=== PATIENT | female | born 1940 | race Caucasian/White ===

== ENCOUNTER → 2017-04-29 | Outpatient (CLI) | payer OTHER, BC ==
[~2017-04-29] MED LIST: ACYC1CAP8 PO; ASPCH81 PO; CIPR-255 PO; DICY20TA35 PO; DRGTP12 TOP; HYDR-5688 PO; LCTX PO; LPR25 PO; LVQ750 PO; METR500T PO; MRLP17X PO; ONDA8TAB6 PO; OXYC-57 PO; OXYC-643 PO; OXYC20TA50 PO; acyclovir
== END | disposition home or self-care (01) ==
LOC: C.LABSPEC 13:48
PROVIDERS: ATTEND Physician Assistant
DX: N90.9 Noninflammatory disorder of vulva and perineum, unspecified (principal)

== ENCOUNTER 2017-05-01 16:14 | Emergency (ER) | payer OTHER, BC ==
[~2017-05-01] VITALS: Ht 162.6 cm; Wt 63.3 kg
[~2017-05-01 16:14] MED LIST changes: -ACYC1CAP8 PO; -CIPR-255 PO; -DICY20TA35 PO; -DRGTP12 TOP; -HYDR-5688 PO; -LCTX PO; -METR500T PO; -MRLP17X PO; -ONDA8TAB6 PO; -OXYC-57 PO; -OXYC-643 PO; -OXYC20TA50 PO; -acyclovir
[2017-05-01 16:17] VITALS: TEMP 36.5; Ht 162.6 cm; Wt 63.3 kg
[2017-05-01] MEDS ORDERED: OXYC-57 PO (16:35)
[2017-05-01] MEDS ORDERED: METRONIDAZOLE 250 MG TAB PO STA (17:37)
[2017-05-01] MEDS ORDERED: KETOROLAC TROMETHAMINE 60 MG/2 ML VIAL IM STA (17:41)
[2017-05-01 19:41] LABS: BASO % 0.2 %; BASO ABS # 0.02 K/uL (0-0.2); COMPLETE YES; EOS % 0.7 %; HEMATOCRIT 41.4 % (37-47); IG% 0.3 %; LYMPH % 19.9 %; MEAN CELL VOLUME 87.5 fL (80-100); MEAN CORPUSCULAR HEMOGLOBIN 28.3 pg (25-34); MEAN CORPUSCULAR HGB CONC 32.4 g/dl (32-36); MEAN PLATELET VOLUME 9.6 fL (7.4-10.4); MONO % 8.3 %; NEUT % 70.6 %; PLATELET COUNT 280 K/uL (130-400); RED BLOOD COUNT 4.73 M/uL (4.2-5.4); WHITE BLOOD COUNT 11.04 K/uL (4.8-10.8)
[2017-05-01 19:42] LABS: URINE APPEARANCE CLEAR (CLEAR); URINE BILIRUBIN NEG (NEG); URINE COLOR YELLOW; URINE EPITHELIAL CELL AUTO 0-5 /lpf (0-5); URINE NITRITE NEG (NEG); URINE PH 5.5 (4.5-7.5); URINE SPECIFIC GRAVITY 1.014 (1.000-1.030); UROBILINOGEN NEG (NEG); ZZURINE CULT IF INDIC CATH NO
[2017-05-01] MEDS ORDERED: MoRPHine SULFATE 4 MG/ML 1 ML CARP\\VIAL IV STA (19:42)
[2017-05-01 19:45] LABS: MANUAL MICROSCOPIC REQUIRED? NO; REVIEW REQ? NO
[2017-05-01] MEDS ORDERED: MoRPHine SULFATE 10 MG/ML CARP/VIAL IM STA (19:50)
[2017-05-01 20:01] LABS: BUN/CREATININE RATIO 13.4 (10-20); CALCIUM 9.7 mg/dl (8.5-10.1); CREATININE 0.87 mg/dl (0.60-1.20); POTASSIUM 4.3 mmol/L (3.5-5.1)
--- NOTE | 2017-05-01 21:01 | DIAGNOSTIC IMAGING REPORT ---
CT SCAN OF THE ABDOMEN AND PELVIS WITHOUT CONTRAST CLINICAL HISTORY: Pain, radiating to the pelvis COMPARISON STUDY: 04/02/2014 TECHNIQUE: CT scan of the abdomen and pelvis was performed from the lung bases to the proximal femurs. Images are reviewed in the axial, sagittal, and coronal planes. IV contrast was not administered for this examination. A dose lowering technique was utilized adhering to the principles of ALARA. CT DOSE: 549.36 mGy.cm FINDINGS: Lower chest: There are mild dependent atelectatic changes. Liver: The unenhanced liver is normal in size, contour, and attenuation. There is no intrahepatic biliary ductal dilatation. Gallbladder: The gallbladder is mildly distended. No calculi are visualized. Spleen: Normal in size and attenuation. Pancreas: Unremarkable. Adrenal glands: Unremarkable. Kidneys: No renal calculi are visualized. 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 No ureteral calculi are visualized. Bowel: There are no transition zones indicate bowel obstruction. There is severe sigmoid diverticulosis. There is sigmoid wall thickening and very minimal infiltration the perisigmoid fat. Minimal sigmoid diverticulitis is suspected. An underlying colonic mass cannot be excluded. The appendix appears normal. Peritoneum: There is no intraperitoneal free air or abdominal ascites. Vasculature: The abdominal aorta is normal in course and caliber. Adenopathy: None. Pelvic viscera: The bladder, and pelvic viscera are unremarkable. Skeletal structures: There are multiple destructive bone lesions including an expansile lesion involving the left seventh rib, a 22 mm L4 vertebral body lytic lesion. A 29 mm right iliac lytic lesion, a 9 mm left iliac lytic lesion, and 56 mm right posterior pelvic soft tissue mass with sacral destruction. IMPRESSION: 1. No evidence of bowel obstruction. No evidence of free air 2. Normal appendix 3. Extensive sigmoid diverticulosis with suspected minimal diverticulitis. Underlying mass cannot be excluded. 4. 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 The findings are consistent with metastatic disease/myeloma. The sacral lesion would be amenable to CT-guided fine-needle aspiration biopsy. Electronically signed by: Marcelino Cano M.D. 05/01/2017 9:00 PM Dictated Date/Time: 05/01/2017 8:49 PM
[2017-05-01] MEDS ORDERED: CIPROFLOXACIN 500 MG TAB PO STA (21:25)
[2017-05-01] MEDS ORDERED: DICYCLOMINE HCL 20 MG TAB PO STA (21:29)
[2017-05-01] MEDS ORDERED: HYDROCODONE/ACETAMOPHEN 5/325MG TAB PO STA (21:29)
--- NOTE | 2017-05-01 21:54 | EMERGENCY ROOM VISIT NOTE ---
History Report prepared by Chaitanya: Alvin Poole Under the Supervision of: Dr. Crista Chang D.O. First contact with patient: 16:28 Chief Complaint: PELVIC PAIN Stated Complaint: VAGINAL PAIN History of Present Illness The patient is a 76 year old female who presents to the Emergency Room with complaints of worsening vaginal pain that started two days ago. She rates her pain as a 10/10 in severity. She reports that she has a dropped cervix, which she has been using pessaries for. The patient states that she had developed a rash in her genital area that prompted her to visit her doctor where they thought it was just due to irritation and advised she get her pessary changed. The patient states that she went to her [employer] to have her pessary changed and states that it worked until two days ago when she was feeling "irritated". She states that she went to see her doctor two days ago due to the irritation and a PA took out her pessary to relieve her symptoms. The patient states that since her pessary was removed, she has been experiencing "excruciating" pain radiating from her genital area to her buttocks. She also reports that she has been vomiting and nauseous. The patient states she took Oxycodone at 1000, but denies relief of symptoms. The patient denies any vaginal discharge or bleeding , previous vaginal issues, use of topical creams, change in bowel movements, urinary symptoms, previous pessary issues, back pain, fevers, and chills. Source of History: patient Onset: two days ago Position: other (vaginal area) Symptom Intensity: 10/10 Timing: worsening Modifying Factors (Relieving): other (Oxycodone) Associated Symptoms: + nausea, + vomiting, No fevers, No abdominal pain, No back pain, No urinary symptoms Review of Systems See HPI for pertinent positives & negatives. A total of 10 systems reviewed and were otherwise negative. Past Medical & Surgical Medical Problems: (1) No Known Active Medical Problems Family History Diabetes mellitus FHx: cancer Heart disease Kidney disease Kidney stones Social History Smoking Status: Former Smoker Alcohol Use: other (6 oz wine/day) Drug Use: none Marital Status: Housing Status: lives with family Occupation Status: retired Current/Historical Medications Scheduled Ciprofloxacin Hcl (Cipro), 500 MG PO BID Dicyclomine Hcl (Bentyl), 20 MG PO TID Metronidazole (Flagyl), 500 MG PO TID Scheduled PRN Hydrocodone/Acetaminophen 5MG/325MG (Hurricane 5MG/325MG), 1-2 TABS PO Q6H PRN for Pain Oxycodone/Acetaminophen 5MG/325MG (Percocet 5MG/325MG), 1 TABLET PO Q4 PRN for Pain Allergies Coded Allergies: No Known Allergies (Unverified , 05/01/17) Physical Exam Vital Signs Date Time Temp Pulse Resp B/P (MAP) Pulse Ox O2 Delivery O2 Flow Rate FiO2 05/01/17 23:15 94 18 112/54 93 Room Air 05/01/17 20:38 96 18 124/60 95 Room Air 05/01/17 17:57 95 17 135/61 99 Room Air 05/01/17 16:17 36.5 120 20 131/70 99 Room Air Physical Exam GENERAL: alert, well appearing, well nourished, no distress, non-toxic EYE EXAM: normal conjunctiva, PERRL and EOM's grossly intact OROPHARYNX: no exudate, no erythema, lips, buccal mucosa, and tongue normal and mucous membranes are moist. No CMT. No tenderness. NECK: supple, no nuchal rigidity, no adenopathy, non-tender LUNGS: Clear to auscultation. Normal chest wall mechanics HEART: no murmurs, S1 normal and S2 normal ABDOMEN: abdomen soft, non-tender, normo-active bowel sounds, no masses, no rebound or guarding. BACK: Back is symmetrical on inspection and there is no deformity, no midline tenderness, no CVA tenderness. SKIN: no rashes and no bruising UPPER EXTREMITIES: upper extremities are grossly normal. LOWER EXTREMITIES: No pitting edema. GENITAL: normal external genitalia, no irritation or evidence of bleeding from the vaginal vault. She had a thin white vaginal discharge. Cervix normal appearing. NEURO EXAM: Normal sensorium, cranial nerves II-XII grossly intact, normal speech, no gross weakness of arms, no gross weakness of legs. No drift. Finger to nose intact. Gross sensation intact. Medical Decision & Procedures ER Provider Diagnostic Interpretation: CT scan: Radiology provided the following report CT: The preliminary reading from radiology is the following: CT SCAN OF THE ABDOMEN AND PELVIS WITHOUT CONTRAST CLINICAL HISTORY: Pain, radiating to the pelvis COMPARISON STUDY: 04/02/2014 TECHNIQUE: CT scan of the abdomen and pelvis was performed from the lung bases to the proximal femurs. Images are reviewed in the axial, sagittal, and coronal planes. IV contrast was not administered for this examination. A dose lowering technique was utilized adhering to the principles of ALARA. CT DOSE: 549.36 mGy.cm FINDINGS: Lower chest: There are mild dependent atelectatic changes. Liver: The unenhanced liver is normal in size, contour, and attenuation. There is no intrahepatic biliary ductal dilatation. Gallbladder: The gallbladder is mildly distended. No calculi are visualized. Spleen: Normal in size and attenuation. Pancreas: Unremarkable. Adrenal glands: Unremarkable. Kidneys: No renal calculi are visualized. 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 No ureteral calculi are visualized. Bowel: There are no transition zones indicate bowel obstruction. There is severe sigmoid diverticulosis. There is sigmoid wall thickening and very minimal infiltration the perisigmoid fat. Minimal sigmoid diverticulitis is suspected. An underlying colonic mass cannot be excluded. The appendix appears normal. Peritoneum: There is no intraperitoneal free air or abdominal ascites. Vasculature: The abdominal aorta is normal in course and caliber. Adenopathy: None. Pelvic viscera: The bladder, and pelvic viscera are unremarkable. Skeletal structures: There are multiple destructive bone lesions including an expansile lesion involving the left seventh rib, a 22 mm L4 vertebral body lytic lesion. A 29 mm right iliac lytic lesion, a 9 mm left iliac lytic lesion, and 56 mm right posterior pelvic soft tissue mass with sacral destruction. IMPRESSION: 1. No evidence of bowel obstruction. No evidence of free air 2. Normal appendix 3. Extensive sigmoid diverticulosis with suspected minimal diverticulitis. Underlying mass cannot be excluded. 4. 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 The findings are consistent with metastatic disease/myeloma. The sacral lesion would be amenable to CT-guided fine-needle aspiration biopsy. Electronically signed by: Marcelino Cano M.D. 05/01/2017 9:00 PM Dictated Date/Time: 05/01/2017 8:49 PM Laboratory Results 05/01/17 19:29 Red Blood Count 4.73, Mean Corpuscular Volume 87.5, Mean Corpuscular Hemoglobin 28.3, Mean Corpuscular Hemoglobin Concent 32.4, Mean Platelet Volume 9.6, Neutrophils (%) (Auto) 70.6, Lymphocytes (%) (Auto) 19.9, Monocytes (%) (Auto) 8.3, Eosinophils (%) (Auto) 0.7, Basophils (%) (Auto) 0.2, Neutrophils # (Auto) 7.79, Lymphocytes # (Auto) 2.20, Monocytes # (Auto) 0.92, Eosinophils # (Auto) 0.08, Basophils # (Auto) 0.02 05/01/17 19:29 Test 05/01/17 18:50 05/01/17 19:29 Urine Color YELLOW Urine Appearance CLEAR (CLEAR) Urine pH 5.5 (4.5-7.5) Urine Specific Cecil 1.014 (1.000-1.030) Urine Protein NEG (NEG) Urine Glucose (UA) NEG (NEG) Urine Ketones 1+ (NEG) Urine Occult Blood NEG (NEG) Urine Nitrite NEG (NEG) Urine Bilirubin NEG (NEG) Urine Urobilinogen NEG (NEG) Urine Leukocyte Esterase NEG (NEG) Urine WBC (Auto) 0 /hpf (0-5) Urine RBC (Auto) 0-4 /hpf (0-4) Urine Hyaline Casts (Auto) 0 /lpf (0-5) Urine Epithelial Cells (Auto) 0-5 /lpf (0-5) Urine Bacteria (Auto) NEG (NEG) White Blood Count 11.04 K/uL (4.8-10.8) Red Blood Count 4.73 M/uL (4.2-5.4) Hemoglobin 13.4 g/dL (12.0-16.0) Hematocrit 41.4 % (37-47) Mean Corpuscular Volume 87.5 fL (80-100) Mean Corpuscular Hemoglobin 28.3 pg (25-34) Mean Corpuscular Hemoglobin Concent 32.4 g/dl (32-36) Platelet Count 280 K/uL (130-400) Mean Platelet Volume 9.6 fL (7.4-10.4) Neutrophils (%) (Auto) 70.6 % Lymphocytes (%) (Auto) 19.9 % Monocytes (%) (Auto) 8.3 % Eosinophils (%) (Auto) 0.7 % Basophils (%) (Auto) 0.2 % Neutrophils # (Auto) 7.79 K/uL (1.4-6.5) Lymphocytes # (Auto) 2.20 K/uL (1.2-3.4) Monocytes # (Auto) 0.92 K/uL (0.11-0.59) Eosinophils # (Auto) 0.08 K/uL (0-0.5) Basophils # (Auto) 0.02 K/uL (0-0.2) RDW Standard Deviation 39.8 fL (36.4-46.3) RDW Coefficient of Variation 12.3 % (11.5-14.5) Immature Granulocyte % (Auto) 0.3 % Immature Granulocyte # (Auto) 0.03 K/uL (0.00-0.02) Anion Gap 9.0 mmol/L (3-11) Est Creatinine Clear Calc Drug Dose 48.3 ml/min Estimated GFR () 75.5 Estimated GFR (Non- 65.2 BUN/Creatinine Ratio 13.4 (10-20) Calcium Level 9.7 mg/dl (8.5-10.1) Chemistry Specimen Hemolysis Date/Time Source Procedure Growth Status 05/01/17 17:25 Cervix Swab Trichomonas Preparation - Final Complete Laboratory results per my review. Medications Administered Medications (Trade) Dose Ordered Sig/Cooper Route Start Time Stop Time Status Last Admin Dose Admin Metronidazole (Flagyl Tab) 500 mg NOW STAT PO 05/01/17 17:37 05/01/17 17:38 DC 05/01/17 17:50 500 MG Ketorolac Tromethamine (Toradol Inj) 30 mg NOW STAT IM 05/01/17 17:41 05/01/17 17:43 DC 05/01/17 17:51 30 MG Morphine Sulfate (MoRPHine SULFATE INJ) 6 mg NOW STAT IM 05/01/17 19:50 05/01/17 19:51 DC 05/01/17 20:09 6 MG Ciprofloxacin (Cipro Tab) 500 mg NOW STAT PO 05/01/17 21:25 05/01/17 21:26 DC 05/01/17 22:15 500 MG Dicyclomine HCl (Bentyl Tab) 20 mg NOW STAT PO 05/01/17 21:29 05/01/17 21:31 DC 05/01/17 22:14 20 MG Acetaminophen/ Hydrocodone Bitart (Hurricane 5/325 Tab) 1 tab NOW STAT PO 05/01/17 21:29 05/01/17 21:31 DC 05/01/17 22:14 1 TAB ED Course 1638: The patient was evaluated in room A02. A complete history and physical exam was performed. 173: Flagyl Tab 500 mg PO 1740: Toradol Injection 30 mg IM. 1941: Morphine Sulfate 4 mg IV. 1949: Morphine Sulfate 5 mg IM. 2107: I reevaluated the patient and she is resting comfortably. I updated her on her results and will discharge her home when I can control her pain. 2124: Cipro Tab 500 mg PO. 2128: Hurricane 5/325 Tab 1 tab PO, Bentyl Tab 20 mg PO. 2255: Pt states pain improved and ready to go home. Medical Decision Differential diagnoses includes but is not limited to gastritis, peptic ulcer disease, GERD, gallbladder disease, pancreatitis, small bowel obstruction, acute coronary syndrome, pericarditis, ischemic bowel, irritable bowel disease, irritable bowel syndrome, appendicitis, diverticulitis, malignancy, hernia, urinary tract infection, perforation, trauma, infectious. Medication Reconciliation: I attest that I have personally reviewed the patient' s current medication list. Blood pressure screening: Patient was found to have a slightly elevated blood pressure due to circumstances. I do not believe that the patient requires hypertension monitoring. Patient uncomfortable appearing here, however reassuring exam with exception of mild vaginal discharge. Recent genital cultures performed by [employer] the office upon removal of pessary grout Gardnerella, and discussed the patient at bedside treatment for possible BV. Patient with no behaviors high risk for additional STDs. Given persistence of patient's pain despite pain medications, discussed with her labs and additional imaging as a precaution. Diverticulitis no noted on CT, and patient improved following additional medications. Discussed antibiotics, pain medications with patient at bedside, follow-up with PCP as well as GI. Patient verbalized she has never had a colonoscopy and never intends to get one. States if advised of such she will refuse. I discussed with patient that this is a recommended screening procedure and would likely be recommended over the next 46 weeks following resolution of her diverticulitis symptoms. She verbalized understanding of this and intends to refuse the procedure. Discussed with patient and family symptoms watch and return for, use of antibiotics, probiotics, adequate hydration, follow-up again with [employer] regarding her pessary and possible BV, they verbalized understanding of all this , all questions answered bedside, they were agreeable with plan. Doubt additional or vascular pathology. Patient's diverticulitis mild with no apparent complications seen on CT. Blood Pressure Screening Patient's blood pressure: Elevated blood pressure Blood pressure disposition: Elevated BP felt to be situational Impression Primary Impression: Pelvic pain Additional Impressions: Vaginal discharge Bacterial vaginosis Diverticulitis Scribe Attestation The scribe's documentation has been prepared under my direction and personally reviewed by me in its entirety. I confirm that the note above accurately reflects all work, treatment, procedures, and medical decision making performed by me. Departure Information Dispostion Home / Self-Care Prescriptions Hydrocodone/Acetaminophen 5MG/325MG (Hurricane 5MG/325MG) Tab 1-2 TABS PO Q6H Y for Pain, #20 TAB Prov: Crista Chang, DO 05/01/17 Dicyclomine Hcl (BENTYL) 20 Mg Tab 20 MG PO TID for Pain, #20 TAB Prov: Crista Chang, DO 05/01/17 Metronidazole (FLAGYL) 500 Mg Tab 500 MG PO TID for 7 Days, #21 TAB Prov: Crista Chang, DO 05/01/17 Ciprofloxacin Hcl (CIPRO) 500 Mg Tab 500 MG PO BID, #14 TAB Prov: Crista Chang, DO 05/01/17 Referrals Artemio Mane III, M.D. (PCP) Patient Instructions My [facility] Additional Instructions Please call and follow-up with your family doctor. Please follow-up with ob/ dealer card room also regarding your pessary and vaginal discharge. Please take the antibiotics as prescribed. Please consider using probiotics while you are taking antibiotics. Please drink plenty of water. You may use the pain medications as prescribed. If you have any worsening pain, increased discharge , black or bloody stools, develop vomiting, dizziness, or you have any other new or concerning symptoms, please return to the emergency room. Please have your family doctor schedule follow-up regarding the abnormality noted on your sacrum which may require a biopsy. Problem Qualifiers Additional Impressions: Diverticulitis Diverticulitis site: large intestine Diverticulitis bleeding: without bleeding Diverticulitis complication: without perforation or abscess Qualified Codes: K57.32 - Diverticulitis of large intestine without perforation or abscess without bleeding
[2017-05-01] MEDS ORDERED: METR500T PO (22:58)
[2017-05-01] MEDS ORDERED: DICY20TA35 PO (22:58)
[2017-05-01] MEDS ORDERED: HYDR-5688 PO (22:58)
[2017-05-01] MEDS ORDERED: CIPR-255 PO (22:58)
[2017-05-01 23:15] VITALS: BP 112/54; PULSE 94; O2SAT 93
--- NOTE | 2017-05-04 17:28 | Pharmacy Progress Note ---
ED Pharmacist Culture FollowUp Date of Service: May 04, 2017. Patient was sent home with a prescription for ciprofloxacin, which should cover the Pseudomonas growing from the patient's genital culture. Patient was sent home with a prescription for metronidazole, which should cover the Gardnerella growing from the patient's genital culture. Called patient regarding genital culture. Informed of Pseudomonas result, the importance of adherence to her antibiotics, and the need for outpatient follow- up, (per my discussion with Dr. Cutler). Patient noted that she plans to call Dr. Mane's office tomorrow to make an appointment. Patient also reported no improvement in her symptoms as compared to when she was seen in the ED, but denied worsening of symptoms. Counseled that she can return to the ED at any time for re-evaluation. Patient acknowledged understanding.
[2017-05-08] MEDS ORDERED: LCTX PO (11:53)
[2017-05-08] MEDS ORDERED: OXYC-57 PO (11:53)
[2017-05-08] MEDS ORDERED: MRLP17X PO (11:53)
[2017-05-13] MEDS ORDERED: OXYC-643 PO (10:21)
[2017-05-13] MEDS ORDERED: OXYC20TA50 PO (10:22)
[2017-05-16] MEDS ORDERED: acyclovir (17:54)
[2017-05-23] MEDS ORDERED: DRGTP12 TOP (15:45)
[2017-06-10] MEDS ORDERED: OXYC-57 PO (08:51)
[2017-06-10] MEDS ORDERED: ONDA8TAB6 PO (08:51)
[2017-06-10] MEDS ORDERED: ACYC1CAP8 PO (08:51)
== END 2017-05-01 23:16 | disposition home or self-care (01) ==
LOC: C.EDB 16:15 → C.EDA 23:16
DX: R10.2 Pelvic and perineal pain (principal); K57.32 Diverticulitis of large intestine without perforation or abscess without bleeding; N76.0 Acute vaginitis; Z87.891 Personal history of nicotine dependence; Z83.3 Family history of diabetes mellitus; Z84.1 Family history of disorders of kidney and ureter

== ENCOUNTER 2017-05-05 11:20 | Inpatient (IN) | payer OTHER, BC ==
[~2017-05-05] VITALS: Ht 162.6 cm; Wt 62.9 kg
[~2017-05-05 11:20] MED LIST changes: -ASPCH81 PO; +CIPR-255 PO; +DICY20TA35 PO; +HYDR-5688 PO; -LPR25 PO; -LVQ750 PO; +METR500T PO; +OXYC-57 PO
--- NOTE | 2017-05-05 12:05 | EMERGENCY ROOM VISIT NOTE ---
History Report prepared by Chaitanya: Tunde Moran Under the Supervision of: Dr. Yair Cornell M.D. First contact with patient: 12:03 Chief Complaint: VOMITING Stated Complaint: DIVERTICULITIS, 2 INFECTIONS Nursing Triage Summary: Pt ambulates to room. Reports seen on Tuesday here, dx diverticulitis. Pt reports unable to to keep anything down for 2 days. Pt reports water, comes back up. History of Present Illness The patient is a 76 year old female who presents to the Emergency Room with complaints of intermittent vomiting beginning yesterday. She currently rates her discomfort an 8/10 in severity. The patient states that she was here five days and was diagnosed with diverticulitis upon a CT scan. She reports that she was placed on Cipro and Flagyl. The patient notes that she started feeling better until yesterday. She states that she is unable to keep medication or water down, and she feels dehydrated. The patient reports that she was also told she had a sacral bony lesion that was concerning for cancer. She notes that she has been having right-sided back pain and left lower quadrant abdominal pain. The patient denies fevers, dysuria, changes in urinary frequency , history of abdominal surgery, and cancer. Source of History: patient Onset: yesterday Position: other (global) Symptom Intensity: 8/10 Quality: other (vomiting) Timing: intermittent Associated Symptoms: + abdominal pain, + back pain, No urinary symptoms Note: Associated symptoms: feeling dehydrated Review of Systems See HPI for pertinent positives & negatives. A total of 10 systems reviewed and were otherwise negative. Past Medical & Surgical Medical Problems: (1) Diverticulitis (2) No Known Active Medical Problems Family History Diabetes mellitus FHx: cancer Heart disease Kidney disease Kidney stones Social History Smoking Status: Former Smoker Alcohol Use: other Drug Use: none Marital Status: Housing Status: lives with family Occupation Status: retired Current/Historical Medications Scheduled Ciprofloxacin Hcl (Cipro), 500 MG PO BID Dicyclomine Hcl (Bentyl), 20 MG PO TID Metronidazole (Flagyl), 500 MG PO TID Scheduled PRN Hydrocodone/Acetaminophen 5MG/325MG ([place] 5MG/325MG), 1-2 TABS PO Q6H PRN for Pain Oxycodone/Acetaminophen 5MG/325MG (Percocet 5MG/325MG), 1 TABLET PO Q4 PRN for Pain Allergies Uncoded Allergies: TAPE (Adverse Reaction, Mild, RASH, 05/05/17) Physical Exam Vital Signs Date Time Temp Pulse Resp B/P (MAP) Pulse Ox O2 Delivery O2 Flow Rate FiO2 05/05/17 11:35 108 05/05/17 11:21 36.6 116 16 105/67 98 Room Air Physical Exam GENERAL: Patient is in no acute distress. HEENT: No acute trauma, normocephalic atraumatic, mucous membranes dry, no nasal congestion, no scleral icterus. NECK: No stridor, no adenopathy, no meningismus, trachea is midline. LUNGS: Clear to auscultation bilaterally, no wheeze, no rhonchi, breath sounds equal. HEART: Without murmurs gallops or rubs, regular rate and rhythm. ABDOMEN: Soft, mild left lower quadrant tender to palpation, bowel sounds positive, no hernias, no peritonitis. BACK: Tenderness to the right sacrum/buttock on palpation EXTREMITIES: No cyanosis or edema, full range of motion of all the joints without pain or difficulty, no signs for acute trauma. NEUROLOGIC: Oriented x 3, no acute motor or sensory deficits, no focal weakness. SKIN: No rash, no jaundice, no diaphoresis. Medical Decision & Procedures Laboratory Results 05/05/17 11:50 Red Blood Count 4.42, Mean Corpuscular Volume 88.5, Mean Corpuscular Hemoglobin 30.1, Mean Corpuscular Hemoglobin Concent 34.0, Mean Platelet Volume 9.8, Neutrophils (%) (Auto) 55.7, Lymphocytes (%) (Auto) 30.9, Monocytes (%) (Auto) 11.6, Eosinophils (%) (Auto) 1.2, Basophils (%) (Auto) 0.4, Neutrophils # (Auto ) 4.71, Lymphocytes # (Auto) 2.61, Monocytes # (Auto) 0.98, Eosinophils # (Auto ) 0.10, Basophils # (Auto) 0.03 05/05/17 11:50 Test 05/05/17 11:50 White Blood Count 8.45 K/uL (4.8-10.8) Red Blood Count 4.42 M/uL (4.2-5.4) Hemoglobin 13.3 g/dL (12.0-16.0) Hematocrit 39.1 % (37-47) Mean Corpuscular Volume 88.5 fL (80-100) Mean Corpuscular Hemoglobin 30.1 pg (25-34) Mean Corpuscular Hemoglobin Concent 34.0 g/dl (32-36) Platelet Count 265 K/uL (130-400) Mean Platelet Volume 9.8 fL (7.4-10.4) Neutrophils (%) (Auto) 55.7 % Lymphocytes (%) (Auto) 30.9 % Monocytes (%) (Auto) 11.6 % Eosinophils (%) (Auto) 1.2 % Basophils (%) (Auto) 0.4 % Neutrophils # (Auto) 4.71 K/uL (1.4-6.5) Lymphocytes # (Auto) 2.61 K/uL (1.2-3.4) Monocytes # (Auto) 0.98 K/uL (0.11-0.59) Eosinophils # (Auto) 0.10 K/uL (0-0.5) Basophils # (Auto) 0.03 K/uL (0-0.2) RDW Standard Deviation 41.3 fL (36.4-46.3) RDW Coefficient of Variation 12.7 % (11.5-14.5) Immature Granulocyte % (Auto) 0.2 % Immature Granulocyte # (Auto) 0.02 K/uL (0.00-0.02) Anion Gap 7.0 mmol/L (3-11) Est Creatinine Clear Calc Drug Dose 51.9 ml/min Estimated GFR () 82.3 Estimated GFR (Non- 71.0 BUN/Creatinine Ratio 12.6 (10-20) Calcium Level 9.4 mg/dl (8.5-10.1) Total Bilirubin 0.5 mg/dl (0.2-1) Aspartate Amino Transf (AST/SGOT) 36 U/L (15-37) Alanine Aminotransferase (ALT/SGPT) 31 U/L (12-78) Alkaline Phosphatase 81 U/L (45-117) Total Protein 9.2 gm/dl (6.4-8.2) Albumin 2.8 gm/dl (3.4-5.0) Globulin 6.4 gm/dl (2.5-4.0) Albumin/Globulin Ratio 0.4 (0.9-2) Lipase 134 U/L (73-393) Laboratory results reviewed by me. Medications Administered Medications (Trade) Dose Ordered Sig/Cooper Route Start Time Stop Time Status Last Admin Dose Admin Sodium Chloride 500 ml @ 999 mls/hr Q31M STAT IV 05/05/17 12:10 05/05/17 12:40 DC 05/05/17 12:05 999 MLS/HR Ondansetron HCl (Zofran Inj) 4 mg NOW STAT IV 05/05/17 12:10 05/05/17 12:13 DC 05/05/17 12:42 4 MG Sodium Chloride 1,000 ml @ 200 mls/hr Q5H STAT IV 05/05/17 12:10 05/05/17 14:58 DC 05/05/17 12:35 200 MLS/HR Morphine Sulfate (MoRPHine SULFATE INJ) 4 mg Q30M PRN IV 05/05/17 12:15 05/05/17 14:58 DC 05/05/17 12:45 4 MG Ketorolac Tromethamine (Toradol Inj) 30 mg NOW STAT IV 05/05/17 12:10 05/05/17 12:13 DC 05/05/17 12:43 30 MG Ciprofloxacin/ Dextrose (Cipro / D5W) 400 mg NOW STAT IV 05/05/17 12:10 05/05/17 12:13 DC 05/05/17 12:45 400 MG Metronidazole (Flagyl / Nss) 500 mg NOW STAT IV 05/05/17 12:10 05/05/17 12:13 DC 05/05/17 12:46 500 MG ECG Indication: abdominal pain Rate (beats per minute): 101 Rhythm: sinus tachycardia Findings: no acute ischemic change, no ectopy ED Course 1209: The patient was evaluated in room C10. A complete history and physical exam was performed. 1210: Ordered Metronidazole 500 mg IV, Cipro / D5W 400 mg IV, Toradol Inj 30 mg IV, Sodium Chloride 1000 ml @ 200 mls/hr IV, Zofran Inj 4 mg IV, Sodium Chloride 500 ml @ 999 mls/hr IV 1215: Ordered Morphine Sulfate 4 mg IV 1247: I discussed the patient's case with Dr. Mondragon, [facility] Hospitalist. The patient will be evaluated for further treatment. 1248: Upon reexamination the patient is resting. I discussed results and treatment plan with the patient. she verbalizes agreement and understanding. The patient will be evaluated for further management. Medical Decision Differential diagnosis includes: failed outpatient treatment, malignancy, osteomyelitis, electrolyte imbalance, dehydration, diverticulitis, UTI There is no leukocytosis or concerning anemia. No significant electrolyte abnormality, kidney failure or hepatitis. There is no pancreatitis. The patient seemed dehydrated on exam. She was tender in the left lower quadrant consistent with her diagnosis of diverticulitis. She had pain in the right sacrum consistent with the lesion concerning for malignancy noted on CT. The patient received IV saline, IV Toradol, IV morphine and IV Zofran. She was given IV Cipro and IV Flagyl. The patient is failing treatment as an outpatient for diverticulitis. She cannot tolerate liquids or medications. She is vomiting. Admission/ observation is warranted given the circumstances. I did speak to the patient and case management. The on-call hospitalist was consulted. Medication Reconcilliation Current Medication List: was personally reviewed by me Blood Pressure Screening Patient's blood pressure: Normal blood pressure Blood pressure disposition: Did not require urgent referral Consults Time Called: 1239 Consulting Physician: Michelle Guy Hospitalist Returned Call: 1247 I discussed the patient's case with Michelle Guy Hospitalist. The patient will be evaluated for further treatment. Impression Primary Impression: Failure of outpatient treatment Additional Impressions: Diverticulitis Vomiting Sacral mass Scribe Attestation The scribe's documentation has been prepared under my direction and personally reviewed by me in its entirety. I confirm that the note above accurately reflects all work, treatment, procedures, and medical decision making performed by me. Departure Information Dispostion Being Evaluated By Hospitalist Referrals No Doctor, Assigned (PCP) Patient Instructions My [facility] Problem Qualifiers
[2017-05-05] MEDS ORDERED: METRONIDAZOLE 500MG / 100ML NSS IV STA (12:10)
[2017-05-05] MEDS ORDERED: SODIUM CHLORIDE 0.9% 1000ML 500 ML IV STA (12:10)
[2017-05-05] MEDS ORDERED: KETOROLAC TROMETHAMINE 30 MG/ML VIAL IV STA (12:10)
[2017-05-05] MEDS ORDERED: CIPROFLOXACIN 400MG / 200ML D5W IV STA (12:10)
[2017-05-05] MEDS ORDERED: ONDANSETRON INJ 2 MG/ML 2 ML VIAL IV STA (12:10)
[2017-05-05] MEDS ORDERED: SODIUM CHLORIDE 0.9% 1000ML 1,000 ML IV STA (12:10)
[2017-05-05] MEDS ORDERED: MoRPHine SULFATE 4 MG/ML 1 ML CARP\\VIAL IV PRN (12:15)
[2017-05-05 12:19] LABS: BASO % 0.4 %; BASO ABS # 0.03 K/uL (0-0.2); COMPLETE YES; EOS % 1.2 %; HEMATOCRIT 39.1 % (37-47); IG% 0.2 %; LYMPH % 30.9 %; LYMPH ABS # 2.61 K/uL (1.2-3.4); MEAN CELL VOLUME 88.5 fL (80-100); MEAN CORPUSCULAR HEMOGLOBIN 30.1 pg (25-34); MEAN PLATELET VOLUME 9.8 fL (7.4-10.4); MONO % 11.6 %; NEUT % 55.7 %; PLATELET COUNT 265 K/uL (130-400); RED BLOOD COUNT 4.42 M/uL (4.2-5.4); WHITE BLOOD COUNT 8.45 K/uL (4.8-10.8)
[2017-05-05 12:27] LABS: BUN/CREATININE RATIO 12.6 (10-20); CALCIUM 9.4 mg/dl (8.5-10.1); CREATININE 0.81 mg/dl (0.60-1.20); POTASSIUM 4.2 mmol/L (3.5-5.1)
[2017-05-05 12:30] LABS: ALB/GLOB RATIO 0.4 (0.9-2)
[2017-05-05] MEDS ORDERED: ACETAMINOPHEN 325 MG TAB PO PRN (13:00)
[2017-05-05] MEDS ORDERED: MAGNESIUM HYDROXIDE SUSP 30 ML UDC PO PRN (13:00)
[2017-05-05] MEDS ORDERED: ONDANSETRON INJ 2 MG/ML 2 ML VIAL IV PRN (13:00)
[2017-05-05 13:05] VITALS: O2SAT 94; Ht 162.6 cm; Wt 62.9 kg
[2017-05-05] MEDS ORDERED: ONDANSETRON INJ 2 MG/ML 2 ML VIAL IV. PRN (13:15)
[2017-05-05] MEDS ORDERED: POLYETHYLENE (MIRALAX) 17 GM PACK PO PRN (14:30)
--- NOTE | 2017-05-05 14:37 | History and Physical ---
History & Physical Date & Time of Service: May 05, 2017 at 14:18 Chief Complaint: Diverticulitis, 2 Infections Primary Care Physician: Artemio Mane III, M.D. History of Present Illness Source: patient The patient is a 76 year old female who presents to the Emergency Room with complaints of intermittent vomiting beginning yesterday. Patient was in ER on 05/01/17 for vaginal / pelvic pain, CT scan was done which showed minimal diverticulitis, sacral lesion. Was discharged on cipro, flagyl, norco, dicyclomine PRN. Patient does have c/o right hip pain x 2 months for which she has has been to PCP, Rheumatology, Orthopedics- been treated with steroids, percocet, oxycontin without any relief of her pain. She mentions her main complaint when she came to ER on 05/01/17 was right hip pain as unable to control it with any PO medications. IV morphine than helped. No symptoms of diverticulitis were present at that time, but as CT scan showed minimal diverticulitis, she was given Cipro/Flagyl. She was advised to follow up outpatient for sacral lesion. Today she comes in with c/o vomiting since yesterday evening. No associated abdominal pain, fever, chills. No cough, chest pain, headaches, dizziness, anorexia, weight loss No localized weakness, numbness. In ER, slightly tachycardic, afebrile. Labs- no sig abnormalities, CT scan abd/ pelvis- Extensive sigmoid diverticulosis with suspected minimal diverticulitis, underlying mass cannot be excluded, lytic bone disease with soft tissue mass with sacral destruction. Will admit her for vomiting, unable to tolerate any thing PO and further evaluation of abnormal findings concerning for malignancy. Family History Diabetes mellitus FHx: cancer Heart disease Kidney disease Kidney stones Social History Smoking Status: Former Smoker Drug Use: none Marital Status: Occupational Status: retired Allergies Uncoded Allergies: TAPE (Adverse Reaction, Mild, RASH, 05/05/17) Home Medications Scheduled Ciprofloxacin Hcl (Cipro), 500 MG PO BID Dicyclomine Hcl (Bentyl), 20 MG PO TID Metronidazole (Flagyl), 500 MG PO TID Scheduled PRN Hydrocodone/Acetaminophen 5MG/325MG ([place] 5MG/325MG), 1-2 TABS PO Q6H PRN for Pain Oxycodone/Acetaminophen 5MG/325MG (Percocet 5MG/325MG), 1 TABLET PO Q4 PRN for Pain Review of Systems Constitutional: No fever, No weight loss, No fatigue Eyes: No worsening of vision, No eye pain, No redness ENT: No hearing loss, No nasal symptoms Respiratory: No cough, No sputum, No wheezing, No shortness of breath Cardiovascular: No chest pain, No orthopnea, No edema Abdomen: + nausea, + vomiting, No pain, No diarrhea, No GI bleeding Musculoskeletal: + joint pain (hip pain), No swelling Genitourinary - Female: No dysuria, No urinary frequency, No urinary urgency Neurologic: No memory loss, No paralysis Psychiatric: No depression symptoms Endocrine: No fatigue Hematologic / Lymphatic: No abnormal bleeding/bruising Integumentary: No rash Physical Exam Vital Signs Date Time Temp Pulse Resp B/P (MAP) Pulse Ox O2 Delivery O2 Flow Rate FiO2 05/05/17 13:07 104 14 132/62 94 Room Air 05/05/17 13:05 94 Room Air 05/05/17 11:35 108 05/05/17 11:21 36.6 116 16 105/67 98 Room Air General Appearance: WD/WN, no apparent distress Head: normocephalic, atraumatic Eyes: PERRL ENT: hearing grossly normal Neck: supple, no JVD Respiratory/Chest: chest non-tender, lungs clear, normal breath sounds, no respiratory distress, no accessory muscle use Cardiovascular: regular rate, rhythm, no edema, no murmur Abdomen/GI: normal bowel sounds, non tender, soft Extremities/Musculoskelatal: + pertinent finding (No point tenderness in right hip) Neurologic/Psych: no motor/sensory deficits, alert, oriented x 3 Skin: normal color Diagnostics Laboratory Results Results Past 24 Hours Test 05/05/17 11:50 Range/Units White Blood Count 8.45 4.8-10.8 K/uL Red Blood Count 4.42 4.2-5.4 M/uL Hemoglobin 13.3 12.0-16.0 g/dL Hematocrit 39.1 37-47 % Mean Corpuscular Volume 88.5 80-100 fL Mean Corpuscular Hemoglobin 30.1 25-34 pg Mean Corpuscular Hemoglobin Concent 34.0 32-36 g/dl Platelet Count 265 130-400 K/uL Mean Platelet Volume 9.8 7.4-10.4 fL Neutrophils (%) (Auto) 55.7 % Lymphocytes (%) (Auto) 30.9 % Monocytes (%) (Auto) 11.6 % Eosinophils (%) (Auto) 1.2 % Basophils (%) (Auto) 0.4 % Neutrophils # (Auto) 4.71 1.4-6.5 K/uL Lymphocytes # (Auto) 2.61 1.2-3.4 K/uL Monocytes # (Auto) 0.98 0.11-0.59 K/uL Eosinophils # (Auto) 0.10 0-0.5 K/uL Basophils # (Auto) 0.03 0-0.2 K/uL RDW Standard Deviation 41.3 36.4-46.3 fL RDW Coefficient of Variation 12.7 11.5-14.5 % Immature Granulocyte % (Auto) 0.2 % Immature Granulocyte # (Auto) 0.02 0.00-0.02 K/uL Sodium Level 134 136-145 mmol/L Potassium Level 4.2 3.5-5.1 mmol/L Chloride Level 102 98-107 mmol/L Carbon Dioxide Level 25 21-32 mmol/L Anion Gap 7.0 3-11 mmol/L Blood Urea Nitrogen 10 7-18 mg/dl Creatinine 0.81 0.60-1.20 mg/dl Est Creatinine Clear Calc Drug Dose 51.9 ml/min Estimated GFR () 82.3 Estimated GFR (Non- 71.0 BUN/Creatinine Ratio 12.6 10-20 Random Glucose 102 70-99 mg/dl Calcium Level 9.4 8.5-10.1 mg/dl Total Bilirubin 0.5 0.2-1 mg/dl Aspartate Amino Transf (AST/SGOT) 36 15-37 U/L Alanine Aminotransferase (ALT/SGPT) 31 12-78 U/L Alkaline Phosphatase 81 45-117 U/L Total Protein 9.2 6.4-8.2 gm/dl Albumin 2.8 3.4-5.0 gm/dl Globulin 6.4 2.5-4.0 gm/dl Albumin/Globulin Ratio 0.4 0.9-2 Lipase 134 73-393 U/L Diagnostic Radiology CT ABD/PELVIS ON 05/01/17 IMPRESSION: 1. No evidence of bowel obstruction. No evidence of free air 2. Normal appendix 3. Extensive sigmoid diverticulosis with suspected minimal diverticulitis. Underlying mass cannot be excluded. 4. 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 The findings are consistent with metastatic disease/myeloma. The sacral lesion would be amenable to CT-guided fine-needle aspiration biopsy. Impression Assessment and Plan Patient comes with c/o vomiting, chronic symptoms of right hip pain. ASSESSMENT AND PLAN : VOMITING- CT scan shows minimal diverticulitis. Unclear if related to this. D/D : Gastroenteritis -NPO with meds -IV Fluids, IV Zofran PRN -Supportive rx MILD DIVERTICULITIS Coincidental finding on CT scan abd/pelvis on 05/01/17 when she was in ER for right hip pain, vaginal pain -Started on rx with cipro/flagyl on 05/01/17---> Will continue to complete 10 day course (Day 4/10) -NPO with meds---> advance to clear liquid if tolerates SACRAL LESSION/SOFT TISSUE Co incidently found to have - Lytic bone disease including a 56 mm right-sided soft tissue mass with sacral destruction on CT scan abd/pelvis on 05/01/17 -Likely hip pain which has not improved with steroids, narcotics (has been to PCP, Rheumatology, Ortho for this) is related to this lesion -Concerning for malignancy- no prior hx of cancer, no signs of primary source, weight loss or anorexia -Pain mx- IV Morphine PRN -Consulted radiology- discussed with Dr Ospina if can get CT guided biopsy while in hospital. Will review images DVT PROPHYLAXIS SCD/TEDS : in anticipation of need for procedure- CT guided biospy FULL CODE per patient DISPOSITION Admit to med-surg Level of Care Med/Surg Advanced Directives Existing Living Will: No Existing Power of Cafeteria Aide: No Resuscitation Status FULL RESUSCITATION VTE Prophylaxis VTE Risk Assessment Done? Y/N: Yes Risk Level: Moderate Given or contraindicated: T.EAma Reece, SCD's
[2017-05-05 15:12] VITALS: BP 110/56; PULSE 103; TEMP 36.7; O2SAT 95
[2017-05-05] MEDS: SODIUM CHLORIDE 0.9% 1000ML 1,000 ML IV SCH (15:41)
[2017-05-05 15:43] LABS: URINE APPEARANCE CLOUDY (CLEAR); URINE BILIRUBIN NEG (NEG); URINE COLOR YELLOW; URINE EPITHELIAL CELL AUTO >30 /lpf (0-5); URINE NITRITE POS (NEG); URINE PH 5.5 (4.5-7.5); URINE SPECIFIC GRAVITY 1.018 (1.000-1.030); UROBILINOGEN NEG (NEG); ZZUR CULT IF INDIC CLEAN CATCH NO
[2017-05-05 15:45] LABS: MANUAL MICROSCOPIC REQUIRED? NO; REVIEW REQ? NO
[2017-05-05] MEDS: MoRPHine SULFATE 2 MG/ML CARP IV PRN ×2 (16:15→21:12)
[2017-05-05] MEDS: METRONIDAZOLE / NSS 500 MG in PREMIXED NSS 100 ML IV SCH (20:59)
[2017-05-06 00:25] VITALS: BP 108/52; PULSE 89; TEMP 36.8; O2SAT 97
[2017-05-06] MEDS: CIPROFLOXACIN / D5W 400 MG in PREMIXED IN D5W 200 ML IV SCH ×2 (00:42→11:55)
[2017-05-06] MEDS: MoRPHine SULFATE 2 MG/ML CARP IV PRN ×4 (00:49→17:57)
[2017-05-06] MEDS: METRONIDAZOLE / NSS 500 MG in PREMIXED NSS 100 ML IV SCH ×3 (04:04→20:17)
[2017-05-06] MEDS: SODIUM CHLORIDE 0.9% 1000ML 1,000 ML IV SCH ×2 (04:06→17:03)
[2017-05-06 07:32] VITALS: BP 116/64; PULSE 76; TEMP 36.5; O2SAT 97
[2017-05-06 07:38] LABS: HEMATOCRIT 35.2 % (37-47); MEAN CORPUSCULAR HEMOGLOBIN 29.2 pg (25-34); MEAN CORPUSCULAR HGB CONC 32.4 g/dl (32-36); MEAN PLATELET VOLUME 9.6 fL (7.4-10.4); PLATELET COUNT 235 K/uL (130-400); RED BLOOD COUNT 3.91 M/uL (4.2-5.4); WHITE BLOOD COUNT 5.67 K/uL (4.8-10.8)
[2017-05-06 08:00] VITALS: O2SAT 97
[2017-05-06 08:07] LABS: CREATININE 0.78 mg/dl (0.60-1.20)
[2017-05-06 08:08] LABS: BUN/CREATININE RATIO 9.6 (10-20); CALCIUM 8.6 mg/dl (8.5-10.1); POTASSIUM 3.7 mmol/L (3.5-5.1)
[2017-05-06] MEDS: PANTOprazole INJ 40 MG in SYRINGE 0 ML IV SCH (09:08)
--- NOTE | 2017-05-06 12:05 | Progress Note ---
Internal Med Progress Note Date of Service: May 06, 2017. Provider Documentation: SUBJECTIVE: The patient was seen and examined She has been having right Hip/Buttock pain for the last 2 months ER visit yesterday with similar complaints Noted to have probable Diverticulitis and a sight sided osteolytic lesion Will have Guided Biopsy of the lesion today OBJECTIVE: Vital Signs-as noted below Exam: General-Anxious and in moderate distress at rest Eyes-normal ENT-normal Neck-supple Lungs-clear to auscultate bilaterally Heart-Regular Abdomen-Benign,mildly tender RLQ Extremities-No edema Movement of the right Hip unremarkable Neuro-AAOx3 Lab data as noted below. ASSESSMENT & PLAN: ASSESSMENT AND PLAN : MILD DIVERTICULITIS Likely the cause of vomiting Coincidental finding on CT scan abd/pelvis on 05/01/17 when she was in ER for right hip pain, vaginal pain Started on rx with cipro/flagyl on 05/01/17---> Will continue to complete 10 day course (Day 4/10) Advance diet as tolerated SACRAL LESION/SOFT TISSUE MASS Incidentally found to have - Lytic bone disease including a 56 mm right-sided soft tissue mass with sacral destruction on CT scan abd/pelvis on 05/01/17 Likely hip pain which has not improved with steroids, narcotics (has been to PCP , Rheumatology, Ortho for this) is related to this lesion Concerning for malignancy- no prior hx of cancer, no signs of primary source, weight loss or anorexia Pain mx- IV Morphine PRN Consulted radiology- discussed with Dr Ospina if can get CT guided biopsy while in hospital. Will review images Will have Guided Biopsy today DVT PROPHYLAXIS SCD/TEDS : in anticipation of need for procedure- CT guided biospy FULL CODE per patient DISPOSITION Admit to med-surg Discussed with the Vital Signs: Date Time Temp Pulse Resp B/P (MAP) Pulse Ox O2 Delivery O2 Flow Rate FiO2 05/06/17 08:00 97 Room Air 05/06/17 07:32 36.5 76 18 116/64 (81) 97 Room Air 05/06/17 00:30 Room Air 05/06/17 00:25 36.8 89 18 108/52 (70) 97 Room Air 05/05/17 16:00 Room Air 05/05/17 15:12 36.7 103 18 110/56 (74) 95 Room Air 05/05/17 14:24 92 15 121/59 94 05/05/17 13:07 104 14 132/62 94 Room Air 05/05/17 13:05 94 Room Air Lab Results: Results Past 24 Hours Test 05/05/17 15:23 05/06/17 07:26 Range/Units Urine Color YELLOW Urine Appearance CLOUDY CLEAR Urine pH 5.5 4.5-7.5 Urine Specific [place] 1.018 1.000-1.030 Urine Protein NEG NEG Urine Glucose (UA) NEG NEG Urine Ketones 1+ NEG Urine Occult Blood 2+ NEG Urine Nitrite POS NEG Urine Bilirubin NEG NEG Urine Urobilinogen NEG NEG Urine Leukocyte Esterase TRACE NEG Urine WBC (Auto) 5-10 0-5 /hpf Urine RBC (Auto) 10-30 0-4 /hpf Urine Hyaline Casts (Auto) 1-5 0-5 /lpf Urine Epithelial Cells (Auto) >30 0-5 /lpf Urine Bacteria (Auto) NEG NEG White Blood Count 5.67 4.8-10.8 K/uL Red Blood Count 3.91 4.2-5.4 M/uL Hemoglobin 11.4 12.0-16.0 g/dL Hematocrit 35.2 37-47 % Mean Corpuscular Volume 90.0 80-100 fL Mean Corpuscular Hemoglobin 29.2 25-34 pg Mean Corpuscular Hemoglobin Concent 32.4 32-36 g/dl RDW Standard Deviation 42.4 36.4-46.3 fL RDW Coefficient of Variation 13.0 11.5-14.5 % Platelet Count 235 130-400 K/uL Mean Platelet Volume 9.6 7.4-10.4 fL Sodium Level 139 136-145 mmol/L Potassium Level 3.7 3.5-5.1 mmol/L Chloride Level 106 98-107 mmol/L Carbon Dioxide Level 26 21-32 mmol/L Anion Gap 7.0 3-11 mmol/L Blood Urea Nitrogen 8 7-18 mg/dl Creatinine 0.78 0.60-1.20 mg/dl Est Creatinine Clear Calc Drug Dose 53.8 ml/min Estimated GFR () 86.2 Estimated GFR (Non- 74.4 BUN/Creatinine Ratio 9.6 10-20 Random Glucose 100 70-99 mg/dl Calcium Level 8.6 8.5-10.1 mg/dl
--- NOTE | 2017-05-06 12:29 | DIAGNOSTIC IMAGING REPORT ---
ULTRASOUND-GUIDED FINE-NEEDLE ASPIRATION RIGHT SACRUM CLINICAL HISTORY: Right sacral lesion and osteolytic bone lesions. COMPARISON STUDY: Pelvic CT dated 05/01/2017. PROCEDURE: The risks, benefits, and alternatives to the procedure were discussed with the patient. Written informed consent was obtained. The patient was placed in the left lateral decubitus position in ultrasound, and the 5.6 cm lobulated lesion involving the right aspect of the sacrum was localized by ultrasound and selected for fine needle aspiration. The right buttock was prepped and draped in the usual sterile fashion. 1% lidocaine was used for local anesthetic. The lesion was aspirated under ultrasound guidance with 2 passes utilizing a 22-gauge Hannah needle. Specimens were reviewed by the pathologist in real-time and deemed adequate for diagnosis. The patient tolerated the procedure well and left the department in satisfactory condition. IMPRESSION: Completed fine-needle aspiration of a right sacral lesion as above. Electronically signed by: Yair Marcus M.D. 05/06/2017 12:27 PM Dictated Date/Time: 05/06/2017 12:25 PM
[2017-05-06 15:25] VITALS: BP 100/63; PULSE 70; TEMP 36.6; O2SAT 97
[2017-05-06 23:03] VITALS: BP 96/60; PULSE 80; TEMP 36.7; O2SAT 96
[2017-05-07] MEDS: CIPROFLOXACIN / D5W 400 MG in PREMIXED IN D5W 200 ML IV SCH ×2 (00:05→11:44)
[2017-05-07] MEDS: METRONIDAZOLE / NSS 500 MG in PREMIXED NSS 100 ML IV SCH ×3 (04:17→19:57)
[2017-05-07] MEDS: SODIUM CHLORIDE 0.9% 1000ML 1,000 ML IV SCH ×2 (04:17→18:14)
[2017-05-07] MEDS: MoRPHine SULFATE 2 MG/ML CARP IV PRN ×2 (04:22→19:57)
[2017-05-07 07:57] VITALS: BP 108/66; PULSE 88; TEMP 36.4; O2SAT 95
[2017-05-07] MEDS: PANTOprazole INJ 40 MG in SYRINGE 0 ML IV SCH (09:39)
--- NOTE | 2017-05-07 14:47 | Progress Note ---
Internal Med Progress Note Date of Service: May 07, 2017. Provider Documentation: SUBJECTIVE: The patient was seen and examined She has been having right Hip/Buttock pain for the last 2 months ER visit yesterday with similar complaints Noted to have probable Diverticulitis and a sight sided osteolytic lesion Will have Guided Biopsy of the lesion today S/P Biopsy of the lesion Still has abd pain and diarrhea OBJECTIVE: Vital Signs-as noted below Exam: General-Anxious and in moderate distress at rest Eyes-normal ENT-normal Neck-supple Lungs-clear to auscultate bilaterally Heart-Regular Abdomen-Benign,mildly tender RLQ Extremities-No edema Movement of the right Hip unremarkable Neuro-AAOx3 Lab data as noted below. ASSESSMENT & PLAN: ASSESSMENT AND PLAN : MILD DIVERTICULITIS Likely the cause of vomiting Coincidental finding on CT scan abd/pelvis on 05/01/17 when she was in ER for right hip pain, vaginal pain Started on rx with cipro/flagyl on 05/01/17---> Will continue to complete 10 day course (Day 4/10) Advance diet as tolerated Diarrhea is not yet controlled Pian is reasonably controlled SACRAL LESION/SOFT TISSUE MASS Incidentally found to have - Lytic bone disease including a 56 mm right-sided soft tissue mass with sacral destruction on CT scan abd/pelvis on 05/01/17 Likely hip pain which has not improved with steroids, narcotics (has been to PCP , Rheumatology, Ortho for this) is related to this lesion Concerning for malignancy- no prior hx of cancer, no signs of primary source, weight loss or anorexia Pain mx- IV Morphine PRN Consulted radiology- discussed with Dr Ospina if can get CT guided biopsy while in hospital. Will review images Will have Guided Biopsy today -done Await Pathology report Remains stable DVT PROPHYLAXIS SCD/TEDS : in anticipation of need for procedure- CT guided biospy FULL CODE per patient DISPOSITION Admit to med-surg Discussed with the Vital Signs: Date Time Temp Pulse Resp B/P (MAP) Pulse Ox O2 Delivery O2 Flow Rate FiO2 05/07/17 08:00 Room Air 05/07/17 07:57 36.4 88 16 108/66 (80) 95 Room Air 05/07/17 00:00 Room Air 05/06/17 23:03 36.7 80 17 96/60 (72) 96 Room Air 05/06/17 20:15 Room Air 05/06/17 16:00 Room Air 05/06/17 15:25 36.6 70 20 100/63 (10) 97 Room Air
[2017-05-07 15:42] VITALS: BP 115/73; PULSE 93; TEMP 36.8; O2SAT 95
[2017-05-07 23:12] VITALS: BP 96/56; PULSE 97; TEMP 36.9; O2SAT 96
[2017-05-08] MEDS: CIPROFLOXACIN / D5W 400 MG in PREMIXED IN D5W 200 ML IV SCH (00:02)
[2017-05-08] MEDS: MoRPHine SULFATE 2 MG/ML CARP IV PRN ×2 (03:10→09:16)
[2017-05-08] MEDS: METRONIDAZOLE / NSS 500 MG in PREMIXED NSS 100 ML IV SCH (03:12)
[2017-05-08 07:14] VITALS: BP 127/71; PULSE 84; TEMP 36.9; O2SAT 94
[2017-05-08 09:00] VITALS: O2SAT 94
[2017-05-08] MEDS: PANTOprazole INJ 40 MG in SYRINGE 0 ML IV SCH (09:12)
--- NOTE | 2017-05-08 10:17 | Progress Note ---
Internal Med Progress Note Date of Service: May 08, 2017. Provider Documentation: SUBJECTIVE: The patient was seen and examined She has been having right Hip/Buttock pain for the last 2 months ER visit yesterday with similar complaints Noted to have probable Diverticulitis and a sight sided osteolytic lesion Will have Guided Biopsy of the lesion today S/P Biopsy of the lesion-plasmacytoma Still has abd pain and diarrhea is better Tolerating regular diet Wants to go home today OBJECTIVE: Vital Signs-as noted below Exam: General-Anxious and in moderate distress at rest Eyes-normal ENT-normal Neck-supple Lungs-clear to auscultate bilaterally Heart-Regular Abdomen-Benign,mildly tender RLQ Extremities-No edema Movement of the right Hip unremarkable Neuro-AAOx3 Lab data as noted below. ASSESSMENT & PLAN: ASSESSMENT AND PLAN : PLASMACYTOMA SACRAL LESION/SOFT TISSUE MASS Incidentally found to have - Lytic bone disease including a 56 mm right-sided soft tissue mass with sacral destruction on CT scan abd/pelvis on 05/01/17 Likely hip pain which has not improved with steroids, narcotics (has been to PCP , Rheumatology, Ortho for this) is related to this lesion Concerning for malignancy- no prior hx of cancer, no signs of primary source, weight loss or anorexia Pain mx- IV Morphine PRN Consulted radiology- discussed with Dr Ospina if can get CT guided biopsy while in hospital. Will review images Will have Guided Biopsy today -done Await Pathology report Remains stable Discussed with Dr Peres-will have Plasma and Urine-Electrophoresis,Immunofixation ,B-2 Microglobulin and Skeletal Survey Will be seen as an OP for further management MILD DIVERTICULITIS Likely the cause of vomiting Coincidental finding on CT scan abd/pelvis on 05/01/17 when she was in ER for right hip pain, vaginal pain Started on rx with cipro/flagyl on 05/01/17---> Will continue to complete 10 day course (Day 4/10) Advance diet as tolerated Diarrhea is not yet controlled Pain is reasonably controlled Discharge home today DVT PROPHYLAXIS SCD/TEDS : in anticipation of need for procedure- CT guided biospy FULL CODE per patient DISPOSITION Admit to med-surg Discussed with the Vital Signs: Date Time Temp Pulse Resp B/P (MAP) Pulse Ox O2 Delivery O2 Flow Rate FiO2 05/08/17 07:14 36.9 84 16 127/71 (89) 94 Room Air 05/08/17 00:19 Room Air 05/07/17 23:12 36.9 97 20 96/56 (69) 96 Room Air 05/07/17 20:55 Room Air 05/07/17 16:00 Room Air 05/07/17 15:42 36.8 93 18 115/73 (87) 95 Room Air Lab Results: Results Past 24 Hours Test 05/08/17 09:52 Range/Units
[2017-05-08 10:43] LABS: HEMATOCRIT 34.1 % (37-47); MEAN CELL VOLUME 89.7 fL (80-100); MEAN CORPUSCULAR HEMOGLOBIN 29.2 pg (25-34); MEAN CORPUSCULAR HGB CONC 32.6 g/dl (32-36); MEAN PLATELET VOLUME 10.3 fL (7.4-10.4); PLATELET COUNT 251 K/uL (130-400); WHITE BLOOD COUNT 9.06 K/uL (4.8-10.8)
--- NOTE | 2017-05-08 10:54 | DIAGNOSTIC IMAGING REPORT ---
SKELETAL SURVEY COMPLETE CLINICAL HISTORY: Plasmacytoma mild COMPARISON STUDY: None FINDINGS: There are multiple lytic lesions of the skull. Microhematuria lesions of the medial and mid shaft right clavicle present. Potential small lytic lesions of the left clavicle. Lumbar spine shows no lytic process. Extremities including femurs are negative for an acute process. The destructive sacral lesion on the right is noted. No well-defined lytic lesion of the ribs based on limited chest imaging. IMPRESSION: 1. Findings consistent with multiple lytic lesions of the skull, to lesser extent clavicles, as well as the known lesion of the sacrum. The above report was generated using voice recognition software. It may contain grammatical, syntax or spelling errors. Electronically signed by: Patrick Ospina M.D. 05/08/2017 10:53 AM Dictated Date/Time: 05/08/2017 10:49 AM
[2017-05-08 11:14] LABS: BUN/CREATININE RATIO 4.8 (10-20); CALCIUM 8.5 mg/dl (8.5-10.1); CREATININE 0.82 mg/dl (0.60-1.20); POTASSIUM 3.6 mmol/L (3.5-5.1)
[2017-05-08] MEDS ORDERED: LCTX PO (11:53)
[2017-05-08] MEDS ORDERED: MRLP17X PO (11:53)
[2017-05-08] MEDS ORDERED: OXYC-57 PO (11:53)
--- NOTE | 2017-05-08 11:58 | Discharge Instructions ---
Discharge Instructions Date of Service May 08, 2017. Admission Reason for Admission: Diverticulitis Discharge Discharge Diagnosis / Problem: Acute Diverticulitis,Plasmacytoma -right sacral area Discharge Goals Goal(s): Prevent Disease Progression Activity Recommendations Activity Limitations: resume your previous activity . Instructions / Follow-Up Instructions / Follow-Up Dr Mane on 05/11/17 at 1:[address] Peres's office will call with appointment Current Hospital Diet Patient's current hospital diet: Regular Diet Discharge Diet Recommended Diet: Regular Diet Pending Studies Studies pending at discharge: yes List of pending studies: SSPEP,UPEP,IMMUNOFIXATION,B 2 MICROGLOBULIN Medical Emergencies . Who to Call and When: Medical Emergencies: If at any time you feel your situation is an emergency, please call 911 immediately. . Non-Emergent Contact Non-Emergency issues call your: Primary Care Provider . . "Provider Documentation" section prepared by Mary Diaz. . VTE Core Measure Inpt VTE Proph given/why not?: Maynor Reece, SCD's
[2017-05-08 12:08] VITALS: BP 127/71; PULSE 84; TEMP 36.9; O2SAT 94
--- NOTE | 2017-05-09 07:30 | Discharge Summary ---
Discharge Summary Date of Service May 09, 2017. Discharge Summary Admission Date: May 05, 2017 at 12:57 Discharge Date: May 08, 2017 Discharge Disposition: Home Principal Diagnosis: Acute Diverticulitis,Plasmacytoma -right sacral area Secondary Diagnoses/Problems: Please see H&P and Hospital Progress note Pending Studies/Follow-Up: Will need Follow up with Dr Peres-Hematology Medication Reconciliation New Medications: Lactobacillus Acidophilus (Lactinex) Tab 2 TAB PO BID, #40 TAB Polyethylene (Miralax) 17 Gm Pow 17 GM PO DAILY PRN for Constipation for 30 Days, #30 DOSE Changed Medications: Oxycodone/Acetaminophen 5MG/325MG (Percocet 5MG/325MG) Tab 2 TABLET PO Q6H PRN for Pain for 7 Days, #30 TAB (Changed from: 1 TABLET; Q4) PAIN Continued Medications: Ciprofloxacin Hcl (Cipro) 500 Mg Tab 500 MG PO BID, #14 TAB Dicyclomine Hcl (Bentyl) 20 Mg Tab 20 MG PO TID for Pain, #20 TAB Discontinued Medications: Hydrocodone/Acetaminophen 5MG/325MG ([place] 5MG/325MG) Tab 1-2 TABS PO Q6H PRN for Pain, #20 TAB Admission Information HPI (per Admitting provider): The patient is a 76 year old female who presents to the Emergency Room with complaints of intermittent vomiting beginning yesterday. Patient was in ER on 05/01/17 for vaginal / pelvic pain, CT scan was done which showed minimal diverticulitis, sacral lesion. Was discharged on cipro, flagyl, norco, dicyclomine PRN. Patient does have c/o right hip pain x 2 months for which she has has been to PCP, Rheumatology, Orthopedics- been treated with steroids, percocet, oxycontin without any relief of her pain. She mentions her main complaint when she came to ER on 05/01/17 was right hip pain as unable to control it with any PO medications. IV morphine than helped. No symptoms of diverticulitis were present at that time, but as CT scan showed minimal diverticulitis, she was given Cipro/Flagyl. She was advised to follow up outpatient for sacral lesion. Today she comes in with c/o vomiting since yesterday evening. No associated abdominal pain, fever, chills. No cough, chest pain, headaches, dizziness, anorexia, weight loss No localized weakness, numbness. In ER, slightly tachycardic, afebrile. Labs- no sig abnormalities, CT scan abd/ pelvis- Extensive sigmoid diverticulosis with suspected minimal diverticulitis, underlying mass cannot be excluded, lytic bone disease with soft tissue mass with sacral destruction. Will admit her for vomiting, unable to tolerate any thing PO and further evaluation of abnormal findings concerning for malignancy. Physical Exam (per Admitting): General Appearance: WD/WN, no apparent distress Head: normocephalic, atraumatic Eyes: PERRL ENT: hearing grossly normal Neck: supple, no JVD Respiratory/Chest: chest non-tender, lungs clear, normal breath sounds, no respiratory distress, no accessory muscle use Cardiovascular: regular rate, rhythm, no edema, no murmur Abdomen/GI: normal bowel sounds, non tender, soft Extremities/Musculoskelatal: + pertinent finding (No point tenderness in right hip) Neurologic/Psych: no motor/sensory deficits, alert, oriented x 3 Skin: normal color Hospital Course ASSESSMENT AND PLAN : PLASMACYTOMA SACRAL LESION/SOFT TISSUE MASS Incidentally found to have - Lytic bone disease including a 56 mm right-sided soft tissue mass with sacral destruction on CT scan abd/pelvis on 05/01/17 Likely hip pain which has not improved with steroids, narcotics (has been to PCP , Rheumatology, Ortho for this) is related to this lesion Concerning for malignancy- no prior hx of cancer, no signs of primary source, weight loss or anorexia Pain mx- IV Morphine PRN Consulted radiology- discussed with Dr Ospina if can get CT guided biopsy while in hospital. Will review images Will have Guided Biopsy today -done Await Pathology report Remains stable Discussed with Dr Peres-will have Plasma and Urine-Electrophoresis,Immunofixation ,B-2 Microglobulin and Skeletal Survey Will be seen as an OP for further management MILD DIVERTICULITIS Likely the cause of vomiting Coincidental finding on CT scan abd/pelvis on 05/01/17 when she was in ER for right hip pain, vaginal pain Started on rx with cipro/flagyl on 05/01/17---> Will continue to complete 10 day course (Day 4/10) Advance diet as tolerated Diarrhea is not yet controlled Pain is reasonably controlled Discharge home today DVT PROPHYLAXIS SCD/TEDS : in anticipation of need for procedure- CT guided biospy FULL CODE per patient DISPOSITION Admit to med-surg Discussed with the Total time spent on discharge = 35 minutes This includes examination of the patient, discharge planning, medication reconciliation, and communication with other providers. Discharge Instructions Date of Service May 08, 2017. Admission Reason for Admission: Diverticulitis Discharge Discharge Diagnosis / Problem: Acute Diverticulitis,Plasmacytoma -right sacral area Discharge Goals Goal(s): Prevent Disease Progression Activity Recommendations Activity Limitations: resume your previous activity . Instructions / Follow-Up Instructions / Follow-Up Dr Mane on 05/11/17 at 1:[address] Peres's office will call with appointment Current Hospital Diet Patient's current hospital diet: Regular Diet Discharge Diet Recommended Diet: Regular Diet Pending Studies Studies pending at discharge: yes List of pending studies: SSPEP,UPEP,IMMUNOFIXATION,B 2 MICROGLOBULIN Medical Emergencies . Who to Call and When: Medical Emergencies: If at any time you feel your situation is an emergency, please call 911 immediately. . Non-Emergent Contact Non-Emergency issues call your: Primary Care Provider . . "Provider Documentation" section prepared by Mary Diaz. . VTE Core Measure Inpt VTE Proph given/why not?: Maynor Reece, SEBASTIAN's <Electronically signed by Mary Diaz M.D.> Signed: 05/08/17 9043 Additional Copies To Artemio Mane III, M.D.
[2017-05-10 18:18] LABS: ALBUMIN 2.9 G/DL (3.8-4.8); FREE KAPPA 120.9 MG/L (3.3-19.4); FREE LAMBDA 20.5 MG/L (5.7-26.3); GAMMA GLOBULIN 2.8 G/DL (0.8-1.7); MONOCLONAL PROTEIN BAND 1 2.4 G/DL (NOT DETECTED); TOTAL PROTEIN 7.3 G/DL (6.2-8.3)
[2017-05-11 06:18] LABS: ALBUMIN % 23.19 %; ALPHA-2-GLOBULIN % 11.01 %; BETA GLOBULIN % 17.17 %; CREATININE UR 42 MG/DL (20-320); GAMMA GLOBULIN % 41.69 %
[2017-05-13] MEDS ORDERED: OXYC-643 PO (10:21)
[2017-05-13] MEDS ORDERED: OXYC20TA50 PO (10:22)
[2017-05-16] MEDS ORDERED: acyclovir (17:54)
[2017-05-23] MEDS ORDERED: DRGTP12 TOP (15:45)
[2017-06-10] MEDS ORDERED: ONDA8TAB6 PO (08:51)
[2017-06-10] MEDS ORDERED: OXYC-57 PO (08:51)
[2017-06-10] MEDS ORDERED: ACYC1CAP8 PO (08:51)
== END 2017-05-08 13:38 | disposition home or self-care (01) | DRG 841 ==
LOC: C.EDB 11:21 → C.MS2W 12:57 → ENRESERV 13:17
PROVIDERS: ADMIT Internal Medicine; ATTEND Internal Medicine
PROC: 0JB73ZX Excision of Back Subcutaneous Tissue and Fascia, Percutaneous Approach, Diagnostic (ICD-10-PCS; principal; 2017-05-06)
DX: C90.30 Solitary plasmacytoma not having achieved remission (principal); K57.92 Diverticulitis of intestine, part unspecified, without perforation or abscess without bleeding; Z83.3 Family history of diabetes mellitus; Z82.49 Family history of ischemic heart disease and other diseases of the circulatory system; Z87.891 Personal history of nicotine dependence

== ENCOUNTER → 2017-06-10 | Outpatient (CLI) | payer OTHER, BC ==
[~2017-06-10] MED LIST changes: +ACYC1CAP8 PO; -CIPR-255 PO; -DICY20TA35 PO; +DRGTP12 TOP; -HYDR-5688 PO; -METR500T PO; +ONDA8TAB6 PO
[2017-06-10 08:29] VITALS: BP 102/54; PULSE 93; TEMP 36.8; O2SAT 92
--- NOTE | 2017-06-10 09:52 | Radiation Oncology Follow-Up ---
Radiation Oncology Follow-Up Date of Visit Jun 10, 2017. Reason For Visit One-month follow-up Radiation Completion Date 05/27/17 Diagnosis (1) Multiple myeloma Status: Acute Onset Date: 11/2016 Location: sacrum Stage: IV Permanent Comment: Sacral pain which began in November 2016 Evaluation in the emergency room revealing lytic bone lesion and right side is soft tissue mass of the sacrum 05/01/[address] guided aspiration biopsy of the sacrum 05/06/2017 revealing monoclonal plasma cells Skeletal survey 05/08/2017 multiple lytic lesions skull, clavicles and sacrum Findings consistent with multiple myeloma Referral for palliation of pain of the sacrum Status post completion of radiation therapy 05/27/2017. She received 3000 cGy Last Edited By: Valeria Sam on Jun 01, 2017 09:25 History of Present Illness Ms. Silva is a 76-year-old female who presents with a recent diagnosis of multiple myeloma (her diagnostic history is as above). The patient has been seen and evaluated by Dr. Daqaun Walter who has recommended consideration of systemic chemotherapy for treatment of her multiple myeloma. More recently, the patient has been having significant pain in her sacral region. She did have a skeletal survey completed on 05/08/2017 which shows multiple lytic lesions involving the skull, clavicles and sacrum. She did have a CT of the abdomen/pelvis on 05/01/2017 which revealed lytic bone disease involving the right sacrum measuring 5.6 cm in the greatest dimension in addition to disease involving L4 vertebral body, right iliac wing, left iliac wing. Given her significant pain and discomfort, the patient has been referred to us for consideration of palliative radiation therapy to the sacrum. Currently, the patient states her pain is a high level in rates at least in 8-9 out of 10. She is currently taking Percocet for her pain medication. Status post completion of palliative radiation therapy 05/27/2017. She received 3000 cGy. Interim History She has been doing well over the past 2 weeks. She continues with fentanyl patch at 25 g per hour. She denies pain in the sacral area. She did not experience any skin irritation. She had no change of bowel or urinary habits. She is being followed by Dr. Walter and is undergoing chemotherapy with Velcade. She is also receiving Zometa. She receives treatment every 4 weeks. Her last treatment was June 09. She is tolerating this well. She had one episode of nausea. She took an anti-emetic and this resolved. She has not had to take any further anti-emetic medications. Allergies Uncoded Allergies: TAPE (Adverse Reaction, Mild, RASH, 05/05/17) Home Medications Scheduled Acyclovir (Zovirax), 200 MG PO DAILY Fentanyl (Fentanyl), 25 MCG TOP [id number] Scheduled PRN Ondansetron Hcl (Zofran), 8 MG PO Q8 PRN for Nausea Oxycodone/Acetaminophen 5MG/325MG (Percocet 5MG/325MG), 1-2 TAB PO Q4 PRN for Pain Review of Systems Gastrointestinal: Symptoms: WNL Oral: Symptoms: No Problems Respiratory: Symptoms: WNL Urinary: Symptoms: WNL Skin: Symptoms: No Problems Additional Notes: She completed distress management report and answered "no" to all questions. Physical Exam Vital Signs Date Time Temp Pulse Resp B/P (MAP) Pulse Ox O2 Delivery O2 Flow Rate FiO2 06/10/17 08:29 36.8 93 16 102/54 92 Fatigue: None General Appearance: no apparent distress Eyes: normal inspection, EOMI ENT: normal ENT inspection, hearing grossly normal, pharynx normal Neck: no adenopathy, thyroid normal Respiratory/Chest: lungs clear, no respiratory distress, no accessory muscle use Cardiovascular: regular rate, rhythm, no gallop, no murmur Abdomen: non tender, soft, no organomegaly Extremities: no pedal edema, + pertinent finding (good strength and coordination of lower extremities) Neurologic/Psychiatric: no motor/sensory deficits, alert, normal mood/affect Skin: warm/dry Lymphatic: no adenopathy Additional Exam Notes: Back is nontender. There is no hyperpigmentation. Laboratory Studies Test 05/01/17 18:50 05/01/17 19:29 05/05/17 11:50 05/05/17 15:23 Urine Color YELLOW YELLOW Urine Appearance CLEAR (CLEAR) CLOUDY (CLEAR) Urine pH 5.5 (4.5-7.5) 5.5 (4.5-7.5) Urine Specific [place] 1.014 (1.000-1.030) 1.018 (1.000-1.030) Urine Protein NEG (NEG) NEG (NEG) Urine Glucose (UA) NEG (NEG) NEG (NEG) Urine Ketones 1+ (NEG) 1+ (NEG) Urine Occult Blood NEG (NEG) 2+ (NEG) Urine Nitrite NEG (NEG) POS (NEG) Urine Bilirubin NEG (NEG) NEG (NEG) Urine Urobilinogen NEG (NEG) NEG (NEG) Urine Leukocyte Esterase NEG (NEG) TRACE (NEG) Urine WBC (Auto) 0 /hpf (0-5) 5-10 /hpf (0-5) Urine RBC (Auto) 0-4 /hpf (0-4) 10-30 /hpf (0-4) Urine Hyaline Casts (Auto) 0 /lpf (0-5) 1-5 /lpf (0-5) Urine Epithelial Cells (Auto) 0-5 /lpf (0-5) >30 /lpf (0-5) Urine Bacteria (Auto) NEG (NEG) NEG (NEG) Immature Granulocyte % (Auto) 0.3 % 0.2 % White Blood Count 11.04 K/uL (4.8-10.8) 8.45 K/uL (4.8-10.8) Red Blood Count 4.73 M/uL (4.2-5.4) 4.42 M/uL (4.2-5.4) Hemoglobin 13.4 g/dL (12.0-16.0) 13.3 g/dL (12.0-16.0) Hematocrit 41.4 % (37-47) 39.1 % (37-47) Mean Corpuscular Volume 87.5 fL (80-100) 88.5 fL (80-100) Mean Corpuscular Hemoglobin 28.3 pg (25-34) 30.1 pg (25-34) Mean Corpuscular Hemoglobin Concent 32.4 g/dl (32-36) 34.0 g/dl (32-36) Platelet Count 280 K/uL (130-400) 265 K/uL (130-400) Mean Platelet Volume 9.6 fL (7.4-10.4) 9.8 fL (7.4-10.4) Neutrophils (%) (Auto) 70.6 % 55.7 % Lymphocytes (%) (Auto) 19.9 % 30.9 % Monocytes (%) (Auto) 8.3 % 11.6 % Eosinophils (%) (Auto) 0.7 % 1.2 % Basophils (%) (Auto) 0.2 % 0.4 % Neutrophils # (Auto) 7.79 K/uL (1.4-6.5) 4.71 K/uL (1.4-6.5) Lymphocytes # (Auto) 2.20 K/uL (1.2-3.4) 2.61 K/uL (1.2-3.4) Monocytes # (Auto) 0.92 K/uL (0.11-0.59) 0.98 K/uL (0.11-0.59) Eosinophils # (Auto) 0.08 K/uL (0-0.5) 0.10 K/uL (0-0.5) Basophils # (Auto) 0.02 K/uL (0-0.2) 0.03 K/uL (0-0.2) Immature Granulocyte # (Auto) 0.03 K/uL (0.00-0.02) 0.02 K/uL (0.00-0.02) Chemistry Specimen Hemolysis Total Bilirubin 0.5 mg/dl (0.2-1) Aspartate Amino Transferase (AST) 36 U/L (15-37) Alanine Aminotransferase (ALT) 31 U/L (12-78) Alkaline Phosphatase 81 U/L (45-117) Total Protein 9.2 gm/dl (6.4-8.2) Albumin 2.8 gm/dl (3.4-5.0) Globulin 6.4 gm/dl (2.5-4.0) Albumin/Globulin Ratio 0.4 (0.9-2) Lipase 134 U/L (73-393) Test 05/06/17 07:26 05/06/17 10:50 05/08/17 09:52 05/08/17 12:35 White Blood Count 5.67 K/uL (4.8-10.8) 9.06 K/uL (4.8-10.8) Red Blood Count 3.91 M/uL (4.2-5.4) 3.80 M/uL (4.2-5.4) Hemoglobin 11.4 g/dL (12.0-16.0) 11.1 g/dL (12.0-16.0) Hematocrit 35.2 % (37-47) 34.1 % (37-47) Mean Corpuscular Volume 90.0 fL (80-100) 89.7 fL (80-100) Mean Corpuscular Hemoglobin 29.2 pg (25-34) 29.2 pg (25-34) Mean Corpuscular Hemoglobin Concent 32.4 g/dl (32-36) 32.6 g/dl (32-36) RDW Standard Deviation 42.4 fL (36.4-46.3) 43.0 fL (36.4-46.3) RDW Coefficient of Variation 13.0 % (11.5-14.5) 13.2 % (11.5-14.5) Platelet Count 235 K/uL (130-400) 251 K/uL (130-400) Mean Platelet Volume 9.6 fL (7.4-10.4) 10.3 fL (7.4-10.4) Sodium Level 139 mmol/L (136-145) 143 mmol/L (136-145) Potassium Level 3.7 mmol/L (3.5-5.1) 3.6 mmol/L (3.5-5.1) Chloride Level 106 mmol/L (98-107) 109 mmol/L (98-107) Carbon Dioxide Level 26 mmol/L (21-32) 27 mmol/L (21-32) Anion Gap 7.0 mmol/L (3-11) 7.0 mmol/L (3-11) Blood Urea Nitrogen 8 mg/dl (7-18) 4 mg/dl (7-18) Creatinine 0.78 mg/dl (0.60-1.20) 0.82 mg/dl (0.60-1.20) Est Creatinine Clear Calc Drug Dose 53.8 ml/min 51.2 ml/min Estimated GFR () 86.2 81.1 Estimated GFR (Non- 74.4 70.0 BUN/Creatinine Ratio 9.6 (10-20) 4.8 (10-20) Random Glucose 100 mg/dl (70-99) 105 mg/dl (70-99) Calcium Level 8.6 mg/dl (8.5-10.1) 8.5 mg/dl (8.5-10.1) Multiple Myeloma Profile (FISH) See Comment Multiple Myeloma IgH Complex Panel See Comment Flow Cytometry Comment See Comment Uglph-7-Mjdshchdc 0.3 G/DL (0.2-0.3) Rdjeg-0-Vxhjptpnx 0.7 G/DL (0.5-0.9) Rltn-1-Gdxuhrzq 0.4 G/DL (0.4-0.6) Fswm-3-Uvqmdnlp 0.3 G/DL (0.2-0.5) Dsai-2-Dsnsdvmvgeqxe 2.02 MG/L (0.00-2.51) Gamma Globulins 2.8 G/DL (0.8-1.7) Prot Electrophor Monoclonal Peak 3 G/DL (NOT DETECTED) Serum Monoclonal Protein 2.4 G/DL (NOT DETECTED) Serum Monoclonal Protein (2) G/DL (NOT DETECTED) Protein Electrophoresis Interpret SEE NOTE Serum Immunofixation SEE NOTE Total Protein (DAMIEN) 7.3 G/DL (6.2-8.3) Albumin (DAMIEN) 2.9 G/DL (3.8-4.8) Free [place] Light Chains, Quant 120.9 MG/L (3.3-19.4) Free [place] Light Chains, Quant 20.5 MG/L (5.7-26.3) Free [place]/Lambda Light Chain Ratio 5.90 (0.26-1.65) Urine Random Total Protein 6 MG/DL (5-24) Urine Creatinine mg/dL 42 MG/DL (20-320) Urine Total Protein 143 (21-161) Urine Albumin (%) 23.19 % Urine Kpnra-1-Hvofsmbee (%) 6.94 % Urine Beta-Globulin (%) 17.17 % Urine Gamma Globulin (%) 41.69 % Urine Mcewq-9-Soysjkmlz (%) 11.01 % Urine Immunofixation SEE NOTE Urine Immunofixation Interpretation SEE NOTE Assessment & Plan Plan: She was also seen and examined by Dr. Mondragon. We discussed the fentanyl patch. We are going to decrease the dose to 12 g per hour. She was given a new prescription for one box of 5 patches. She is to then discontinue the patches if she is without pain. We discussed breakthrough medication. She did not wish to have any prescriptive breakthrough medications. She stated these previously did not help. She is concerned that she could have increased pain with decreasing the patch. We discussed that if she has significant discomfort she could return to 24 g per hour by placing an additional patch. This felt that she has had an excellent response to treatment and that she will be able to taper off of the medication. She is in agreement and is hopeful to be able to stop the patch. A follow-up appointment with our office was not given. She may return on an as needed basis. She may call if she has any questions or concerns that she feels is related to the radiation therapy. Assessment & Plan (Attending) ADDENDUM: I agree with note created by Valeria Sam PA-C. I reviewed the patient's chart and information with her. I have examined and evaluated the patient. I reviewed relevant clinical information and answered the patient's and /or family's questions. REMOTE SENSING ENGINEER Total Time In Follow-Up I spent 20 minutes speaking to the patient and performing examination. I spent 15 minutes reviewing information in completing this note. Total Time (Attending) In Follow-Up I spent 15 minutes examining and counseling the patient. REMOTE SENSING ENGINEER Copy To Artemio Mane III, M.D.; Daquan Walter M.D. Problem Qualifiers (1) Multiple myeloma: Multiple myeloma remission status: not in remission Qualified Codes: C90.00 - Multiple myeloma not having achieved remission
== END | disposition home or self-care (01) ==
LOC: C.ONC 08:23
PROVIDERS: ATTEND Physician Assistant Medical
DX: Z08 Encounter for follow-up examination after completed treatment for malignant neoplasm (principal); Z92.3 Personal history of irradiation; Z85.79 Personal history of other malignant neoplasms of lymphoid, hematopoietic and related tissues

== ENCOUNTER 2021-11-12 08:45 | Inpatient (IN) ==
[2021-11-12] MEDS ORDERED: SODIUM CHLORIDE 0.9% 1000ML 1,000 ML IV SCH (09:15)
[2021-11-12 09:49] LABS: Eosinophils # (auto) 0.02 K/uL (0-0.5); Eosinophils % (auto) 0.7 %; Hematocrit (blood only) 34.5 % (37-47); Hemoglobin 10.9 g/dL (12.0-16.0); Immature Granulocytes # (auto) 0.01 K/uL (0.00-0.02); Immature Granulocytes % (auto) 0.4 %; Lymphocytes # (auto) 0.62 K/uL (1.2-3.4); Lymphocytes % (auto) 21.8 %; Mean Corpuscular Hemoglobin 30.5 pg (25-34); Mean Corpuscular Hgb Conc 31.6 g/dL (32-36); Mean Corpuscular Volume 96.6 fL (80-100); Mean Platelet Volume 9.3 fL (7.4-10.4); Monocytes % (auto) 21.1 %; Neutrophils # (auto) 1.59 K/uL (1.4-6.5); Platelet Count 146 K/uL (130-400); RDW Coefficient of Variation 14.3 % (11.5-14.5); RDW Standard Deviation 50.6 fL (36.4-46.3); Red Blood Count 3.57 M/uL (4.2-5.4); White Blood Count 2.84 K/uL (4.8-10.8)
[2021-11-12 09:58] LABS: Partial Thromboplastin Ratio 0.9; Partial Thromboplastin Time 24.3 Seconds (21.0-31.0); Prothrombin Time 9.8 Seconds (9.0-12.0)
[2021-11-12 10:11] LABS: Influenza A virus by PCR Negative (Negative); Influenza B virus by PCR Negative (Negative)
[2021-11-12 10:11] LABS: Troponin I < 0.03 ng/ml (0-0.04)
[2021-11-12 10:13] LABS: Appearance Urine Cloudy (Clear); Color Urine Brown; Specific Gravity Urine 1.025 (1.000-1.030)
--- NOTE | 2021-11-12 10:13 | CT Scan Report ---
ABDOMEN AND PELVIS CT WITHOUT CONTRAST CT DOSE: 307.77 mGycm HISTORY: Acute hematuria with flank pain. History of multiple myeloma. hematuria flank pain TECHNIQUE: Multiaxial CT images of the abdomen and pelvis were performed without contrast. A dose lo wering technique was utilized adhering to the principles of ALARA. COMPARISON STUDY: PET CT 05/02/2019, CT abdomen and pelvis 05/01/2017. FINDINGS: Trace pericardial effusion. Coronary artery calcifications. The lung bases are generally cl ear. No pneumatosis or pneumoperitoneum. The spleen, mildly atrophic pancreas and adrenal glands are unremarkable. Distended gallbladder with punctate cholelithiasis. No CT evidence of acute cholecystit is. Punctate calcification on image 131 series 3 appears to be medial to the common bile duct. Choled ocholithiasis considered less likely. Peripheral calcifications of the pancreatic head redemonstrated suggestive of chronic pancreatitis. The unenhanced liver is unremarkable. Unremarkable right kidney. There is chronic moderate left-sided hydronephrosis with narrowing at the ureteropelvic junction. Layering hyperdense material is noted within the left renal collecting system and renal pelvis suggestive of stone fragments. No ureteral calculi identified. Asymmetric right-juan ed urinary bladder wall thickening with partial distention. Hyperdense material within the urinary bl adder lumen. Atherosclerosis of the aorta without aneurysm. No adenopathy. Small hiatal hernia with mild distal esophageal wall thickening. There is no bowel obstruction. Mild rectal wall thickening with partial distention. Colonic diverticulosis. Normal appendix. Unremarkable soft tissues. Degenerative changes of the spine, pelvis and hips. Chronic destructive lytic lesions of the sacrum and right iliac bone with progressive healing sclerosis compared to the prior study. Ad ditional scattered smaller lytic foci noted within the ribs and spine. Avascular necrosis of the femo ral heads. Moderate to severe L4 compression deformity is chronic. There is increased size of a 4.0 x 3.4 cm mass involving the lateral aspect of the left seventh rib on image 34 series 3 with lytic eder truction of the adjacent bony cortex. IMPRESSION: 1. Lytic bone lesions compatible with the patient's history of multiple osteoma redemonstrated. There is increased size of an osteolytic destructive soft tissue mass involving the anterolateral left sev enth rib which now measures up to 4 cm. 2. Moderate left-sided hydroureteronephrosis is unchanged from prior with findings suspicious for UPJ obstruction. Layering stone fragments are noted within the left renal pelvis and renal collecting sy stem. 3. Distended gallbladder with cholelithiasis. No CT evidence of acute cholecystitis. 4. Asymmetric right-sided urinary bladder wall thickening with partial distention and perivesicular s tranding. Ill-defined hyperdense material within the dependent urinary bladder may represent hemorrha gic debris however could be correlated with cystoscopy to exclude an underlying urothelial lesion. 5. Colonic diverticulosis. 6. Additional findings as above. ACT 112: Negative or not required by law. The above report was generated using voice recognition software. It may contain grammatical, syntax o r spelling errors. Electronically signed by: Fabricio Chowdary M.D. 11/12/2021 10:12 AM
[2021-11-12 10:19] LABS: Bacteria Urine 1+ (Negative); RBC Urine >30 /hpf (0-4); WBC Urine 0-5 /hpf (0-5)
--- NOTE | 2021-11-12 10:25 | XRay Report ---
XR chest 1V portable CLINICAL HISTORY: SEPSIS. Evaluate cardiopulmonary status COMPARISON STUDY: 12/14/2018 TECHNIQUE: 1 view of the chest FINDINGS: Single frontal view of the chest demonstrates the cardiomediastinal silhouette to be within normal li mits. A Port-A-Cath is in place. The lungs are clear of alveolar opacities. There is no evidence for pleural effusion. There is no evidence for vascular congestion. There is no acute osseous pathology. IMPRESSION: No acute cardiopulmonary disease. ACT 112: Negative or not required by law. Electronically signed by: Marcelino Christopher M.D. 11/12/2021 10:23 AM
[2021-11-12 10:42] LABS: Alanine Aminotransferase 8 U/L (7-52); Albumin Globulin Ratio 1.1 (0.9-2); Albumin Level 3.7 gm/dl (3.4-5.0); Alkaline Phosphatase 70 U/L (34-104); Anion Gap 12 (3-11); Aspartate Aminotransferase 18 U/L (13-39); BUN Creatinine Ratio 24.1 (10-20); Bilirubin,Total 0.7 mg/dl (0.2-1.0); Blood Urea Nitrogen 20 mg/dl (6-23); Calcium 8.5 mg/dl (8.5-10.1); Carbon Dioxide 20 mmol/L (21-32); Chloride 105 mmol/L (98-107); Creatine Kinase 40 U/L (26-192); Creatinine Clr Calc Pharmacy 46.7 ml/min; Est GFR (African American) 77.2 ml/min; Est GFR (Non-African American) 66.6 ml/min; Globulin 3.3 gm/dl (2.5-4.0); Glucose 99 mg/dl (70-99(Fasting)); Lipase 23 U/L (11-82); Magnesium 1.9 mg/dl (1.7-2.4); Potassium 4.4 mmol/L (3.5-5.1); Sodium 137 mmol/L (136-145)
[2021-11-12] MEDS ORDERED: cefTRIAXone SODIUM 1,000 MG/50 ML BAG IV STA (10:58)
--- NOTE | 2021-11-12 12:16 | History & Physical Report ---
Date of Service November 12, 2021 Assessment & Plan (1) Hematuria: Plan: Unclear etiology- may be related to UTI +/- nephrolithiasis. - Admit to med/surg tele - Serial H&H to monitor stability - no change from outpatient labs three days ago - Type and cross 2 units but will hold for now - consent signed in ED - Consult urology for additional recommendations - Covering empirically with cefepime while awaiting culture results (2) Multiple myeloma: Plan: - Continue chronic suppressive valacyclovir - Keep outpatient f/u with hem/onc - enlarging lytic lesion on CT in ED. Will need to ensure results sent to oncologist, Dr. Benny Mondragon. Plan: Pt seen and evaluated with collaborating physician, Dr. Pryor. Plan of care discussed and as outlined above. Code status: full code DVT prophylaxis: Parish Hernandez PA-C History of Present Illness Chief Complaint: Blood in the urine Primary Care Provider: Artemio Mane MD This is a 81 y/o female with a PMH of multiple myeloma, currently on chemo with last treatment two days ago, who presents to the ED with hematuria that started earlier today. She usually gets up at least once per night to urinate. Around 1 am today, she noticed hematuria described as bright red urine. This has continued every time she has urinated since it started. She denies any recent falls. She is not on anticoagulation, NSAIDs, or anti-platelets. She is currently on chemotherapy every other week - last dose 11/10/21. She typically has some diarrhea for a day after chemo. Diarrhea has resolved today. Last night she was nauseated and vomited her dinner but nausea improved this morning. States that she does not usually get N/V with chemo. No change in chronic lower back pain. No dysuria, fevers, chills, urinary frequency. She does drink a lot of water at baseline and this is unchanged. Denies abd pain, CP, palp, SOB, lightheadedness. Starting to feel hungry. Denies prior issues with kidney stones, no prior urology evaluations. Allergies Allergy/AdvReac Type Severity Reaction Status Date / Time lenalidomide [From Revlimid] AdvReac Hives Unverified 11/12/21 10:35 TAPE AdvReac Mild RASH Uncoded 11/12/21 10:35 Home Medications Medication Instructions Recorded Confirmed Type calcium carbonate-vitamin D3 600 2 tab PO QAM 12/14/18 11/12/21 History mg-125 unit tablet (Calcium) denosumab 120 mg/1.7 mL (70 mg/mL) 120 mg SUBCUT UD 12/14/18 11/12/21 History subcutaneous solution (Xgeva) valacyclovir 500 mg tablet 500 mg PO QAM 12/14/18 11/12/21 History bortezomib 3.5 mg injection powder 0 mg IV UD 11/12/21 11/12/21 History for solution (Velcade) cyanocobalamin (vitamin B-12) 500 500 mcg PO DAILY 11/12/21 11/12/21 History mcg tablet dexamethasone 4 mg tablet 4 mg PO UD 11/12/21 11/12/21 History diphenoxylate-atropine 2.5 1 tab PO QID PRN 11/12/21 11/12/21 History mg-0.025 mg tablet Past Med/Surg History Medical History History of CVA (cerebrovascular accident) no residual deficits History of pneumonia 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 Surgical History History of vascular access device Family History Father Diabetes Sister Cancer Social History Smoking Status: Former smoker Preferred Language: Kiny[place] Beliefs That Will Affect Care: None Feels Safe at Home: Yes Review of Systems Review of Systems: All systems reviewed & are unremarkable except as noted in HPI & below Constitutional: no fever, no chills, no sweats and no anorexia Eyes: no diplopia and no worsening vision Ear, Nose, Mouth, Throat: no nasal congestion, no nasal discharge and no sore throat Respiratory: no cough, no dyspnea and no wheezing Cardiovascular: no chest pain, no palpitations and no edema Gastrointestinal: as per Subjective / HPI; no blood in stools Genitourinary: + nocturia (unchanged from baseline) and + hematuria; no dysuria, no urinary frequency, no urinary urgency and no urinary incontinence Musculoskeletal: + back pain (chronic issue - unchanged); no muscle weakness Integumentary: no bleeding lesions and no unusual bruising Neurologic: no dizziness, no syncope and no headache(s) Psychiatric: no depression and no anxiety Physical Exam Constitutional: well developed and well nourished; no acute distress Eyes: + anicteric sclerae Neck: trachea midline Respiratory: no respiratory distress and no labored breathing Auscultation: lungs clear to auscultation bilaterally; no rales, no rhonchi and no wheezes Cardiovascular: Rate/Rhythm: regular rhythm and + tachycardic Vessels: dorsalis pedis pulses present and radial pulses present Extremities: no pedal edema port visible and palpable - right chest Gastrointestinal (Abdomen): Inspection/Auscultation: normal bowel sounds; a bdomen not distended Percussion/Palpation: abdomen soft; abdomen nontender no CVA tenderness bilaterally Musculoskeletal: Head/Neck/Chest: normocephalic, head atraumatic and neck supple Skin: no jaundice Neurologic: moves all extremities; no focal motor deficits Psychiatric: A+Ox3, euthymic affect Results & Data Results & Data ([facility]) Vital Signs (Past 12 Hours) Vital Signs Temp Pulse Resp BP Pulse Ox 11/12/21 08:53 37 C 130 H 18 95/64 L 99 Laboratory Results Laboratory Results - last 24 hr 11/12/21 11/12/21 11/12/21 09:14 09:14 09:14 WBC RBC Hgb Hct MCV MCH MCHC RDW Std Deviation RDW Coeff of [place] Plt Count MPV Immature Gran % (Auto) Neut % (Auto) Lymph % (Auto) [place] % (Auto) Eos % (Auto) Baso % (Auto) Neut # (Auto) Lymph # (Auto) [place] # (Auto) Eos # (Auto) Baso # (Auto) Immature Gran # (Auto) PT INR APTT PTT Ratio Sodium Potassium Chloride Carbon Dioxide Anion Gap BUN Creatinine Est Cr Clr Drug Dosing Est GFR ( Amer) Est GFR (Non-Af Amer) BUN/Creatinine Ratio Glucose Lactate Calcium Magnesium Total Bilirubin AST ALT Alkaline Phosphatase Total Creatine Kinase Troponin I Total Protein Albumin Globulin Albumin/Globulin Ratio Lipase Procalcitonin Urine Color Brown Urine Appearance Cloudy A Urine pH Ur Specific [place] 1.025 Urine Protein Urine Glucose (UA) Urine Ketones Urine Blood Urine Nitrite Urine Bilirubin Urine Urobilinogen Ur Leukocyte Esterase Urine RBC >30 H Urine WBC 0-5 Ur Epithelial Cells 10-20 H Urine Bacteria 1+ H Influ A Molecular Assay Negative Influ B Molecular Assay Negative SARS-CoV-2, RNA, NAAT NEGATIVE 11/12/21 11/12/21 11/12/21 09:33 09:33 09:33 WBC 2.84 L RBC 3.57 L Hgb 10.9 L Hct 34.5 L MCV 96.6 MCH 30.5 MCHC 31.6 L RDW Std Deviation 50.6 H RDW Coeff of [place] 14.3 Plt Count 146 MPV 9.3 Immature Gran % (Auto) 0.4 Neut % (Auto) 56.0 Lymph % (Auto) 21.8 [place] % (Auto) 21.1 Eos % (Auto) 0.7 Baso % (Auto) 0.0 Neut # (Auto) 1.59 Lymph # (Auto) 0.62 L [place] # (Auto) 0.60 H Eos # (Auto) 0.02 Baso # (Auto) 0.00 Immature Gran # (Auto) 0.01 PT 9.8 INR 1.0 APTT 24.3 PTT Ratio 0.9 Sodium 137 Potassium 4.4 Chloride 105 Carbon Dioxide 20 L Anion Gap 12 H BUN 20 Creatinine 0.83 Est Cr Clr Drug Dosing 46.7 Est GFR ( Amer) 77.2 Est GFR (Non-Af Amer) 66.6 BUN/Creatinine Ratio 24.1 H Glucose 99 Lactate Calcium 8.5 Magnesium 1.9 Total Bilirubin 0.7 AST 18 ALT 8 Alkaline Phosphatase 70 Total Creatine Kinase 40 Troponin I < 0.03 Total Protein 7.0 Albumin 3.7 Globulin 3.3 Albumin/Globulin Ratio 1.1 Lipase 23 Procalcitonin Urine Color Urine Appearance Urine pH Ur Specific [place] Urine Protein Urine Glucose (UA) Urine Ketones Urine Blood Urine Nitrite Urine Bilirubin Urine Urobilinogen Ur Leukocyte Esterase Urine RBC Urine WBC Ur Epithelial Cells Urine Bacteria Influ A Molecular Assay Influ B Molecular Assay SARS-CoV-2, RNA, NAAT 11/12/21 11/12/21 11/12/21 09:33 09:33 09:33 WBC RBC Hgb Hct MCV MCH MCHC RDW Std Deviation RDW Coeff of [place] Plt Count MPV Immature Gran % (Auto) Neut % (Auto) Lymph % (Auto) [place] % (Auto) Eos % (Auto) Baso % (Auto) Neut # (Auto) Lymph # (Auto) [place] # (Auto) Eos # (Auto) Baso # (Auto) Immature Gran # (Auto) PT INR APTT PTT Ratio Sodium Potassium Chloride Carbon Dioxide Anion Gap BUN Creatinine Est Cr Clr Drug Dosing Est GFR ( Amer) Est GFR (Non-Af Amer) BUN/Creatinine Ratio Glucose Lactate Calcium Magnesium Total Bilirubin AST ALT Alkaline Phosphatase Total Creatine Kinase Cancelled Troponin I Total Protein Albumin Globulin Albumin/Globulin Ratio Lipase Cancelled Procalcitonin 0.12 Urine Color Urine Appearance Urine pH Ur Specific [place] Urine Protein Urine Glucose (UA) Urine Ketones Urine Blood Urine Nitrite Urine Bilirubin Urine Urobilinogen Ur Leukocyte Esterase Urine RBC Urine WBC Ur Epithelial Cells Urine Bacteria Influ A Molecular Assay Influ B Molecular Assay SARS-CoV-2, RNA, NAAT 11/12/21 10:34 WBC RBC Hgb Hct MCV MCH MCHC RDW Std Deviation RDW Coeff of [place] Plt Count MPV Immature Gran % (Auto) Neut % (Auto) Lymph % (Auto) [place] % (Auto) Eos % (Auto) Baso % (Auto) Neut # (Auto) Lymph # (Auto) [place] # (Auto) Eos # (Auto) Baso # (Auto) Immature Gran # (Auto) PT INR APTT PTT Ratio Sodium Potassium Chloride Carbon Dioxide Anion Gap BUN Creatinine Est Cr Clr Drug Dosing Est GFR ( Amer) Est GFR (Non-Af Amer) BUN/Creatinine Ratio Glucose Lactate 1.0 Calcium Magnesium Total Bilirubin AST ALT Alkaline Phosphatase Total Creatine Kinase Troponin I Total Protein Albumin Globulin Albumin/Globulin Ratio Lipase Procalcitonin Urine Color Urine Appearance Urine pH Ur Specific [place] Urine Protein Urine Glucose (UA) Urine Ketones Urine Blood Urine Nitrite Urine Bilirubin Urine Urobilinogen Ur Leukocyte Esterase Urine RBC Urine WBC Ur Epithelial Cells Urine Bacteria Influ A Molecular Assay Influ B Molecular Assay SARS-CoV-2, RNA, NAAT Diagnostic Findings Chest X-ray 11/12/21 - IMPRESSION: No acute cardiopulmonary disease. CT Abd/Pel 11/12/21 - IMPRESSION: 1. Lytic bone lesions compatible with the patient's history of multiple osteoma redemonstrated. There is increased size of an osteolytic destructive soft tissue mass involving the anterolateral left seventh rib which now measures up to 4 cm. 2. Moderate left-sided hydroureteronephrosis is unchanged from prior with findings suspicious for UPJ obstruction. Layering stone fragments are noted within the left renal pelvis and renal collecting system. 3. Distended gallbladder with cholelithiasis. No CT evidence of acute cholecystitis. 4. Asymmetric right-sided urinary bladder wall thickening with partial distention and perivesicular stranding. Ill-defined hyperdense material within the dependent urinary bladder may represent hemorrhagic debris however could be correlated with cystoscopy to exclude an underlying urothelial lesion. 5. Colonic diverticulosis. 6. Additional findings as above. Medications Administered Discontinued Medications Sodium Chloride (Nss 1000ml) 1,000 mls @ 999 mls/hr IV .[id number] BRADLEY Stop: 11/12/21 10:15 Last Admin: 11/12/21 10:30 Dose: 999 mls/hr Documented by: [id number] Ceftriaxone Sodium (Rocephin) 1,000 mg in 50 mls @ 100 mls/hr IV NOW STA Stop: 11/12/21 11:27 Last Admin: 11/12/21 11:32 Dose: 100 mls/hr Documented by: [id number] Supervising Physician Co-Signing Physician Notes Patient is 81-year-old female with history of multiple myeloma currently undergoing chemotherapy, history of CVA, inappropriate sinus tachycardia and other medical problems presents with history of hematuria since this morning. She denies any aspirin, NSAID use. She is currently not on any blood thinners. Also denies any fall or trauma. She denies any dysuria, increased urinary frequency, fever, chills. Please review HPI for complete details of pres entation. Blood work suggestive of hemoglobin 10.9, leukopenia WBC count 2.84, bicarbonate level 20, anion gap 12, urinary analysis showed RBCs, 1+ bacteria. CT abdomen showed moderate left-sided hydroureteronephrosis unchanged from prior imaging, suspicious for UPJ obstruction, layering stone fragments noted. Blood and urine culture obtained. On Exam patient is thin, frail, chronically appeari ng, no apparent distress, normocephalic atraumatic, EOMI, normal breath sounds, clear to auscultation, Chemo-Port on right side, S1-S2, no murmur, tachycardia, no pedal edema, abdomen soft, nontender, normal bowel sounds, alert, awake, oriented, grossly no focal deficits. Patient is admitted for management of hematuria. ? Secondary to DD: Nephrolithiasis, UTI. Obstructive uropathy. Agree with gentle fluids, IV antibiotics. Monitor H&H and transfuse PRBCs as needed. Urology consulted. Avoid any anticoagulants given hematuria. I personally reviewed the record. Patient is interviewed and examined at bedside. Patient's care is coordinated with Urszula Hernandez PA-C. Please refer to the documentation above for details of patient's presentation and for discussion of other issues.
[2021-11-12] MEDS ORDERED: CONSULT PHARMACY STA (13:01)
[2021-11-12] MEDS ORDERED: ACETAMINOPHEN 325 MG TAB PO PRN (13:36)
--- NOTE | 2021-11-12 14:02 | Emergency Department Note ---
History of Present Illness General Chief complaint: Hematuria Stated complaint: PEEING BLOOD, VOMITING Time Seen by Provider: 11/12/21 09:03 History of Present Illness Provider complaint: Hematuria nausea vomiting Onset (ago): day(s) 2 Associated symptoms: + nausea/vomiting; no chest pain, no cough, no fever/chills, no headaches or no shortness of breath 81-year-old female with history of multiple myeloma presents emergency department for hematuria nausea vomiting. Patient reports her symptoms started 2 days ago after getting chemotherapy that was done by Dr. Giancarlo Martinez oncology. She reports no chest pain difficulty breathing. No melena or hematochezia. No fevers. Home Medications Medication Instructions Recorded Confirmed Type calcium carbonate-vitamin D3 600 2 tab PO QAM 12/14/18 11/12/21 History mg-125 unit tablet (Calcium) denosumab 120 mg/1.7 mL (70 mg/mL) 120 mg SUBCUT UD 12/14/18 11/12/21 History subcutaneous solution (Xgeva) valacyclovir 500 mg tablet 500 mg PO QAM 12/14/18 11/12/21 History bortezomib 3.5 mg injection powder 0 mg IV UD 11/12/21 11/12/21 History for solution (Velcade) cyanocobalamin (vitamin B-12) 500 500 mcg PO DAILY 11/12/21 11/12/21 History mcg tablet dexamethasone 4 mg tablet 4 mg PO UD 11/12/21 11/12/21 History diphenoxylate-atropine 2.5 1 tab PO QID PRN 11/12/21 11/12/21 History mg-0.025 mg tablet Allergies Allergy/AdvReac Type Severity Reaction Status Date / Time lenalidomide [From Revlimid] AdvReac Hives Unverified 11/12/21 10:35 TAPE AdvReac Mild RASH Uncoded 11/12/21 10:35 Past Med/Surg History Medical History History of CVA (cerebrovascular accident) no residual deficits History of pneumonia 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 Surgical History History of vascular access device Family History Father Diabetes Sister Cancer Social History Smoking Status: Former smoker Preferred Language: Nepali Beliefs That Will Affect Care: None Feels Safe at Home: Yes Review of Systems A total of 10 systems reviewed and were otherwise negative Physical Exam Vital Signs Vital Signs - 24 hr 11/12/21 08:53 11/12/21 09:03 11/12/21 09:41 Temperature 37 C Temperature Source Oral Pulse Rate 130 H 117 H Pulse Rate from SpO2 Sensor 115 H Respiratory Rate 18 20 Respiratory Effort / Characteristics Non-Labored Blood Pressure 95/64 L Blood Pressure Mean 74 Pulse Oximetry 99 100 Oxygen Delivery Method Room Air Room Air Sepsis Recent Fever Within 48 Hours No Sepsis New/Unexplained Change in Mental Status No Sepsis Action Taken by Nursing No Action Required 11/12/21 09:53 11/12/21 10:00 11/12/21 10:10 Temperature Temperature Source Pulse Rate 116 H 109 H 102 H Pulse Rate from SpO2 Sensor 116 H 110 H 102 H Respiratory Rate 30 H 16 16 Respiratory Effort / Characteristics Blood Pressure 102/66 Blood Pressure Mean 78 Pulse Oximetry 97 97 97 Oxygen Delivery Method Sepsis Recent Fever Within 48 Hours Sepsis New/Unexplained Change in Mental Status Sepsis Action Taken by Nursing 11/12/21 10:20 11/12/21 10:30 11/12/21 10:40 Temperature Temperature Source Pulse Rate 103 H 106 H 100 H Pulse Rate from SpO2 Sensor 104 H 107 H 101 H Respiratory Rate 22 24 16 Respiratory Effort / Characteristics Blood Pressure Blood Pressure Mean Pulse Oximetry 98 99 100 Oxygen Delivery Method Sepsis Recent Fever Within 48 Hours Sepsis New/Unexplained Change in Mental Status Sepsis Action Taken by Nursing 11/12/21 10:50 11/12/21 10:57 11/12/21 11:00 Temperature Temperature Source Pulse Rate 103 H 102 H 100 H Pulse Rate from SpO2 Sensor 103 H 101 H 102 H Respiratory Rate 15 17 20 Respiratory Effort / Characteristics Blood Pressure 116/61 107/64 Blood Pressure Mean 79 78 Pulse Oximetry 100 98 99 Oxygen Delivery Method Sepsis Recent Fever Within 48 Hours Sepsis New/Unexplained Change in Mental Status Sepsis Action Taken by Nursing 11/12/21 11:10 11/12/21 11:20 11/12/21 11:30 Temperature Temperature Source Pulse Rate 101 H 104 H 106 H Pulse Rate from SpO2 Sensor 101 H 104 H 106 H Respiratory Rate 21 18 18 Respiratory Effort / Characteristics Blood Pressure 114/63 Blood Pressure Mean 80 Pulse Oximetry 97 98 98 Oxygen Delivery Method Sepsis Recent Fever Within 48 Hours Sepsis New/Unexplained Change in Mental Status Sepsis Action Taken by Nursing 11/12/21 11:40 11/12/21 11:50 11/12/21 12:00 Temperature Temperature Source Pulse Rate 104 H 105 H 101 H Pulse Rate from SpO2 Sensor 104 H 105 H 101 H Respiratory Rate 15 12 13 Respiratory Effort / Characteristics Blood Pressure 109/66 Blood Pressure Mean 80 Pulse Oximetry 99 99 100 Oxygen Delivery Method Sepsis Recent Fever Within 48 Hours Sepsis New/Unexplained Change in Mental Status Sepsis Action Taken by Nursing 11/12/21 12:10 11/12/21 12:20 11/12/21 12:30 Temperature Temperature Source Pulse Rate 109 H 111 H 103 H Pulse Rate from SpO2 Sensor 110 H 108 H 103 H Respiratory Rate 24 24 21 Respiratory Effort / Characteristics Blood Pressure 129/51 L Blood Pressure Mean 77 Pulse Oximetry 100 97 98 Oxygen Delivery Method Sepsis Recent Fever Within 48 Hours Sepsis New/Unexplained Change in Mental Status Sepsis Action Taken by Nursing 11/12/21 12:40 Temperature Temperature Source Pulse Rate 101 H Pulse Rate from SpO2 Sensor 98 H Respiratory Rate 18 Respiratory Effort / Characteristics Blood Pressure Blood Pressure Mean Pulse Oximetry 99 Oxygen Delivery Method Sepsis Recent Fever Within 48 Hours Sepsis New/Unexplained Change in Mental Status Sepsis Action Taken by Nursing Physical Exam GENERAL: She is oriented to person, place, and time. She appears well-developed and well-nourished. She does not appear distressed. HENT: Exam performed. -Head: Normocephalic and atraumatic. -Right Ear: External ear normal. No mastoid tenderness. -Left Ear: External ear normal. No mastoid tenderness. -Mouth/Throat: The oropharynx is clear and moist. No trismus in the jaw. No dental abscesses or uvula swelling. No oropharyngeal exudate or tonsillar abscesses. EYES: Conjunctivae and EOM are normal. Pupils are equal, round, and reactive to light. Right eye exhibits no discharge. Left eye exhibits no discharge. No scleral icterus. NECK: Normal range of motion. Neck supple. No JVD present. No spinous process tenderness present. No carotid bruit present. No rigidity. No tracheal deviation and normal range of motion present. No Brudzinski's sign and no Kernig's sign noted. CV: Tachycardic rate, regular rhythm, normal heart sounds and intact distal pulses. There is no peripheral edema. Palpable radial pulses bue. PULM/CHEST: Effort normal and breath sounds normal. No respiratory distress. No stridor. She has no wheezes. She has no rales. -Chest Wall: She exhibits no tenderness. ABD: The abdomen is soft. Bowel sounds are normal. She has no distension. No mass is present. There is no tenderness. There is no rebound, no guarding, no Candelario's sign and no tenderness at McBurney's point. Rovsig negative MUSC/SKEL: Normal range of motion. There is no peripheral edema, tenderness or deformity. LYMPH: No cervical adenopathy. NEURO: She is alert and oriented to person, place, and time. She has normal strength. No cranial nerve deficit or sensory deficit. Coordination and gait normal. GCS eye subscore is 4. GCS verbal subscore is 5. GCS motor subscore is 6. Cerebellar tests wnl. SKIN: Skin is warm and dry. She is not diaphoretic. PSYCH: She has a normal mood and affect. Behavior is normal. Judgment and thought content normal. Course Course 09: The patient was evaluated in room C12. A complete history and physical exam was performed Cardiac monitoring: An order was placed for continuous cardiac monitoring. The monitor shows a rate of 120 with sinus tachycardia rhythm Patient is tachycardic and hypotensive on arrival. Sepsis protocols were initiated. 1157: Vital signs stable status post IV fluids. Labs show normal white blood cell count and normal lactic acid level. Urine does appear infected. Imaging shows lytic bone lesions that are known. There is also moderate left-sided hydroureteronephrosis suspicious for UPJ obstruction with layering stone fragments. There is also asymmetric urinary bladder wall thickening. Patient be treated with Rocephin 1 g IV piggyback. [facility] stated to me to Dr. Brooke Administered Medications Discontinued Medications Sodium Chloride (Nss 1000ml) 1,000 mls @ 999 mls/hr IV .[id number] BRADLEY Stop: 11/12/21 10:15 Last Admin: 11/12/21 10:30 Dose: 999 mls/hr Documented by: [id number] Ceftriaxone Sodium (Rocephin) 1,000 mg in 50 mls @ 100 mls/hr IV NOW STA Stop: 11/12/21 11:27 Last Admin: 11/12/21 11:32 Dose: 100 mls/hr Documented by: [id number] Medical Decision Making Laboratory Data Result diagrams: 11/12/21 09:33 11/12/21 09:33 Lab Results 11/12/21 11/12/21 11/12/21 Range/Units 09:14 09:14 09:14 WBC (4.8-10.8) K/uL RBC (4.2-5.4) M/uL Hgb (12.0-16.0) g/dL Hct (37-47) % MCV (80-100) fL MCH (25-34) pg MCHC (32-36) g/dL RDW Std Deviation (36.4-46.3) fL RDW Coeff of Kendell (11.5-14.5) % Plt Count (130-400) K/uL MPV (7.4-10.4) fL Immature Gran % (Auto) % Neut % (Auto) % Lymph % (Auto) % [place] % (Auto) % Eos % (Auto) % Baso % (Auto) % Neut # (Auto) (1.4-6.5) K/uL Lymph # (Auto) (1.2-3.4) K/uL [place] # (Auto) (0.11-0.59) K/uL Eos # (Auto) (0-0.5) K/uL Baso # (Auto) (0-0.2) K/uL Immature Gran # (Auto) (0.00-0.02) K/uL PT (9.0-12.0) Seconds INR (0.9-1.1) APTT (21.0-31.0) Seconds PTT Ratio Sodium (136-145) mmol/L Potassium (3.5-5.1) mmol/L Chloride (98-107) mmol/L Carbon Dioxide (21-32) mmol/L Anion Gap (3-11) BUN (6-23) mg/dl Creatinine (0.6-1.2) mg/dl Est Cr Clr Drug Dosing ml/min Est GFR ( Amer) ml/min Est GFR (Non-Af Amer) ml/min BUN/Creatinine Ratio (10-20) Glucose (70-99(Fasting)) mg/dl Lactate (0.4-2.0) mmol/L Calcium (8.5-10.1) mg/dl Magnesium (1.7-2.4) mg/dl Total Bilirubin (0.2-1.0) mg/dl AST (13-39) U/L ALT (7-52) U/L Alkaline Phosphatase (34-104) U/L Total Creatine Kinase (26-192) U/L Troponin I (0-0.04) ng/ml Total Protein (6.0-8.3) gm/dl Albumin (3.4-5.0) gm/dl Globulin (2.5-4.0) gm/dl Albumin/Globulin Ratio (0.9-2) Lipase (11-82) U/L Procalcitonin (0-0.5) ng/ml Urine Color Brown Urine Appearance Cloudy A (Clear) Urine pH (4.5-7.5) Ur Specific [place] 1.025 (1.000-1.030) Urine Protein (Negative) Urine Glucose (UA) (Negative) Urine Ketones (Negative) Urine Blood (Negative) Urine Nitrite (Negative) Urine Bilirubin (Negative) Urine Urobilinogen (Negative) Ur Leukocyte Esterase (Negative) Urine RBC >30 H (0-4) /hpf Urine WBC 0-5 (0-5) /hpf Ur Epithelial Cells 10-20 H (0-5) /lpf Urine Bacteria 1+ H (Negative) Influ A Molecular Assay Negative (Negative) Influ B Molecular Assay Negative (Negative) SARS-CoV-2, RNA, NAAT NEGATIVE (NEGATIVE) 11/12/21 11/12/21 11/12/21 Range/Units 09:33 09:33 09:33 WBC 2.84 L (4.8-10.8) K/uL RBC 3.57 L (4.2-5.4) M/uL Hgb 10.9 L (12.0-16.0) g/dL Hct 34.5 L (37-47) % MCV 96.6 (80-100) fL MCH 30.5 (25-34) pg MCHC 31.6 L (32-36) g/dL RDW Std Deviation 50.6 H (36.4-46.3) fL RDW Coeff of Kendell 14.3 (11.5-14.5) % Plt Count 146 (130-400) K/uL MPV 9.3 (7.4-10.4) fL Immature Gran % (Auto) 0.4 % Neut % (Auto) 56.0 % Lymph % (Auto) 21.8 % [place] % (Auto) 21.1 % Eos % (Auto) 0.7 % Baso % (Auto) 0.0 % Neut # (Auto) 1.59 (1.4-6.5) K/uL Lymph # (Auto) 0.62 L (1.2-3.4) K/uL [place] # (Auto) 0.60 H (0.11-0.59) K/uL Eos # (Auto) 0.02 (0-0.5) K/uL Baso # (Auto) 0.00 (0-0.2) K/uL Immature Gran # (Auto) 0.01 (0.00-0.02) K/uL PT 9.8 (9.0-12.0) Seconds INR 1.0 (0.9-1.1) APTT 24.3 (21.0-31.0) Seconds PTT Ratio 0.9 Sodium 137 (136-145) mmol/L Potassium 4.4 (3.5-5.1) mmol/L Chloride 105 (98-107) mmol/L Carbon Dioxide 20 L (21-32) mmol/L Anion Gap 12 H (3-11) BUN 20 (6-23) mg/dl Creatinine 0.83 (0.6-1.2) mg/dl Est Cr Clr Drug Dosing 46.7 ml/min Est GFR ( Amer) 77.2 ml/min Est GFR (Non-Af Amer) 66.6 ml/min BUN/Creatinine Ratio 24.1 H (10-20) Glucose 99 (70-99(Fasting)) mg/dl Lactate (0.4-2.0) mmol/L Calcium 8.5 (8.5-10.1) mg/dl Magnesium 1.9 (1.7-2.4) mg/dl Total Bilirubin 0.7 (0.2-1.0) mg/dl AST 18 (13-39) U/L ALT 8 (7-52) U/L Alkaline Phosphatase 70 (34-104) U/L Total Creatine Kinase 40 (26-192) U/L Troponin I < 0.03 (0-0.04) ng/ml Total Protein 7.0 (6.0-8.3) gm/dl Albumin 3.7 (3.4-5.0) gm/dl Globulin 3.3 (2.5-4.0) gm/dl Albumin/Globulin Ratio 1.1 (0.9-2) Lipase 23 (11-82) U/L Procalcitonin (0-0.5) ng/ml Urine Color Urine Appearance (Clear) Urine pH (4.5-7.5) Ur Specific [place] (1.000-1.030) Urine Protein (Negative) Urine Glucose (UA) (Negative) Urine Ketones (Negative) Urine Blood (Negative) Urine Nitrite (Negative) Urine Bilirubin (Negative) Urine Urobilinogen (Negative) Ur Leukocyte Esterase (Negative) Urine RBC (0-4) /hpf Urine WBC (0-5) /hpf Ur Epithelial Cells (0-5) /lpf Urine Bacteria (Negative) Influ A Molecular Assay (Negative) Influ B Molecular Assay (Negative) SARS-CoV-2, RNA, NAAT (NEGATIVE) 11/12/21 11/12/21 11/12/21 Range/Units 09:33 09:33 09:33 WBC (4.8-10.8) K/uL RBC (4.2-5.4) M/uL Hgb (12.0-16.0) g/dL Hct (37-47) % MCV (80-100) fL MCH (25-34) pg MCHC (32-36) g/dL RDW Std Deviation (36.4-46.3) fL RDW Coeff of Kendell (11.5-14.5) % Plt Count (130-400) K/uL MPV (7.4-10.4) fL Immature Gran % (Auto) % Neut % (Auto) % Lymph % (Auto) % [place] % (Auto) % Eos % (Auto) % Baso % (Auto) % Neut # (Auto) (1.4-6.5) K/uL Lymph # (Auto) (1.2-3.4) K/uL [place] # (Auto) (0.11-0.59) K/uL Eos # (Auto) (0-0.5) K/uL Baso # (Auto) (0-0.2) K/uL Immature Gran # (Auto) (0.00-0.02) K/uL PT (9.0-12.0) Seconds INR (0.9-1.1) APTT (21.0-31.0) Seconds PTT Ratio Sodium (136-145) mmol/L Potassium (3.5-5.1) mmol/L Chloride (98-107) mmol/L Carbon Dioxide (21-32) mmol/L Anion Gap (3-11) BUN (6-23) mg/dl Creatinine (0.6-1.2) mg/dl Est Cr Clr Drug Dosing ml/min Est GFR ( Amer) ml/min Est GFR (Non-Af Amer) ml/min BUN/Creatinine Ratio (10-20) Glucose (70-99(Fasting)) mg/dl Lactate (0.4-2.0) mmol/L Calcium (8.5-10.1) mg/dl Magnesium (1.7-2.4) mg/dl Total Bilirubin (0.2-1.0) mg/dl AST (13-39) U/L ALT (7-52) U/L Alkaline Phosphatase (34-104) U/L Total Creatine Kinase Cancelled (26-192) U/L Troponin I (0-0.04) ng/ml Total Protein (6.0-8.3) gm/dl Albumin (3.4-5.0) gm/dl Globulin (2.5-4.0) gm/dl Albumin/Globulin Ratio (0.9-2) Lipase Cancelled (11-82) U/L Procalcitonin 0.12 (0-0.5) ng/ml Urine Color Urine Appearance (Clear) Urine pH (4.5-7.5) Ur Specific [place] (1.000-1.030) Urine Protein (Negative) Urine Glucose (UA) (Negative) Urine Ketones (Negative) Urine Blood (Negative) Urine Nitrite (Negative) Urine Bilirubin (Negative) Urine Urobilinogen (Negative) Ur Leukocyte Esterase (Negative) Urine RBC (0-4) /hpf Urine WBC (0-5) /hpf Ur Epithelial Cells (0-5) /lpf Urine Bacteria (Negative) Influ A Molecular Assay (Negative) Influ B Molecular Assay (Negative) SARS-CoV-2, RNA, NAAT (NEGATIVE) 11/12/21 Range/Units 10:34 WBC (4.8-10.8) K/uL RBC (4.2-5.4) M/uL Hgb (12.0-16.0) g/dL Hct (37-47) % MCV (80-100) fL MCH (25-34) pg MCHC (32-36) g/dL RDW Std Deviation (36.4-46.3) fL RDW Coeff of Kendell (11.5-14.5) % Plt Count (130-400) K/uL MPV (7.4-10.4) fL Immature Gran % (Auto) % Neut % (Auto) % Lymph % (Auto) % [place] % (Auto) % Eos % (Auto) % Baso % (Auto) % Neut # (Auto) (1.4-6.5) K/uL Lymph # (Auto) (1.2-3.4) K/uL [place] # (Auto) (0.11-0.59) K/uL Eos # (Auto) (0-0.5) K/uL Baso # (Auto) (0-0.2) K/uL Immature Gran # (Auto) (0.00-0.02) K/uL PT (9.0-12.0) Seconds INR (0.9-1.1) APTT (21.0-31.0) Seconds PTT Ratio Sodium (136-145) mmol/L Potassium (3.5-5.1) mmol/L Chloride (98-107) mmol/L Carbon Dioxide (21-32) mmol/L Anion Gap (3-11) BUN (6-23) mg/dl Creatinine (0.6-1.2) mg/dl Est Cr Clr Drug Dosing ml/min Est GFR ( Amer) ml/min Est GFR (Non-Af Amer) ml/min BUN/Creatinine Ratio (10-20) Glucose (70-99(Fasting)) mg/dl Lactate 1.0 (0.4-2.0) mmol/L Calcium (8.5-10.1) mg/dl Magnesium (1.7-2.4) mg/dl Total Bilirubin (0.2-1.0) mg/dl AST (13-39) U/L ALT (7-52) U/L Alkaline Phosphatase (34-104) U/L Total Creatine Kinase (26-192) U/L Troponin I (0-0.04) ng/ml Total Protein (6.0-8.3) gm/dl Albumin (3.4-5.0) gm/dl Globulin (2.5-4.0) gm/dl Albumin/Globulin Ratio (0.9-2) Lipase (11-82) U/L Procalcitonin (0-0.5) ng/ml Urine Color Urine Appearance (Clear) Urine pH (4.5-7.5) Ur Specific [place] (1.000-1.030) Urine Protein (Negative) Urine Glucose (UA) (Negative) Urine Ketones (Negative) Urine Blood (Negative) Urine Nitrite (Negative) Urine Bilirubin (Negative) Urine Urobilinogen (Negative) Ur Leukocyte Esterase (Negative) Urine RBC (0-4) /hpf Urine WBC (0-5) /hpf Ur Epithelial Cells (0-5) /lpf Urine Bacteria (Negative) Influ A Molecular Assay (Negative) Influ B Molecular Assay (Negative) SARS-CoV-2, RNA, NAAT (NEGATIVE) Imaging Data Radiologist's Impression: Chest X-Ray 11/12/21 09:03 XR chest 1V portable CLINICAL HISTORY: SEPSIS. Evaluate cardiopulmonary status COMPARISON STUDY: 12/14/2018 TECHNIQUE: 1 view of the chest FINDINGS: Single frontal view of the chest demonstrates the cardiomediastinal silhouette to be within normal limits. A Port-A-Cath is in place. The lungs are clear of alveolar opacities. There is no evidence for pleural effusion. There is no evidence for vascular congestion. There is no acute osseous pathology. IMPRESSION: No acute cardiopulmonary disease. ACT 112: Negative or not required by law. Electronically signed by: Marcelino Christopher M.D. 11/12/2021 10:23 AM Abdomen/Pelvis CT 11/12/21 09:[address] WITHOUT CONTRAST CT DOSE: 307.77 mGycm HISTORY: Acute hematuria with flank pain. History of multiple myeloma. hematuria flank pain TECHNIQUE: Multiaxial CT images of the abdomen and pelvis were performed without contrast. A dose lowering technique was utilized adhering to the principles of ALARA. COMPARISON STUDY: PET CT 05/02/2019, CT abdomen and pelvis 05/01/2017. FINDINGS: Trace pericardial effusion. Coronary artery calcifications. The lung bases are generally clear. No pneumatosis or pneumoperitoneum. The spleen, mildly atrophic pancreas and adrenal glands are unremarkable. Distended gallbladder with punctate cholelithiasis. No CT evidence of acute cholecystitis. Punctate calcification on image 131 series 3 appears to be medial to the common bile duct. Choledocholithiasis considered less likely. Peripheral calcifications of the pancreatic head redemonstrated suggestive of chronic pancreatitis. The unenhanced liver is unremarkable. Unremarkable right kidney. There is chronic moderate left-sided hydronephrosis with narrowing at the ureteropelvic junction. Layering hyperdense material is noted within the left renal collecting system and renal pelvis suggestive of stone fragments. No ureteral calculi identified. Asymmetric right-sided urinary bladder wall thickening with partial distention. Hyperdense material within the urinary bladder lumen. Atherosclerosis of the aorta without aneurysm. No adenopathy. Small hiatal hernia with mild distal esophageal wall thickening. There is no bowel obstruction. Mild rectal wall thickening with partial distention. Colonic diverticulosis. Normal appendix. Unremarkable soft tissues. Degenerative changes of the spine, pelvis and hips. Chronic destructive lytic lesions of the sacrum and right iliac bone with progressive healing sclerosis compared to the prior study. Additional scattered smaller lytic foci noted within the ribs and spine. Avascular necrosis of the femoral heads. Moderate to severe L4 compression deformity is chronic. There is increased size of a 4.0 x 3.4 cm mass involving the lateral aspect of the left seventh rib on image 34 series 3 with lytic destruction of the adjacent bony cortex. IMPRESSION: 1. Lytic bone lesions compatible with the patient's history of multiple osteoma redemonstrated. There is increased size of an osteolytic destructive soft tissue mass involving the anterolateral left seventh rib which now measures up to 4 cm. 2. Moderate left-sided hydroureteronephrosis is unchanged from prior with findings suspicious for UPJ obstruction. Layering stone fragments are noted within the left renal pelvis and renal collecting system. 3. Distended gallbladder with cholelithiasis. No CT evidence of acute cholecystitis. 4. Asymmetric right-sided urinary bladder wall thickening with partial distention and perivesicular stranding. Ill-defined hyperdense material within the dependent urinary bladder may represent hemorrhagic debris however could be correlated with cystoscopy to exclude an underlying urothelial lesion. 5. Colonic diverticulosis. 6. Additional findings as above. ACT 112: Negative or not required by law. The above report was generated using voice recognition software. It may contain grammatical, syntax or spelling errors. Electronically signed by: Fabricio Chowdary M.D. 11/12/2021 10:12 AM ECG Data Indication: + weakness Rate (beats per minute): 117 Rhythm: + sinus tachycardia ECG Intervals/blocks: + Normal DC and + Normal QT-c ECG ST segments: + Normal ST segments Additional Comments: QRS 70 MDM Narrative 0903: The patient was evaluated in room C12. A complete history and physical exam was performed Cardiac monitoring: An order was placed for continuous cardiac monitoring. The monitor shows a rate of 120 with sinus tachycardia rhythm Patient is tachycardic and hypotensive on arrival. Sepsis protocols were initiated. 1157: Vital signs stable status post IV fluids. Labs show normal white blood cell count and normal lactic acid level. Urine does appear infected. Imaging shows lytic bone lesions that are known. There is also moderate left-sided hydroureteronephrosis suspicious for UPJ obstruction with layering stone fragments. There is also asymmetric urinary bladder wall thickening. Patient be treated with Rocephin 1 g IV piggyback. [facility] Stacy lopez to me to Dr. Brooke Impression & Plan Acute pyelonephritis Discharge Plan Visit Data Chief Complaint: Hematuria Stated Complaint: PEEING BLOOD, VOMITING ED Provider: Eric Kebede Discharge Problem: Acute pyelonephritis Patient Disposition: Admitted As Inpatient Forms Stand Alone Forms: [facility], Virtual Emergency Department, Important Visit Information Prescriptions Prescriptions: No Action valacyclovir 500 mg tablet 500 mg PO QAM RF: 0 Calcium 600 + D(3) 600-125 mg-unit Tablet 2 tab PO QAM RF: 0 Xgeva 120 mg/1.7 mL (70 mg/mL) Solution 120 mg SUBCUT UD RF: 0 diphenoxylate-atropine 2.5-0.025 mg tablet 1 tab PO QID PRN (Reason: Diarrhea) RF: 0 dexamethasone 4 mg tablet 4 mg PO UD RF: 0 Velcade 3.5 mg Recon Soln 0 mg IV UD RF: 0 cyanocobalamin (vitamin B-12) 500 mcg Tablet 500 mcg PO DAILY RF: 0 Referrals Referrals: Mobile,Artemio E., MD [Primary Care Provider] -
[2021-11-12] MEDS ORDERED: SODIUM CHLORIDE 0.9% 250 ML IV PRN (15:32)
--- NOTE | 2021-11-12 15:50 | Urology Consultation ---
Date of Consultation November 12, 2021 Assessment & Plan (1) Hematuria: (2) UTI (urinary tract infection): (3) Hydronephrosis: 81yoF with a hx of multiple myeloma on chemo admitted with gross hematuria and suspected UTI. - Urology consulted for gross hematuria, abnormal CT. - Plan of care reviewed with Dr. Bellamy, urologist probation officer - Pt afebrile, nontoxic, lab work reviewed - creatinine 0.83, WBC 2.84, Hgb 10.9 - Urine and blood cultures are pending - on IV Ceftriaxone, follow cultures - CTAP reviewed - Asymmetric right-sided urinary bladder wall thickening with partial distention, perivesicular stranding, and ill-defined hyperdense material; Moderate left-sided hydroureteronephrosis is unchanged from prior with findings suspicious for UPJ obstruction. - No acute intervention warranted at this time. - Pt voiding spontaneously, continue to monitor, bladder scan prn. - Will plan for outpatient cystoscopy for further evaluation of bladder findings on CT. Hydronephrosis can also be managed as outpatient as this is likely chronic in nature. - Continue supportive care, antibiotics, and management per hospital team. - Discussed plan of care with patient, she is agreeable, all questions were answered. - Will continue to follow, please contact us with any questions or changes in patient status. Supervising Physician Co-Signing Physician Notes I have discussed Ms. Silva's case with MARY Diaz and agree with the above documentation. As long as she is emptying her bladder I would hold off urologic intervention while inpatient. She bijal require hematuria workup as an outpatient with cystoscopy to evaluate the thickening of her bladder. Given the possibility of acute UTI, I agree with treatment with broad-spectrum antibiotics, narrowing as culture data becomes available. Her hydronephrosis on the left side is likely chronic and as long as she has stable renal function and any infectious symptoms clear, she does not require acute intervention for the hydronephrosis. History of Present Illness Reason for Consultation: Hematuria, abnormal CT Attending Physician: Darion Pryor MD History of Present Illness 81 yo F with past medical history of multiple myeloma and hx of CVA admitted with gross hematuria Patient presented to [facility] ED today with complaint of hematuria, nausea and vomiting. Afebrile on arrival. Lab work reviewed and creatinine 0.83, WBC 2.84, Hgb 10.9, and Lactate 1.0. UA >30 RBCs, 0-5 WBCs, 1+ bacteria, 10-20 epithelials. Influenza and COVID19 testing negative. Urine and blood cultures obtained and pending. She was hypotensive and tachycardic in ED. ED course inclu ded IV fluids and IV Ceftriaxone. She was admitted to the hospital medicine service. Our service is consulted for hematuria and abnormal CT scan. Imaging: CTAP without con - IMPRESSION: 1. Lytic bone lesions compatible with the patient's history of multiple osteoma redemonstrated. There is increased size of an osteolytic destructive soft tissue mass involving the anterolateral left seventh rib which now measures up to 4 cm. 2. Moderate left-sided hydroureteronephrosis is unchanged from prior with findings suspicious for UPJ obstruction. Layering stone fragments are noted within the left renal pelvis and renal collecting system. 3. Distended gallbladder with cholelithiasis. No CT evidence of acute cholecystitis. 4. Asymmetric right-sided urinary bladder wall thickening with partial d istention and perivesicular stranding. Ill-defined hyperdense material within the dependent urinary bladder may represent hemorrhagic debris however could be correlated with cystoscopy to exclude an underlying urothelial lesion. 5. Colonic diverticulosis. 6. Additional findings as above. Pt examined at bedside in the ED. Awake, resting in bed on arrival. No acute distress. Pt denies abdominal,flank, and suprapubic pain at present. She reports intermittent left back pain. No fevers or chills. Denies nausea or vomiting at present. Voiding without issues. She endorses gross hematuria which started yesterday evening. Reports urine as dark red. No clots noted. Denies prior hx of hematuria. Denies hx of recurrent UTI. Denies dysuria. Denies urinary urgency, frequency, or hesitancy. Feels she is emptying her bladder well. Denies urinary leakage or incontinence. She is not on anticoagulants. Pt follows with Dr. Mondragon with [facility] oncology. Reports she gets chemo every other Tuesday, last dose 11/10. Pt denies prior hx of urological issues and has never seen a urologist. She does reports being told several years ago that she had an "abnormal left kidney." She denies hx of bladder or kidney cancers. Denies pertinent family hx. Pt is a former smoker, quit approx 30 years ago. Pt offered no additional complaints or concerns at time of exam. Allergies Allergy/AdvReac Type Severity Reaction Status Date / Time lenalidomide [From Revlimid] AdvReac Hives Unverified 11/12/21 10:35 TAPE AdvReac Mild RASH Uncoded 11/12/21 10:35 Home Medications Medication Instructions Recorded Confirmed Type calcium carbonate-vitamin D3 600 2 tab PO QAM 12/14/18 11/12/21 History mg-125 unit tablet (Calcium) denosumab 120 mg/1.7 mL (70 mg/mL) 120 mg SUBCUT UD 12/14/18 11/12/21 History subcutaneous solution (Xgeva) valacyclovir 500 mg tablet 500 mg PO QAM 12/14/18 11/12/21 History bortezomib 3.5 mg injection powder 0 mg IV UD 11/12/21 11/12/21 History for solution (Velcade) cyanocobalamin (vitamin B-12) 500 500 mcg PO DAILY 11/12/21 11/12/21 History mcg tablet dexamethasone 4 mg tablet 4 mg PO UD 11/12/21 11/12/21 History diphenoxylate-atropine 2.5 1 tab PO QID PRN 11/12/21 11/12/21 History mg-0.025 mg tablet Patient History Medical History History of CVA (cerebrovascular accident) no residual deficits History of pneumonia 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 Surgical History History of vascular access device Family History Father Diabetes Sister Cancer Social History Smoking Status: Former smoker Hx Alcohol Use: Yes Alcohol type: wine Hx Substance Use: No Preferred Language: Ukrainian Communication Ability: Effective Keyboard Specialist Required: No Beliefs That Will Affect Care: None Current Living Situation: Spouse Other Information That Helps Us Care for You: No Feels Safe at Home: Yes Safety Concerns: Feels Safe At This Time Assistive Devices: Glasses Review of Systems Review of Systems: All systems reviewed & are unremarkable except as noted in HPI & below Physical Exam Constitutional: well developed and well nourished; no acute distress and not ill appearing Neck: normal visual inspection Respiratory: normal respiratory effort and able to speak in complete sentences; no labored breathing and no audible wheezes Cardiovascular: Extremities: no calf tenderness Gastrointestinal (Abdomen): Inspection/Auscultation: abdomen normal to inspection; abdomen not distended Percussion/Palpation: abdomen soft; abdomen nontender and no guarding Musculoskeletal: Head/Neck/Chest: normocephalic Skin: No visible rashes or lesions to exposed skin areas Neurologic: moves all extremities and awake Psychiatric: Orientation: alert, oriented x 3 and cooperative Genitourinary: no CVA tenderness Results & Data ([facility]) Vital Signs (Past 12 Hours) Vital Signs Temp Pulse Resp BP Pulse Ox 11/12/21 12:40 101 H 18 99 11/12/21 12:30 103 H 21 129/51 L 98 11/12/21 12:20 111 H 24 97 11/12/21 12:10 109 H 24 100 11/12/21 12:00 101 H 13 109/66 100 11/12/21 11:50 105 H 12 99 11/12/21 11:40 104 H 15 99 11/12/21 11:30 106 H 18 114/63 98 11/12/21 11:20 104 H 18 98 11/12/21 11:10 101 H 21 97 11/12/21 11:00 100 H 20 107/64 99 11/12/21 10:57 102 H 17 116/61 98 11/12/21 10:50 103 H 15 100 11/12/21 10:40 100 H 16 100 11/12/21 10:30 106 H 24 99 11/12/21 10:20 103 H 22 98 11/12/21 10:10 102 H 16 97 11/12/21 10:00 109 H 16 102/66 97 11/12/21 09:53 116 H 30 H 97 11/12/21 09:41 117 H 20 100 11/12/21 08:53 37 C 130 H 18 95/64 L 99 PG Care Time/CCT Total # of Minutes Spent Total Time Spent with Patient: Total time spent is greater than 50% in coordination of care (as documented) at patient's floor/unit and/or counseling patient: Coding Level of Care Code 35743 Initial Inpt Care Lvl 2 Diagnoses Hematuria R31.9 UTI (urinary tract infection) N39.0 Hydronephrosis N13.30
[2021-11-12] MEDS: SODIUM CHLORIDE 0.9% 1000ML 1,000 ML IV SCH (16:45)
[2021-11-12 17:50] LABS: Hematocrit (blood only) 30.9 % (37-47); Hemoglobin 9.6 g/dL (12.0-16.0)
--- NOTE | 2021-11-12 22:37 | Electrocardiogram Report ---
Test Reason : Blood Pressure : / mmHG Vent. Rate : 117 BPM Atrial Rate : 117 BPM P-R Int : 160 ms QRS Dur : 072 ms QT Int : 320 ms P-R-T Axes : 067 038 060 degrees QTc Int : 446 ms Sinus tachycardia Otherwise normal ECG When compared with ECG of 14-DEC-2018 12:31, No significant change was found Confirmed by Gerson Braun ([id number]) on 11/12/2021 10:37:19 PM Referred By: SELF Confirmed By:Gerson Braun
[2021-11-13] MEDS: SODIUM CHLORIDE 0.9% 1000ML 1,000 ML IV SCH (01:20)
[2021-11-13 01:35] LABS: Hematocrit (blood only) 29.3 % (37-47); Hemoglobin 9.2 g/dL (12.0-16.0)
[2021-11-13 06:12] LABS: Hematocrit (blood only) 30.4 % (37-47); Hemoglobin 9.6 g/dL (12.0-16.0); Mean Corpuscular Hemoglobin 30.3 pg (25-34); Mean Corpuscular Hgb Conc 31.6 g/dL (32-36); Mean Corpuscular Volume 95.9 fL (80-100); Mean Platelet Volume 9.1 fL (7.4-10.4); Platelet Count 139 K/uL (130-400); RDW Coefficient of Variation 14.4 % (11.5-14.5); RDW Standard Deviation 50.9 fL (36.4-46.3); Red Blood Count 3.17 M/uL (4.2-5.4); White Blood Count 2.89 K/uL (4.8-10.8)
--- NOTE | 2021-11-13 08:29 | Urology Progress Note ---
Date of Service November 13, 2021 Assessment & Plan (1) Hematuria: (2) Hydronephrosis: (3) UTI (urinary tract infection): Plan: 81-year-old female with a history of multiple myeloma on chemotherapy who was admitted with gross hematuria and concern for UTI. 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 Continues to void spontaneously and reports hematuria is improving Urine culture finalized mixed growth. Not unreasonable to discharge patient home with at least 3 days of antibiotic, such as Bactrim or Keflex. Follow up blood cultures. No urologic intervention needed for hematuria or stable left hydronephrosis Urology to sign off. We will coordinate outpatient follow-up for hematuria work-up and management of chronic left hydroureteronephrosis. Call with any questions or concerns. Admission and Anticipated Discharge Date Admission Date: November 12, 2021 Subjective Stable overnight. Voiding spontaneously and reports hematuria is improving. White blood cell count stable, hemoglobin stable, BMP pending. Urine culture final resulted greater than 3 organisms present likely mixed lisa. Blood cultures pending. Review of Systems Review of Systems: 14 point review of systems negative outside of what is listed above in HPI Physical Exam Physical Exam: General: Alert and oriented, no acute distress HEENT: Normocephalic, mucous membranes moist Cardiovascular: Regular rate Pulmonary: Nonlabored respirations Abdomen: Nondistended Extremities: Moves all 4 spontaneously Neuro: No gross deficits Skin: Warm, dry, no rashes noted Results & Data ([facility]) Vital Signs (Past 12 Hours) Vital Signs Temp Pulse Pulse Resp BP Pulse Ox 11/13/21 07:17 36.8 C 91 H 21 113/59 L 99 11/13/21 07:00 94 H 11/13/21 02:49 36.7 C 96 H 20 111/65 96 11/12/21 23:40 94 H 11/12/21 22:37 36.6 C 99 H 20 123/72 97 PG Care Time/CCT Total # of Minutes Spent Total Time Spent with Patient: Total time spent is greater than 50% in coordination of care (as documented) at patient's floor/unit and/or counseling patient: [place] [address] Subseq Hosp Care Lvl 2 Patient Type Established Diagnoses Hematuria R31.9 Hydronephrosis N13.30 UTI (urinary tract infection) N39.0
[2021-11-13] MEDS ORDERED: valACYclovir HCL 500 MG TABLET PO SCH (09:00)
[2021-11-13] MEDS ORDERED: CYANOCOBALAMIN (B-12) 500 MCG TABLET PO SCH (09:00)
[2021-11-13 09:04] LABS: Calcium 7.5 mg/dl (8.5-10.1); Creatinine Clr Calc Pharmacy 65.7 ml/min; Est GFR (African American) 100.3 ml/min; Est GFR (Non-African American) 86.6 ml/min; Potassium 4.2 mmol/L (3.5-5.1)
[2021-11-13 09:31] LABS: Hematocrit (blood only) 31.5 % (37-47); Hemoglobin 9.7 g/dL (12.0-16.0)
[2021-11-13 10:58] VITALS: TEMP 98.1
--- NOTE | 2021-11-13 13:35 | Hospitalist Progress Note ---
Date of Service November 13, 2021 Assessment & Plan (1) Hematuria: Plan: Unclear etiology- may be related to UTI +/- nephrolithiasis. - Serial H&H to monitor stability - no change from outpatient labs three days ago - Type and cross 2 units but will hold for now - consent signed in ED - Consult urology for additional recommendations - Covering empirically with cefepime while awaiting culture results -Appreciate urology input and recommendation -Hematuria has been improving and she will have follow-up as an outpatient with urologist for further procedure if needed -Urine is growing mixed lisa and will continue antibiotic for 3 days in total with Keflex on discharge Has mild distention of the gallbladder with cholelithiasis We will get ultrasound to rule out any acute cholecystitis which I doubt very much (2) Multiple myeloma: Plan: - Continue chronic suppressive valacyclovir - Keep outpatient f/u with hem/onc - enlarging lytic lesion on CT in ED. Will need to ensure results sent to oncologist, Dr. Benny Mondragon. -Was advised to keep appointment with Dr. Mondragon Plan: Pt seen and evaluated with collaborating physician, Dr. Pryor. Plan of care discussed and as outlined above. Code status: full code DVT prophylaxis: SCDs Admission and Anticipated Discharge Date Admission Date: November 12, 2021 Subjective 11/13/2021 The patient was seen and examined in medical telemetry unit She has history of multiple myeloma on chemotherapy and was admitted with hematuria and possible UTI She has been feeling much better since admission and denies any significant symptoms She wants to be discharged this afternoon hypoxia Review of Systems Review of Systems: All systems reviewed and are unremarkable except as noted below Gastrointestinal: No abdominal pain, nausea and or vomiting and no history of abdominal bloating with food Genitourinary: No dysuria, frequency and hematuria seems to be improving Physical Exam Physical Exam: Lying in bed comfortably Constitutional: average body habitus; not ill appearing Eyes: PERRL, conjunctivae normal, anicteric sclerae ENMT: external ear and nose normal, oropharynx normal Neck: trachea midline, no thyromegaly Respiratory: no respiratory distress Auscultation: lungs clear to auscultation bilaterally Cardiovascular: Rate/Rhythm: regular rate, regular rhythm and + tachycardic Heart Sounds: normal S1 and normal S2; no murmur Extremities: no edema Gastrointestinal (Abdomen): Inspection/Auscultation: normal bowel sounds; abdomen not distended Percussion/Palpation: abdomen soft; abdomen nontender Musculoskeletal: No acute arthritis in any joint Neurologic: Alert, awake and oriented x3. No focal sensory or no motor deficit appreciated Results & Data Results & Data ([facility]) Vital Signs (Past 12 Hours) Vital Signs Temp Pulse Pulse Resp BP Pulse Ox 11/13/21 10:57 36.7 C 101 H 21 102/66 97 11/13/21 07:17 36.8 C 91 H 21 113/59 L 99 11/13/21 07:00 94 H 11/13/21 02:49 36.7 C 96 H 20 111/65 96 Laboratory Results Short CBC 11/12/21 11/13/21 11/13/21 Range/Units 17:41 01:18 05:44 WBC 2.89 L (4.8-10.8) K/uL Hgb 9.6 L 9.2 L 9.6 L (12.0-16.0) g/dL Hct 30.9 L 29.3 L 30.4 L (37-47) % Plt Count 139 (130-400) K/uL 11/13/21 Range/Units 09:17 WBC (4.8-10.8) K/uL Hgb 9.7 L (12.0-16.0) g/dL Hct 31.5 L (37-47) % Plt Count (130-400) K/uL BMP 11/13/21 05:44 Sodium 139 Potassium 4.2 Chloride 113 H Carbon Dioxide 18 L BUN 13 Creatinine 0.59 L Glucose 64 L Calcium 7.5 L Medications Administered Current Inpatient Medications Acetaminophen (Acetaminophen 325 Mg Tab) 650 mg PO Q4H PRN PRN Reason: Pain or Fever Stop: 12/12/21 13:35 Cyanocobalamin (Cyanocobalamin 500 Mcg Tablet (Vitamin B-12)) 500 mcg PO DAILY BRADLEY Stop: 12/13/21 08:59 Last Admin: 11/13/21 07:29 Dose: 500 mcg Documented by: Sodium Chloride (Nss) 250 mls @ 15 mls/hr IV .[id number] PRN PRN Reason: For Transfusion Stop: 12/12/21 15:31 Valacyclovir HCl (Valacyclovir Hcl 500 Mg Tablet) 500 mg PO QAM BRADLEY Stop: 12/13/21 08:59 Last Admin: 11/13/21 07:29 Dose: 500 mg Documented by:
--- NOTE | 2021-11-13 14:46 | Ultrasound Report ---
ULTRASOUND RIGHT UPPER QUADRANT ABDOMEN CLINICAL HISTORY: Right upper quadrant abdominal pain. COMPARISON STUDY: Abdominal CT dated 11/12/2021 TECHNIQUE: Real-time, grayscale, and color flow sonography of the right upper quadrant of the abdomen was performed. Images are reviewed in the transverse and longitudinal planes. FINDINGS: Liver: The liver is normal in size and echotexture. There is no intrahepatic biliary ductal dilatatio n. The main portal vein is patent. Gallbladder: There are calcified shadowing gallstones. The gallbladder is otherwise normal in appeara nce. There is no gallbladder wall thickening or pericholecystic fluid. A sonographic Candelario's sign is reportedly absent. The common bile duct measures up to 0.5 cm in diameter. Pancreas: Not visualized due to overlying bowel gas. Right kidney: Survey images of the right kidney demonstrate mild cortical atrophy. Echotexture is nor mal. There is no hydronephrosis. Ascites: None. IMPRESSION: 1. Cholelithiasis without sonographic evidence of acute cholecystitis. 2. Nonvisualization of the pancreas. ACT 112: Negative or not required by law. Electronically signed by: Yair Marcus M.D. 11/13/2021 2:45 PM
[2021-11-13 14:59] VITALS: BP 121/80; O2SAT 100
[2021-11-13 16:09] VITALS: PULSE 117
--- NOTE | 2021-11-14 08:13 | Discharge Summary ---
Date of Service November 14, 2021 Admission HPI Per Admitting Provider This is a 81 y/o female with a PMH of multiple myeloma, currently on chemo with last treatment two days ago, who presents to the ED with hematuria that started earlier today. She usually gets up at least once per night to urinate. Around 1 am today, she noticed hematuria described as bright red urine. This has continued every time she has urinated since it started. She denies any recent falls. She is not on anticoagulation, NSAIDs, or anti-platelets. She is currently on chemotherapy every other week - last dose 11/10/21. She typically has some diarrhea for a day after chemo. Diarrhea has resolved today. Last night she was nauseated and vomited her dinner but nausea improved this morning. States that she does not usually get N/V with chemo. No change in chronic lower back pain. No dysuria, fevers, chills, urinary frequency. She does drink a lot of water at baseline and this is unchanged. Denies abd pain, CP, palp, SOB, lightheadedness. Starting to feel hungry. Denies prior issues with kidney stones, no prior urology evaluations. Admission Exam Per Admitting Provider Constitutional: well developed and well nourished; no acute distress Eyes: + anicteric sclerae Neck: trachea midline Respiratory: no respiratory distress and no labored breathing Auscultation: lungs clear to auscultation bilaterally; no rales, no rhonchi and no wheezes Cardiovascular: Rate/Rhythm: regular rhythm and + tachycardic Vessels: dorsalis pedis pulses present and radial pulses present Extremities: no pedal edema port visible and palpable - right chest Gastrointestinal (Abdomen): Inspection/Auscultation: normal bowel sounds; abdomen not distended Percussion/Palpation: abdomen soft; abdomen nontender no CVA tenderness bilaterally Musculoskeletal: Head/Neck/Chest: normocephalic, head atraumatic and neck supple Skin: no jaundice Neurologic: moves all extremities; no focal motor deficits Psychiatric: A+Ox3, euthymic affect Principal Diagnosis Hematuria, moderate left-sided hydroureteronephrosis , multiple myeloma on chemotherapy Discharge Exam Lying in bed comfortably Constitutional average body habitus; not ill appearing Eyes PERRL, conjunctivae normal, anicteric sclerae ENMT external ear and nose normal, oropharynx normal Neck trachea midline, no thyromegaly Respiratory no respiratory distress Auscultation: lungs clear to auscultation bilaterally Cardiovascular Rate/Rhythm: regular rate, regular rhythm and + tachycardic Heart Sounds: normal S1 and normal S2; no murmur Extremities: no edema Gastrointestinal (Abdomen) Inspection/Auscultation: normal bowel sounds; abdomen not distended Percussion/Palpation: abdomen soft; abdomen nontender Discharge Data Allergies Allergy/AdvReac Type Severity Reaction Status Date / Time lenalidomide [From Revlimid] AdvReac Hives Unverified 11/12/21 10:35 TAPE AdvReac Mild RASH Uncoded 11/12/21 10:35 Consultations 11/12/21 11:52 ED Decision to Admit Stat 11/12/21 14:18 Consult Urology Routine Ordered Studies 11/12/21 09:05 CT abd pelvis wo con Stat 11/13/21 08:15 US abdomen limited Urgent Hospital Course (1) Hematuria: Unclear etiology- may be related to UTI +/- nephrolithiasis. - Serial H&H to monitor stability - no change from outpatient labs three days ago - Type and cross 2 units but will hold for now - consent signed in ED - Consult urology for additional recommendations - Covering empirically with cefepime while awaiting culture results -Appreciate urology input and recommendation -Hematuria has been improving and she will have follow-up as an outpatient with urologist for further procedure if needed -Urine is growing mixed lisa and will continue antibiotic for 3 days in total with Keflex on discharge Has mild distention of the gallbladder with cholelithiasis We will get ultrasound to rule out any acute cholecystitis which I doubt very much (2) Multiple myeloma: - Continue chronic suppressive valacyclovir - Keep outpatient f/u with hem/onc - enlarging lytic lesion on CT in ED. Will need to ensure results sent to oncologist, Dr. Benny Mondragon. -Was advised to keep appointment with Dr. Mondragon Pt seen and evaluated with collaborating physician, Dr. Pryor. Plan of care discussed and as outlined above. Code status: full code DVT prophylaxis: SCDs Total Time Total Time Spent Total Time Spent (In Minutes): 35 minutes Discharge Plan Discharge Items Patient Disposition: Home - Self-Care Reason For Visit: HEMATURIA Discharge Diagnosis: Hematuria, moderate left-sided hydroureteronephrosis , multiple myeloma on chemotherapy Condition on Discharge: Good Activity: Resume your previous activity Non-emergency contact: Primary Care Provider Call non-emergency contact if: you have any medication questions and your symptoms worsen Follow-up/Referrals: Artemio Mane MD [Primary Care Provider] - (Date & Time 11/17/2021 11:00 AM Provider Artemio Mane III, MD Department Family Practice [facility] ) Radha Vásquez, MSN, INDEPENDENT INSURANCE ADJUSTER, [employer] [Outside Practitioners] - (Date & Time 11/24/2021 8:00 AM Provider MARY Lozano Department Hematology/Oncology [facility] ) Diet: Heart Healthy Addtl Attending Provider Instructions: Please take precautions to avoid for Finish antibiotic To drink more fluid Keep appointments with your healthcare providers Pending Studies at Discharge: No Stand-Alone Forms: [facility], Smoking Cessation Medications and DC Order Prescriptions: New cephalexin 500 mg capsule 500 mg PO TID Qty: 7 RF: 0 Continued valacyclovir 500 mg tablet 500 mg PO QAM RF: 0 Calcium 600 + D(3) 600-125 mg-unit Tablet 2 tab PO QAM RF: 0 Xgeva 120 mg/1.7 mL (70 mg/mL) Solution 120 mg SUBCUT UD RF: 0 diphenoxylate-atropine 2.5-0.025 mg tablet 1 tab PO QID PRN (Reason: Diarrhea) RF: 0 dexamethasone 4 mg tablet 4 mg PO UD RF: 0 Velcade 3.5 mg Recon Soln 0 mg IV UD RF: 0 cyanocobalamin (vitamin B-12) 500 mcg Tablet 500 mcg PO DAILY RF: 0 Discharge Orders: Discharge Order (Routine); Ordered 11/13/21 Ordered By: Mary Diaz Admission Data Admit Date/Time: 11/12/21 12:43 Attending Provider: Mary Diaz Admit Provider: Darion Pryor Primary Care Provider: Artemio Mane Other Providers: Spencer Bellamy ; Darion Pryor Other Interventions: Discharge Summary Assessment (RN) Last Done: 11/13/21 16:08
== END 2021-11-13 17:08 | disposition home or self-care (01) | DRG 690 ==
LOC: ED 08:45 → EDINP 12:43 → SUATTDRO 12:43 → EDINP 15:32 → 2N 18:34

== ENCOUNTER 2024-04-21 10:48 | Inpatient (IN) ==
--- NOTE | 2024-04-21 11:09 | Emergency Department Note ---
Impression & Plan Sepsis, Rhabdomyolysis, Fracture, ribs, Acute hyponatremia Admit to the [facility] ED Provider Note NAME: ORIANA BLAKE AGE: 83 SEX: Female INFORMANT: EMS ED PROVIDER(S): Verenice Eaton DO CHIEF COMPLAINT: fall PLAN: Disposition: Admit to the [facility] MEDICAL DECISION MAKING: this is an 83-year-old female patient brought to the emergency department by EMS after falling off the toilet with an altered mental status. The patient's family found the patient in the bathroom laying on the floor by the toilet. She is unsure how long she had been there. She was covered in feces and confused. She seemed to be having difficulty in the bathroom and went to check on her and found her this way. Patient complained of right-sided rib pain with obvious contusion to her right lower rib cage and right forearm. A septic protocol was performed as the patient was febrile. Procalcitonin was significantly elevated at 29.5 and lactate of 3.3. Patient was bolused with 30 mL/kg of crystalloid and given a dose of IV cefepime shortly after her arrival here in the emergency department. Urinalysis showed no obvious signs of infection bio fire was positive for COVID. Patient had a low sodium level BUN was elevated at 32 and creatinine was 2.2. From a trauma standpoint, CT scan of the brain and C-spine showed no intracranial trauma or C-spine fractures. CT scan of the chest showed multiple rib fractures on the right. There were also multiple other lytic lesions thought to be secondary to the patient's known history of multiple myeloma. Patient remained hemodynamically stable. I reviewed all of the results with the patient and the patient's family who are at the bedside. I discussed the case with the [facility] Hospitalist and they will evaluate for further inpatient care. 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 Vital Signs: reviewed and remarkable for fever and tachycardic Additional History obtained from: EMS and family at the bedside Differential Diagnosis: intracranial trauma, rib fractures, sepsis, dehydration, GI bleed Diagnostics, independently interpreted by me: Cardiac monitoring-sinus tachycardia at a rate of 112 Imaging studies: CT scan of the brain: As per radiology CT scan of the cervical spine: As per radiology CT scan of the chest: As per radiology CT scan of the abdomen/pelvis: As per radiology HPI: 83 year old Female arrives for evaluation of fall. patient was found on the floor in the bathroom with an altered mental status and covered in feces. Family was unsure how long she been there. she explains that the patient was in the bathroom and seem to be having difficulty going to the bathroom but then she found her on the floor with an altered mental status and called EMS. PAST MEDICAL HISTORY: history of multiple Myeloma and has been taken off her chemotherapy recently, PAST SURGICAL HISTORY: See Below, SOCIAL HISTORY: See Below, HOME MEDICATIONS: see list ALLERGIES: see list VITALS: See Below PHYSICAL EXAMINATION: Liquid and dried feces. She is HEENT: Head - normocephalic and atraumatic. Pupils are equal, round, and reactive to light. Extraocular eye muscles are intact and sclera are anicteric. Ears - bilaterally patent canals with no evidence of hemotympanum. Nose - moist nasal mucosa without evidence of trauma or discharge. Mouth -dry buccal mucosa with no trauma to the teeth or signs of malocclusion. However, there was a brown substance within the patient's mouth Neck: The neck is supple and there is no pain to palpation over the posterior cervical spine and no obvious step-offs or deformities. There is no JVD or tracheal deviation. Chest: Contusions noted over the right anterior and lateral inferior rib cage. There is tenderness to palpation in that area. There is no obvious crepitus or paradoxical chest rise. Heart: Tachycardic rate and regular rhythm. There is a normal S1 and S2 with no murmurs, clicks, or gallops appreciated. Lungs: Clear to auscultation bilaterally with no wheezes, rales, or rhonchi. Abdomen: Soft, completely nontender, nondistended, with good bowel sounds. There is no sign of trauma such as contusions, abrasions or penetrations. There are no palpable pulsatile masses or hepatosplenomegaly. There is no guarding, rigidity, or rebound noted. Pelvis: Stable to rock and compression. Extremities: Contusion noted over the right dorsal forearm. There is a linear contusion noted over the posterior right thigh. There are easily palpable peripheral pulses. Neuro: The patient is awake and alert and easily able to follow commands. Moderately confused. Muscle strength is 5 out of 5 in all 4 extremities. Otherwise, neuro exam is unremarkable. Back: General: The patient was completely covered in the entire thoracic, lumbar, and sacral spine were palpated. There are no obvious step-offs or deformities noted. There are no obvious signs of trauma such as contusions abrasions penetrations noted to the back. Emergency department course: The patient was evaluated in room B-6. A trauma alert was called. I arrived to the room finding with the nursing staff cleaning feces from the patient's body. An order was placed for continuous cardiac monitoring. The patient was in a sinus tachycardia at a rate of 112. Laboratory studies were drawn as above. Septic protocol was performed as the patient was febrile. She was bolused with IV normal saline solution as she was tachycardic and slightly hypotensive. She went emergently for CT scans of her brain, cervical spine, chest, abdomen/pelvis. She was bolused with 30 mL/kg with IV normal saline solution and given dose of IV cefepime. Bio fire was obtained which was positive for COVID. Patient was reevaluated multiple times. Heart rate seem to be coming down nicely after the IV crystalloids. I kept the patient's family abreast of the situation. A Mora catheter was placed to measure strict I's and O's given the patient's rhabdomyolysis with a total CK greater than 6000. I discussed the case with the [facility] Hospitalist and they will evaluate for further inpatient care. I have personally spent greater than 70 minutes of critical care time in the direct management of this patient. This includes bedside care, interpretation of diagnostic studies, and testing, discussion with consultants, patient, and family members, and other required patient management activities. This 70 minutes is in excess of all separately billable procedures. 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 Medical History History of pneumonia History of CVA (cerebrovascular accident) no residual deficits Inappropriate sinus tachycardia Surgical History History of vascular access device Family History Father Diabetes Sister Cancer Social History Smoking Status: Former smoker Hx Alcohol Use: No Hx Substance Use: No Preferred Language: Cook Islander Communication Ability: Effective 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 Beliefs That Will Affect Care: None Current Living Situation: Spouse Current Living Situation Comment: per records Feels Safe at Home: Yes Assistive Devices: Glasses Allergies Allergies Allergy/AdvReac Type Severity Reaction Status Date / Time ixazomib [From Ninlaro] Allergy hives Verified 04/21/24 15:06 lenalidomide [From Revlimid] AdvReac Hives Verified 04/21/24 15:06 TAPE AdvReac Mild RASH Uncoded 04/21/24 15:06 Home Meds Home Medications Medication Instructions Recorded Confirmed dexamethasone 4 mg tablet 4 mg PO UD 11/12/21 04/21/24 Results & Data (ED) Vital Signs Vital Signs - 24 hr 04/21/24 11:41 04/21/24 11:57 04/21/24 12:05 Temperature Temperature Source Pulse Rate 112 H Pulse Rate [Apical] 115 H 116 H Pulse Rhythm Pulse Rhythm [Apical] Regular Regular Pulse Strength Pulse Strength [Apical] Normal Normal Respiratory Rate 22 20 Respiratory Effort / Characteristics Non-Labored Spontaneous Non-Labored Spontaneous Respiratory Depth Normal Normal Respiratory Pattern Regular Regular Blood Pressure Blood Pressure [Left Arm] 98/66 L 120/71 Blood Pressure Mean Blood Pressure Mean [Left Arm] 76 87 Blood Pressure Position Blood Pressure Position [Left Arm] Lying Lying Pulse Oximetry 96 95 Oxygen Delivery Method Room Air Room Air Sepsis Recent Fever Within 48 Hours Sepsis New/Unexplained Change in Mental Status Sepsis Action Taken by Nursing 04/21/24 12:08 04/21/24 12:09 04/21/24 12:11 Temperature 38.8 C H 38.8 C H Temperature Source Rectal Pulse Rate 122 H 122 H Pulse Rate [Apical] Pulse Rhythm Regular Pulse Rhythm [Apical] Pulse Strength Normal Pulse Strength [Apical] Respiratory Rate 22 22 Respiratory Effort / Characteristics Non-Labored Spontaneous Respiratory Depth Normal Respiratory Pattern Regular Blood Pressure 106/62 106/62 Blood Pressure [Left Arm] Blood Pressure Mean 76 Blood Pressure Mean [Left Arm] Blood Pressure Position Lying Blood Pressure Position [Left Arm] Pulse Oximetry 95 94 94 Oxygen Delivery Method Room Air Room Air Room Air Sepsis Recent Fever Within 48 Hours Yes Sepsis New/Unexplained Change in Mental Status Yes Sepsis Action Taken by Nursing Physician Notified 04/21/24 12:15 04/21/24 12:45 04/21/24 13:17 Temperature Temperature Source Pulse Rate Pulse Rate [Apical] 106 H 113 H 102 H Pulse Rhythm Pulse Rhythm [Apical] Regular Regular Regular Pulse Strength Pulse Strength [Apical] Normal Normal Normal Respiratory Rate 22 22 20 Respiratory Effort / Characteristics Non-Labored Spontaneous Non-Labored Spontaneous Non-Labored Spontaneous Respiratory Depth Normal Normal Normal Respiratory Pattern Regular Regular Regular Blood Pressure Blood Pressure [Left Arm] 126/67 96/62 L 138/59 L Blood Pressure Mean Blood Pressure Mean [Left Arm] 86 73 85 Blood Pressure Position Blood Pressure Position [Left Arm] Sitting Sitting Sitting Pulse Oximetry 96 95 97 Oxygen Delivery Method Room Air Room Air Room Air Sepsis Recent Fever Within 48 Hours Sepsis New/Unexplained Change in Mental Status Sepsis Action Taken by Nursing Laboratory Data 04/22/24 06:42 04/22/24 06:42 Lab Results 04/21/24 04/21/24 04/21/24 Range/Units 11:21 11:28 12:25 WBC 10.23 (4.8-10.8) K/ul RBC 3.69 L (4.20-5.40) M/uL Hgb 10.4 L (12.0-16.0) g/dl POC Hgb 10.5 L (12.0-16.0) g/dl Hct 32.1 L (37.0-47.0) % POC Hct 31 L (37-47) % MCV 87.0 (80.0-100.0) fL MCH 28.2 (25.0-34.0) pg MCHC 32.4 (32.0-36.0) g/dL RDW Std Deviation 46.8 H (36.4-46.3) fL RDW Coeff of Kendell 14.6 H (11.5-14.5) % Plt Count 151 (130-400) K/uL MPV 10.0 (9.4-12.4) fL Immature Gran % (Auto) 0.6 % Neut % (Auto) 87.4 % Lymph % (Auto) 3.7 % [place] % (Auto) 8.2 % Eos % (Auto) 0.0 % Baso % (Auto) 0.1 % Neut # (Auto) 8.94 H (1.40-6.50) K/uL Lymph # (Auto) 0.38 L (1.20-3.40) K/uL [place] # (Auto) 0.84 H (0.11-0.59) K/uL Eos # (Auto) 0.00 (0.00-0.50) K/uL Baso # (Auto) 0.01 (0.00-0.20) K/uL Immature Gran # (Auto) 0.06 (0.01-0.20) K/uL POC Sodium 134 L (135-144) mmol/L Sodium 131 L (136-145) mmol/L POC Potassium 4.5 (3.3-5.0) mmol/L Potassium 4.4 (3.5-5.1) mmol/L POC Chloride 99 L (101-112) mmol/L Chloride 97 L (98-107) mmol/L Carbon Dioxide 22 (21-32) mmol/L POC Total CO2 22 L (24-31) mmol/L Anion Gap 12 H (3-11) POC Anion Gap 18.0 (16-25) mmol/L POC BUN 30 H (7-18) mg/dl BUN 32 H (6-23) mg/dl Creatinine 2.23 H (0.6-1.2) mg/dl POC Creatinine 2.6 H (0.6-1.3) mg/dl Est Cr Clr Drug Dosing Not Reportable Est GFR ( Amer) 23.0 ml/min Est GFR (Non-Af Amer) 19.9 ml/min BUN/Creatinine Ratio 14.3 (10-20) Glucose 211 H (70-99(Fasting)) mg/dl POC Glucose (other) 221 H (70-99) mg/dl Lactate 3.3 H* (0.4-2.0) mmol/L Calcium 8.6 (8.6-10.3) mg/dl POC Ioniz Calcium Ivana 1.13 (1.12-1.32) mmol/l Magnesium 1.9 (1.7-2.4) mg/dl Total Bilirubin 0.7 (0.2-1.0) mg/dl Direct Bilirubin 0.4 H (0-0.2) mg/dl AST 173 H (13-39) U/L ALT 62 H (7-52) U/L Alkaline Phosphatase 64 (34-104) U/L Total Creatine Kinase 6639 H (26-192) U/L Troponin I High Sens 397.0 H* (0-14) pg/ml Total Protein 9.4 H (6.0-8.3) gm/dl Albumin 3.4 (3.4-5.0) gm/dl Procalcitonin 29.50 H (0-0.5) ng/ml Urine Color Urine Appearance (Clear) Urine pH (4.5-7.5) Ur Specific [place] (1.000-1.030) Urine Protein (Negative) Urine Glucose (UA) (Negative) Urine Ketones (Negative) Urine Blood (Negative) Urine Nitrite (Negative) Urine Bilirubin (Negative) Urine Urobilinogen (Negative) Ur Leukocyte Esterase (Negative) Urine WBC (Auto) (0-5) /hpf Urine RBC (Auto) (0-2) /hpf U Hyaline Cast (Auto) (0-2) /lpf U Epithel Cells (Auto) (0-2) /hpf Urine Bacteria (Auto) (None Seen) Amorphous Sediment (None Prsent) Adenovirus (PCR) Not Detected (NotDetected) B. pertussis DNA (PCR) Not Detected (NotDetected) B.parapertussis DNA PCR Not Detected (NotDetected) C. pneumoniae DNA (PCR) Not Detected (NotDetected) Coronavirus OC43 (PCR) Not Detected (NotDetected) Coronavirus HKU1 (PCR) Not Detected (NotDetected) Coronavirus 229E (PCR) Not Detected (NotDetected) SARS-CoV-2 (PCR) DETECTED A (NotDetected) Coronavirus NL63 (PCR) Not Detected (NotDetected) Human Metapneumovir PCR Not Detected (NotDetected) Influenza Type A (PCR) Not Detected (NotDetected) Influenza Type B (PCR) Not Detected (NotDetected) M. pneumoniae (PCR) Not Detected (NotDetected) Parainfluenza 1 (PCR) Not Detected (NotDetected) Parainfluenza 2 (PCR) Not Detected (NotDetected) Parainfluenza 3 (PCR) Not Detected (NotDetected) Parainfluenza 4 (PCR) Not Detected (NotDetected) RSV (PCR) Not Detected (NotDetected) Entero/Rhino (PCR) Not Detected (NotDetected) 04/21/24 Range/Units 12:41 WBC (4.8-10.8) K/ul RBC (4.20-5.40) M/uL Hgb (12.0-16.0) g/dl POC Hgb (12.0-16.0) g/dl Hct (37.0-47.0) % POC Hct (37-47) % MCV (80.0-100.0) fL MCH (25.0-34.0) pg MCHC (32.0-36.0) g/dL RDW Std Deviation (36.4-46.3) fL RDW Coeff of Kendell (11.5-14.5) % Plt Count (130-400) K/uL MPV (9.4-12.4) fL Immature Gran % (Auto) % Neut % (Auto) % Lymph % (Auto) % [place] % (Auto) % Eos % (Auto) % Baso % (Auto) % Neut # (Auto) (1.40-6.50) K/uL Lymph # (Auto) (1.20-3.40) K/uL [place] # (Auto) (0.11-0.59) K/uL Eos # (Auto) (0.00-0.50) K/uL Baso # (Auto) (0.00-0.20) K/uL Immature Gran # (Auto) (0.01-0.20) K/uL POC Sodium (135-144) mmol/L Sodium (136-145) mmol/L POC Potassium (3.3-5.0) mmol/L Potassium (3.5-5.1) mmol/L POC Chloride (101-112) mmol/L Chloride (98-107) mmol/L Carbon Dioxide (21-32) mmol/L POC Total CO2 (24-31) mmol/L Anion Gap (3-11) POC Anion Gap (16-25) mmol/L POC BUN (7-18) mg/dl BUN (6-23) mg/dl Creatinine (0.6-1.2) mg/dl POC Creatinine (0.6-1.3) mg/dl Est Cr Clr Drug Dosing Est GFR ( Amer) ml/min Est GFR (Non-Af Amer) ml/min BUN/Creatinine Ratio (10-20) Glucose (70-99(Fasting)) mg/dl POC Glucose (other) (70-99) mg/dl Lactate (0.4-2.0) mmol/L Calcium (8.6-10.3) mg/dl POC Ioniz Calcium Ivana (1.12-1.32) mmol/l Magnesium (1.7-2.4) mg/dl Total Bilirubin (0.2-1.0) mg/dl Direct Bilirubin (0-0.2) mg/dl AST (13-39) U/L ALT (7-52) U/L Alkaline Phosphatase (34-104) U/L Total Creatine Kinase (26-192) U/L Troponin I High Sens (0-14) pg/ml Total Protein (6.0-8.3) gm/dl Albumin (3.4-5.0) gm/dl Procalcitonin (0-0.5) ng/ml Urine Color Yellow Urine Appearance Cloudy A (Clear) Urine pH 5.5 (4.5-7.5) Ur Specific [place] 1.018 (1.000-1.030) Urine Protein 2+ H (Negative) Urine Glucose (UA) Negative (Negative) Urine Ketones Trace H (Negative) Urine Blood 2+ H (Negative) Urine Nitrite Negative (Negative) Urine Bilirubin Negative (Negative) Urine Urobilinogen Negative (Negative) Ur Leukocyte Esterase Negative (Negative) Urine WBC (Auto) 0-5 (0-5) /hpf Urine RBC (Auto) 0-2 (0-2) /hpf U Hyaline Cast (Auto) 0-2 (0-2) /lpf U Epithel Cells (Auto) 0-2 (0-2) /hpf Urine Bacteria (Auto) None Seen (None Seen) Amorphous Sediment Present A (None Prsent) Adenovirus (PCR) (NotDetected) B. pertussis DNA (PCR) (NotDetected) B.parapertussis DNA PCR (NotDetected) C. pneumoniae DNA (PCR) (NotDetected) Coronavirus OC43 (PCR) (NotDetected) Coronavirus HKU1 (PCR) (NotDetected) Coronavirus 229E (PCR) (NotDetected) SARS-CoV-2 (PCR) (NotDetected) Coronavirus NL63 (PCR) (NotDetected) Human Metapneumovir PCR (NotDetected) Influenza Type A (PCR) (NotDetected) Influenza Type B (PCR) (NotDetected) M. pneumoniae (PCR) (NotDetected) Parainfluenza 1 (PCR) (NotDetected) Parainfluenza 2 (PCR) (NotDetected) Parainfluenza 3 (PCR) (NotDetected) Parainfluenza 4 (PCR) (NotDetected) RSV (PCR) (NotDetected) Entero/Rhino (PCR) (NotDetected) Administered Medications Guaifenesin (Guaifenesin 600 Mg Tabcr) 600 mg PO Q12 [facility] Stop: 05/21/24 20:59 Last Admin: 04/22/24 07:31 Dose: 600 mg Documented By: Admin: 04/21/24 20:04 Dose: 600 mg Documented By: MARIANA Sodium Chloride (Nss) 1,000 mls @ 100 mls/hr IV .Q10H [facility] Stop: 05/21/24 15:26 Last Admin: 04/22/24 02:01 Dose: 100 mls/hr Documented By: Infusion: 04/22/24 02:01 Dose: Infused Documented By: Admin: 04/21/24 20:02 Dose: 100 mls/hr Documented By: Infusion: 04/21/24 20:02 Dose: Infused Documented By: Admin: 04/21/24 17:07 Dose: 100 mls/hr Documented By: TORY Cefepime HCl 1,000 mg/ Syringe 10 mls @ 5 mls/min IV Q12H [facility]; Protocol Stop: 05/02/24 00:00 Last Admin: 04/21/24 23:49 Dose: 5 mls/min Documented By: MARIANA Lidocaine (Lidocaine 5% 1 Patch) 1 patch TD TODAY@2000 [facility] Stop: 05/21/24 19:59 Last Admin: 04/21/24 20:01 Dose: 1 patch Documented By: MARIANA Vail (Remove Lidoderm Patch) 1 each N/A DAILY@2100 [facility] Stop: 05/21/24 20:59 Last Admin: 04/21/24 20:05 Dose: 1 each Documented By: MARIANA Vail (Remove Lidoderm Patch) 1 each N/A TODAY@0800 [facility] Stop: 05/22/24 07:59 Last Admin: 04/22/24 09:56 Dose: 1 each Documented By: NUNO Sodium Chloride (Sodium Chlor 7% 4 Ml Neb) 4 ml NEB BIDR [facility] Stop: 05/21/24 18:59 Last Admin: 04/22/24 07:17 Dose: 4 ml Documented By: Admin: 04/21/24 19:49 Dose: 4 ml Documented By: ALEXEY Tramadol HCl (Tramadol Hcl 50 Mg Tablet) 25 mg PO Q12H PRN PRN Reason: Pain Stop: 05/21/24 15:26 Last Admin: 04/22/24 07:29 Dose: 25 mg Documented By: Admin: 04/21/24 17:06 Dose: 25 mg Documented By: TORY Discontinued Medications Acetaminophen (Acetaminophen 325 Mg Tab) 650 mg PO NOW STA Stop: 04/21/24 12:35 Last Admin: 04/21/24 13:07 Dose: 650 mg Documented By: PRINCE Sodium Chloride (Nss) 1,000 mls @ 999 mls/hr IV .Q1H1M [facility] Stop: 04/21/24 12:15 Last Infusion: 04/21/24 13:00 Dose: Infused Documented By: Admin: 04/21/24 12:00 Dose: 999 mls/hr Documented By: Cefepime HCl 1,000 mg/ Syringe 10 mls @ 5 mls/min IV NOW STA; Protocol Stop: 04/21/24 11:57 Last Admin: 04/21/24 12:20 Dose: 5 mls/min Documented By: Sodium Chloride (Nss) 500 mls @ 999 mls/hr IV .Q31M ONE Stop: 04/21/24 13:05 Last Infusion: 04/21/24 13:36 Dose: Infused Documented By: Admin: 04/21/24 13:06 Dose: 999 mls/hr Documented By: PRINCE Sodium Chloride (Nss) 500 mls @ 125 mls/hr IV .Q4H [facility] Stop: 05/21/24 12:44 Last Infusion: 04/22/24 02:00 Dose: Infused Documented By: Admin: 04/22/24 00:53 Dose: 125 mls/hr Documented By: Infusion: 04/22/24 00:03 Dose: Infused Documented By: Admin: 04/21/24 20:03 Dose: 125 mls/hr Documented By: Infusion: 04/21/24 17:36 Dose: Infused Documented By: Admin: 04/21/24 17:35 Dose: 125 mls/hr Documented By: Infusion: 04/21/24 17:35 Dose: Infused Documented By: Infusion: 04/21/24 17:07 Dose: 0 mls/hr Documented By: Admin: 04/21/24 13:51 Dose: 125 mls/hr Documented By: PRINCE Oxycodone HCl (Oxycodone Hcl Ir 5 Mg Tab (Immediate Release)) 2.5 mg PO NOW STA Stop: 04/22/24 10:37 Last Admin: 04/22/24 10:41 Dose: 2.5 mg Documented By: ZAIRA Oxycodone HCl (Oxycodone Hcl Ir 5 Mg Tab (Immediate Release)) Confirm Administered Dose 5 mg .ROUTE .STK-MED ONE Stop: 04/22/24 10:41 Last Admin: 04/22/24 10:48 Dose: Not Given Documented By: ZAIRA Discharge Plan Visit Data Chief Complaint: Trauma ED Provider: Verenice Eaton Discharge Problem: Sepsis, Rhabdomyolysis, Fracture, ribs, Acute hyponatremia Patient Disposition: Admitted As Inpatient Discharge Instructions Interventions: ED Discharge Assessment Last Done: 04/21/24 15:17
[2024-04-21 11:41] LABS: Basophils # (auto) 0.01 K/uL (0.00-0.20); Basophils % (auto) 0.1 %; Hematocrit (blood only) 32.1 % (37.0-47.0); Hemoglobin 10.4 g/dl (12.0-16.0); Immature Granulocytes # (auto) 0.06 K/uL (0.01-0.20); Immature Granulocytes % (auto) 0.6 %; Lymphocytes # (auto) 0.38 K/uL (1.20-3.40); Lymphocytes % (auto) 3.7 %; Mean Corpuscular Hemoglobin 28.2 pg (25.0-34.0); Mean Corpuscular Hgb Conc 32.4 g/dL (32.0-36.0); Monocytes # (auto) 0.84 K/uL (0.11-0.59); Monocytes % (auto) 8.2 %; Neutrophils # (auto) 8.94 K/uL (1.40-6.50); Neutrophils % (auto) 87.4 %; Platelet Count 151 K/uL (130-400); RDW Coefficient of Variation 14.6 % (11.5-14.5); RDW Standard Deviation 46.8 fL (36.4-46.3); Red Blood Count 3.69 M/uL (4.20-5.40); White Blood Count 10.23 K/ul (4.8-10.8)
[2024-04-21 11:43] LABS: iSTAT Creatinine 2.6 mg/dl (0.6-1.3); iSTAT Hemoglobin 10.5 g/dl (12.0-16.0); iSTAT Ionized Calcium 1.13 mmol/l (1.12-1.32); iSTAT Potassium 4.5 mmol/L (3.3-5.0)
[2024-04-21 11:58] LABS: Anion Gap 12 (3-11); BUN Creatinine Ratio 14.3 (10-20); Blood Urea Nitrogen 32 mg/dl (6-23); Calcium 8.6 mg/dl (8.6-10.3); Carbon Dioxide 22 mmol/L (21-32); Chloride 97 mmol/L (98-107); Est GFR (Non-African American) 19.9 ml/min; Glucose 211 mg/dl (70-99(Fasting)); Potassium 4.4 mmol/L (3.5-5.1); Sodium 131 mmol/L (136-145)
[2024-04-21] MEDS: SODIUM CHLORIDE 0.9% 1,000 ML IV SCH ×2 (12:00→17:07)
[2024-04-21 12:06] LABS: Alanine Aminotransferase 62 U/L (7-52); Albumin Level 3.4 gm/dl (3.4-5.0); Alkaline Phosphatase 64 U/L (34-104); Aspartate Aminotransferase 173 U/L (13-39); Bilirubin Direct 0.4 mg/dl (0-0.2); Bilirubin,Total 0.7 mg/dl (0.2-1.0); Magnesium 1.9 mg/dl (1.7-2.4); Total Protein 9.4 gm/dl (6.0-8.3)
--- NOTE | 2024-04-21 12:08 | CT Scan Report ---
CT SCAN OF THE BRAIN WITHOUT IV CONTRAST CLINICAL HISTORY: Trauma. COMPARISON STUDY: CT of the brain dated 04/02/2014. TECHNIQUE: Unenhanced axial CT scan of the brain is performed from the vertex to the skull base. A do se lowering technique was utilized adhering to the principles of ALARA. FINDINGS: Brain parenchyma: There is age-related involutional change noting minimal microangiopathic disease. T here is no hemorrhage, mass effect, or evidence of acute territorial ischemia by CT criteria. Peres-wh ite matter differentiation is preserved. A left temporal lobe calcification seen on image #14 is unch anged from 2014. No extra-axial fluid collection is seen. Ventricles, sulci, cisterns: Prominent secondary to involutional change. Intracranial vasculature: There is atherosclerotic calcification of the cavernous carotid arteries. Calvarium: The skeletal structures are osteopenic. No depressed calvarial fracture is seen. Soft tissues: There is high right parietal scalp contusion. Sinuses and mastoids: There is trace mucosal thickening in the right maxillary antrum and the ethmoid sinuses. The mastoid air cells are well pneumatized. Orbits: The bony orbits are grossly intact. There are bilateral ocular lens implants. IMPRESSION: There is no hemorrhage, mass effect, or evidence of acute territorial ischemia by CT raisa botello. ACT 112: Negative or not required by law. Electronically signed by: Yair Marcus M.D. 04/21/2024 12:05 PM
--- NOTE | 2024-04-21 12:15 | CT Scan Report ---
CT SCAN OF THE CERVICAL SPINE CLINICAL HISTORY: Trauma. COMPARISON STUDY: PET/CT dated 01/13/2022. TECHNIQUE: CT scan of the cervical spine is performed from the skull base to the upper thoracic spine . Images are reviewed in the axial, sagittal, and coronal planes. IV contrast was not administered fo r this examination. A dose lowering technique was utilized adhering to the principles of ALARA. FINDINGS: Skeletal structures: The skeletal structures are osteopenia. There is no evidence of fracture or subl uxation involving the cervical spine. Vertebral body height and alignment are maintained. Anterior os teophytes are seen throughout. The odontoid process and lateral masses are intact. The atlantoaxial a rticulation is preserved noting productive degenerative change. The spinous processes appear intact. Sclerotic change within the posterior ring of C1 is unchanged dating back to a 2021 PET examination. There is chronic deformity of the left clavicle. There is minimal facet arthropathy. Question osteoly tic lesion within the right clavicular head. Intervertebral discs: There is mild multilevel degenerative disc space narrowing, greatest at C4-C5. Central canal: Posterior disc osteophyte complexes at C3-C4, C4-C5, and C7-T1 may contribute to multi level acquired compromise of the central canal. Soft tissues: The prevertebral and paraspinous soft tissues are within normal limits. A right interna l jugular central venous infusion port is in place. Calcified sialoliths are noted in the parotid gla nds. Calvarium: The visualized calvarium at the skull base appears intact. Brain parenchyma: Partially visualized brain parenchyma at the skull base is within normal limits. Sinuses and mastoids: There is trace mucosal thickening in the right maxillary antrum. The mastoid ai r cells are well pneumatized. Lung apices: Clear as visualized. IMPRESSION: 1. There is no evidence of fracture or subluxation involving the cervical spine. 2. Osteopenia and mild spondylotic change as above. 3. Suspect an osteolytic lesion in the right clavicular head. Correlate with the oncological history. ACT 112: Negative or not required by law. Electronically signed by: Yair Marcus M.D. 04/21/2024 12:13 PM
[2024-04-21 12:17] LABS: Creatine Kinase 6639 U/L (26-192)
[2024-04-21] MEDS: CEFEPIME 1,000 MG in SYRINGE 0 ML IV STA (12:20)
--- NOTE | 2024-04-21 12:55 | CT Scan Report ---
CT SCAN OF THE CHEST, ABDOMEN, AND PELVIS WITHOUT IV CONTRAST CLINICAL HISTORY: Trauma. COMPARISON STUDY: Chest CT dated 12/14/2018. PET CT dated 01/13/2022. Abdominal CT dated 11/12/2021. TECHNIQUE: Unenhanced CT scan of the chest, abdomen, and pelvis was performed from the thoracic inlet to the proximal femora. Images are reviewed in the axial, sagittal, and coronal planes. IV contrast was not administered for this examination. Note that the examination was performed in significantly s uboptimal fashion without IV contrast. A dose lowering technique was utilized adhering to the princi ples of TABBY. The examination is degraded by streak artifact from the arms which could not be elevat ed above the chest or abdomen. CT DOSE: 2043.49 mGy.cm FINDINGS: CHEST: Thyroid: Imaged portions of the thyroid gland are normal in size and attenuation. Thoracic aorta: The thoracic aorta is normal in caliber and demonstrates bovine variant arch anatomy. Heart: A right internal jugular central venous infusion port is in place. The heart is normal in size and without pericardial effusion. The coronary arteries are densely calcified. There is diminished a ttenuation of the cardiac blood pool and compared to myocardial suggesting anemia. Lungs and pleural spaces: There is no airspace consolidation typical for pneumonia or pneumothorax. S ecretions/debris is seen in the trachea and right mainstem bronchus. An impacted and dilated right lo wer lobe bronchus containing calcific debris is unchanged. There is trace right pleural effusion. Tho racic parenchymal scarring are seen throughout both lungs. There is fibrotic change in the paraverteb ral right lower lobe which is new from 12/14/2018. A 4 mm left lower lobe pulmonary nodule on image #13 0 is unchanged dating back to 2019. Mediastinum: There is no mediastinal hematoma or lymphadenopathy. Kathryn: Not well assessed without IV contrast. Axillae: There is no axillary lymphadenopathy. Bony thorax: The skeletal structures are osteopenic. 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 Arthritic change is seen in the shoulders. There is evidence of multifoc al mixed lytic/blastic bony metastatic disease. Lesions is in the right clavicular head, the left gle noid, the sternum, the posterior body of T8 comment while several bilateral ribs. Chronic posttraumat ic deformities seen in the left clavicle. There are acute right posterolateral 7th and 10th rib fract ures. No additional acute fracture is seen involving the bony thorax. ABDOMEN AND PELVIS: Liver: The unenhanced liver is normal in size, contour, and attenuation. There is no intrahepatic rl iary ductal dilatation. Gallbladder: Unremarkable. Spleen: Normal in size and attenuation. Pancreas: The unenhanced pancreas is moderately atrophic and otherwise grossly unremarkable. Adrenal glands: Unremarkable. Kidneys: The unenhanced demonstrate mild cortical atrophy. There is no hydronephrosis. A large hetero geneous and slightly hyperdense mass lesion largely replaces the posterior upper pole of the right ki dney. This measures up to approximately 10 x 10 x 8 cm as seen on image #100. This appears to invade the right posterior body wall and the right psoas muscle. Small left renal cyst measuring up to 12 mm . No renal calculi are identified. Abdominal vasculature: The abdominal aorta is normal in course and caliber noting moderate to advance d atherosclerotic calcification. Stomach and bowel: There is a small hiatal hernia. There is moderate colonic diverticulosis without C T evidence of acute diverticulitis. No bowel obstruction is seen. The appendix is well-visualized an d normal. Peritoneum: There is a small amount of right-sided perinephric fluid. No tracheal free air is seen. Lymphadenopathy: None. Pelvic viscera: Asymmetric bladder wall thickening is seen posteriorly and on the right. The uterus a nd adnexa are normal as visualized. Skeletal structures: The skeletal structures are osteopenic. Postsurgical changes in the partially im aged right wrist which overlies the abdomen. There is evidence of multifocal mixed lytic/blastic by m etastatic disease. Lesions are seen within the body of L4, within the lower sacrum, the right iliac w ing, and the left ischium. There is a moderate chronic compression deformity of L4. No acute fracture is seen involving the lumbosacral spine, bony pelvis, or proximal femora. There is avascular necrosi s of the femoral heads. IMPRESSION: 1. Significantly suboptimal examinations without IV contrast. 2. Acute right-sided rib fractures as above. 3. No additional acute fracture is seen. 4. There is no pneumothorax. 5. Trace right pleural effusion. 6. There is an approximately 10 x 10 x 8 cm heterogeneous and slightly hyperdense mass lesion arising from the upper pole of the right kidney. This is new from the most recent prior examination dated 01/13/2022 and is highly suspicious for a renal cell carcinoma. Much less likely, a large renal hematoma could potentially appears similar. This appears to invade the posterior body wall and the right psoas muscle. If warranted this could be further assessed with ultrasound to confirm the solid nature of t his lesion. There is trace right-sided perinephric fluid. 7. There is no clear evidence of solid organ injury in the abdomen or pelvis on this enhanced examina tion. 8. 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 Correlate wi th the oncological history. 9. Fibrotic change in the paravertebral right lower lobe is new from 2021 and may represent treatment -related change. There are adjacent right-sided rib lesions. 10. Colonic diverticulosis without CT evidence of acute diverticulitis. 11. Asymmetric wall thickening is seen along the posterior and right wall of the bladder. 4. Additional findings as above. ACT 112: Negative or not required by law. Electronically signed by: Yair Marcus M.D. 04/21/2024 12:52 PM
[2024-04-21] MEDS: SODIUM CHLORIDE 0.9% 500 ML IV ONE (13:06)
[2024-04-21] MEDS: ACETAMINOPHEN 325 MG TAB PO STA (13:07)
--- OUTSIDE RECORDS SUMMARY | 2024-04-21 13:11 | External Medical Summary | Summary of Care ---
Author Name Unknown Organization [facility] Address [address] [place] [address] Phone [phone] Care Team Providers Care Bond Broker Name Role Phone Antonietta NORIEGA MD, Artemio Cedillo Primary Care Provider [phone] Reason for Visit * Reason Comments Chemotherapy Darzalex Faspro Procedure Port flush * Episode Based Medications (Routine) - Authorized Specialty Diagnoses / Procedures Referred By Contanatoly t Referred To Contact Diagnoses Encounter for antineoplastic chemotherapy Multiple myeloma not having achieved remission (HCC) Procedures CT DARATUMUMAB, HYALURONIDASE Benny Mondragon MD [address] [place] [address] Anc Hem/Onc [facility] DEPT CLOSED - 08/23/23 [address] [place] [address] Referral ID Status Reason Start Date Expiration Date V isits Requested Visits Authorized Authorized 03/11/2022 10/09/2099 [id number] Encounter Details Date Type Department Care Team (Latest Contact Info) Description 03/27/2024 9:45 AM EDT Hem/Onc Treatment Hematology/Oncolog y Treatment, [place] [address] [place] [address] Jennifer, Chair [address] [place] [address] Encounter for antineoplastic chemotherapy*; Multiple myeloma not having achieved remission (HCC); Multiple myeloma, remission status unspecified (HCC); Encounter for central line care Allergies Active Allergy Reactions Criticality Noted Date Comments Adhesive Tape 02/06/2016 Ixazomib 08/09/2018 Hives, chills, diarrhea. Lenalidomide Hives 05/23/2018 Bortezomib Bleeding High 12/12/2018 Open sores w/bleeding on abdominal region documented as of this encounter (statuses as of 04/18/2024) Medications Medication Sig Dispensed Refills Start Date End Date Status Calcium Carb-Cholecalcifer ol (CALCIUM + D3) 600-800 MG-UNIT per tablet Take 2 Tablets by mouth in the morning. Active Ondansetron HCl 8 MG Oral Tablet (Zofran)Indication s:Multiple myeloma (HCC) TAKE ONE TABLET BY MOUTH EVERY 8 HOURS NEEDED FOR NAUSEA 30 Tab 3 05/28/2021 Active Additional Information Patient not taking.Reported on 05/18/2022 Prochlorperazine Maleate 10 MG Oral Tablet (Compazine)Indicat ions:Multiple myeloma (HCC) TAKE ONE TABLET BY MOUTH EVERY 6 HOURS NEEDED FOR NAUSEA 30 Tab 3 05/28/2021 Active Additional Information Patient not taking.Reported on 05/18/2022 Diphenoxylate-Atro pine 2.5-0.025 MG Oral Tablet (Lomotil)Indicatio ns:Multiple myeloma not having achieved remission (HCC),Chemotherapy induced diarrhea TAKE ONE TABLET BY MOUTH FOUR TIMES DAILY NEEDED for diarrhea 60 Tab 05/28/2021 Active valACYclovir HCl 500 MG Oral Tablet (Valtrex)Indicatio ns:Multiple myeloma not having achieved remission (HCC),History of herpes zoster Take 1 Tablet by mouth in the morning. 90 Tablet 3 09/22/2023 Active dexAMETHasone 4 MG Oral Tablet (Decadron)Indicati ons:Multiple myeloma not having achieved remission (HCC) 5 tablets once a week in the morning with food. 120 Tablet 1 01/03/2024 Active documented as of this encounter (statuses as of 04/18/2024) Active Problems Problem Noted Date Diagnosed Date Inappropriate sinus tachycardia 08/29/2018 History of chemotherapy 08/29/2018 Anxiety 08/29/2018 History of herpes zoster 03/07/2018 Encounter for antineoplastic chemotherapy 2016 Multiple myeloma 05/12/2017 Primary osteoarthritis of right hip 04/25/2017 Generalized osteoarthritis 03/21/2017 Age-related osteoporosis wit teo current pathological fracture 05/22/2015 Cerebral cavernoma 09/13/2014 CEREBROVASCULAR DZ, POST-STROKE 01/21/2009 Overview: Modified per CVA protocol #8 ADVANCE DIRECTIVE INFORMATION 08/03/2006 Overview: No, Advance Directive brochure given to patient at prior appointment. Age-related osteoporosis wit teo current pathological fracture 07/10/2004 documented as of this encounter (statuses as of 04/18/2024) Resolved Problems Problem Noted Date Diagnosed Date Resolved Date CVA 06/29/2002 01/23/2009 Overview: Modified per CVA protocol #8 FX CARPAL BONE NOS-CLOSE 06/29/200211/2016 documented as of this encounter (statuses as of 04/18/2024) Immunizations Name Administration Dates Next Due Pneumococcal Conjugate Vacc, 13 Valent (Prevnar) 06/17/2014 Pneumococcal Polysaccharide PPV23 (Pneumovax) 08/03/2006 Season Influenza, Quad, PF, Adjuvanted, 65+ Yrs, IM (FLUAD) 07/24/2020 Seasonal Influenza, Quadriva lent Hd, 65+ Yrs 07/24/2023,07/05/2022 Seasonal Influenza, Split, I IV3, With Preserve, Inj 06/17/2014,07/27/2013,06/28/2012,07/27,07/28/2010,07/23/2008,07/17/2007 ,08/03/2006 Seasonal Influenza, Trivalen t, Adjuvanted, 65+ yrs 08/15/2018 Seasonal Influenza, Trivalen t, High Dose, No Preserve, IM 08/10/2019,07/28/2017 TDAP (age 10 and older)(Boostrix) 05/03/2016 Varicella Zoster Vaccine (Adult) 12/11/2008 documented as of this encounter Social History Tobacco Use Types Packs/Day Years Used Date Smoking Tobacco: Former Cigarettes 0.5 45 0 06/26/1957 - 06/26/2002 Smokeless Tobacco: Never Alcohol Use Standard Drinks/Week Comments Yes 0 (1 standard drink = 0.6 oz pur e alcohol) glass of wine daily Utilities Answer Date Recorded Do you have trouble paying y our heating, water, or electric bill? (Adult - for ages 18 years and over) Not on file 03/27/2024 Is your family able to pay t he heat, water, or electric bill? (Household - for ages 0-17 years) Not on file 03/27/2024 Does your family have access to good internet? (Household - for ages 0-17 years) Not on file 03/27/2024 Social Connections Answer Date Recorded How often do you feel lonely or isolated from those around you? (Adult - for ages 18 years and over) Not on file 03/27/2024 Sex and Gender Information Value Date Recorded Sex Assigned at Not on file Gender Identity Not on file Sexual Orientation Not on file Job Start Date Occupation Industry Not on file Not on file Not on file documented as of this encounter Nursing Notes * Yas Guajardo RN - 03/27/2024 10:26 AM EDT Patient tolerated treatment well without any acute issues or problems. Patient left facility in stable condition and denied any further needs. * Yas Guajardo RN - 03/27/2024 10:24 AM EDT Chair 5. Patient saw Dr. Mondragon today -- see OV note for details. Patient will be switching to Pomalyst and Decadron per Dr. Mondragon. Last Darzalex injection today. Patient is planning to have tooth extracted, so holding Xgeva today until this is completed. Per patient, this is not scheduled yet. VAD (Venous Access Device) accessed with #19G 1" without difficulty. VAD flushed with 10 ml NSS andHeparin 5 ml (100 units/ml). Caruso needle removed intact. Chemotherapy/Immunotherapy agents: DARZALEX Consent for chemotherapy drug treatment complete, dated, and signed? yes, date - 04/06/2022 Treatment lab parameters met? Yes Has treatment weight changed > than 10%? No Treatment preauthorized? Yes VITALS There were no vitals filed for this visit. Urine protein: N/A Patient education completed for treatment? Yes Blood transfusion consent signed and complete? NA Return appointment scheduled? Yes Patient had provider visit today? Yes - Ok to release order and treat per provider Functional Status: Functional status at today's visit: Restricted in physically strenuous activity but ambulatory and able to carry out work on a light orsedentary nature, e.g. light house work, office work The drug name, dose, infusion volume, rate and route of administration, expiration date and time, appearance and physical integrity of the drug and rate set on the pump and sequencing of drug administration (as applicable) were verified by me and second sign-in RN. Patient was assessed for symptoms or adverse side effects during treatment. documented in this encounter Plan of Treatment Upcoming Encounters Date Type Department Care Team (Late st Contact Info) Description 04/20/2024 9:15 AM EDT Pharmacy Pharmacy Hematology Oncology [address] [address] [facility] Hem/Onc [facility] [place] [address] 05/08/2024 8:45 AM EDT Immunization/Inject ion Hematology/Oncology Treatment, [address] [place] [id number] Nurse, Med [address] [place], [place] [address] [place] [address] 06/19/2024 8:15 AM EDT Office Visit Hematology/Oncology [address] [place] [id number] Benny Mondragon MD [address] [facility] [place] [address] 06/19/2024 8:45 AM EDT Immunization/Inject ion Hematology/Oncology Treatment, [address] [place] [id number] Nurse, Med 4 [address] [facility] [place] [address] Health Maintenance Due Date Last Done Comments COVID-19 Vaccine (#1) 1945 Zoster Vaccines (1 of 2) 02/05/2009 12/11/2008 DXA Scan 08/07/2016 08/07/2014, 07/11, 08/01/2002, Additional history exists Depression Screening 05/11/2018 05/11/2017 Influenza Vaccine (FLU shot) (#1) 2024 07/24/2023, 07/05/2022, 07/28/2021, Additional history exists DTaP,Tdap,and Td Vaccines (2 - Td or Tdap) 05/03/2026 05/03/2016, 07/10/2004, 07/10/2004 Pneumococcal Vaccine: 65+ Years Completed 06/17/2014, 08/03/2006 VITAMIN D LEVEL ONCE IN A LIFETIME-USE SMARTSET# [id number] Completed 05/22/2015, 03/05/2015, 04/23/2014 HPV (Gardasil) Vaccine Aged Out No lo nger eligible based on patient's age to complete this topic Hepatitis B Vaccine Aged Out No longe r eligible based on patient's age to complete this topic MENINGOCOCCAL (MENACTRA/MENVEO) Aged Out No longer eligible based on patient's age to complete this topic documented as of this encounter Medical Devices Implanted Type Area Travel Accommodation Inspector Device Identifier Shelf Expiration Date Model / Serial / Lot Port Power Mri W/8fr Cath - [id number] Implanted:Qty : 1 on 12/09/2020 by Vince Jon MD at OR [facility] Right: Subclavian CR BARD : PERIPHERAL VASCULAR 02/06/2022 [id number] / / [id number] documented as of this encounter Visit Diagnoses Diagnosis Encounter for antineoplastic chemotherapy- Primary Multiple myeloma, remission status unspecified (HCC) Encounter for central line care Fitting and adjustment of vascular catheter documented in this encounter Administered Medications Inactive Administered Medications - up to 3 most recent administrations Medication Order MAR Action Action Date Dose Rate Site Acetaminophen (Tylenol) tab 650 mg 650 mg, Oral, ONCE, On Tue03/27/24 at 1000, For 1 dose, Maximum of 4 grams (4000 mg) per day. Given 03/27/2024 9:40 AM EDT 650 mg Daratumumab-hyaluronidase- fihj (Darzalex Faspro) 1800 mg-37351 units/ 15 ml subcut inj 15 mL, Subcutaneous, ONCE, On Tue03/27/24 at 1100, For 1 dose, Inject subcutanteously into abdomen over 3 to 5 minutes Given 03/27/2024 10:09 AM EDT 15 mL Abdomen Left Lower diphenhydrAMINE (Benadryl) cap 50 mg 50 mg, Oral, ONCE, On Tue03/27/24 at 1000, For 1 dose Given 03/27/2024 9:40 AM EDT 50 mg hEParin 100 UNIT/ML Lock Flush inj 500 Units 500 Units (5 mL), IV Lock, PRN Other, IV Flush, Starting on Tue03/27/24 at 0928, Until Tue03/27/24 at 1434, For 24 hours, Do not flush if lock, PICC, or central line not in place; IV infusing or unable to flush. Given 03/27/2024 10:09 AM EDT 500 Units sodium chloride 0.9 % flush central line 10 mL 10 mL, IV Push, PRN Other, IV Flush, Starting on Tue03/27/24 at 0928, Until Tue03/27/24 at 1434, For 24 hours, Do not flush if lock, PICC, or central line not in place; IV infusing or unable to flush. Given 03/27/2024 10:09 AM EDT 10 mL documented in this encounter Advance Directives * Full Code (Latest Code Status on File) Date Activated Date Inactivated Comments 12/09/2020 12:28 PM 12/09/2020 5:38 PM This order re flects the patients wishes and were consensually agreed upon. * Full Code Date Activated Date Inactivated Comments 12/09/2020 10:53 AM 12/09/2020 12:28 PM This order r eflects the patients wishes and were consensually agreed upon. Care Teams Bond Broker Relationship Specialty Start Date End Date Artemio Mane III, MD [address] [facility], [place] [address] PCP - General Family Medicine 04/08/14 documented as of this encounter
--- OUTSIDE RECORDS SUMMARY | 2024-04-21 13:11 | External Medical Summary | Summary of Care ---
Author Name Unknown Organization [facility] Address [address] [place] [address] Phone [phone] Care Team Providers Care Principal Law Clerk Name Role Phone Antonietta NORIEGA MD, Artemio Cedillo Primary Care Provider [phone] Reason for Visit * Reason Onset Date Comments FYI 04/06/2024 Specialty pharma cy update Encounter Details Date Type Department Care Team (Late st Contact Info) Description 04/06/2024 Telephone Hematology/Oncology [facility] [address] [place] [phone] Benny Mondragon MD [address] [place] [address] FYI (Specialty pharmacy update) Allergies Active Allergy Reactions Criticality Noted Date Comments Adhesive Tape 02/06/2016 Ixazomib 08/09/2018 Hives, chills, diarrhea. Lenalidomide Hives 05/23/2018 Bortezomib Bleeding High 12/12/2018 Open sores w/bleeding on abdominal region documented as of this encounter (statuses as of 04/20/2024) Medications Medication Sig Dispensed Refills Start Date End Date Status Calcium Carb-Cholecalcifero l (CALCIUM + D3) 600-800 MG-UNIT per tablet Take 2 Tablets by mouth in the morning. Active Ondansetron HCl 8 MG Oral Tablet (Zofran)Indications :Multiple myeloma (HCC) TAKE ONE TABLET BY MOUTH EVERY 8 HOURS NEEDED FOR NAUSEA 30 Tab 3 05/28/2021 Active Additional Information Patient not taking.Reported on 05/18/2022 Prochlorperazine Maleate 10 MG Oral Tablet (Compazine)Indicati ons:Multiple myeloma (HCC) TAKE ONE TABLET BY MOUTH EVERY 6 HOURS NEEDED FOR NAUSEA 30 Tab 3 05/28/2021 Active Additional Information Patient not taking.Reported on 05/18/2022 Diphenoxylate-Atrop ine 2.5-0.025 MG Oral Tablet (Lomotil)Indication s:Multiple myeloma not having achieved remission (HCC),Chemotherapy induced diarrhea TAKE ONE TABLET BY MOUTH FOUR TIMES DAILY NEEDED for diarrhea 60 Tab 05/28/2021 Active valACYclovir HCl 500 MG Oral Tablet (Valtrex)Indication s:Multiple myeloma not having achieved remission (HCC),History of herpes zoster Take 1 Tablet by mouth in the morning. 90 Tablet 3 09/22/2023 Active dexAMETHasone 4 MG Oral Tablet (Decadron)Indicatio ns:Multiple myeloma not having achieved remission (HCC) 5 tablets once a week in the morning with food. 120 Tablet 1 01/03/2024 Active Pomalidomide 4 MG Oral Capsule (Pomalyst)Indicatio ns:Multiple myeloma, remission status unspecified (HCC) Take 4 mg by mouth in the morning. For 21 days on, 7 days off of a 28 day cycle. 21 Capsule 04/04/2024 Active documented as of this encounter (statuses as of 04/20/2024) Active Problems Problem Noted Date Diagnosed Date Inappropriate sinus tachycardia 08/29/2018 History of chemotherapy 08/29/2018 Anxiety 08/29/2018 History of herpes zoster 03/07/2018 Encounter for antineoplastic chemotherapy 2016 Multiple myeloma 05/12/2017 Primary osteoarthritis of right hip 04/25/2017 Generalized osteoarthritis 03/21/2017 Age-related osteoporosis wit hofederica current pathological fracture 05/22/2015 Cerebral cavernoma 09/13/2014 CEREBROVASCULAR DZ, POST-STROKE 01/21/2009 Overview: Modified per CVA protocol #8 ADVANCE DIRECTIVE INFORMATION 08/03/2006 Overview: No, Advance Directive brochure given to patient at prior appointment. Age-related osteoporosis wit hout current pathological fracture 07/10/2004 documented as of this encounter (statuses as of 04/20/2024) Resolved Problems Problem Noted Date Diagnosed Date Resolved Date CVA 06/29/2002 01/23/2009 Overview: Modified per CVA protocol #8 FX CARPAL BONE NOS-CLOSE 06/29/200211/2016 documented as of this encounter (statuses as of 04/20/2024) Immunizations Name Administration Dates Next Due Pneumococcal Conjugate Vacc, 13 Valent (Prevnar) 06/17/2014 Pneumococcal Polysaccharide PPV23 (Pneumovax) 08/03/2006 Season Influenza, Quad, PF, Adjuvanted, 65+ Yrs, IM (FLUAD) 07/24/2020 Seasonal Influenza, Quadriva lent Hd, 65+ Yrs 07/24/2023,07/05/2022 Seasonal Influenza, Split, I IV3, With Preserve, Inj 06/17/2014,07/27/2013,06/28/2012,07/27,07/28/2010,07/23/2008,07/17/2007 ,08/03/2006,09/01/2005 Seasonal Influenza, Trivalen t, Adjuvanted, 65+ yrs 08/15/2018 Seasonal Influenza, Trivalen t, High Dose, No Preserve, IM 08/10/2019,07/28/2017 TD - Tetanus/Diptheria (ADULT) 07/10/2004 TDAP (age 10 and older)(Boostrix) 05/03/2016 Varicella [...] on file documented as of this encounter Miscellaneous Notes * Telephone Encounter - Gregorio Kaye RN - 04/20/2024 1:34 PM EDT Called patient, she has been feeling under the weather lately, hasn't had a chance to call [facility], asking that we call her next week to check in. MTM made aware to place on schedule next Tuesday. * Telephone Encounter - Gregorio Kaye RN - 04/18/2024 3:17 PM EDT Called patient, her and her just returned home today. She states she hasn't called [facility] yet as she is exhausted. Her husbands schedule for appointments is expected tomorrow so she ask we call back at tomorrow to follow up with her to see when she will order the medicine. * Telephone Encounter - Gregorio Kaye RN - 04/13/2024 9:24 AM EDT Called patient back. She states that she hasn't ordered the medication yet at this time, was askingif waiting a week until her has surgery and potential discharge is ok. Pt states she will not be home until she knows when her will be discharged/plans are in order. I advised the patient that it's fine to wait a week until her has been arranged for discharge, etc. We will plan to follow up with her next week and to let us know in the meantime if she calls [facility] and orders her medication. MTM- fyi. I will plan to follow up with the patient next Tuesday. * Telephone Encounter - Gabi Hamilton OSA - 04/13/2024 8:30 AM EDT Patient called wanting to speak with Frannie. Her had a very serious fall and she is in [facility] with him and they will be there another week or more, and the new medication she was put on will be delivered to her house but she won't be able to start it so she wants to know whatshe should be doing. Please advise, thank you. Please call patient's cell phone [phone]. * Telephone Encounter - Frannie Dejesus RN - 04/11/2024 11:01 AM EDT Called to check with patient on if she called [facility] yesterday. Left message requesting return call. * Telephone Encounter - Frannie Dejesus RN - 04/10/2024 1:05 PM EDT Spoke to patient. She wanted clarification on lab work and some of the side effects of pomalyst that she read about. Answered questions to her satisfaction. She will call [facility] to schedule delivery, then let us know when it will be coming. * Telephone Encounter - Gregorio Kaye RN - 04/10/2024 11:00 AM EDT Called patient back, requesting to speak with Frannie. Call transferred. * Telephone Encounter - Rozina Benites OSA - 04/10/2024 9:13 AM EDT Patient is calling looking to speak with someone to discuss this and have some questions answered. * Telephone Encounter - Winnie Johnston CPhT - 04/06/2024 2:12 PM EDT MEDICATION THERAPY MANAGEMENT POMALIDOMIDE TREATMENT STATUS NOTE Yvrose Silva [id number] Patient Phone Numbers Communication: Email - Kaur @ [facility] Special[facility] Treatment: Medication: Pomalidomide (Pomalyst) Indication/Staging/Diagnosis Code: multiple myeloma / C90.00 Dose: 4mg daily D1-21 every 28 days Administration: +/- food Start Date: TBD Primary Welding Pantograph Machine Operator/Oncologist: Dr. Vicky Mondragon Pharmacy spoke to patient yesterday and informed of $56 copay for Pomalyst. She wanted to speak to MD before scheduling delivery. Per pharmacy patient said medication wasn't discussed by office. Patient needs to call pharmacy back when ready to schedule delivery @ Winnie Johnston Chamber Walker III Hematology Oncology Oral Chemotherapy Clinic Medication Therapy Disease Management [facility] 04/06/2024 2:23 PM documented in this encounter Plan of Treatment Upcoming Encounters Date Type Department Care Team (Late st Contact Info) Description 04/27/2024 9:15 AM EDT Pharmacy Pharmacy Hematology Oncology [facility] [address] [place] [address] [facility] [place] [facility] Clinic Hem/Onc [address] [place] [address] 05/08/2024 8:45 AM EDT Immunization/Inject ion Hematology/Oncology Treatment, [place] [address] [facility] [place] [phone] Nurse, Med [address] [facility] [place] [address] 06/19/2024 8:15 AM EDT Office Visit Hematology/Oncology [facility] [place] [address] [facility] [place] [phone] Benny Mondragon MD [address] [facility] [place] [place] [address] 06/19/2024 8:45 AM EDT Immunization/Inject ion Hematology/Oncology Treatment, [place] [address] [place] [phone] Nurse, Med [address] [facility] [place] [address] Health Maintenance Due Date Last Done Comments [...] D LEVEL ONCE IN A LIFETIME-USE SMARTSET# 31505 Completed 05/22/2015, 03/05/2015, 04/23/2014 HPV (Gardasil) Vaccine Aged Out No lo nger eligible based on patient's age to complete this topic Hepatitis B Vaccine Aged Out No longe r eligible based on patient's age to complete this topic MENINGOCOCCAL (MENACTRA/MENVEO) Aged Out No longer eligible based on patient's age to complete this topic documented as of this encounter Medical Devices Implanted Type Area Airport Guide Device Identifier Shelf Expiration Date Model / Serial / Lot Port Power Mri W/8fr Cath - [id number] Implanted:Qty : 1 on 12/09/2020 by Vince Jon MD at OR [facility] Right: Subclavian CR BARD : PERIPHERAL VASCULAR 02/06/2022 [id number] / / [id number] documented as of this encounter Visit Diagnoses Diagnosis Multiple myeloma, remission status unspecified (HCC)- Primary documented in this encounter Advance Directives * [...] and were consensually agreed upon. Care Teams Principal Law Clerk Relationship Specialty Start Date End Date Artemio Mane III, MD [address] [facility] [place] [address] PCP - General Family Medicine 04/08/14 documented as of this encounter
--- OUTSIDE RECORDS SUMMARY | 2024-04-21 13:12 | External Medical Summary | Summary of Care ---
Author Name Unknown Organization [facility] Address [address] [place] [address] Phone [phone] Care Team Providers Care Machine Ii Cutter Name Role Phone Antonietta NORIEGA MD, Artemio Cedillo Primary Care Provider [phone] Reason for Visit * Reason Onset Date Comments FYI 04/06/2024 Specialty pharma cy update Encounter Details Date Type Department Care Team (Late st Contact Info) Description 04/06/2024 Telephone Hematology/Oncology [facility] [address] [place] [phone] Benny Mondragon MD [address] [place] [address] FYI (Specialty pharmacy update) Allergies Active Allergy Reactions Criticality Noted Date Comments Adhesive Tape 02/06/2016 Ixazomib 08/09/2018 Hives, chills, diarrhea. Lenalidomide Hives 05/23/2018 Bortezomib Bleeding High 12/12/2018 Open sores w/bleeding on abdominal region documented as of this encounter (statuses as of 04/13/2024) Medications Medication Sig Dispensed Refills Start Date [...] as of this encounter (statuses as of 04/13/2024) Active Problems Problem Noted Date Diagnosed Date [...] as of this encounter (statuses as of 04/13/2024) Resolved Problems Problem Noted Date Diagnosed Date Resolved Date CVA 06/29/2002 01/23/2009 Overview: Modified per CVA protocol #8 FX CARPAL BONE NOS-CLOSE 06/29/200211/2016 documented as of this encounter (statuses as of 04/13/2024) Immunizations Name Administration Dates Next Due Pneumococcal [...] very serious fall and she is in [facility] with him and they will be there another week or more, and the new medication she was put on will be delivered to her house but she won't be able to start it so she wants to know whatshe should be doing. Please advise, thank you. Please call patient's cell phone [phone]. * Telephone Encounter - Frannie Dejesus RN [...] questions to her satisfaction. She will call [facility] Specialty to schedule delivery, then let us [...] THERAPY MANAGEMENT POMALIDOMIDE TREATMENT STATUS NOTE Yvrose Reesaneta [id number] Patient Phone Numbers Communication: Email - Kaur @ [facility] Specialty Treatment: Medication: Pomalidomide (Pomalyst) Indication/Staging/Diagnosis Code: multiple myeloma / C90.00 Dose: 4mg daily D1-21 every 28 days Administration: +/- food Start Date: D Primary Rate Marker/Oncologist: Dr. Vicky Mondragon Pharmacy spoke to patient yesterday and informed of $56 copay for Pomalyst. She wanted to speak to MD before scheduling delivery. Per pharmacy patient said medication wasn't discussed by office. Patient needs to call pharmacy back when ready to schedule delivery @ Winnie Johnston Field Reviewer III Hematology Oncology Oral Chemotherapy Clinic Medication Therapy Disease Management [facility] 04/06/2024 2:23 PM documented in this encounter Plan of Treatment Upcoming Encounters Date Type Department Care Team (Late st Contact Info) Description 04/20/2024 9:15 AM EDT Pharmacy Pharmacy Hematology Oncology [facility] [address] [place] [address] [facility] [place], [facility] Clinic Hem/[place]c [place] [address] 05/08/2024 8:45 AM EDT Immunization/Inject ion Hematology/Oncology Treatment, [address] [phone] Nurse, Med 4 [address] [facility] [place] [address] 06/19/2024 8:15 AM EDT Office Visit Hematology/Oncology [address] [phone] Benny Mondragon MD [address] [place] [address] 06/19/2024 8:45 AM EDT Immunization/Inject ion Hematology/Oncology Treatment, [address] [phone] Nurse, Med 4 [address] [facility] [place] [address] Health Maintenance Due Date Last Done Comments [...] D LEVEL ONCE IN A LIFETIME-USE SMARTSET# [id number] Completed 05/22/2015, 03/05/2015, 04/23/2014 HPV (Gardasil) Vaccine Aged Out No lo nger eligible based on patient's age to complete this topic Hepatitis B Vaccine Aged Out No longe r eligible based on patient's age to complete this topic MENINGOCOCCAL (MENACTRA/MENVEO) Aged Out No longer eligible based on patient's age to complete this topic documented as of this encounter Medical Devices Implanted Type Area Manager Custom Device Identifier Shelf Expiration Date Model / Serial / Lot Port Power Mri W/8fr Cath - [id number] Implanted:Qty : 1 on 12/09/2020 by Vince Jon MD at OR [facility] Right: Subclavian CR BARD : PERIPHERAL VASCULAR 02/06/2022 [id number] / / [id number] documented as of this encounter Visit Diagnoses [...] and were consensually agreed upon. Care Teams Machine Ii Cutter Relationship Specialty Start Date End Date Artemio Mane III, MD [address] [place] [address] PCP - General Family Medicine 04/08/14 documented as of this encounter
--- OUTSIDE RECORDS SUMMARY | 2024-04-21 13:12 | External Medical Summary | Summary of Care ---
Author Name Unknown Organization [facility] Address [address] [place] [address] Phone [phone] Care Team Providers Care Line Decorator Name Role Phone Antonietta NORIEGA MD, Artemio Cedillo Primary Care Provider [phone] Reason for Visit * Reason Onset Date Comments Forms Request 04/03/2024 Pomalyst Encounter Details Date Type Department Care Team (Late st Contact Info) Description 04/03/2024 Telephone Hematology/Oncology [facility] [address] [facility] [place] [phone] Benny Mondragon MD [address] [facility] [place] [address] Forms Request (Pomalyst) Allergies Active Allergy Reactions Criticality Noted Date Comments Adhesive Tape 02/06/2016 Ixazomib 08/09/2018 Hives, chills, diarrhea. Lenalidomide Hives 05/23/2018 Bortezomib Bleeding High 12/12/2018 Open sores w/bleeding on abdominal region documented as of this encounter (statuses as of 04/03/2024) Medications Medication Sig Dispensed Refills Start Date [...] as of this encounter (statuses as of 04/03/2024) Active Problems Problem Noted Date Diagnosed Date Inappropriate sinus tachycardia 08/29/2018 History of chemotherapy 08/29/2018 Anxiety 08/29/2018 History of herpes zoster 03/07/2018 Encounter for antineoplastic chemotherapy 2016 Multiple myeloma 05/12/2017 Primary osteoarthritis of right hip 04/25/2017 Generalized osteoarthritis 03/21/2017 Age-related osteoporosis wit hout current pathological fracture 05/22/2015 Cerebral cavernoma 09/13/2014 CEREBROVASCULAR DZ, POST-STROKE 01/21/2009 Overview: Modified per CVA protocol #8 ADVANCE DIRECTIVE INFORMATION 08/03/2006 Overview: No, Advance Directive brochure given to patient at prior appointment. Age-related osteoporosis wit hout current pathological fracture 07/10/2004 documented as of this encounter (statuses as of 04/03/2024) Resolved Problems Problem Noted Date Diagnosed Date Resolved Date CVA 06/29/2002 01/23/2009 Overview: Modified per CVA protocol #8 FX CARPAL BONE NOS-CLOSE 06/29/200211/2016 documented as of this encounter (statuses as of 04/03/2024) Immunizations Name Administration Dates Next Due Pneumococcal [...] encounter Miscellaneous Notes * Telephone Encounter - Aby Bishop LPN - 04/03/2024 10:04 AM EDT Patient dropped off a Patient-Physician Agreement form on 03/30/2024. Provider was out of the officeuntil today. Form completed, faxed to [employer] at . Received fax confirmation from [facility] also requesting a call to verify the patient's identity. Called and spoke with Kathleen at [facility] unit at ; verbally verified with Kathleen the patient'sinformation. Per Kathleen they had an "outdated" patient identification number from an old "Lenalidomide" prescription. Per chart review verbally verified order is for Pomalyst and patient's new id is [id number]. Kathleen verbalized understanding. Per Kathleen the patient is eligible for the assistance program, she will fax information for precert to review at a later time. documented in this encounter Plan of Treatment Upcoming Encounters Date Type Department Care Team (Late st Contact Info) Description 04/03/2024 1:30 PM EDT Pharmacy Pharmacy Hematology Oncology [facility] [address] [place] [address] [facility] [place] [place] [facility] Hem/Onc [address] [place] [address] 05/08/2024 8:45 AM EDT Immunization/Inject ion [facility]ematology/Oncology [facility], [place] [facility] [phone] Nurse, Med [address] [facility] [address] 06/19/2024 8:15 AM EDT Office Visit Hematology/Oncology [facility] [place] [address] [facility] [place] [phone] Benny Mondragon MD [address] [facility] [place] [address] 06/19/2024 8:45 AM EDT Immunization/Inject ion Hematology/Oncology Treatment, [place] [address] [place] [phone] Nurse, [facility] [address] Health Maintenance Due Date Last Done Comments COVID-19 Vaccine (#1) 1945 Zoster Vaccines (1 of 2) 02/05/2009 12/11/2008 DXA Scan 08/07/2016 08/07/2014, 07/11, 08/01/2002, Additional history exists Depression Screening 05/11/2018 05/11/2017 DTaP,Tdap,and Td Vaccines (2 - Td or Tdap) 05/03/2026 05/03/2016, 07/10/2004, 07/10/2004 Pneumococcal Vaccine: 65+ Years Completed 06/17/2014, 08/03/2006 VITAMIN D LEVEL ONCE IN A LIFETIME-USE SMARTSET# 29684 Completed 05/22/2015, 03/05/2015, 04/23/2014 Influenza Vaccine (FLU shot) Completed , 07/05/2022, 07/28/2021, Additional history exists GARDASIL-HPV IMMUNIZATION SERIES Aged Out No longer eligible based on patient's age to complete this topic Hepatitis B Aged Out No longer eligi ble based on patient's age to complete this topic MENINGOCOCCAL (MENACTRA/MENVEO) Aged Out No longer eligible based on patient's age to complete this topic documented as of this encounter Medical Devices Implanted Type Area Basket Machine Operator Device Identifier Shelf Expiration Date Model / Serial / Lot Port Power Mri W/8fr Cath - [id number] Implanted:Qty : 1 on 12/09/2020 by Vince Jon MD at OR [facility] Right: Subclavian CR BARD : PERIPHERAL VASCULAR 02/06/2022 [id number] / / [id number] documented as of this encounter Advance Directives * Full Code (Latest Code Status on File) Date Activated Date Inactivated Comments 12/09/2020 12:28 PM 12/09/2020 5:38 PM This order re flects the patients wishes and were consensually agreed upon. * Full Code Date Activated Date Inactivated Comments 12/09/2020 10:53 AM 12/09/2020 12:28 PM This order r eflects the patients wishes and were consensually agreed upon. Care Teams Line Decorator Relationship Specialty Start Date End Date Artemio Mane III, MD [address] [place] [address] PCP - General Family Medicine 04/08/14 documented as of this encounter
--- OUTSIDE RECORDS SUMMARY | 2024-04-21 13:12 | External Medical Summary | Summary of Care ---
Author Name Unknown Organization [facility] Address [address] [facility] [address] Phone [phone] Care Team Providers Care Fruit Or Nut Grower Name Role Phone Antonietta NORIEGA MD, Artemio Cedillo Primary Care Provider [phone] Encounter Details Date Type Department Care Team (Late st Contact Info) Description 03/30/2024 9:00 AM EDT Nurse Only Hematology/Oncology [facility] [place] [address] [place] [phone] Jennifer, Nurse Hem Onc [facility] [address] [place] [address] Arrived Allergies Active Allergy Reactions Criticality Noted Date Comments Adhesive Tape 02/06/2016 Ixazomib 08/09/2018 Hives, chills, diarrhea. Lenalidomide Hives 05/23/2018 Bortezomib Bleeding High 12/12/2018 Open sores w/bleeding on abdominal region documented as of this encounter (statuses as of 03/30/2024) Medications Medication Sig Dispensed Refills Start Date [...] as of this encounter (statuses as of 03/30/2024) Active Problems Problem Noted Date Diagnosed Date [...] as of this encounter (statuses as of 03/30/2024) Resolved Problems Problem Noted Date Diagnosed Date Resolved Date CVA 06/29/2002 01/23/2009 Overview: Modified per CVA protocol #8 FX CARPAL BONE NOS-CLOSE 06/29/200211/2016 documented as of this encounter (statuses as of 03/30/2024) Immunizations Name Administration Dates Next Due Pneumococcal [...] on file documented as of this encounter Progress Notes * Gregorio Kaye RN - 03/30/2024 9:37 AM EDT Chemo education completed. Pt aware to complete phone survey today and every 6 months while on the medication. [facility] paperwork signed, awaiting physician signature to fax. documented in this encounter Plan of Treatment Upcoming Encounters Date Type Department Care Team (Late st Contact Info) Description 04/03/2024 1:30 PM EDT Pharmacy Pharmacy Hematology Oncology [facility] [address] [place] [address] [facility], [facility] Hem/Onc [address] [place] [address] 05/08/2024 8:45 AM EDT Immunization/Inject ion Hematology/Oncology Treatment, [address] [phone] Nurse, Med 4 [address] [place] [address] 06/19/2024 8:15 AM EDT Office Visit Hematology/[place] [address] [place] [phone] Benny Mondragon MD [address] [place] [address] 06/19/2024 8:45 AM EDT Immunization/Inject ion Hematology/Oncology Treatment, [address] [phone] Nurse, Med 4 [address] [place] [address] Health Maintenance Due Date Last Done Comments COVID-19 Vaccine (#1) 1945 Zoster Vaccines (1 of 2) 02/05/2009 12/11/2008 DXA Scan 08/07/2016 08/07/2014, 07/11, 08/01/2002, Additional history exists Depression Screening 05/11/2018 05/11/2017 DTaP,Tdap,and Td Vaccines (2 - Td or Tdap) 05/03/2026 05/03/2016, 07/10/2004, 07/10/2004 Pneumococcal Vaccine: 65+ Years Completed 06/17/2014, 08/03/2006 VITAMIN D LEVEL ONCE IN A LIFETIME-USE SMARTSET# [id number] Completed 05/22/2015, 03/05/2015, 04/23/2014 Influenza Vaccine (FLU [...] this encounter Medical Devices Implanted Type Area Industrial Engineering Manager Device Identifier Shelf Expiration Date Model / Serial / Lot Port Power Mri W/8fr Cath - [id number] Implanted:Qty : 1 on 12/09/2020 by Vince Jon MD at OR [facility] Right: Subclavian CR BARD : PERIPHERAL VASCULAR 02/06/2022 [id number] / / [id number] documented as of this encounter Advance Directives [...] and were consensually agreed upon. Care Teams Fruit Or Nut Grower Relationship Specialty Start Date End Date Artemio Mane III, MD [address] [place] [address] PCP - General Family Medicine 04/08/14 documented as of this encounter
--- OUTSIDE RECORDS SUMMARY | 2024-04-21 13:12 | External Medical Summary | Summary of Care ---
Author Name Unknown Organization [facility] Address [address] [place] [address] Phone [phone] Care Team Providers Care Information Security Architect Name Role Phone Antonietta NORIEGA MD, Artemio Cedillo Primary Care Provider [phone] Reason for Visit * Reason Onset Date Comments FYI 04/06/2024 Specialty pharma cy update Encounter Details Date Type Department Care Team (Late st Contact Info) Description 04/06/2024 Telephone Hematology/Oncology [facility] [place] [address] [place] [phone] Benny Mondragon MD [address] [place] [address] FYI (Specialty pharmacy update) Allergies Active Allergy Reactions Criticality Noted Date Comments Adhesive Tape 02/06/2016 Ixazomib 08/09/2018 Hives, chills, diarrhea. 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 Vicky Mondragon Pharmacy spoke to patient yesterday and informed of $56 copay for Pomalyst. She wanted to speak to MD before scheduling delivery. Per pharmacy patient said medication wasn't discussed by office. Patient needs to call pharmacy back when ready to schedule delivery @ [facility] Psychologist Social III Hematology Oncology Oral Chemotherapy Clinic Medication Therapy Disease Management [facility] 04/06/2024 2:23 PM documented in this encounter Plan of Treatment Upcoming Encounters Date Type Department Care Team (Late st Contact Info) Description 04/11/2024 9:15 AM EDT Pharmacy Pharmacy Hematology Oncology [facility] [place] [address] [place] [address] [facility], [facility] Hem/Onc [address] [place] [address] 05/08/2024 8:45 AM EDT Immunization/Inject ion Hematology/Oncology Treatment, [place] [address] [place] [phone] Nurse, Med 4 200 [facility] [place] [address] 06/19/2024 8:15 AM EDT Office Visit Hematology/Oncology [facility] [address] [place] [phone] Benny Mondragon MD [address] [place] [address] 06/19/2024 8:45 AM EDT Immunization/Inject ion Hematology/Oncology Treatment, [place] [address] [place] [phone] Nurse, Med 4 [address] [place] [address] Health Maintenance Due Date Last Done Comments [...] D LEVEL ONCE IN A LIFETIME-USE SMARTSET# [id number] Completed 05/22/2015, 03/05/2015, 04/23/2014 GARDASIL-HPV IMMUNIZATION SERIES Aged Out No longer eligible based on patient's age to complete this topic Hepatitis B Aged Out No longer eligi ble based on patient's age to complete this topic MENINGOCOCCAL (MENACTRA/MENVEO) Aged Out No longer eligible based on patient's age to complete this topic documented as of this encounter Medical Devices Implanted Type Area Pit Furnace Operator Device Identifier Shelf Expiration Date Model / Serial / Lot Port Power Mri W/8fr Cath - [id number] Implanted:Qty : 1 on 12/09/2020 by Vince Jon MD at OR [facility] Right: Subclavian CR BARD : PERIPHERAL VASCULAR 02/06/2022 [id number] / / [id number] documented as of this encounter Visit Diagnoses [...] and were consensually agreed upon. Care Teams Information Security Architect Relationship Specialty Start Date End Date Artemio Mane III, MD [address] [facility] [place], [place] [address] PCP - General Family Medicine 04/08/14 documented as of this encounter
--- OUTSIDE RECORDS SUMMARY | 2024-04-21 13:12 | External Medical Summary | Summary of Care ---
Author Name Unknown Organization [facility] Address [address] [place] [address] Phone [phone] Care Team Providers Care Gold Buyer Name Role Phone Antonietta NORIEGA MD, Artemio Cedillo Primary Care Provider [phone] Reason for Visit * Reason Comments Medication Management Encounter Details Date Type Department Care Team (Late st Contact Info) Description 04/03/2024 1:30 PM EDT Pharmacy Pharmacy Hematology Oncology [facility] [address] [place] [address] [facility], [facility] Hem/Onc [address] [place] [address] Multiple myeloma, remission status unspecified (HCC)* Allergies Active Allergy Reactions Criticality Noted Date Comments Adhesive Tape 02/06/2016 Ixazomib 08/09/2018 Hives, chills, diarrhea. 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 Overview: Modified per CVA protocol #8 FX CARPAL BONE NOS-CLOSE 06/29/200211/2016 documented as of this encounter (statuses as of 04/04/2024) Immunizations Name Administration Dates Next Due Pneumococcal [...] as of this encounter Progress Notes * Georgina Sanchez, [facility] - 04/04/2024 8:09 AM EDT MEDICATION THERAPY MANAGEMENT POMALIDOMIDE TREATMENT STATUS NOTE [place] [id number] Patient Phone Numbers Communication: Chart review Treatment: Medication: Pomalidomide (Pomalyst) Indication/Staging/Diagnosis Code: multiple myeloma / C90.00 Dose: 4mg daily D1-21 every 28 days Administration: +/- food Start Date: TBD Primary Box Shook Patcher/Oncologist: Dr. Vicky Mondragon Additional Therapy: Dexamethasone 20mg weekly Supportive Care Meds: Ondansetron Prochlorperazine Lomotil Xgeva Prophylactic Meds: Valacyclovir See anticoagulation Relevant Chronic Medications: Category Medications Pertinent Notes Anticoagulation ASA Per OV note 03/27/24 Cycle Dates C1 TBD C2 TBD Review of therapy: Line of therapy: fifth Previous therapy: 05/2017-05/08/18: Vd 03/07/18: lenalidomide - discontinued due to allergic reaction 06/2018: ixazomib - discontinued due to allergic reaction 05/2019: RT 06/12/2020- 10/06/2021 IV cyclophosphamide 05/22/2020- 06/10/2020 PO cytoxan 02/2022: RT 04/06/22-03/2024: daratumumab Potential drug-drug drug-herbal, drug-food, drug-disease interactions: No The Hematology/Oncology Oral Chemotherapy Clinic will assess medication compliance at each patient encounter - need to confirm ASA dose Assessment and Plan: Sendoid auth #[id number] RX sent to [facility] MTM to follow up in 2 days to assess RX status and complete intro/med rec if appropriate Yes/no Date Action Taken Olmitz plan entered? yes 03/29/24 Consent completed? yes 03/27/24 Intro/med rec completed? no LM 03/29/24 Precert completed? yes 03/30/24 Test claim completed? yes 04/04/24 [facility] Financial assistance needed? Physician signature? yes 03/29/24 Rx released? Education completed? Follow up: 2 days Georgina Sanchez, PharmD, BCOP Clinical Pharmacist, [facility] Oral Chemotherapy [facility] 04/04/2024, 3:35 PM Monitoring Parameters: Estimated CrCl Serum creatinine: 1 mg/dL 03/26/24 0653 Estimated creatinine clearance: 32.9 mL/min Hepatitis panel Latest Reference Range & Units 07/15/21 07:03 Hepatitis B Surface Antigen Negative Negative Hepatitis B Surface Antibody, Quantitative mIU/mL <3.5 HEPATITIS B SURFACE ANTIBODY Rpt Hepatitis B Surface Antibody, Interpretation NOT immune to Hepatitis B Virus Hepatitis B Surface Antibody, Qualitative Negative Hepatitis B Core Antibodies IgG and IgM Negative Negative test N/A - postmenopausal Suggested lab monitoring Suggested Labs: CBC with differential and platelets weekly for the first 8weeks and monthly, CMP monthly, TSH baseline and every 2-3 months Is patient on prophylactic anticoagulation? yes IMPEDE Score: 6 SAVED Score: 1 Date TSH Free T4 Current thyroid meds Next Due Date Treatment Parameters Parameters to be met: ANC > 500 and PLT > 25K Pertinent labs: N/A Time Spent on Encounter: 11 - 15 minutes Encounter Group: Hematology Encounter Interventions Item Category: Oral Chemotherapy Pomalidomide Problem/Rationale: Olmitz Plan Review: Clinical Review Pharmacist Intervention(s): Medication prescribed Magnitude of Intervention: Modification of medication for asymtomatic patients (Level 2) documented in this encounter Plan of Treatment Upcoming Encounters Date Type Department Care Team (Late st Contact Info) Description 04/06/2024 1:15 PM EDT Pharmacy Pharmacy Hematology Oncology [facility] [address] [place] [address] [facility] Hem/Onc [address] [place] [address] 05/08/2024 8:45 AM EDT Immunization/Inject ion Hematology/Oncology Treatment, [place] [address] [facility] [address] [place] [phone] [facility] [address] 06/19/2024 8:15 AM EDT Office Visit Hematology/Oncology [facility] [address] [facility] [place] [phone] Benny Mondragon MD [address] [facility] [place] [address] 06/19/2024 8:45 AM EDT Immunization/Inject ion Hematology/Oncology Treatment, [place] [address] [facility] [phone] Nurse, Med 200 [facility] [place] [address] Health Maintenance Due Date Last Done Comments COVID-19 Vaccine (#1) 1945 Zoster Vaccines (1 of 2) 02/05/2009 12/11/2008 DXA Scan 08/07/2016 08/07/2014, 07/11, 08/01/2002, Additional history exists Depression Screening 05/11/2018 05/11/2017 DTaP,Tdap,and Td Vaccines (2 - Td or Tdap) 05/03/2026 05/03/2016, 07/10/2004, 07/10/2004 Pneumococcal Vaccine: 65+ Years Completed 06/17/2014, 08/03/2006 VITAMIN D LEVEL ONCE IN A LIFETIME-USE SMARTSET# [id number] Completed 05/22/2015, 03/05/2015, 04/23/2014 Influenza Vaccine (FLU [...] this encounter Medical Devices Implanted Type Area Leather Goods Assembler Device Identifier Shelf Expiration Date Model / Serial / Lot Port Power Mri W/8fr Cath - [id number] Implanted:Qty : 1 on 12/09/2020 by Vince Jon MD at OR [facility] Right: Subclavian CR BARD : PERIPHERAL VASCULAR 02/06/2022 [id number] / / [id number] documented as of this encounter Visit Diagnoses [...] and were consensually agreed upon. Care Teams Gold Buyer Relationship Specialty Start Date End Date Artemio Mane III, MD [address] [place] [address] PCP - General Family Medicine 04/08/14 documented as of this encounter
--- OUTSIDE RECORDS SUMMARY | 2024-04-21 13:12 | External Medical Summary | Summary of Care ---
Author Name Unknown Organization [facility] Address [address] [place] [address] Phone [phone] Care Team Providers Care Records Management Technician Name Role Phone Antonietta NORIEGA MD, Artemio Cedillo Primary Care Provider [phone] Reason for Referral * Evaluate & Treat - Unlimited Visits (Within 10 days (routine)) - Authorized Specialty Diagnoses / Procedures Referred By Contac t Referred To Contact Pharmacist / Pharmacy Diagnoses Multiple myeloma, remission status unspecified (HCC) Tommie Hilton, [facility] [address] [place] [address] Referral ID Status Reason Start Date Expiration Date Visits Requested Visits Authorized [id number] Authorized Specialty Services Required 04/04/2024 99 99 Question Answer Referral Priority Within 10 days (routine) Where should this appointment be scheduled? [facility] Referring Provider Role: Specialist Specialty: Heme/Onc Reason for Referral: Oral Chemo Has consent been obtained for new oral chemo agent(s)? Yes Comments ORAL CHEMOTHERAPY [facility] MONITORING REFERRAL This patient is being referred to the Oral Chemotherapy Clinic for medication co-management. The planned duration of treatment is: Until disease progression/toxicity Please start oral chemotherapy: Once therapy has arrived from specialty pharmacy Oral Chemotherapy Monitoring will continue until one of the following discharge criteria has been met. The provider will be informed if any of these occur. 1. Disease progression. 2. Patient non-compliance 3. Compliance and tolerating treatment well without major toxicities with routine provider follow up. 4. Completion of therapy. Additional Comments: N/A By my signature, I understand that my patient will have their medication therapy managed by the [facility] Medication Therapy Disease Management Clinic (MTDM) per established policies, procedures, and protocols. I also certify that this referral may serve as an initiation of service for the management of drug therapy in the above noted patient. [facility] providers will be responsible for scheduling patient visits, obtaining appropriate laboratory studies, and adjusting medication management therapy per patient's need, in addition to those roles spelled out in the clinic policy, procedures, and drug management protocols. I understand that the service provided by the [facility] is voluntary and have informed patient that they can refuse the service at their discretion. I am aware that the [facility] Clinic will provide me with a copy of the patient encounter via my [employer]. I authorize the [facility] to carry out these activities on my behalf. I consider this program to be a necessary part of the patient's medical care. Encounter Details Date Type Department Care Team (Late st Contact Info) Description 03/29/2024 Orders Only Hematology/Oncology [facility] [place] [address] [facility] [place] [phone] Benny Mondragon MD [address] [facility] [place], [place] [address] Multiple myeloma, remission status unspecified (HCC)* Allergies [...] as of this encounter Miscellaneous Notes * Addendum Note - Tommie Hilton RPh - 04/04/2024 3:35 PM EDTAddended by: TOMMIE HILTON on: 04/04/2024 03:35 PM Modules accepted: Orders documented in this encounter Plan of Treatment Upcoming Encounters Date Type Department Care Team (Late st Contact Info) Description 05/08/2024 8:45 AM EDT Immunization/Injec tion Hematology/Oncology Treatment, [address] [place] [phone] Nurse, Med 4 200 [facility] [place] [address] 06/19/2024 8:15 AM EDT Office Visit Hematology/Oncology [address] [place] [phone] Benny Mondragon MD 200 [place] [address] 06/19/2024 8:45 AM EDT Immunization/Injec tion Hematology/Oncology Treatment, [address] [place] [phone] Nurse, Med 4 200 [facility] [place] [address] Scheduled Orders Name Type Priority Associated Diagnoses Orde r Schedule TSH WITH FREE T4 IF INDICATED Lab STAT Multiple myeloma, remission status unspecified (HCC) Expected: 04/05/2024 (Approximate), Expires: 05/29/2024 CBC WITH WBC DIFFERENTIAL Lab STAT Multiple myeloma, remission status unspecified (HCC) Other, Please specify in Comments field for 18 Occurrences starting 04/04/2024 until 04/04/2025 COMPREHENSIVE METABOLIC PANEL Lab STAT Multiple myeloma, remission status unspecified (HCC) Other, Please specify in Comments field for 18 Occurrences starting 04/04/2024 until 04/04/2025 TSH WITH FREE T4 IF INDICATED Lab STAT Multiple myeloma, remission status unspecified (HCC) Other, Please specify in Comments field for 4 Occurrences starting 04/04/2024 until 04/04/2025 Scheduled Referrals Name Type Priority Associated Diagnoses Orde r Schedule PHARMACIST MEDS THERAPY MGMT REFERRAL OP Referral Within 10 days (routine) Multiple myeloma, remission status unspecified (HCC) Ordered: 04/04/2024 Health Maintenance Due Date Last Done Comments COVID-19 Vaccine (#1) 1945 Zoster Vaccines (1 of 2) 02/05/2009 12/11/2008 DXA Scan 08/07/2016 08/07/2014, 07/11, 08/01/2002, Additional history exists Depression Screening 05/11/2018 05/11/2017 DTaP,Tdap,and Td Vaccines (2 - Td or Tdap) 05/03/2026 05/03/2016, 07/10/2004, 07/10/2004 Pneumococcal Vaccine: 65+ Years Completed 06/17/2014, 08/03/2006 VITAMIN D LEVEL ONCE IN A LIFETIME-USE SMARTSET# [id number] Completed 05/22/2015, 03/05/2015, 04/23/2014 Influenza Vaccine (FLU [...] this encounter Medical Devices Implanted Type Area Inspector Floor Sub Assembly Device Identifier Shelf Expiration Date Model / Serial / Lot Port Power Mri W/8fr Cath - [id number] Implanted:Qty : 1 on 12/09/2020 by Vince Jon MD at OR [facility] Right: Subclavian CR BARD : PERIPHERAL VASCULAR 02/06/2022 [id number] / / [id number] documented as of this encounter Visit Diagnoses [...] and were consensually agreed upon. Care Teams Records Management Technician Relationship Specialty Start Date End Date Artemio Mane III, MD [address] [facility] [place] [address] PCP - General Family Medicine 04/08/14 documented as of this encounter
--- OUTSIDE RECORDS SUMMARY | 2024-04-21 13:12 | External Medical Summary | Summary of Care ---
Author Name Unknown Organization [facility] Address [address] [place] [address] Phone [phone] Care Team Providers Care Etl Database Developer Name Role Phone Antonietta NORIEGA MD, Artemio Cedillo Primary Care Provider [phone] Reason for Visit * Reason Onset Date Comments FYI 04/06/2024 Specialty pharma cy update Encounter Details Date Type Department Care Team (Late st Contact Info) Description 04/06/2024 Telephone Hematology/Oncology [facility] [place] [address] [place] [phone] Benny Mondragon MD [address] [place] [address] FYI (Specialty pharmacy update) Allergies Active Allergy [...] encounter Miscellaneous Notes * Telephone Encounter - Frannie Dejesus RN - 04/10/2024 1:05 PM EDT Spoke to patient. She wanted clarification on lab work and some of the side effects of pomalyst that she read about. Answered questions to her satisfaction. She will call [facility] Specialty to schedule delivery, then let us [...] MANAGEMENT POMALIDOMIDE TREATMENT STATUS NOTE Yvrose Silva [id number] Patient Phone Numbers Communication: Email - Kaur @ [facility] Specialty Treatment: Medication: Pomalidomide (Pomalyst) Indication/Staging/Diagnosis Code: multiple myeloma / C90.00 Dose: 4mg daily D1-21 every 28 days Administration: +/- food Start Date: D Primary Chicken Hatchery Helper/Oncologist: Dr. Vicky Mondragon Pharmacy spoke to patient yesterday and informed of $56 copay for Pomalyst. She wanted to speak to MD before scheduling delivery. Per pharmacy patient said medication wasn't discussed by office. Patient needs to call pharmacy back when ready to schedule delivery @ [facility] Plant Sprayer III Hematology Oncology Oral Chemotherapy Clinic Medication Therapy Disease Management [facility] 04/06/2024 2:23 PM documented in this encounter Plan of Treatment Upcoming Encounters Date Type Department Care Team (Late st Contact Info) Description 04/11/2024 9:15 AM EDT Pharmacy Pharmacy Hematology Oncology [facility] [address] [place] [address] Gm, [facility] Hem/Onc [address] [place] [address] 05/08/2024 8:45 AM EDT Immunization/Inject ion Hematology/Oncology Treatment, [address] [place] [phone] Nurse, Med 4 [address] [place] [address] 06/19/2024 8:15 AM EDT Office Visit Hematology/Oncology [facility] [address] [place] [phone] Benny Mondragon MD [address] [place] [address] 06/19/2024 8:45 AM EDT Immunization/Inject ion Hematology/Oncology Treatment, [address] [place] [phone] Nurse, Med 4 200 [facility] [place] [address] Health Maintenance Due Date Last Done Comments [...] D LEVEL ONCE IN A LIFETIME-USE SMARTSET# [id number] Completed 05/22/2015, 03/05/2015, 04/23/2014 GARDASIL-HPV IMMUNIZATION SERIES Aged Out No longer eligible based on patient's age to complete this topic Hepatitis B Aged Out No longer eligi ble based on patient's age to complete this topic MENINGOCOCCAL (MENACTRA/MENVEO) Aged Out No longer eligible based on patient's age to complete this topic documented as of this encounter Medical Devices Implanted Type Area Seo Assistant Device Identifier Shelf Expiration Date Model / Serial / Lot Port Power Mri W/8fr Cath - [id number] Implanted:Qty : 1 on 12/09/2020 by Vince Jon MD at OR [facility] Right: Subclavian CR BARD : PERIPHERAL VASCULAR 02/06/2022 [id number] / / [id number] documented as of this encounter Visit Diagnoses [...] and were consensually agreed upon. Care Teams Etl Database Developer Relationship Specialty Start Date End Date Artemio Mane III, MD [address] [place] [address] PCP - General Family Medicine 04/08/14 documented as of this encounter
--- OUTSIDE RECORDS SUMMARY | 2024-04-21 13:12 | External Medical Summary | Summary of Care ---
Author Name Unknown Organization [facility] Address [address] [place] [address] Phone [phone] Care Team Providers Care Body Piercer Name Role Phone Antonietta NORIEGA MD, Artemio Cedillo Primary Care Provider [phone] Reason for Visit * Reason Onset Date Comments FYI 04/06/2024 Specialty pharma cy update Encounter Details Date Type Department Care Team (Late st Contact Info) Description 04/06/2024 Telephone Hematology/Oncology [facility] [place] [address] [place] [phone] Benny Mondragon MD [address] [place] [address] FYI (Specialty pharmacy update) Allergies Active Allergy Reactions Criticality Noted Date Comments Adhesive Tape 02/06/2016 Ixazomib 08/09/2018 Hives, chills, diarrhea. 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 Overview: Modified per CVA protocol #8 FX CARPAL BONE NOS-CLOSE 06/29/200211/2016 documented as of this encounter (statuses as of 04/06/2024) Immunizations Name Administration Dates Next Due Pneumococcal [...] encounter Miscellaneous Notes * Telephone Encounter - Winnie Johnston CPhT - 04/06/2024 2:12 PM EDT MEDICATION THERAPY MANAGEMENT POMALIDOMIDE TREATMENT STATUS NOTE Yvrose Silva [id number] Patient Phone Numbers Communication: Email - Kaur @ [facility] Specialty Treatment: Medication: Pomalidomide (Pomalyst) Indication/Staging/Diagnosis Code: multiple myeloma / C90.00 Dose: 4mg daily D1-21 every 28 days Administration: +/- food Start Date: TBD Primary Guest Advisor/Oncologist: Dr. Vicky Mondragon Pharmacy spoke to patient yesterday and informed of $56 copay for Pomalyst. She wanted to speak to MD before scheduling delivery. Per pharmacy patient said medication wasn't discussed by office. Patient needs to call pharmacy back when ready to schedule delivery @ [facility] Elevator Service Technician III Hematology Oncology Oral Chemotherapy Clinic Medication Therapy Disease Management [facility] 04/06/2024 2:23 PM documented in this encounter Plan of Treatment Upcoming Encounters Date Type Department Care Team (Late st Contact Info) Description 05/08/2024 8:45 AM EDT Immunization/Injec tion Hematology/Oncology Treatment, [address] [place] [phone] Nurse, Med [address] [place], [place] [address]monique [place] [address] 06/19/2024 8:15 AM EDT Office Visit Hematology/Oncology [place] [address] [place] [phone] Benny Mondragon MD 200 [facility] [place] [address] 06/19/2024 8:45 AM EDT Immunization/Injec tion Hematology/Oncology Treatment, [place] [address] [place] [phone] Nurse, Med [facility] [address] Health Maintenance Due Date Last Done Comments COVID-19 Vaccine (#1) 1945 Zoster Vaccines (1 of 2) 02/05/2009 12/11/2008 DXA Scan 08/07/2016 08/07/2014, 07/11, 08/01/2002, Additional history exists Depression Screening 05/11/2018 05/11/2017 DTaP,Tdap,and Td Vaccines (2 - Td or Tdap) 05/03/2026 05/03/2016, 07/10/2004, 07/10/2004 Pneumococcal Vaccine: 65+ Years Completed 06/17/2014, 08/03/2006 VITAMIN D LEVEL ONCE IN A LIFETIME-USE SMARTSET# [id number] Completed 05/22/2015, 03/05/2015, 04/23/2014 Influenza Vaccine (FLU [...] this encounter Medical Devices Implanted Type Area Filtration Supervisor Device Identifier Shelf Expiration Date Model / Serial / Lot Port Power Mri W/8fr Cath - [id number] Implanted:Qty : 1 on 12/09/2020 by Vince Jon MD at OR [facility] Right: Subclavian CR BARD : PERIPHERAL VASCULAR 02/06/2022 [id number] / / [id number] documented as of this encounter Visit Diagnoses [...] and were consensually agreed upon. Care Teams Body Piercer Relationship Specialty Start Date End Date Artemio Mane III, MD 200 [facility] [place] [address] PCP - General Family Medicine 04/08/14 documented as of this encounter
--- OUTSIDE RECORDS SUMMARY | 2024-04-21 13:12 | External Medical Summary | Summary of Care ---
Author Name Unknown Organization [facility] Address [address] [place] [address] Phone [phone] Care Team Providers Care Fine Arts Teacher Name Role Phone Antonietta NORIEGA MD, Artemio Cedillo Primary Care Provider [phone] Reason for Visit * Reason Onset Date Comments FYI 04/06/2024 Specialty pharma cy update Encounter Details Date Type Department Care Team (Late st Contact Info) Description 04/06/2024 Telephone Hematology/Oncology [facility] [place] [address] [place] [phone] Benny Mondragon MD [address] [place] [address] FYI (Specialty pharmacy update) Allergies Active Allergy [...] encounter Miscellaneous Notes * Telephone Encounter - Rozina Benites OSA - 04/10/2024 9:13 AM EDT Patient is calling looking to speak with someone to discuss this and have some questions answered. * Telephone Encounter - Winnie Johnston CPhT - 04/06/2024 2:12 PM EDT MEDICATION THERAPY MANAGEMENT POMALIDOMIDE TREATMENT STATUS NOTE Yvrose Silva [id number] Patient Phone Numbers Communication: Email - Kaur @ [facility] Specialty Treatment: Medication: Pomalidomide (Pomalyst) Indication/Staging/Diagnosis Code: multiple myeloma / C90.00 Dose: 4mg daily D1-21 every 28 days Administration: +/- food Start Date: TBD Primary Scanner Operator/Oncologist: Dr. Vicky Mondragon Pharmacy spoke to patient yesterday and informed of $56 copay for Pomalyst. She wanted to speak to MD before scheduling delivery. Per pharmacy patient said medication wasn't discussed by office. Patient needs to call pharmacy back when ready to schedule delivery @ Winn[facility] Johnston Television Host III Hematology Oncology Oral Chemotherapy Clinic Medication Therapy Disease Management [facility] 04/06/2024 2:23 PM documented in this encounter Plan of Treatment Upcoming Encounters Date Type Department Care Team (Late st Contact Info) Description 04/11/2024 9:15 AM EDT Pharmacy Pharmacy Hematology Oncology [facility] [address] [place] [address] [facility] Hem/Onc [address] [place] [address] 05/08/2024 8:45 AM EDT Immunization/Inject ion Hematology/Oncology Treatment, [place] 200 [place] [phone] Nurse, Med 4 200 [facility] [place], [place] [address] 06/19/2024 8:15 AM EDT Office Visit Hematology/Oncology [facility] [address] [facility] [place] [phone] Benny Mondragon MD [address] [facility] [place], [place] [address] 06/19/2024 8:45 AM EDT Immunization/Inject ion Hematology/Oncology Treatment, [place] [address] [facility], [place] [phone] Nurse, Med 4 200 [facility] [place], [place] [address] Health Maintenance Due Date Last Done Comments [...] D LEVEL ONCE IN A LIFETIME-USE SMARTSET# [id number] Completed 05/22/2015, 03/05/2015, 04/23/2014 GARDASIL-HPV IMMUNIZATION SERIES Aged Out No longer eligible based on patient's age to complete this topic Hepatitis B Aged Out No longer eligi ble based on patient's age to complete this topic MENINGOCOCCAL (MENACTRA/MENVEO) Aged Out No longer eligible based on patient's age to complete this topic documented as of this encounter Medical Devices Implanted Type Area Oracle Database Administrator Device Identifier Shelf Expiration Date Model / Serial / Lot Port Power Mri W/8fr Cath - [id number] Implanted:Qty : 1 on 12/09/2020 by Vince Jon MD at OR [facility] Right: Subclavian CR BARD : PERIPHERAL VASCULAR 02/06/2022 [id number] / / [id number] documented as of this encounter Visit Diagnoses [...] and were consensually agreed upon. Care Teams Fine Arts Teacher Relationship Specialty Start Date End Date Artemio Mane III, MD 200 [place] [address] PCP - General Family Medicine 04/08/14 documented as of this encounter
--- OUTSIDE RECORDS SUMMARY | 2024-04-21 13:12 | External Medical Summary | Summary of Care ---
Author Name Unknown Organization [facility] Address [address] [place] [address] Phone [phone] Care Team Providers Care Lead Fire Protection Engineer Name Role Phone Antonietta NORIEGA MD, Artemio Cedillo Primary Care Provider [phone] Reason for Visit * Reason Onset Date Comments FYI 04/06/2024 Specialty pharma cy update Encounter Details Date Type Department Care Team (Late st Contact Info) Description 04/06/2024 Telephone Hematology/Oncology [facility] [place] [address] [place] [phone] Benny Mondragon MD [address] [place] [address] FYI (Specialty pharmacy update) Allergies Active Allergy Reactions Criticality Noted Date Comments Adhesive Tape 02/06/2016 Ixazomib 08/09/2018 Hives, chills, diarrhea. Lenalidomide Hives 05/23/2018 Bortezomib Bleeding High 12/12/2018 Open sores w/bleeding on abdominal region documented as of this encounter (statuses as of 04/11/2024) Medications Medication Sig Dispensed Refills Start Date [...] as of this encounter (statuses as of 04/11/2024) Active Problems Problem Noted Date Diagnosed Date [...] as of this encounter (statuses as of 04/11/2024) Resolved Problems Problem Noted Date Diagnosed Date Resolved Date CVA 06/29/2002 01/23/2009 Overview: Modified per CVA protocol #8 FX CARPAL BONE NOS-CLOSE 06/29/200211/2016 documented as of this encounter (statuses as of 04/11/2024) Immunizations Name Administration Dates Next Due Pneumococcal [...] questions to her satisfaction. She will call [facility] Specialty to schedule delivery, then let us [...] MANAGEMENT POMALIDOMIDE TREATMENT STATUS NOTE Yvrose Silva [id number] Patient Phone Numbers Communication: Email - Kaur @ [facility] Specialty Treatment: Medication: Pomalidomide (Pomalyst) Indication/Staging/Diagnosis Code: multiple myeloma / C90.00 Dose: 4mg daily D1-21 every 28 days Administration: +/- food Start Date: D Primary Personal Fitness Trainer/Oncologist: Dr. Vicky Mondragon Pharmacy spoke to patient yesterday and informed of $56 copay for Pomalyst. She wanted to speak to MD before scheduling delivery. Per pharmacy patient said medication wasn't discussed by office. Patient needs to call pharmacy back when ready to schedule delivery @ Winnie Johnston Cone Machine Operator III Hematology Oncology Oral Chemotherapy Clinic Medication Therapy Disease Management [facility] 04/06/2024 2:23 PM documented in this encounter Plan of Treatment Upcoming Encounters Date Type Department Care Team (Late st Contact Info) Description 05/08/2024 8:45 AM EDT Immunization/Injec tion Hematology/Oncology Treatment, [place] 200 [place] [phone] Nurse, Med 4 200 [facility] [place] [address] 06/19/2024 8:15 AM EDT Office Visit Hematology/Oncology [facility] [address] [facility] [place] [phone] Benny Mondragon MD [address] [facility] [address] 06/19/2024 8:45 AM EDT Immunization/Injec tion Hematology/Oncology Treatment, [place] [address] [place] [place] [phone] Nurse, Med 4 200 [facility] [place] [address] Health Maintenance Due Date Last Done Comments [...] D LEVEL ONCE IN A LIFETIME-USE SMARTSET# 32822 Completed 05/22/2015, 03/05/2015, 04/23/2014 HPV (Gardasil) Vaccine Aged Out No lo nger eligible based on patient's age to complete this topic Hepatitis B Vaccine Aged Out No longe r eligible based on patient's age to complete this topic MENINGOCOCCAL (MENACTRA/MENVEO) Aged Out No longer eligible based on patient's age to complete this topic documented as of this encounter Medical Devices Implanted Type Area Community Service Organization Director Device Identifier Shelf Expiration Date Model / Serial / Lot Port Power Mri W/8fr Cath - [id number] Implanted:Qty : 1 on 12/09/2020 by Vince Jon MD at OR [facility] Right: Subclavian CR BARD : PERIPHERAL VASCULAR 02/06/2022 [id number] / / [id number] documented as of this encounter Visit Diagnoses [...] and were consensually agreed upon. Care Teams Lead Fire Protection Engineer Relationship Specialty Start Date End Date Artemio Mane III, MD 200 [facility] [place] [address] PCP - General Family Medicine 04/08/14 documented as of this encounter
--- OUTSIDE RECORDS SUMMARY | 2024-04-21 13:12 | External Medical Summary | Summary of Care ---
Author Name Unknown Organization [facility] Address [address] [place] [facility] [place] [address] Phone [phone] Care Team Providers Care Benzene Operator Name Role Phone Antonietta NORIEGA MD, Artemio Cedillo Primary Care Provider [phone] Encounter Details Date Type Department Care Team (Late st Contact Info) Description 03/30/2024 9:00 AM EDT Nurse Only Hematology/Oncology [facility] [place] [address] [place] [phone] Jennifer, Nurse Hem Onc [place] [address] [place] [address] Allergies Active Allergy Reactions Criticality Noted Date [...] signature to fax. documented in this encounter Miscellaneous Notes * Addendum Note - Frannie Dejesus RN - 03/30/2024 12:21 PM EDTAddended by: FRANNIE DEJESUS on: 03/30/2024 12:21 PM Modules accepted: Orders documented in this encounter Plan of Treatment Upcoming Encounters Date Type Department Care Team (Late st Contact Info) Description 04/03/2024 1:30 PM EDT Pharmacy Pharmacy Hematology Oncology [address] [address] [facility], [facility] Hem/Onc [address] [place] [address] 05/08/2024 8:45 AM EDT Immunization/Inject ion Hematology/Oncology Treatment, [address] [place] [phone] Nurse, Med [address] [place] [address] [place] [address] 06/19/2024 8:15 AM EDT Office Visit Hematology/Oncology [address] [place] [phone] Benny Mondragon MD 200 [facility] [place] [address] 06/19/2024 8:45 AM EDT Immunization/Inject ion Hematology/Oncology Treatment, [address] [place] [phone] Nurse, Med 4 200 [facility] [place] [address] Scheduled Orders Name Type Priority Associated Diagnoses Orde r Schedule TSH WITH FREE T4 IF INDICATED Lab STAT Multiple myeloma (HCC) Encounter for long-term (current) use of medications Expected: 03/30/2024, Expires: 03/30/2025 Health Maintenance Due Date Last Done Comments COVID-19 Vaccine (#1) 1945 Zoster Vaccines (1 of 2) 02/05/2009 12/11/2008 DXA Scan 08/07/2016 08/07/2014, 07/11, 08/01/2002, Additional history exists Depression Screening 05/11/2018 05/11/2017 DTaP,Tdap,and Td Vaccines (2 - Td or Tdap) 05/03/2026 05/03/2016, 07/10/2004, 07/10/2004 Pneumococcal Vaccine: 65+ Years Completed 06/17/2014, 08/03/2006 VITAMIN D LEVEL ONCE IN A LIFETIME-USE SMARTSET# [id number] Completed 05/22/2015, 03/05/2015, 04/23/2014 Influenza Vaccine (FLU [...] this encounter Medical Devices Implanted Type Area Order Manager Device Identifier Shelf Expiration Date Model / Serial / Lot Port Power Mri W/8fr Cath - [id number] Implanted:Qty : 1 on 12/09/2020 by Vince Jon MD at OR [facility] Right: Subclavian CR BARD : PERIPHERAL VASCULAR 02/06/2022 [id number] / / [id number] documented as of this encounter Visit Diagnoses Diagnosis Multiple myeloma (HCC)- Primary Multiple myeloma, without mention of having achieved remission Encounter for long-term (current) use of medications Encounter for long-term (current) use of other medications documented in this encounter Advance Directives * [...] and were consensually agreed upon. Care Teams Benzene Operator Relationship Specialty Start Date End Date Artemio Mane III, MD 200 [place] [address] PCP - General Family Medicine 04/08/14 documented as of this encounter
--- OUTSIDE RECORDS SUMMARY | 2024-04-21 13:12 | External Medical Summary | Summary of Care ---
Author Name Unknown Organization [facility] Address [address] [place] [address] Phone [phone] Care Team Providers Care Admissions Coordinator Name Role Phone Antonietta NORIEGA MD, Artemio Cedillo Primary Care Provider [phone] Reason for Visit * Reason Onset Date Comments FYI 04/06/2024 Specialty pharma cy update Encounter Details Date Type Department Care Team (Late st Contact Info) Description 04/06/2024 Telephone Hematology/Oncology [facility] [address] [place] [phone] Benny Mondragon MD [address] [place] [address] FYI (Specialty pharmacy update) Allergies Active Allergy [...] very serious fall and she is in [facility] with him and they will be there another week or more, and the new medication she was put on will be delivered to her house but she won't be able to start it so she wants to know whatshe should be doing. Please advise, thank you. Please call patient's cell phone [phone]. * Telephone Encounter - Frannie Dejesus RN - 04/11/2024 11:01 AM EDT Called to check with patient on if she called [facility] yesterday. Left message requesting return call. * Telephone Encounter - Frannei Dejesus RN - 04/10/2024 1:05 PM EDT Spoke to patient. She wanted clarification on lab work and some of the side effects of pomalyst that she read about. Answered questions to her satisfaction. She will call [facility] to schedule delivery, then [...] MANAGEMENT POMALIDOMIDE TREATMENT STATUS NOTE Yvrose Silva [id number] Patient Phone Numbers Communication: Email - Kaur @ [facility] Treatment: Medication: Pomalidomide (Pomalyst) Indication/Staging/Diagnosis Code: multiple myeloma / C90.00 Dose: 4mg daily D1-21 every 28 days Administration: +/- food Start Date: TBD Primary Substance Abuse Therapist/Oncologist: Dr. Vicky Mondragon Pharmacy spoke to patient yesterday and informed of $56 copay for Pomalyst. She wanted to speak to MD before scheduling delivery. Per pharmacy patient said medication wasn't discussed by office. Patient needs to call pharmacy back when ready to schedule delivery @ [facility] Architecture Faculty Member III Hematology Oncology Oral Chemotherapy Clinic Medication Therapy Disease Management [facility] 04/06/2024 2:23 PM documented in this encounter Plan of Treatment Upcoming Encounters Date Type Department Care Team (Late st Contact Info) Description 04/20/2024 9:15 AM EDT Pharmacy Pharmacy Hematology Oncology [address] [address] [facility] [place] Hem/Onc [address] [place] [address] 05/08/2024 8:45 AM EDT Immunization/Inject ion Hematology/Oncology Treatment, [address] [place] [phone] Nurse, Med [address] [place] [address] [place] [address] 06/19/2024 8:15 AM EDT Office Visit Hematology/Oncology [address] [phone] [facility] 200 [facility] [address] 06/19/2024 8:45 AM EDT Immunization/Inject ion Hematology/Oncology Treatment, [address] [place] [phone] Nurse, Med 4 200 [facility] [place] [address] Health Maintenance Due Date Last Done Comments [...] D LEVEL ONCE IN A LIFETIME-USE SMARTSET# [id number] Completed 05/22/2015, 03/05/2015, 04/23/2014 HPV (Gardasil) Vaccine Aged Out No lo nger eligible based on patient's age to complete this topic Hepatitis B Vaccine Aged Out No longe r eligible based on patient's age to complete this topic MENINGOCOCCAL (MENACTRA/MENVEO) Aged Out No longer eligible based on patient's age to complete this topic documented as of this encounter Medical Devices Implanted Type Area Sprinkler Worker Device Identifier Shelf Expiration Date Model / Serial / Lot Port Power Mri W/8fr Cath - [id number] Implanted:Qty : 1 on 12/09/2020 by Vince Jon MD at OR [facility] Right: Subclavian CR BARD : PERIPHERAL VASCULAR 02/06/2022 [id number] / / [id number] documented as of this encounter Visit Diagnoses [...] and were consensually agreed upon. Care Teams Admissions Coordinator Relationship Specialty Start Date End Date [place]wa III, Artemio E, MD 200 [facility], [place] [id number] PCP - General Family Medicine 04/08/14 documented as of this encounter
--- OUTSIDE RECORDS SUMMARY | 2024-04-21 13:12 | External Medical Summary | Summary of Care ---
Author Name Unknown Organization [facility] Address [address] [place] [address] Phone [phone] Care Team Providers Care Tank Charger Name Role Phone Antonietta NORIEGA MD, Artemio Cedillo Primary Care Provider [phone] Reason for Visit * Reason Comments Medication Management Encounter Details Date Type Department Care Team (Late st Contact Info) Description 03/29/2024 1:15 PM EDT Pharmacy Pharmacy Hematology Oncology [facility] [address] [place] [address] [facility] [place] Hem/Onc [address] [place] [address] Multiple myeloma, remission status unspecified (HCC)* Allergies Active Allergy Reactions Criticality Noted Date Comments Adhesive Tape 02/06/2016 Ixazomib 08/09/2018 Hives, chills, diarrhea. Lenalidomide Hives 05/23/2018 Bortezomib Bleeding High 12/12/2018 Open sores w/bleeding on abdominal region documented as of this encounter (statuses as of 03/29/2024) Medications Medication Sig Dispensed Refills Start Date [...] as of this encounter (statuses as of 03/29/2024) Active Problems Problem Noted Date Diagnosed Date [...] as of this encounter (statuses as of 03/29/2024) Resolved Problems Problem Noted Date Diagnosed Date Resolved Date CVA 06/29/2002 01/23/2009 Overview: Modified per CVA protocol #8 FX CARPAL BONE NOS-CLOSE 06/29/200211/2016 documented as of this encounter (statuses as of 03/29/2024) Immunizations Name Administration Dates Next Due Pneumococcal [...] as of this encounter Progress Notes * Kristina Rogers, fishing tackle repairer - 03/29/2024 8:37 AM EDT NEW REFERRAL TO ORAL CHEMO CLINIC/MEDICATION RECONCILIATION NOTE Yvrose Reesaneta [id number] Patient Phone Numbers Communication: Left message Treatment: Medication: Pomalidomide (Pomalyst) Indication/Staging/Diagnosis Code: multiple myeloma / C90.00 Dose: 4mg daily D1-21 every 28 days Administration: +/- food Start Date: Primary Terrazzo Finisher Helper/Oncologist: Dr. Vicky Mondragon Provider has consented patient: Yes Attempted to reach Patient and provide introduction to the OCC and review medication reconciliation. Left a voicemail requesting Patient return call at earliest convenience. JUDY Choe Tech Windows Systems Administrator Hematology Oncology Oral Chemotherapy Clinic Medication Therapy Disease Management [facility] 03/29/24,4:04 PM Time Spent on Encounter: < 5 minutes Encounter Group: Hematology Encounter Interventions Item Category: Oral Chemotherapy Pomalidomide Problem/Rationale: Safety: Needs additional monitoring - Medication Requires monitoring Pharmacist Intervention(s): Medication reconciliation Magnitude of Intervention: Monitoring with no interventions (Level 0) documented in this encounter Plan of Treatment Upcoming Encounters Date Type Department Care Team (Late st Contact Info) Description 03/30/2024 9:00 AM EDT Nurse Only Hematology/Oncology [address] [place] [phone] Jennifer, Nurse Hem Onc [address] [place] [address] 04/03/2024 1:30 PM EDT Pharmacy Pharmacy Hematology Oncology [facility] [place] [address] [place] [address] [facility] [place] Hem/Onc [address] [place] [address] 05/08/2024 8:45 AM EDT Immunization/Inject ion Hematology/Oncology [address], [address] [phone] Nurse, Med 4 200 [facility] [place] [address] 06/19/2024 8:15 AM EDT Office Visit Hematology/Oncology [facility] [address] [place] [phone] Benny Mondragon MD 200 [facility] [place] [address] 06/19/2024 8:45 AM EDT Immunization/Inject ion Hematology[facility]Oncology Treatment, [place] [facility] [phone] Nurse, Med 4 200 [facility] [place] [address] Health Maintenance Due Date Last Done Comments COVID-19 Vaccine (#1) 1945 Zoster Vaccines (1 of 2) 02/05/2009 12/11/2008 DXA Scan 08/07/2016 08/07/2014, 07/11, 08/01/2002, Additional history exists Depression Screening 05/11/2018 05/11/2017 DTaP,Tdap,and Td Vaccines (2 - Td or Tdap) 05/03/2026 05/03/2016, 07/10/2004, 07/10/2004 Pneumococcal Vaccine: 65+ Years Completed 06/17/2014, 08/03/2006 VITAMIN D LEVEL ONCE IN A LIFETIME-USE SMARTSET# [id number] Completed 05/22/2015, 03/05/2015, 04/23/2014 Influenza Vaccine (FLU [...] this encounter Medical Devices Implanted Type Area Supply Chain Coordinator Device Identifier Shelf Expiration Date Model / Serial / Lot Port Power Mri W/8fr Cath - [id number] Implanted:Qty : 1 on 12/09/2020 by Vince Jon MD at OR [facility] Right: Subclavian CR BARD : PERIPHERAL VASCULAR 02/06/2022 [id number] / / [id number] documented as of this encounter Visit Diagnoses [...] and were consensually agreed upon. Care Teams Tank Charger Relationship Specialty Start Date End Date Artemio Mane III, MD 200 [place] [address] PCP - General Family Medicine 04/08/14 documented as of this encounter
--- OUTSIDE RECORDS SUMMARY | 2024-04-21 13:12 | External Medical Summary | Summary of Care ---
Author Name Unknown Organization [facility] Address [address] [place] [address] Phone [phone] Care Team Providers Care Straightener And Aligner Name Role Phone Antonietta NORIEGA MD, Artemio Cedillo Primary Care Provider [phone] Encounter Details Date Type Department Care Team (Late st Contact Info) Description 03/31/2024 Orders Only PATIENT PORTAL DO NOT DELETE THIS DEPT USED BY SUZAN STUART [id number] Allergies Active Allergy Reactions Criticality Noted Date Comments Adhesive Tape 02/06/2016 Ixazomib 08/09/2018 Hives, chills, diarrhea. 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 Overview: Modified per CVA protocol #8 FX CARPAL BONE NOS-CLOSE 06/29/200211/2016 documented as of this encounter (statuses as of 03/31/2024) Immunizations Name Administration Dates Next Due Pneumococcal [...] on file documented as of this encounter Plan of Treatment Upcoming Encounters Date Type Department Care Team (Late st Contact Info) Description 04/03/2024 1:30 PM EDT Pharmacy Pharmacy Hematology Oncology [facility] [address] [place] [address] [facility] [place] Hem/Onc [address] [place] [address] 05/08/2024 8:45 AM EDT Immunization/Inject ion Hematology/Oncology Treatment, [place] 200 [place] [phone] Nurse, Med 4 200 [place] [address] 06/19/2024 8:15 AM EDT Office Visit Hematology/Oncology [facility] [address] [place] [phone] Benny Mondragon MD 200 [place] [address] 06/19/2024 8:45 AM EDT Immunization/Inject ion Hematology/Oncology Treatment, [place] 200 [place] [phone] Nurse, Med 4 200 [facility] [place], [place] [address] Health Maintenance Due Date Last Done Comments COVID-19 Vaccine (#1) 1945 Zoster Vaccines (1 of 2) 02/05/2009 12/11/2008 DXA Scan 08/07/2016 08/07/2014, 07/11, 08/01/2002, Additional history exists Depression Screening 05/11/2018 05/11/2017 DTaP,Tdap,and Td Vaccines (2 - Td or Tdap) 05/03/2026 05/03/2016, 07/10/2004, 07/10/2004 Pneumococcal Vaccine: 65+ Years Completed 06/17/2014, 08/03/2006 VITAMIN D LEVEL ONCE IN A LIFETIME-USE SMARTSET# [id number] Completed 05/22/2015, 03/05/2015, 04/23/2014 Influenza Vaccine (FLU [...] this encounter Medical Devices Implanted Type Area Vamp Throater Device Identifier Shelf Expiration Date Model / Serial / Lot Port Power Mri W/8fr Cath - [id number] Implanted:Qty : 1 on 12/09/2020 by Vince Jon MD at OR [facility] Right: Subclavian CR BARD : PERIPHERAL VASCULAR 02/06/2022 [id number] / / [id number] documented as of this encounter Advance Directives [...] and were consensually agreed upon. Care Teams Straightener And Aligner Relationship Specialty Start Date End Date Artemio Mane III, MD 200 [place] [address] PCP - General Family Medicine 04/08/14 documented as of this encounter
--- OUTSIDE RECORDS SUMMARY | 2024-04-21 13:12 | External Medical Summary | Summary of Care ---
Author Name Unknown Organization [facility] Address [address] [place] [address] Phone [phone] Care Team Providers Care Blood Bank Technician Name Role Phone Antonietta NORIEGA MD, Artemio Cedillo Primary Care Provider [phone] Reason for Visit * Reason Onset Date Comments FYI 04/06/2024 Specialty pharma cy update Encounter Details Date Type Department Care Team (Late st Contact Info) Description 04/06/2024 Telephone Hematology/Oncology [facility] [address] [place] [phone] Benny Mondragon MD [address] [place] [address] FYI (Specialty pharmacy update) Allergies Active Allergy [...] very serious fall and she is in [facility] with him and they will be there another week or more, and the new medication she was put on will be delivered to her house but she won't be able to start it so she wants to know whatshe should be doing. Please advise, thank you. Please call patient's cell phone [phone]. * Telephone Encounter - Frannie Dejesus RN [...] questions to her satisfaction. She will call [facility] to schedule delivery, then let [...] MANAGEMENT POMALIDOMIDE TREATMENT STATUS NOTE Yvrose Reesaneta [id number] Patient Phone Numbers Communication: Email - Kaur @ [facility] Special[facility] Treatment: Medication: Pomalidomide (Pomalyst) Indication/Staging/Diagnosis Code: multiple myeloma / C90.00 Dose: 4mg daily D1-21 every 28 days Administration: +/- food Start Date: D Primary Passenger Service Supervisor/Oncologist: Dr. Vicky Mondragon Pharmacy spoke to patient yesterday and informed of $56 copay for Pomalyst. She wanted to speak to MD before scheduling delivery. Per pharmacy patient said medication wasn't discussed by office. Patient needs to call pharmacy back when ready to schedule delivery @ [facility] Gyn III Hematology Oncology Oral Chemotherapy Clinic Medication Therapy Disease Management [facility] 04/06/2024 2:23 PM documented in this encounter Plan of Treatment Upcoming Encounters Date Type Department Care Team (Late st Contact Info) Description 04/20/2024 9:15 AM EDT Pharmacy Pharmacy Hematology Oncology [facility] [address] [place] [address] [facility] [place] Hem/Onc [facility] [place] [address] 05/08/2024 8:45 AM EDT Immunization/Inject ion Hematology/Oncology Treatment, [address] [phone] Nurse, Med 4 200 [facility] [place] [address] 06/19/2024 8:15 AM EDT Office Visit Hematology/Oncology [address] [phone] Benny Mondragon MD 200 [place] [address] 06/19/2024 8:45 AM EDT Immunization/Inject ion Hematology/Oncology Treatment, [address] [phone] Nurse, Med 4 200 [facility] [place] [address] Health Maintenance Due Date Last Done Comments [...] D LEVEL ONCE IN A LIFETIME-USE SMARTSET# [id number] Completed 05/22/2015, 03/05/2015, 04/23/2014 HPV (Gardasil) Vaccine Aged Out No lo nger eligible based on patient's age to complete this topic Hepatitis B Vaccine Aged Out No longe r eligible based on patient's age to complete this topic MENINGOCOCCAL (MENACTRA/MENVEO) Aged Out No longer eligible based on patient's age to complete this topic documented as of this encounter Medical Devices Implanted Type Area Dianetic Counselor Device Identifier Shelf Expiration Date Model / Serial / Lot Port Power Mri W/8fr Cath - [id number] Implanted:Qty : 1 on 12/09/2020 by Vince Jon MD at OR [facility] Right: Subclavian CR BARD : PERIPHERAL VASCULAR 02/06/2022 [id number] / / [id number] documented as of this encounter Visit Diagnoses [...] and were consensually agreed upon. Care Teams Blood Bank Technician Relationship Specialty Start Date End Date Artemio Mane III, MD 200 [place] [address] PCP - General Family Medicine 04/08/14 documented as of this encounter
--- OUTSIDE RECORDS SUMMARY | 2024-04-21 13:12 | External Medical Summary | Summary of Care ---
Author Name Unknown Organization [facility] Address [address] [place] [address] Phone [phone] Care Team Providers Care Lawn Service Worker Name Role Phone Antonietta NORIEGA MD, Artemio Cedillo Primary Care Provider [phone] Reason for Visit * Reason Onset Date Comments FYI 04/06/2024 Specialty pharma cy update Encounter Details Date Type Department Care Team (Late st Contact Info) Description 04/06/2024 Telephone Hematology/Oncology [facility] [place] [address] [place] [phone] Benny Mondragon MD [address] [place] [address] FYI (Specialty pharmacy update) Allergies Active Allergy [...] MANAGEMENT POMALIDOMIDE TREATMENT STATUS NOTE Yvrose Silva [id number] Patient Phone Numbers Communication: Email - Kaur @ [facility] Specialty Treatment: Medication: Pomalidomide (Pomalyst) Indication/Staging/Diagnosis Code: multiple myeloma / C90.00 Dose: 4mg daily D1-21 every 28 days Administration: +/- food Start Date: TB Primary Lump Room Supervisor/Oncologist: Dr. Vicky Mondragon Pharmacy spoke to patient yesterday and informed of $56 copay for Pomalyst. She wanted to speak to MD before scheduling delivery. Per pharmacy patient said medication wasn't discussed by office. Patient needs to call pharmacy back when ready to schedule delivery @ [facility] Buyers' Agent III Hematology Oncology Oral Chemotherapy Clinic Medication Therapy Disease Management [facility] 04/06/2024 2:23 PM documented in this encounter Plan of Treatment Upcoming Encounters Date Type Department Care Team (Late st Contact Info) Description 05/08/2024 8:45 AM EDT Immunization/Injec tion Hematology/Oncology [address], [address] [phone] Nurse, Med 4 200 [facility] [place] [address] 06/19/2024 8:15 AM EDT Office Visit Hematology/Oncology [facility] [place] 200 [facility] [place] [phone] Benny Mondragon MD 200 [facility] [place] [address] 06/19/2024 8:45 AM EDT Immunization/Injec tion Hematology/Oncology Treatment, [address] [phone] Nurse, Med 4 200 [facility] [place] [address] Health Maintenance Due Date Last Done Comments [...] D LEVEL ONCE IN A LIFETIME-USE SMARTSET# [id number] Completed 05/22/2015, 03/05/2015, 04/23/2014 HPV (Gardasil) Vaccine Aged Out No lo nger eligible based on patient's age to complete this topic Hepatitis B Vaccine Aged Out No longe r eligible based on patient's age to complete this topic MENINGOCOCCAL (MENACTRA/MENVEO) Aged Out No longer eligible based on patient's age to complete this topic documented as of this encounter Medical Devices Implanted Type Area Electronic Transaction Implementer Device Identifier Shelf Expiration Date Model / Serial / Lot Port Power Mri W/8fr Cath - [id number] Implanted:Qty : 1 on 12/09/2020 by Vince Jon MD at OR [facility] Right: Subclavian CR BARD : PERIPHERAL VASCULAR 02/06/2022 [id number] / / [id number] documented as of this encounter Visit Diagnoses [...] and were consensually agreed upon. Care Teams Lawn Service Worker Relationship Specialty Start Date End Date Artemio Mane III, MD 200 [place] [address] PCP - General Family Medicine 04/08/14 documented as of this encounter
--- OUTSIDE RECORDS SUMMARY | 2024-04-21 13:12 | External Medical Summary | Summary of Care ---
Author Name Unknown Organization [facility] Address [address] [place] [address] Phone [phone] Care Team Providers Care Skein Yarn Dyer Name Role Phone Antonietta NORIEGA MD, Artemio Cedillo Primary Care Provider [phone] Reason for Visit * Reason Onset Date Comments FYI 04/06/2024 Specialty pharma cy update Encounter Details Date Type Department Care Team (Late st Contact Info) Description 04/06/2024 Telephone Hematology/Oncology [facility] [address] [place] [phone] Benny Mondragon MD [address] [place] [address] FYI (Specialty pharmacy update) Allergies Active Allergy [...] encounter Miscellaneous Notes * Telephone Encounter - Gabi Hamilton OSA - 04/13/2024 8:30 AM EDT Patient called wanting to speak with Frannie. Her had a very serious fall and she is in [facility] with him and they will be there another week or more, and the new medication she was put on will be delivered to her house but she won't be able to start it so she wants to know whatshe should be doing. Please advise, thank you. Please call patient's cell phone [phone]. * Telephone Encounter - Frannie Dejesus RN [...] MANAGEMENT POMALIDOMIDE TREATMENT STATUS NOTE Yvrose Reesaneta [id number] Patient Phone Numbers Communication: Email - Kaur @ [facility] Specialty Treatment: Medication: Pomalidomide (Pomalyst) Indication/Staging/Diagnosis Code: multiple myeloma / C90.00 Dose: 4mg daily D1-21 every 28 days Administration: +/- food Start Date: TBD Primary Ring Stamper/Oncologist: Dr. Vicky Mondragon Pharmacy spoke to patient yesterday and informed of $56 copay for Pomalyst. She wanted to speak to MD before scheduling delivery. Per pharmacy patient said medication wasn't discussed by office. Patient needs to call pharmacy back when ready to schedule delivery @ [facility] Code Enforcement Officer III Hematology Oncology Oral Chemotherapy Clinic Medication Therapy Disease Management [facility] 04/06/2024 2:23 PM documented in this encounter Plan of Treatment Upcoming Encounters Date Type Department Care Team (Late st Contact Info) Description 04/16/2024 1:15 PM EDT Pharmacy Pharmacy Hematology Oncology [facility], [place] [address] [place] [address] [facility], [facility] Hem/Onc [address] [place] [address] 05/08/2024 8:45 AM EDT Immunization/Inject ion Hematology/Oncology Treatment, [place] [address] [place] [address] Nurse, Med [address] [place], [place] [address] [address] 06/19/2024 8:15 AM EDT Office Visit Hematology/Oncology [facility] [address] [place] [phone] Benny Mondragon MD [address] [place] [address] 06/19/2024 8:45 AM EDT Immunization/Inject ion Hematology/Oncology Treatment, [place] [address] [facility] [place] [phone] Nurse, Med 4 [address] [place] [address] Health Maintenance Due Date Last Done Comments [...] D LEVEL ONCE IN A LIFETIME-USE SMARTSET# [id number] Completed 05/22/2015, 03/05/2015, 04/23/2014 HPV (Gardasil) Vaccine Aged Out No lo nger eligible based on patient's age to complete this topic Hepatitis B Vaccine Aged Out No longe r eligible based on patient's age to complete this topic MENINGOCOCCAL (MENACTRA/MENVEO) Aged Out No longer eligible based on patient's age to complete this topic documented as of this encounter Medical Devices Implanted Type Area Group Home Counselor Device Identifier Shelf Expiration Date Model / Serial / Lot Port Power Mri W/8fr Cath - [id number] Implanted:Qty : 1 on 12/09/2020 by Vince Jon MD at OR [facility] Right: Subclavian CR BARD : PERIPHERAL VASCULAR 02/06/2022 [id number] / / [id number] documented as of this encounter Visit Diagnoses [...] and were consensually agreed upon. Care Teams Skein Yarn Dyer Relationship Specialty Start Date End Date Artemio Mane III, MD [address] [place] [address] PCP - General Family Medicine 04/08/14 documented as of this encounter
--- OUTSIDE RECORDS SUMMARY | 2024-04-21 13:13 | External Medical Summary ---
Author Name Unknown Address Unknown Organization [id number]:[facility] [place] - [address] [place] [address] Laboratory Report Ordering Provider Test Date Status JACEY COUGHLIN 03/26/2024 06:53:08 Final Observation Date Value Abnormality Reference (Units ) Status [place] light chains, Free, Serum 03/26/2024 06:53:08 249.02 Above high normal 3.30-19.40 (mg/L) Final [place] light chains, free, Serum 03/26/2024 06:53:08 7.61 5.71-26.30 (mg/L) Final KAPPA LAMBDA FLC RATIO 03/26/2024 06:53:08 32.72 Above high normal 0.26-1.65 Final Performing Location [facility] [place] - [address] [place] [address]
--- OUTSIDE RECORDS SUMMARY | 2024-04-21 13:13 | External Medical Summary | Summary of Care ---
Author Name Unknown Organization [facility] Address [address] [place] [address] Phone [phone] Care Team Providers Care Mounter Automatic Name Role Phone Antonietta NORIEGA MD, Artemio Cedillo Primary Care Provider [phone] Reason for Visit * Reason Onset Date Comments Precert Future 03/27/2024 Pomalidomide Encounter Details Date Type Department Care Team (Late st Contact Info) Description 03/27/2024 Telephone Hematology/Oncology [facility] [address] [place] [phone] Benny Mondragon MD [address] [place] [address] Precert Future (Pomalidomide) Allergies Active Allergy Reactions Criticality Noted Date Comments Adhesive Tape 02/06/2016 Ixazomib 08/09/2018 Hives, chills, diarrhea. 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 MT- fyi regarding orders REMS sign-up completed. Pt will need scheduled for nursing education. Pt already prescribed Decadron 20mg weekly, lab orders to be placed by pharmacy. Scheduling- Please call patient later today or tomorrow to schedule chemo education day. Thanks. documented in this encounter Plan of Treatment Upcoming Encounters Date Type Department Care Team (Late st Contact Info) Description 03/28/2024 1:00 PM EDT Pharmacy Pharmacy Hematology Oncology [address] [address] [facility] Hem/Onc [address] [place] [address] 03/30/2024 9:00 AM EDT Nurse Only Hematology/Oncology [facility] Jennifer [address] [place] [phone] Jennifer, Nurse Hem Onc [address] [place] [address] 05/08/2024 8:45 AM EDT Immunization/Inject ion Hematology/Oncology Treatment, [place] 200 [facility] [place] [phone] Nurse, Med [facility] [place] [address] 06/19/2024 8:15 AM EDT Office Visit Hematology/Oncology [facility] Jennifer [address] [place] [phone] Benny Mondragon MD [address] [facility] [place] [address] 06/19/2024 8:45 AM EDT Immunization/Inject ion Hematology/Oncology Treatment, [place] [address] [place] [phone] Nurse, Med 200 [facility], [place] [address] Health Maintenance Due Date Last Done Comments COVID-19 Vaccine (#1) 1945 Zoster Vaccines (1 of 2) 02/05/2009 12/11/2008 DXA Scan 08/07/2016 08/07/2014, 07/11, 08/01/2002, Additional history exists Depression Screening 05/11/2018 05/11/2017 DTaP,Tdap,and Td Vaccines (2 - Td or Tdap) 05/03/2026 05/03/2016, 07/10/2004, 07/10/2004 Pneumococcal Vaccine: 65+ Years Completed 06/17/2014, 08/03/2006 VITAMIN D LEVEL ONCE IN A LIFETIME-USE SMARTSET# [id number] Completed 05/22/2015, 03/05/2015, 04/23/2014 Influenza Vaccine (FLU [...] this encounter Medical Devices Implanted Type Area Rubber And Plastics Worker Device Identifier Shelf Expiration Date Model / Serial / Lot Port Power Mri W/8fr Cath - [id number] Implanted:Qty : 1 on 12/09/2020 by Vince Jon MD at OR [facility] Right: Subclavian CR BARD : PERIPHERAL VASCULAR 02/06/2022 [id number] / / [id number] documented as of this encounter Advance Directives [...] and were consensually agreed upon. Care Teams Mounter Automatic Relationship Specialty Start Date End Date Artemio Mane III, MD [address] [place] [address] PCP - General Family Medicine 04/08/14 documented as of this encounter
--- OUTSIDE RECORDS SUMMARY | 2024-04-21 13:13 | External Medical Summary | Summary of Care ---
Author Name Unknown Organization [facility] Address [address] [place] [address] Phone [phone] Care Team Providers Care Hull Inspector Name Role Phone Antonietta NORIEGA MD, Artemio Cedillo Primary Care Provider [phone] Reason for Visit * Reason Comments Medication Management Encounter Details Date Type Department Care Team (Late st Contact Info) Description 03/28/2024 1:00 PM EDT Pharmacy Pharmacy Hematology Oncology [facility] [address] [place], [place] [phone] [facility], [facility] Hem/Onc [address] [place] [address] Multiple myeloma, remission status unspecified (HCC)* Allergies [...] this encounter Progress Notes * Georgina Sanchez, [facility] - 03/28/2024 4:15 PM EDT MEDICATION THERAPY MANAGEMENT POMALIDOMIDE INITIAL INTAKE NOTE Yvrose Silva [id number] Patient Phone Numbers Communication: Chart review Treatment: Medication: Pomalidomide (Pomalyst) Indication/Staging/Diagnosis Code: multiple myeloma / C90.00 Dose: 4mg daily D1-21 every 28 days Administration: +/- food Start Date: TBD Primary Manufacturing Engineer Paint/Oncologist: Dr. iVcky Mondragon Additional Therapy: Dexamethasone 20mg weekly Supportive [...] 06/10/2020 PO cytoxan 02/2022: RT 04/06/22-03/2024: daratumumab Reviewed dosage prescribed for appropriateness (based on indication, hepatic function,renal function, etc): no changes Are appropriate supportive care medications prescribed? Yes Are appropriate prophylactic medications prescribed? Yes Have baseline labs/tests been obtained? No, baseline TSH ordered Has hepatitis B screening been completed? Yes Potential drug-drug drug-herbal, drug-food, drug-disease interactions: No The Hematology/Oncology Oral Chemotherapy Clinic will assess medication compliance at each patient encounter - need to confirm ASA dose Assessment and Plan: Arco plan uploaded and sent to Dr. Mondragon for signature MTM to follow up in 1 day for intro/med rec and in 3 days to assess beacon plan signature, Celgene auth #, and medication auth status Yes/no Date Action Taken Arco plan entered? yes 03/29/24 Consent completed? yes 03/27/24 Intro/med rec completed? Precert completed? Test claim completed? Financial assistance needed? Physician signature? Rx released? Education completed? Follow up: 1 and 3 days Georgina Sanchez, PharmD, BCOP Clinical Pharmacist, [facility] Oral Chemotherapy [facility] 03/29/2024, 7:22 AM Monitoring Parameters: Estimated CrCl Serum creatinine: 1 [...] 500 and PLT > 25K Pertinent labs: Latest Reference Range & Units 03/26/24 06:53 WBC 4.00 - 10.80 K/uL 6.13 RBC 3.85 - 5.15 M/uL 3.63 HGB 12.0 - 15.3 g/dL 10.2 (L) HCT 36.0 - 45.2 % 33.8 (L) MCV 81.5 - 97.5 fL 93.1 MCH 27.0 - 34.0 pg 28.1 MCHC 32.0 - 36.0 g/dL 30.2 RDW 11.5 - 15.5 % 15.3 PLT 140 - 400 K/uL 197 MPV 6.6 - 11.1 fL 9.4 CBC WITH WBC DIFFERENTIAL Rpt ! Absolute Neutrophils 1.80 - 7.70 K/uL 2.53 Latest Reference Range & Units 03/26/24 06:53 Albumin 3.8 - 5.0 g/dL 3.3 (L) AST 10 - 35 U/L 17 ALT 10 - 35 U/L 10 Alkaline Phosphatase 35 - 130 U/L 92 Bilirubin, Total <=1.2 mg/dL 0.6 Time Spent on Encounter: 16 - 20 minutes Encounter Group: Hematology Encounter Interventions Item Category: Oral Chemotherapy Pomalidomide Problem/Rationale: Indication: Needs additional medication therapy - Untreated condition, - Synergistic therapy Arco Plan Review: Initial Plan/upload Pharmacist Intervention(s): Drug Interaction Screen, Lab monitoring, Orders labs, and Referral review Magnitude of Intervention: Monitoring with direction (Level 1) documented in this encounter Plan of Treatment Upcoming Encounters Date Type Department Care Team (Late st Contact Info) Description 03/29/2024 1:15 PM EDT Pharmacy Pharmacy Hematology Oncology [address] [address] [facility], [facility] Hem/Onc [address] [place] [address] 03/30/2024 9:00 AM EDT Nurse Only Hematology/Oncology [facility] Jennifer [place] [address] [facility] [place] [phone] Jennifer, Nurse Hem Onc [address] [place] [address] 04/03/2024 1:30 PM EDT Pharmacy Pharmacy Hematology Oncology [address] [address] [facility], [facility] Hem/Onc [address] [place] [address] 05/08/2024 8:45 AM EDT Immunization/Inject ion Hematology/Oncology Treatment, [place] [address] [facility] [phone] Nurse, Med 4 200 [facility] [place] [address] 06/19/2024 8:15 AM EDT Office Visit Hematology/Oncology Andres Rodriguez [place] 200 [facility] [place] [phone] Benny Mondragon MD 200 [facility] [place] [address] 06/19/2024 8:45 AM EDT Immunization/Inject ion Hematology/Oncology [address], [address] [phone] Nurse, Med 200 [place] [address] Health Maintenance Due Date Last Done Comments COVID-19 Vaccine (#1) 1945 Zoster Vaccines (1 of 2) 02/05/2009 12/11/2008 DXA Scan 08/07/2016 08/07/2014, 07/11, 08/01/2002, Additional history exists Depression Screening 05/11/2018 05/11/2017 DTaP,Tdap,and Td Vaccines (2 - Td or Tdap) 05/03/2026 05/03/2016, 07/10/2004, 07/10/2004 Pneumococcal Vaccine: 65+ Years Completed 06/17/2014, 08/03/2006 VITAMIN D LEVEL ONCE IN A LIFETIME-USE SMARTSET# [id number] Completed 05/22/2015, 03/05/2015, 04/23/2014 Influenza Vaccine (FLU [...] this encounter Medical Devices Implanted Type Area Pipe Fittings Molder Device Identifier Shelf Expiration Date Model / Serial / Lot Port Power Mri W/8fr Cath - [id number] Implanted:Qty : 1 on 12/09/2020 by Vince Jon MD at OR [facility] Right: Subclavian CR BARD : PERIPHERAL VASCULAR 02/06/2022 [id number] / / [id number] documented as of this encounter Visit Diagnoses [...] and were consensually agreed upon. Care Teams Hull Inspector Relationship Specialty Start Date End Date Artemio Mane III, MD 200 [place] [address] PCP - General Family Medicine 04/08/14 documented as of this encounter
--- OUTSIDE RECORDS SUMMARY | 2024-04-21 13:13 | External Medical Summary ---
Author Name Unknown Address Unknown Organization K09:[facility] [place] [address] Laboratory Report Ordering Provider Test Date Status JACEY COUGHLIN 03/26/2024 06:53:08 Final Observation Date Value Abnormality Reference (Units ) Status Phosphate 03/26/2024 06:53:08 4.5 2.5-4.8 (m g/dL) Final Performing Location [facility] [place] [address]
--- OUTSIDE RECORDS SUMMARY | 2024-04-21 13:13 | External Medical Summary | Summary of Care ---
Author Name Unknown Organization [facility] Address [address] [place] [address] Phone [phone] Care Team Providers Care Cast Associate Name Role Phone Antonietta NORIEGA MD, Artemio Cedillo Primary Care Provider [phone] Reason for Visit * Reason Onset Date Comments Precert Future 03/27/2024 Pomalidomide Encounter Details Date Type Department Care Team (Late st Contact Info) Description 03/27/2024 Telephone Hematology/Oncology [facility] [address] [place] [phone] Benny Mondragon MD [address] [place] [address] Precert Future (Pomalidomide) Allergies Active Allergy Reactions [...] EDT Received orders for Pomalidomide with Decadron. MTM- fyi regarding orders REMS sign-up completed. Pt [...] 1:15 PM EDT Pharmacy Pharmacy Hematology Oncology [address] [address] [facility], [facility] Hem/Onc [address] [place] [address] 03/30/2024 9:00 AM EDT Nurse Only Hematology/Oncology [address] [place] [phone] Jennifer, Nurse Hem Onc [address] [place] [address] 04/03/2024 1:30 PM EDT Pharmacy Pharmacy Hematology Oncology [address] [address] [facility], [facility] Hem/Onc [address] [place] [address] 05/08/2024 8:45 AM EDT Immunization/Inject ion Hematology/Oncology Treatment, [place] 200 [place] [phone] Nurse, Med 4 200 [facility] [place], [place] [address] 06/19/2024 8:15 AM EDT Office Visit Hematology/Oncology [facility] 200 [facility] [place] [phone] Benyn Mondragon MD 200 [facility] [place] [address] 06/19/2024 8:45 AM EDT Immunization/Inject ion Hematology/Oncology Treatment, [place] 200 [place] [phone] Nurse, Med 4 200 [facility] [place] [address] Health Maintenance Due Date Last Done Comments COVID-19 Vaccine (#1) 1945 Zoster Vaccines (1 of 2) 02/05/2009 12/11/2008 DXA Scan 08/07/2016 08/07/2014, 07/11, 08/01/2002, Additional history exists Depression Screening 05/11/2018 05/11/2017 DTaP,Tdap,and Td Vaccines (2 - Td or Tdap) 05/03/2026 05/03/2016, 07/10/2004, 07/10/2004 Pneumococcal Vaccine: 65+ Years Completed 06/17/2014, 08/03/2006 VITAMIN D LEVEL ONCE IN A LIFETIME-USE SMARTSET# [id number] Completed 05/22/2015, 03/05/2015, 04/23/2014 Influenza Vaccine (FLU [...] this encounter Medical Devices Implanted Type Area Director Of Corporate Strategy Device Identifier Shelf Expiration Date Model / Serial / Lot Port Power Mri W/8fr Cath - [id number] Implanted:Qty : 1 on 12/09/2020 by Vince Jon MD at OR [facility] Right: Subclavian CR BARD : PERIPHERAL VASCULAR 02/06/2022 [id number] / / [id number] documented as of this encounter Advance Directives [...] and were consensually agreed upon. Care Teams Cast Associate Relationship Specialty Start Date End Date Artemio Mane III, MD 200 [place] [address] PCP - General Family Medicine 04/08/14 documented as of this encounter
--- OUTSIDE RECORDS SUMMARY | 2024-04-21 13:13 | External Medical Summary | Summary of Care ---
Author Name Unknown Organization [facility] Address [address] [place] [address] Phone [phone] Care Team Providers Care Metal Roaster Name Role Phone Antonietta NORIEGA MD, Artemio Cedillo Primary Care Provider [phone] Reason for Visit * Reason Comments Follow Up Treatment Encounter Details Date Type Department Care Team (Late st Contact Info) Description 03/27/2024 9:15 AM EDT [facility] [place] [address] [facility] [place] [phone] Benny Mondragon MD [address] [facility] [place] [address] Multiple myeloma not having achieved remission (HCC)* Allergies Active Allergy Reactions Criticality Noted [...] on file documented as of this encounter Last Filed Vital Signs Vital Sign Reading Time Taken Comments Blood Pressure 94/59 03/27/2024 9:04 AM EDT Pulse 117 03/27/2024 9:04 AM EDT Temperature 36.8 C (98.2 F) 03/27/2024 9:04 AM ED T Respiratory Rate 16 03/27/2024 9:04 AM EDT Oxygen Saturation 96% 03/27/2024 9:04 AM EDT Inhaled Oxygen Concentration - - Weight 48.1 kg (106 lb) 03/27/2024 9:04 AM EDT Height - - Body Mass Index 18.19 09/13/2023 7:39 AM EST documented in this encounter Progress Notes * Benny Mondragon MD - 03/27/2024 9:15 AM EDT Hematology/Oncology Outpatient Clinic note Michelle Campos [place] [address] [facility] [place] [address] Name: Yvrose Silva Date: 03/15/2023 CHIEF COMPLAINT: Yvrose Silva is a 83 year old female here today for f/u visit today. HEMATOLOGY/ONCOLOGY DIAGNOSIS: IgG kappa multiple myeloma DATE OF DIAGNOSIS: March, CURRENT TREATMENT: Planning start pomalidomide 4 mg once a day for 3 weeks followed by 1 week off. Decadron 20 mg every weekly. She says that she is to go for dental extraction, would like to hold Xgeva at this time. She will continue aspirin prophylaxis. She will continue valacyclovir prophylaxis. TREATMENT HISTORY: She completed radiation treatment right shoulder region and lumbar spine in 3rd week of May 2019. 06/12/2020- 10/06/2021 IV cyclophosphamide 05/22/2020- 06/10/2020 PO cytoxan She received Velcade 1.3 mg/m2 twice a week for 2 weeks followed by 1 week off and Decadron 40 mg daily for 4 days every week for 2 weeks followed by 1 week off for 1st 2 cycles (May and June,) and then 40 mg for 4 days in a month. Zometa every monthly, started on 05/19/2017, changed to Xgeva in Jan 2018 -10/18/2017--> Velcade 1.3 mg/m2 weekly, Decadron 40 mg once a week by mouth. (she is on Velcade and Decadron since May,. 03/07/2018, decided to add Revlimid 25 mg once a day for 3 weeks followed by 1 week off (M spike around 0.49 g/dL) , she decided not to proceed with Revlimid therapy because of some side effect profile. 04/03/2018--> decided to increase the dose of Velcade 1.3 mg/m2 twice weekly, no change in the Decadron (40 mg once a week) 05/08/2018--> decided to discontinue Velcade because of injection site significant local erythemaat 2 sites with some local eschar formation S/P radiation treatment of the left rib and the thoracic spine completed on 02/22/2022. -She had an allergic reaction with Revlimid. (she took 1st tablet of Revlimid and within fevers shestarted having increasing skin rash involving the face, chest, abdomen, extremities, had some itching, she took Benadryl for the symptomatic treatment, did not have any pulmonary symptoms, thought toallergic reaction with Revlimid and so decided discontinue Revlimid.) In June 2018 when she was started on Ninlaro (Ixazomib), she also had allergic reactions, had increasing hives, itching, diarrhea, chills. -she had skin changes following subcutaneous Velcade Subcutaneous Daratumumab (04/06/2022- ) -Now since 10/26/2022 --> she is on daratumumab every 4 weekly Xgeva every 3 monthly. Valacyclovir prophylaxis 500 mg once a day. 05/18/2022 --> advised her to restart Decadron 20 mg once a week. -she takes Decadron 20 mg every 4 week. (). - 01/03/2024 --> advised her to increase the Decadron 20 mg once a week ( because of increase in the M spike and IgG level). DIAGNOSTIC WORKUP: She had chronic back pain of for 6 to 8 months duration, she was admitted at [facility], -CT scan of the abdomen pelvis done on 05/01/2017 showed multiple destructive bone lesions includingexpansile lesion involving the left 7th rib, L4 vertebral body, 2.9 cm right iliac wing lytic lesion, 5.6 cm right-sided soft tissue mass involving the sacrum. CT guided biopsy of right sacral lesion--> consistent with the plasma cell neoplasm (05/06/2017),plasma cells is around 45% of the total cells. FISH--> - t(4;14), t(11;14), t(14;16)--> negative. - Monosomy 13 (50% nuclear) -Duplication of 1q (8% of nuclei) -hyperploidy 5, 9 and 15--> 72% of nuclei -Ig H gene rearrangement (11% of nuclei) -SPEP--> IgG kappa paraprotein present -M spike --> 2.4 g/dL -free kappa light chain 120, free lambda light chain 20.5, [place]/Mj ratio 5.9 (05/05/2017) Bone survey--> multiple lytic lesions noted in the skull, to lesser extent the clavicles and the2nd. (05/08/2017) -she was seen by radiation oncology Dr. Mondragon, she received palliative radiation treatment to sacral lesion which was completed on 05/27/2017 (3000 cGy). She was seen by Dr. Walter and started systemic chemotherapy with Velcade and Decadron as outlined above in the previous treatment section with the gradual improvement of the M spike and clinical symptoms. She did not require any blood transfusion support. Blood workup done on 05/12/2017 -free kappa light chain 123, free lambda light chain 20.2, [place]/Mj ratio of 6.0 -IgG 4000, IgA 296, IgM 35 -beta 2 microglobulin--> 2.46 -urine for Bence-Hussein protein present, more clot free kappa light chain present. -M spike--> 2.48 g/dL HISTORY OF PRESENT ILLNESS: She has come the clinic for the follow-up, she says that she is otherwise doing well, she is takingcare of her who has dementia, tolerated treatment well, no increasing neuropathy, mild chronic back pain present, she is not on pain medication on regular basis, no nausea no vomiting, current weight around 106 lb, she takes vitamin-D and Calcium supplementation on a regular basis. No leg edema. No cardiac or pulmonary symptom no infections, no bleeding from the sites. She is on Xgeva every 3 monthly, .She says that she may need dental extraction, she is waiting for dental evaluation. She ambulates well by herself, ECOG PS 1, current weight around 106 lb. Past Medical History: Diagnosis Date Cerebrovascular event, ill-defined, within last 8 weeks 1981 no residuals Closed fracture of carpal bone 1991 l wrist fracture Other osteoporosis Shingles 03/2015 Past Surgical History: Procedure Laterality Date INSER TUNN ACC DEV;5 YRS/OLDER N/A 12/09/2020 INSERT TUNNELED CENTRAL VENOUS ACCESS WITH SUBQ PORT performed by Vince Jon MD at OR [facility] VAGINAL DELIVERY ONLY times 3 Social History Tobacco Use Smoking status: Former Packs/day: 0.50 Years: 45.00 Pack years: 22.50 Types: Cigarettes Quit date: 06/26/2002 Years since quittin.7 Smokeless tobacco: Never Substance and Sexual Activity Alcohol use: Yes Comment: glass of wine daily Drug use: No Sexual activity: Yes Partners: Male Review of patient's allergies indicates: Allergen Reactions Velcade [Bortezomib] Bleeding Open sores w/bleeding on abdominal region Adhesive Tape Ninlaro [Ixazomib] Hives, chills, diarrhea. Revlimid [Lenalidomide] Hives Current Outpatient Medications Medication Sig Dispense Refill Calcium Carb-Cholecalciferol (CALCIUM + D3) 600-800 MG-UNIT per tablet Take 2 Tablets by mouth in the morning. Ondansetron HCl 8 MG Oral Tablet (Zofran) TAKE ONE TABLET BY MOUTH EVERY 8 HOURS NEEDED FOR NAUSEA (Patient not taking: Reported on 05/18/2022) 30 Tab 3 Prochlorperazine Maleate 10 MG Oral Tablet (Compazine) TAKE ONE TABLET BY MOUTH EVERY 6 HOURS NEEDED FOR NAUSEA (Patient not taking: Reported on 05/18/2022) 30 Tab 3 Diphenoxylate-Atropine 2.5-0.025 MG Oral Tablet (Lomotil) TAKE ONE TABLET BY MOUTH FOUR TIMES DAILYAS NEEDED for diarrhea 60 Tab 0 valACYclovir HCl 500 MG Oral Tablet (Valtrex) Take 1 Tablet by mouth in the morning. 90 Tablet 3 dexAMETHasone 4 MG Oral Tablet (Decadron) 5 tablets once a week in the morning with food. 120 Tablet 1 No current facility-administered medications for this visit. REVIEW OF SYSTEMS: See HPI - otherwise negative OBJECTIVE: BP 94/59 (BP Site: Left Arm, BP Position: Sitting, BP Cuff Size: Regular) | Pulse 117 | Temp 36.8 C (98.2 F) (Tympanic) | Resp 16 | Wt 48.1 kg (106 lb) | SpO2 96% | BMI 18.19 kg/m | BSA 1.47 m PHYSICAL EXAM: ECOG: Performance Status 1 = 80-90% Symptoms but nearly ambulatory General Appearance: Normal - Healthy appearing patient in no acute distress HEENT: Normal - No oral or pharyngeal masses, ulceration or thrush noted Lymph Nodes: Normal - No palpable lymph nodes in the neck or supraclavicular areas Lungs/Thorax: Normal - Clear to auscultation Heart: Normal - Regular rate and rhythm, normal S1, S2, no appreciable murmurs Pulses/Extremities: Normal - 2+ throughout and symmetrical, no edema Neurologic: Normal - Grossly intact LABS: Blood workup done on 03/26/2024: -WBC 6100, H&H of 10.2/33.8, Platelet count of 129875 -BUN/Creat: 18/1.0, Calcium 9.3, normal LFT other than protein level of 8.5 -phosphorus level --> 4.5 -IgG 3746, IgA 27, IgM 14 -M spike --> 2.36 g/dL ( IgG kappa). -free kappa light --> 249, free lambda light chain --> 7.6, [place]/Lambda ratio 32.7. IMPRESSION/PLAN: IgG kappa multiple myeloma Encounter for chemotherapy Currently she is on Darzalex Faspro every 4 weekly, Decadron 20 mg every 4 weekly. Xgeva every 3 monthly. Overall tolerated treatment well without significant side effects, no worsening neuropathy, no neutropenia, no infectious complications. I reviewed her recent blood workup findings, gradual increase in the M spike level, free kappa light chain as well as IgG level noted. Mild anemia noted. Normal kidney liver function test noted Would like to change the treatment in her case, discussed with the regarding role of pomalidomide and Decadron that can be considered. She is in agreement for that. Today she will receive last dose of subcutaneous Darzalex. She will continue acyclovir prophylaxis. She will continue aspirin prophylaxis. She is having dental extraction, would like to hold Xgeva for now, once dental extraction is done, will resume Xgeva every 3 monthly. We talked about natural history of multiple myeloma diagnosis, prognosis, overall It is an incurable malignancy. Will see her in about [address] Benny Mondragon Hem/Onc (This note was completed using the dictation program Fluency Direct. As such, there may be misspellings word substitutions, or other variations that should not change the essence of the clinical content of this encounter note. If there is need for further clarification, please direct questions to the provider listed above.) documented in this encounter Nursing Notes * Radha Zepeda, SISI ASSIST - 03/27/2024 9:04 AM EDT Patient identifed by name and birthdate Do you have any concerns about pain management for today's visit? Yes. Patient instructed to discuss pain concerns with provider during the visit today Living Will or Advance Directive for Health Care as noted on the problem list. [facility] is a way you can talk to your provider on line through e-mail. Would you like to sign up? I can activate it for you? ALREADY ACTIVE Filed Vitals: 03/27/24 0904 BP: 94/59 Pulse: 117 Resp: 16 Temp: 36.8 C (98.2 F) TempSrc: Tympanic SpO2: 96% Weight: 48.1 kg (106 lb) Patient was instructed to not get up on the exam table/exam chair until directed and assisted by their provider; patient is to remain seated in the chair/ wheelchair/ exam table/ exam chair for fall prevention and safety reasons. Patient is aware to have assistance to step down off exam table/exam chair with personnel. Patient voiced full comprehension of instructions. documented in this encounter Plan of Treatment Upcoming Encounters Date Type Department Care Team (Late st Contact Info) Description 03/28/2024 1:00 PM EDT Pharmacy Pharmacy Hematology Oncology [address] [address] [facility] Hem/Onc [address] [place] [address] 03/30/2024 9:00 AM EDT Nurse Only Hematology/Oncology [facility] [place] [address] [facility] [place] [phone] [place], Nurse Hem Onc [place] [address] [place] [address] 05/08/2024 8:45 AM EDT Immunization/Inject ion Hematology/Oncology Treatment, [address] [place] [phone] Nurse, Med 4 [facility] [place] [address] 06/19/2024 8:15 AM EDT Office [facility] [place] [address] [place] [place] [phone] Benny Mondragon MD 200 [facility] [place] [address] 06/19/2024 8:45 AM EDT Immunization/Inject ion Hematology/Oncology Treatment, [address] [place] [phone] Nurse, Med 4 [address] [place] [address] Health Maintenance Due Date Last Done Comments COVID-19 Vaccine (#1) 1945 Zoster Vaccines (1 of 2) 02/05/2009 12/11/2008 DXA Scan 08/07/2016 08/07/2014, 07/11, 08/01/2002, Additional history exists Depression Screening 05/11/2018 05/11/2017 DTaP,Tdap,and Td Vaccines (2 - Td or Tdap) 05/03/2026 05/03/2016, 07/10/2004, 07/10/2004 Pneumococcal Vaccine: 65+ Years Completed 06/17/2014, 08/03/2006 VITAMIN D LEVEL ONCE IN A LIFETIME-USE SMARTSET# [id number] Completed 05/22/2015, 03/05/2015, 04/23/2014 Influenza Vaccine (FLU [...] this encounter Medical Devices Implanted Type Area Ad Operations Associate Device Identifier Shelf Expiration Date Model / Serial / Lot Port Power Mri W/8fr Cath - [id number] Implanted:Qty : 1 on 12/09/2020 by Vince Jon MD at OR [facility] Right: Subclavian CR BARD : PERIPHERAL VASCULAR 02/06/2022 [id number] / / [id number] documented as of this encounter Visit Diagnoses Diagnosis Multiple myeloma not having achieved remission (HCC)- Primary Multiple myeloma, without mention of having achieved remission documented in this encounter Advance Directives * [...] and were consensually agreed upon. Care Teams Metal Roaster Relationship Specialty Start Date End Date Artemio Mane III, MD 200 [place] [address] PCP - General Family Medicine 04/08/14 documented as of this encounter"
--- OUTSIDE RECORDS SUMMARY | 2024-04-21 13:13 | External Medical Summary | Summary of Care ---
Author Name Unknown Organization [facility] Address [address] [place] [address] Phone [phone] Care Team Providers Care Christian Science Reader Name Role Phone Antonietta NORIEGA MD, Artemio Cedillo Primary Care Provider [phone] Reason for Visit * Reason Onset Date Comments Precert Future 03/27/2024 Pomalidomide Encounter Details Date Type Department Care Team (Late st Contact Info) Description 03/27/2024 Telephone Hematology/Oncology [facility] [address] [place] [phone] Benny Mondragon MD [address] [place] [address] Precert Future (Pomalidomide) Allergies Active Allergy Reactions [...] AM EDT Immunization/Injec tion Hematology/Oncology Treatment, [address] [place] [phone] Nurse, Med 4 200 [facility] [place] [address] 06/19/2024 8:15 AM EDT Office Visit Hematology/Oncology [address] [place] [phone] Benny Mondragon MD 200 [place] [address] 06/19/2024 8:45 AM EDT Immunization/Injec tion Hematology/Oncology Treatment, [address] [place] [phone] Nurse, Med 4 200 [facility] [place] [address] Health Maintenance Due Date Last Done Comments COVID-19 Vaccine (#1) 1945 Zoster Vaccines (1 of 2) 02/05/2009 12/11/2008 DXA Scan 08/07/2016 08/07/2014, 07/11, 08/01/2002, Additional history exists Depression Screening 05/11/2018 05/11/2017 DTaP,Tdap,and Td Vaccines (2 - Td or Tdap) 05/03/2026 05/03/2016, 07/10/2004, 07/10/2004 Pneumococcal Vaccine: 65+ Years Completed 06/17/2014, 08/03/2006 VITAMIN D LEVEL ONCE IN A LIFETIME-USE SMARTSET# [id number] Completed 05/22/2015, 03/05/2015, 04/23/2014 Influenza Vaccine (FLU [...] this encounter Medical Devices Implanted Type Area Staff Anesthetist Device Identifier Shelf Expiration Date Model / Serial / Lot Port Power Mri W/8fr Cath - [id number] Implanted:Qty : 1 on 12/09/2020 by Vince Jon MD at OR [facility] Right: Subclavian CR BARD : PERIPHERAL VASCULAR 02/06/2022 [id number] / / [id number] documented as of this encounter Advance Directives [...] and were consensually agreed upon. Care Teams Christian Science Reader Relationship Specialty Start Date End Date Artemio Mane III, MD 200 [facility] [place] [address] PCP - General Family Medicine 04/08/14 documented as of this encounter
--- OUTSIDE RECORDS SUMMARY | 2024-04-21 13:13 | External Medical Summary | Summary of Care ---
Author Name Unknown Organization [facility] Address [address] [place] [address] Phone [phone] Care Team Providers Care Ribbon Blockmaker Name Role Phone Antonietta NORIEGA MD, Artemio Cedillo Primary Care Provider [phone] Reason for Visit * Reason Comments Chemotherapy Darzalex Faspro Procedure Port flush * Episode Based Medications (Routine) - Authorized Specialty Diagnoses / Procedures Referred By Contanatoly t Referred To Contact Diagnoses Encounter for antineoplastic chemotherapy Multiple myeloma not having achieved remission (HCC) Procedures MI DARATUMUMAB, HYALURONIDASE Benny Mondragon MD [address] [place] [address] Anc Hem/Onc [facility] DEPT CLOSED - 08/23/23 [address] [place] [address] Referral ID Status Reason Start Date Expiration Date V isits Requested Visits Authorized Authorized 03/11/2022 10/09/2099 [id number] Encounter Details Date Type Department Care Team (Latest Contact Info) Description 03/27/2024 9:45 AM EDT Hem/Onc Treatment Hematology/Oncolog y Treatment, [place] [address] [place] [phone] Jennifer, Chair [address] [place] [address] Encounter for antineoplastic chemotherapy*; Multiple myeloma not [...] to patient at prior appointment. Age-related osteoporosis kandis bruce current pathological fracture 07/10/2004 documented as of [...] 8:45 AM EDT Immunization/Injec tion Hematology/Oncology Treatment, [address] [place] [phone] Nurse, Med 4 200 [facility] [place] [address] 06/19/2024 8:15 AM EDT Office Visit Hematology/Oncology [address] [place] [phone] Benny Mondragon MD 200 [place] [address] 06/19/2024 8:45 AM EDT Immunization/Injec tion Hematology/Oncology Treatment, [address] [place] [address] Nurse, Med 4 200 [facility] [place] [address] Health Maintenance Due Date Last Done Comments COVID-19 Vaccine (#1) 1945 Zoster Vaccines (1 of 2) 02/05/2009 12/11/2008 DXA Scan 08/07/2016 08/07/2014, 07/11, 08/01/2002, Additional history exists Depression Screening 05/11/2018 05/11/2017 DTaP,Tdap,and Td Vaccines (2 - Td or Tdap) 05/03/2026 05/03/2016, 07/10/2004, 07/10/2004 Pneumococcal Vaccine: 65+ Years Completed 06/17/2014, 08/03/2006 VITAMIN D LEVEL ONCE IN A LIFETIME-USE SMARTSET# [id number] Completed 05/22/2015, 03/05/2015, 04/23/2014 Influenza Vaccine (FLU [...] this encounter Medical Devices Implanted Type Area Freezer Machine Operator Device Identifier Shelf Expiration Date Model / Serial / Lot Port Power Mri W/8fr Cath - [id number] Implanted:Qty : 1 on 12/09/2020 by Vince Jon MD at OR [facility] Right: Subclavian CR BARD : PERIPHERAL VASCULAR 02/06/2022 [id number] / / [id number] documented as of this encounter Visit Diagnoses Diagnosis Encounter for antineoplastic chemotherapy- Primary Multiple myeloma, remission status unspecified (HCC) Encounter for central line care Fitting and adjustment of vascular catheter documented in this encounter Administered Medications Active Administered Medications - up to 3 most recent administrations Medication Order MAR Action Action Date Dose Rate Site diphenhydrAMINE (Benadryl) inj 50 mg 50 mg, IV Push, ONCE PRN Other, Hypersensitivity Reaction, Starting on Tue03/27/24 at 0928, Until Tue03/28/24 at 09, For 24 hours EPINEPHrine 1 MG/ML inj 0.3 mg 0.3 mg, Intramuscular, ONCE PRN Other, Hypersensitivity Reaction or Anaphylaxis, Starting on Tue03/27/24 at 0928, Until Tue03/28/24 at 09, For 24 hours hEParin 100 UNIT/ML Lock Flush inj 500 Units 500 Units (5 mL), IV Lock, PRN Other, IV Flush, Starting on Tue03/27/24 at 0928, Until Tue03/28/24 at 09, For 24 hours, Do not flush if lock, PICC, or central line not in place; IV infusing or unable to flush. Given 03/27/2024 10:09 AM EDT 500 Units Hydrocortisone Sod Suc (PF) (Solu-Cortef) inj 100 mg 100 mg, IV Push, ONCE PRN Other, Hypersensitivity Reaction, Starting on Tue03/27/24 at 0928, Until Tue03/28/24 at 0927, For 24 hours meperidine (Demerol) 25 MG/ML inj 25 mg 25 mg, IV Push, ONCE PRN Shivering, Starting on Tue03/27/24 at 0928, Until Tue03/28/24 at 0927, For 24 hours sodium chloride 0.9 % flush central line 10 mL 10 mL, IV Push, PRN Other, IV Flush, Starting on Tue03/27/24 at 0928, Until Tue03/28/24 at 09, For 24 hours, Do not flush if lock, PICC, or central line not in place; IV infusing or unable to flush. Given 03/27/2024 10:09 AM EDT 10 mL Inactive Administered Medications - up to 3 most recent administrations Medication Order MAR Action Action Date Dose Rate Site Acetaminophen (Tylenol) tab 650 mg 650 mg, Oral, ONCE, On Tue03/27/24 at 1000, For 1 dose, Maximum of 4 grams (4000 mg) per day. Given 03/27/2024 9:40 AM EDT 650 mg Anqpaxviudu-gdxhxzgvrluva-h ihj (Darzalex Faspro) 1800 mg-30403 units/ 15 ml subcut inj 15 mL, Subcutaneous, ONCE, On Tue03/27/24 at 1100, For 1 dose, Inject subcutanteously into abdomen over 3 to 5 minutes Given 03/27/2024 10:09 AM EDT 15 mL Abdomen Left Lower diphenhydrAMINE (Benadryl) cap 50 mg 50 mg, Oral, ONCE, On Tue03/27/24 at 1000, For 1 dose Given 03/27/2024 9:40 AM EDT 50 mg documented in this encounter Advance Directives * [...] and were consensually agreed upon. Care Teams Ribbon Blockmaker Relationship Specialty Start Date End Date Artemio Mane III, MD [address] [place] [address] PCP - General Family Medicine 04/08/14 documented as of this encounter
--- OUTSIDE RECORDS SUMMARY | 2024-04-21 13:13 | External Medical Summary ---
Author Name Unknown Address Unknown Organization [id number] [place] [address] Laboratory Report Ordering Provider Test Date Status JACEY COUGHLIN 03/26/2024 06:53:08 Final Observation Date Value Abnormality Reference (Units ) Status WBC, Total 03/26/2024 06:53:08 6.13 4.00-10.8 0 (K/uL) Final RBC 03/26/2024 06:53:08 3.63 3.85-5.15 (M/uL) Final Hemoglobin 03/26/2024 06:53:08 10.2 Below low normal 12 .0-15.3 (g/dL) Final HCT 03/26/2024 06:53:08 33.8 Below low normal 36. 0-45.2 (%) Final MCV 03/26/2024 06:53:08 93.1 81.5-97.5 (fL) Final MCH 03/26/2024 06:53:08 28.1 27.0-34.0 (pg) Final MCHC 03/26/2024 06:53:08 30.2 32.0-36.0 (g/dL) Final RDW 03/26/2024 06:53:08 15.3 11.5-15.5 (%) Final Platelets 03/26/2024 06:53:08 197 140-400 (K /uL) Final MPV 03/26/2024 06:53:08 9.4 6.6-11.1 ( fL) Final Performing Location [facility] [place] [address]
--- OUTSIDE RECORDS SUMMARY | 2024-04-21 13:13 | External Medical Summary ---
Author Name Unknown Address Unknown Organization K09:[facility] [address] [place] [address] Laboratory Report Ordering Provider Test Date Status JACEY COUGHLIN 03/26/2024 06:53:08 Final Observation Date Value Abnormality Reference (Units ) Status BUN 03/26/2024 06:53:08 18 6-20 (mg/dL) Final Creatinine 03/26/2024 06:53:08 1.0 0.5-1.0 (mg/dL) Final Glomerular filtration rate/1.73 sq M.predicted [Volume Rate/Area] in Serum, Plasma or Blood by Creatinine-based formula (CKD-EPI) 03/26/2024 06:53:08 57 Below low normal >=60 (mL/min) Final eGFR is calculated based on the CKD-EPI 2020 equation Sodium 03/26/2024 06:53:08 140 135-146 (m mol/L) Final Potassium 03/26/2024 06:53:08 4.7 3.5-5.1 (m mol/L) Final Cl 03/26/2024 06:53:08 104 98-107 (mm ol/L) Final CO2 03/26/2024 06:53:08 26 22-32 (mmo l/L) Final Anion gap 03/26/2024 06:53:08 10 7-15 (mmol /L) Final Glucose 03/26/2024 06:53:08 94 70-120 (mg /dL) Final Albumin 03/26/2024 06:53:08 3.3 Below low normal 3.8 -5.0 (g/dL) Final AST (Aspartate aminotransferase) 03/26/2024 06:53:08 17 10-35 (U/L) Fin al Alk Phos 03/26/2024 06:53:08 92 35-130 (U/ L) Final Bilirubin, Total 03/26/2024 06:53:08 0.6 <=1 .2 (mg/dL) Final Calcium 03/26/2024 06:53:08 9.3 8.4-10.2 ( mg/dL) Final Protein 03/26/2024 06:53:08 8.5 Above high normal 6. 0-8.3 (g/dL) Final ALT (Alanine aminotransferase) 03/26/2024 06:53:08 10 10-35 (U/L) Blanco duran Performing Location [facility] [place] [address]
--- OUTSIDE RECORDS SUMMARY | 2024-04-21 13:13 | External Medical Summary | Summary of Care ---
Author Name Unknown Organization [facility] Address [address] [place] [address] Phone [phone] Care Team Providers Care Color Artist Name Role Phone Antonietta NORIEGA MD, Artemio Cedillo Primary Care Provider [phone] Encounter Details Date Type Department Care Team (Late st Contact Info) Description 03/29/2024 Orders Only Hematology/Oncology [facility] [place] [address] [facility] [place] [address] Benny Mondragon MD [address] [place] [address] Multiple myeloma, remission status unspecified (HCC)* Allergies [...] 1:15 PM EDT Pharmacy Pharmacy Hematology Oncology [address] [address] [facility], [facility] Hem/Onc [address] [place] [address] 03/30/2024 9:00 AM EDT Nurse Only Hematology/Oncology [facility] [place] [address] [facility] [address] [place] [phone] [place], Nurse Hem Onc [address] [place] [address] 04/03/2024 1:30 PM EDT Pharmacy Pharmacy Hematology Oncology [address] [address] [facility], [facility] Hem/Onc [address] [place] [address] 05/08/2024 8:45 AM EDT Immunization/Inject ion Hematology/[address]cology [address], [address] [phone] Nurse, Med 4 200 [facility] [place] [address] 06/19/2024 8:15 AM EDT Office Visit Hematology/Oncology [facility] [address] [place] [phone] Benny Mondragon MD 200 [facility] [place] [address] 06/19/2024 8:45 AM EDT Immunization/Inject ion Hematology/Oncology [address], [address] [phone] Nurse, Med 4 [address] [place] [address] Scheduled Orders Name Type Priority Associated Diagnoses Orde r Schedule TSH WITH FREE T4 IF INDICATED Lab STAT Multiple myeloma, remission status unspecified (HCC) Expected: 04/05/2024 (Approximate), Expires: 05/29/2024 Health Maintenance Due Date Last Done Comments COVID-19 Vaccine (#1) 1945 Zoster Vaccines (1 of 2) 02/05/2009 12/11/2008 DXA Scan 08/07/2016 08/07/2014, 07/11, 08/01/2002, Additional history exists Depression Screening 05/11/2018 05/11/2017 DTaP,Tdap,and Td Vaccines (2 - Td or Tdap) 05/03/2026 05/03/2016, 07/10/2004, 07/10/2004 Pneumococcal Vaccine: 65+ Years Completed 06/17/2014, 08/03/2006 VITAMIN D LEVEL ONCE IN A LIFETIME-USE SMARTSET# [id number] Completed 05/22/2015, 03/05/2015, 04/23/2014 Influenza Vaccine (FLU [...] this encounter Medical Devices Implanted Type Area Supervisor Silvering Department Device Identifier Shelf Expiration Date Model / Serial / Lot Port Power Mri W/8fr Cath - [id number] Implanted:Qty : 1 on 12/09/2020 by Vince Jon MD at OR [facility] Right: Subclavian CR BARD : PERIPHERAL VASCULAR 02/06/2022 [id number] / / [id number] documented as of this encounter Visit Diagnoses [...] and were consensually agreed upon. Care Teams Color Artist Relationship Specialty Start Date End Date Artemio Mane III, MD 200 [place] [address] PCP - General Family Medicine 04/08/14 documented as of this encounter
--- OUTSIDE RECORDS SUMMARY | 2024-04-21 13:13 | External Medical Summary | Summary of Care ---
Author Name Unknown Organization [facility] Address [address] [place] [facility] [place] [address] Phone [phone] Care Team Providers Care Rock Climbing Team Member Name Role Phone Antonietta NORIEGA MD, Artemio Cedillo Primary Care Provider [phone] Encounter Details Date Type Department Care Team (Late st Contact Info) Description 03/23/2024 Orders Only Hematology/Oncology Treatment, [place] [address] [place] [address] Benny [facility]agon MD 200 [facility] [address] Allergies Active Allergy Reactions Criticality Noted Date Comments Adhesive Tape 02/06/2016 Ixazomib 08/09/2018 Hives, chills, diarrhea. Lenalidomide Hives 05/23/2018 Bortezomib Bleeding High 12/12/2018 Open sores w/bleeding on abdominal region documented as of this encounter (statuses as of 03/23/2024) Medications Medication Sig Dispensed Refills Start Date [...] as of this encounter (statuses as of 03/23/2024) Active Problems Problem Noted Date Diagnosed Date [...] as of this encounter (statuses as of 03/23/2024) Resolved Problems Problem Noted Date Diagnosed Date Resolved Date CVA 06/29/2002 01/23/2009 Overview: Modified per CVA protocol #8 FX CARPAL BONE NOS-CLOSE 06/29/200211/2016 documented as of this encounter (statuses as of 03/23/2024) Immunizations Name Administration Dates Next Due Pneumococcal [...] pur e alcohol) glass of wine daily Sex and Gender Information Value Date Recorded Sex Assigned at Not on file Gender Identity Not on file Sexual Orientation Not on file Job Start Date Occupation Industry Not on file Not on file Not on file documented as of this encounter Plan of Treatment Upcoming Encounters Date Type Department Care Team (Late st Contact Info) Description 03/26/2024 7:10 AM EDT Laboratory Laboratory [facility] [place] [address] [place] [phone] Pepe Rodriguez [place] [address] [place] [address] 03/27/2024 9:15 AM EDT Office Visit Hematology/Oncology And[facility] [place] [address] [place] [phone] Benny Mondragon MD 200 [facility] [place] [address] 03/27/2024 9:45 AM EDT Hem/Onc Treatment Hematology/Oncology Treatment, [place] [address] [place] [address] Jennifer, Chair 11 Hem On[facility] [place] [facility] [address] Health Maintenance Due Date Last Done Comments COVID-19 Vaccine (#1) 1945 Zoster Vaccines (1 of 2) 02/05/2009 12/11/2008 DXA Scan 08/07/2016 08/07/2014, 07/11, 08/01/2002, Additional history exists Depression Screening 05/11/2018 05/11/2017 DTaP,Tdap,and Td Vaccines (2 - Td or Tdap) 05/03/2026 05/03/2016, 07/10/2004, 07/10/2004 Pneumococcal Vaccine: 65+ Years Completed 06/17/2014, 08/03/2006 VITAMIN D LEVEL ONCE IN A LIFETIME-USE SMARTSET# [id number] Completed 05/22/2015, 03/05/2015, 04/23/2014 Influenza Vaccine (FLU [...] this encounter Medical Devices Implanted Type Area Rug Dyer Device Identifier Shelf Expiration Date Model / Serial / Lot Port Power Mri W/8fr Cath - [id number] Implanted:Qty : 1 on 12/09/2020 by Vince Jon MD at OR [facility] Right: Subclavian CR BARD : PERIPHERAL VASCULAR 02/06/2022 [id number] / / [id number] documented as of this encounter Advance Directives [...] and were consensually agreed upon. Care Teams Rock Climbing Team Member Relationship Specialty Start Date End Date Artemio Mane III, MD 200 [place] [address] PCP - General Family Medicine 04/08/14 documented as of this encounter
--- OUTSIDE RECORDS SUMMARY | 2024-04-21 13:13 | External Medical Summary | Summary of Care ---
Author Name Unknown Organization [facility] Address [address] [place] [address] Phone [phone] Care Team Providers Care Hvac Installer Name Role Phone Antonietta NORIEGA MD, Artemio Cedillo Primary Care Provider [phone] Reason for Visit * Reason Onset Date Comments Precert Future 03/27/2024 Pomalidomide Encounter Details Date Type Department Care Team (Late st Contact Info) Description 03/27/2024 Telephone Hematology/Oncology [facility] [address] [place] [phone] Benny Mondragon MD [address] [place] [address] Precert Future (Pomalidomide) Allergies Active Allergy Reactions [...] 8:45 AM EDT Immunization/Injec tion Hematology/Oncology Treatment, [address] [place] [phone] Nurse, Med 4 200 [facility] [place] [address] 06/19/2024 8:15 AM EDT Office Visit Hematology/Oncology [address] [place] [phone] Benny Mondragon MD 200 [facility] 06/19/2024 8:45 AM EDT Immunization/Injec tion Hematology/Oncology Treatment, [address] [place] [phone] Nurse, Med 4 200 [facility] [place] [address] Health Maintenance Due Date Last Done Comments COVID-19 Vaccine (#1) 1945 Zoster Vaccines (1 of 2) 02/05/2009 12/11/2008 DXA Scan 08/07/2016 08/07/2014, 07/11, 08/01/2002, Additional history exists Depression Screening 05/11/2018 05/11/2017 DTaP,Tdap,and Td Vaccines (2 - Td or Tdap) 05/03/2026 05/03/2016, 07/10/2004, 07/10/2004 Pneumococcal Vaccine: 65+ Years Completed 06/17/2014, 08/03/2006 VITAMIN D LEVEL ONCE IN A LIFETIME-USE SMARTSET# [id number] Completed 05/22/2015, 03/05/2015, 04/23/2014 Influenza Vaccine (FLU [...] this encounter Medical Devices Implanted Type Area Jamb Cutter Device Identifier Shelf Expiration Date Model / Serial / Lot Port Power Mri W/8fr Cath - [id number] Implanted:Qty : 1 on 12/09/2020 by Vince Jon MD at OR [facility] Right: Subclavian CR BARD : PERIPHERAL VASCULAR 02/06/2022 [id number] / / [id number] documented as of this encounter Advance Directives [...] and were consensually agreed upon. Care Teams Hvac Installer Relationship Specialty Start Date End Date Artemio Mane III, MD 200 [facility] [place] [address] PCP - General Family Medicine 04/08/14 documented as of this encounter
--- OUTSIDE RECORDS SUMMARY | 2024-04-21 13:13 | External Medical Summary | Summary of Care ---
Author Name Unknown Organization [facility] Address [address] [facility] [place] [address] Phone [phone] Care Team Providers Care Customer Accounts Advisor Name Role Phone Antonietta NORIEGA MD, Artemio Cedillo Primary Care Provider [phone] Reason for Visit * Reason Comments Outpatient Testing Encounter Details Date Type Department Care Team (Late st Contact Info) Description 03/26/2024 7:10 AM EDT Laboratory Laboratory [place] Rodriguez [address] [place] [phone] Jennifer, Lab [place] [address] [place] [address] Multiple myeloma not having achieved remission (HCC) Allergies Active Allergy Reactions Criticality Noted Date Comments Adhesive Tape 02/06/2016 Ixazomib 08/09/2018 Hives, chills, diarrhea. Lenalidomide Hives 05/23/2018 Bortezomib Bleeding High 12/12/2018 Open sores w/bleeding on abdominal region documented as of this encounter (statuses as of 03/26/2024) Medications Medication Sig Dispensed Refills Start Date [...] as of this encounter (statuses as of 03/26/2024) Active Problems Problem Noted Date Diagnosed Date [...] as of this encounter (statuses as of 03/26/2024) Resolved Problems Problem Noted Date Diagnosed Date Resolved Date CVA 06/29/2002 01/23/2009 Overview: Modified per CVA protocol #8 FX CARPAL BONE NOS-CLOSE 06/29/200211/2016 documented as of this encounter (statuses as of 03/26/2024) Immunizations Name Administration Dates Next Due Pneumococcal [...] 03/27/2024 9:15 AM EDT Office Visit Hematology/Oncology [facility] [address] [place] [address] [place] [place] [phone] Benny Mondragon MD [address] [place] [address] 03/27/2024 9:45 AM EDT Hem/Onc Treatment Hematology/Oncology Treatment, [place] [address] [place] [phone] Jennifer, Chair [address] Hem On[address] [place] [address] Pending Results Name Type Priority Associated Diagnoses Date /Time SERUM FREE LIGHT CHAINS Lab STAT Multiple myeloma not having achieved remission (HCC) 03/26/2024 6:53 AM EDT SERUM PROTEIN ELECTROPHORESIS REFLEX PROFILE Lab STAT Multiple myeloma not having achieved remission (HCC) 03/26/2024 6:53 AM EDT IMMUNOGLOBULIN QUANTITATIVE Lab STAT Multiple myeloma not having achieved remission (HCC) 03/26/2024 6:53 AM EDT CBC WITH WBC DIFFERENTIAL Lab STAT Multiple myeloma not having achieved remission (HCC) 03/26/2024 6:53 AM EDT COMPREHENSIVE METABOLIC PANEL Lab STAT Multiple myeloma not having achieved remission (HCC) 03/26/2024 6:53 AM EDT PHOSPHORUS Lab STAT Multiple myeloma not having achieved remission (HCC) 03/26/2024 6:53 AM EDT CBC Lab STAT Multiple myeloma not having achieved remission (HCC) 03/26/2024 6:53 AM EDT DIFFERENTIAL, AUTOMATED Lab STAT Multiple myeloma not having achieved remission (HCC) 03/26/2024 6:53 AM EDT Health Maintenance Due Date Last Done Comments COVID-19 Vaccine (#1) 1945 Zoster Vaccines (1 of 2) 02/05/2009 12/11/2008 DXA Scan 08/07/2016 08/07/2014, 07/11, 08/01/2002, Additional history exists Depression Screening 05/11/2018 05/11/2017 DTaP,Tdap,and Td Vaccines (2 - Td or Tdap) 05/03/2026 05/03/2016, 07/10/2004, 07/10/2004 Pneumococcal Vaccine: 65+ Years Completed 06/17/2014, 08/03/2006 VITAMIN D LEVEL ONCE IN A LIFETIME-USE SMARTSET# [id number] Completed 05/22/2015, 03/05/2015, 04/23/2014 Influenza Vaccine (FLU [...] this encounter Medical Devices Implanted Type Area Aviation Safety Officer Device Identifier Shelf Expiration Date Model / Serial / Lot Port Power Mri W/8fr Cath - [id number] Implanted:Qty : 1 on 12/09/2020 by Vince Jon MD at OR [facility] Right: Subclavian CR BARD : PERIPHERAL VASCULAR 02/06/2022 [id number] / / [id number] documented as of this encounter Visit Diagnoses Diagnosis Multiple myeloma not having achieved remission (HCC) Multiple myeloma, without mention of having achieved [...] and were consensually agreed upon. Care Teams Customer Accounts Advisor Relationship Specialty Start Date End Date Artemio Mane III, MD 200 [place] [address] PCP - General Family Medicine 04/08/14 documented as of this encounter
--- OUTSIDE RECORDS SUMMARY | 2024-04-21 13:13 | External Medical Summary ---
Author Name Unknown Address Unknown Organization K01:[facility] [place] - [address] [facility] [address] Laboratory Report Ordering Provider Test Date Status JACEY COUGHLIN 03/26/2024 06:53:08 Final Observation Date Value Abnormality Reference (Units) Status PARAPROTEIN NORMAL/ABNORMAL 03/26/2024 06:53:08 Abnormal Abnormal Normal Final Protein 03/26/2024 06:53:08 8.2 6.0-8.3 (g/dL) Final Albumin/Protein.total [Pure mass fraction] in Serum or Plasma by Electrophoresis 03/26/2024 06:53:08 3.14 Below low normal 3.30-4.40 (g/dL) Final Alpha 1 globulin/Protein.tota l [Pure mass fraction] in Serum or Plasma by Electrophoresis 03/26/2024 06:53:08 0.32 Above high normal 0.10-0.30 (g/dL) Final Alpha 2 globulin/Protein.tota l [Pure mass fraction] in Serum or Plasma by Electrophoresis 03/26/2024 06:53:08 1.08 Above high normal 0.60-1.00 (g/dL) Final Beta globulin/Protein.tota l [Pure mass fraction] in Serum or Plasma by Electrophoresis 03/26/2024 06:53:08 0.84 0.80-1.30 (g/dL) Final Gamma globulin/Protein.tota l [Pure mass fraction] in Serum or Plasma by Electrophoresis 03/26/2024 06:53:08 2.82 Above high normal 0.70-1.70 (g/dL) Final Monoclonal protein 03/26/2024 06:53:08 2.36 (g/dL) Final Protein Fractions [Interpretation] in Serum or Plasma by Electrophoresis Narrative 03/26/2024 06:53:08 Abnormal. 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 Final Performing Location [facility] - [address] [facility] [address]
--- OUTSIDE RECORDS SUMMARY | 2024-04-21 13:13 | External Medical Summary | Summary of Care ---
Author Name Unknown Organization [facility] Address [address] [place] [address] Phone [phone] Care Team Providers Care Medical Office Asst Name Role Phone Antonietta NORIEGA MD, Artemio Cedillo Primary Care Provider [phone] Reason for Visit * Reason Comments Chemotherapy Darzalex faspron Procedure Port flush * Episode Based Medications (Routine) - Authorized Specialty Diagnoses / Procedures Referred By Contanatoly t Referred To Contact Diagnoses Encounter for antineoplastic chemotherapy Multiple myeloma not having achieved remission (HCC) Procedures MD DARATUMUMAB, HYALURONIDASE Benny Mondragon MD [address] [facility] [place], [place] [address] Anc Hem/Onc Andres Rodriguez DEPT CLOSED - 08/23/23 [address] [place] [phone] Referral ID Status Reason Start Date Expiration Date V isits Requested Visits Authorized Authorized 03/11/2022 10/09/2099 [id number] Encounter Details Date Type Department Care Team (Latest Contact Info) Description 02/28/2024 8:00 AM EDT Hem/Onc Treatment Hematology/Oncolog y Treatment, [place] [address] [place] [address] Jennifer, Chair 1 Hem Onc [place] [address] [place] [address] Encounter for antineoplastic chemotherapy*; Multiple myeloma not having achieved remission (HCC); Multiple myeloma, remission status unspecified (HCC) Allergies Active Allergy Reactions Criticality Noted Date Comments Adhesive Tape 02/06/2016 Ixazomib 08/09/2018 Hives, chills, diarrhea. Lenalidomide Hives 05/23/2018 Bortezomib Bleeding High 12/12/2018 Open sores w/bleeding on abdominal region documented as of this encounter (statuses as of 03/15/2024) Medications Medication Sig Dispensed Refills Start Date [...] as of this encounter (statuses as of 03/15/2024) Active Problems Problem Noted Date Diagnosed Date [...] as of this encounter (statuses as of 03/15/2024) Resolved Problems Problem Noted Date Diagnosed Date Resolved Date CVA 06/29/2002 01/23/2009 Overview: Modified per CVA protocol #8 FX CARPAL BONE NOS-CLOSE 06/29/200211/2016 documented as of this encounter (statuses as of 03/15/2024) Immunizations Name Administration Dates Next Due Pneumococcal [...] Sign Reading Time Taken Comments Blood Pressure 91/59 02/28/2024 8:00 AM EDT Pulse 117 02/28/2024 8:00 AM EDT Temperature 36.8 C (98.3 F) 02/28/2024 8:00 AM ED T Respiratory Rate 18 02/28/2024 8:00 AM EDT Oxygen Saturation 98% 02/28/2024 8:00 AM EDT Inhaled Oxygen Concentration - - Weight 48 kg (105 lb 12.8 oz) 02/28/2024 8:00 AM EDT Height - - Body Mass Index 18.16 09/13/2023 7:39 AM EST documented in this encounter Nursing Notes * Izabella Welsh RN - 02/28/2024 8:54 AM EDT VAD (Venous Access Device) accessed with #20G 3/4" without difficulty. VAD flushed with 10 ml NSS and Heparin 5 ml (100 units/ml). Caruso needle removed intact. Patient tolerated treatment well and was discharged in stable condition. * Izabella Welsh RN - 02/28/2024 8:13 AM EDT Chair 10 Chemotherapy/Immunotherapy agents: DARZALEX Consent for chemotherapy drug treatment complete, dated, and signed? yes, date - 04/06/22 Treatment lab parameters met? Yes Has treatment weight changed > than 10%? No Treatment preauthorized? Yes VITALS Filed Vitals: 02/28/24 0800 BP: 91/59 Pulse: 117 Resp: 18 Temp: 36.8 C (98.3 F) TempSrc: Tympanic SpO2: 98% Weight: 48 kg (105 lb 12.8 oz) Urine protein: N/A Patient education completed for treatment? Yes Blood transfusion consent signed and complete? NA Return appointment scheduled? Yes Patient had provider visit today? No - If no provider visit must complete Pretreatment Assessment Functional Status: Functional status at today's visit: [...] symptoms or adverse side effects during treatment. PRE-TREATMENT ASSESSMENT: NEURO: fatigue:rests as needed CV/RESP: denies symptoms GI/: denies symptoms OTHER: denies any additional symptoms PAIN: 0 Pt due for Xgeva. She states she is still trying to get some dental work done. Will continue to hold Xgeva at this time. documented in this encounter Plan of Treatment Upcoming Encounters Date Type Department Care Team (Late st Contact Info) Description 03/26/2024 7:10 AM EDT Laboratory Laboratory [facility] [place] [address] [place] [address] Jennifer, Lab [address] [facility] [place] [address] 03/27/2024 9:15 AM EDT Office Visit Hematology/Oncology [facility] [place] [address] [facility] [place] [phone] Benny Mondragon MD [address] [place] [address] 03/27/2024 9:45 AM EDT [facility] [address] [place] [address] Jennifer, Chair 11 Hem Onc [address] [place] [address] Health Maintenance Due Date Last Done Comments COVID-19 Vaccine (#1) 1945 Zoster Vaccines (1 of 2) 02/05/2009 12/11/2008 DXA Scan 08/07/2016 08/07/2014, 07/11, 08/01/2002, Additional history exists Depression Screening 05/11/2018 05/11/2017 DTaP,Tdap,and Td Vaccines (2 - Td or Tdap) 05/03/2026 05/03/2016, 07/10/2004, 07/10/2004 Pneumococcal Vaccine: 65+ Years Completed 06/17/2014, 08/03/2006 VITAMIN D LEVEL ONCE IN A LIFETIME-USE SMARTSET# [id number] Completed 05/22/2015, 03/05/2015, 04/23/2014 Influenza Vaccine (FLU [...] this encounter Medical Devices Implanted Type Area Assembly Lead Person Device Identifier Shelf Expiration Date Model / Serial / Lot Port Power Mri W/8fr Cath - [id number] Implanted:Qty : 1 on 12/09/2020 by Vince Jon MD at OR [facility] Right: Subclavian CR BARD : PERIPHERAL VASCULAR 02/06/2022 [id number] / / [id number] documented as of this encounter Visit Diagnoses Diagnosis Encounter for antineoplastic chemotherapy- Primary Multiple myeloma, remission status unspecified (HCC) documented in this encounter Administered Medications Inactive Administered Medications - up to 3 most recent administrations Medication Order MAR Action Action Date Dose Rate Site Acetaminophen (Tylenol) tab 650 mg 650 mg, Oral, ONCE, On Tue02/28/24 at 0845, For 1 dose, Maximum of 4 grams (4000 mg) per day. Given 02/28/2024 8:21 AM EDT 650 mg Daratumumab-hyaluronidase- fihj (Darzalex Faspro) 1800 mg-25045 units/ 15 ml subcut inj 15 mL, Subcutaneous, ONCE, On Tue02/28/24 at 0945, For 1 dose, Inject subcutanteously into abdomen over 3 to 5 minutes Given 02/28/2024 8:41 AM EDT 15 mL Abdomen Left Lower diphenhydrAMINE (Benadryl) cap 50 mg 50 mg, Oral, ONCE, On Tue02/28/24 at 0845, For 1 dose Given 02/28/2024 8:21 AM EDT 50 mg hEParin 100 UNIT/ML Lock Flush inj 500 Units 500 Units (5 mL), IV Lock, PRN Other, IV Flush, Starting on Tue02/28/24 at 0808, Until Tue02/28/24 at 1256, For 24 hours, Do not flush if lock, PICC, or central line not in place; IV infusing or unable to flush. Given 02/28/2024 8:22 AM EDT 500 Units sodium chloride 0.9 % flush central line 10 mL 10 mL, IV Push, PRN Other, IV Flush, Starting on Tue02/28/24 at 0808, Until Tue02/28/24 at 1256, For 24 hours, Do not flush if lock, PICC, or central line not in place; IV infusing or unable to flush. Given 02/28/2024 8:22 AM EDT 10 mL documented in this [...] and were consensually agreed upon. Care Teams Medical Office Asst Relationship Specialty Start Date End Date Artemio Mane III, MD [address] [place] [address] PCP - General Family Medicine 04/08/14 documented as of this encounter
--- OUTSIDE RECORDS SUMMARY | 2024-04-21 13:13 | External Medical Summary ---
Author Name Unknown Address Unknown Organization K01:[facility] - [address] [place] [address] Laboratory Report Ordering Provider Test Date Status JACEY COUGHLIN 03/26/2024 06:53:08 Final Observation Date Value Abnormality Reference (Units ) Status IgG 03/26/2024 06:53:08 3746 Above high normal 70 0-1600 (mg/dL) Final IgA 03/26/2024 06:53:08 27 Below low normal 70- 400 (mg/dL) Final IgM 03/26/2024 06:53:08 14 Below low normal 40- 230 (mg/dL) Final Performing Location [facility] - [address] [place] [address]
--- OUTSIDE RECORDS SUMMARY | 2024-04-21 13:13 | External Medical Summary ---
Author Name Unknown Address Unknown Organization K09:[facility] [place] [address] Laboratory Report Ordering Provider Test Date Status JACEY COUGHLIN 03/26/2024 06:53:08 Final Observation Date Value Abnormality Reference (Units ) Status SYNC LEUKOCYTES IN BLOOD BY AUTOMATED COUNT 03/26/2024 06:53:08 6.13 4.00-10.80 (K/uL) Final Segs 03/26/2024 06:53:08 41.3 40.0-75.0 (%) Final Lymphs % 03/26/2024 06:53:08 42.7 Above high normal 18.0-42.0 (%) Final Monos 03/26/2024 06:53:08 13.5 Above high normal 1.0-11.0 (%) Final Eosinophils 03/26/2024 06:53:08 2.3 0.0-6.0 (%) Final Basos 03/26/2024 06:53:08 0.2 0.0-2.0 (%) Final Absolute Segs 03/26/2024 06:53:08 2.53 1.80-7.70 (K/uL) Final Lymphs, absolute 03/26/2024 06:53:08 2.62 1.00-4.80 (K/ul) Final Monos, Abs 03/26/2024 06:53:08 0.83 0.00-1.10 (K/uL) Final Eos, Abs 03/26/2024 06:53:08 0.14 0.00-0.70 (K/uL) Final Basos, Abs 03/26/2024 06:53:08 0.01 0.00-0.20 (K/uL) Final Performing Location [facility] [place] [place] [address]
--- OUTSIDE RECORDS SUMMARY | 2024-04-21 13:14 | External Medical Summary | Summary of Care ---
Author Name Unknown Organization [facility] Address [address] [facility] [place] [address] Phone [phone] Care Team Providers Care Predatory Animal Hunter Name Role Phone Antonietta NORIEGA MD, Artemio Cedillo Primary Care Provider [phone] Encounter Details Date Type Department Care Team (Late st Contact Info) Description 01/30/2024 Orders Only Hematology/Oncology [facility] [address] [facility] [place] [phone] Benny Mondragon MD [address] [place] [address] Multiple myeloma not having achieved remission (HCC)* Allergies Active Allergy Reactions Criticality Noted Date Comments Adhesive Tape 02/06/2016 Ixazomib 08/09/2018 Hives, chills, diarrhea. Lenalidomide Hives 05/23/2018 Bortezomib Bleeding High 12/12/2018 Open sores w/bleeding on abdominal region documented as of this encounter (statuses as of 01/30/2024) Medications Medication Sig Dispensed Refills Start Date End Date Status Calcium Carb-Cholecalcifer ol (CALCIUM + D3) 600-800 MG-UNIT per tablet Take 2 Tablets by mouth in the morning. 0 Active Ondansetron HCl 8 MG Oral Tablet [...] TIMES DAILY NEEDED for diarrhea 60 Tab 0 05/28/2021 Active valACYclovir HCl 500 MG Oral [...] as of this encounter (statuses as of 01/30/2024) Active Problems Problem Noted Date Diagnosed Date [...] as of this encounter (statuses as of 01/30/2024) Resolved Problems Problem Noted Date Diagnosed Date Resolved Date CVA 06/29/2002 01/23/2009 Overview: Modified per CVA protocol #8 FX CARPAL BONE NOS-CLOSE 06/29/200211/2016 documented as of this encounter (statuses as of 01/30/2024) Immunizations Name Administration Dates Next Due Pneumococcal [...] Care Team (Late st Contact Info) Description 01/31/2024 8:00 AM EDT Hem/Onc Treatment Hematology/Oncology Treatment, [place] [address] [place] [phone] Jennifer, Chair 1 Hem Onc [address] [place] [address] 02/27/2024 7:20 AM EDT Laboratory Laboratory [facility] Jennifer [place] [address] [place] [phone] Jennifer, Lab Scenery [address] [facility] [place] [address] 02/28/2024 8:00 AM EDT [facility] 200 [facility], [place] [phone] Jennifer, Chair 1 Hem On[address], [place] [address] 03/26/2024 7:10 AM EDT Laboratory Laboratory [address] [place] [phone] Jennifer, Lab [address] [place], [place] [address] 03/27/2024 9:15 AM EDT Office Visit Hematology/Oncology [address], [place] [phone] Benny Mondragon MD [address] [place] [address], [place] [address] 03/27/2024 9:45 AM EDT Hem/Onc Treatment Hematology/Oncology [address], [place] [phone] Pending Results Name Type Priority Associated Diagnoses Date /Time PHOSPHORUS Lab Routine Multiple myeloma not having achieved remission (HCC) 01/30/2024 7:03 AM EDT Scheduled Orders Name Type Priority Associated Diagnoses Orde r Schedule PHOSPHORUS Lab Routine Multiple myeloma not having achieved remission (HCC) Expected: 01/30/2024, Expires: 01/29/2025 Health Maintenance Due Date Last Done Comments COVID-19 Vaccine (#1) 1945 Zoster Vaccines (1 of 2) 02/05/2009 12/11/2008 DXA Scan 08/07/2016 08/07/2014, 07/11, 08/01/2002, Additional history exists Depression Screening 05/11/2018 05/11/2017 DTaP,Tdap,and Td Vaccines (2 - Td or Tdap) 05/03/2026 05/03/2016, 07/10/2004, 07/10/2004 Pneumococcal Vaccine: 65+ Years Completed 06/17/2014, 08/03/2006 VITAMIN D LEVEL ONCE IN A LIFETIME-USE SMARTSET# [id number] Completed 05/22/2015, 03/05/2015, 04/23/2014 Influenza Vaccine (FLU [...] this encounter Medical Devices Implanted Type Area Copywriting Intern Device Identifier Shelf Expiration Date Model / Serial / Lot Port Power Mri W/8fr Cath - [id number] Implanted:Qty : 1 on 12/09/2020 by Vince Jon MD at OR [facility] Right: Subclavian CR BARD : PERIPHERAL VASCULAR 02/06/2022 [id number] / / [id number] documented as of this encounter Visit Diagnoses Diagnosis Multiple myeloma not having achieved remission (HCC)- Primary Multiple myeloma, without mention of having achieved remission documented in this encounter Advance Directives Latest Code Status on File Code Status Date Activated Date Inactivated Comments Full Code 12/09/2020 12:28 PM 12/09/2020 5:38 PM This o rder reflects the patients wishes and were consensually agreed upon. Code Status History Code Status Date Activated Date Inactivated Comments Full Code 12/09/2020 10:53 AM 12/09/2020 12:28 PM This order reflects the patients wishes and were consensually agreed upon. Care Teams Predatory Animal Hunter Relationship Specialty Start Date End Date Artemio Mane III, MD [address] [place] [address] PCP - General Family Medicine 04/08/14 documented as of this encounter
--- OUTSIDE RECORDS SUMMARY | 2024-04-21 13:14 | External Medical Summary | Summary of Care ---
Author Name Unknown Organization [facility] Address [address] [place] [address] Phone [phone] Care Team Providers Care Marble Worker Name Role Phone Antonietta NORIEGA MD, Artemio Cedillo Primary Care Provider [phone] Reason for Visit * Reason Comments Chemotherapy Darzalex Faspro Medication Administration Xgeva * Episode Based Medications (Routine) - Authorized Specialty Diagnoses / Procedures Referred By Contanatoly t Referred To Contact Diagnoses Encounter for antineoplastic chemotherapy Multiple myeloma not having achieved remission (HCC) Procedures [place] DARATUMUMAB, HYALURONIDASE Benny Mondragon MD [address] [place], [place] [address] Anc Hem/Onc [facility] DEPT CLOSED - 08/23/23 200 [facility] [place] [phone] Referral ID Status Reason Start Date Expiration Date V isits Requested Visits Authorized Authorized 03/11/2022 10/09/[id number] Encounter Details Date Type Department Care Team (Latest Contact Info) Description 01/31/2024 8:00 AM EDT Hem/Onc Treatment Hematology/Oncolog y Treatment, [place] [address] [place] [phone] Jennifer, Chair 1 Hem Onc Scenery [address] [place] [address] Encounter for antineoplastic chemotherapy*; Multiple myeloma not having achieved remission (HCC) Allergies Active Allergy Reactions Criticality Noted Date Comments Adhesive Tape 02/06/2016 Ixazomib 08/09/2018 Hives, chills, diarrhea. Lenalidomide Hives 05/23/2018 Bortezomib Bleeding High 12/12/2018 Open sores w/bleeding on abdominal region documented as of this encounter (statuses as of 01/31/2024) Medications Medication Sig Dispensed Refills Start Date [...] as of this encounter (statuses as of 01/31/2024) Active Problems Problem Noted Date Diagnosed Date [...] as of this encounter (statuses as of 01/31/2024) Resolved Problems Problem Noted Date Diagnosed Date Resolved Date CVA 06/29/2002 01/23/2009 Overview: Modified per CVA protocol #8 FX CARPAL BONE NOS-CLOSE 06/29/200211/2016 documented as of this encounter (statuses as of 01/31/2024) Immunizations Name Administration Dates Next Due Pneumococcal [...] 0 06/26/1956 - 06/26/2002 Smokeless Tobacco: Never Tobacco Cessation:Counseling Given: Not Answered Alcohol Use Standard Drinks/Week Comments Yes 0 [...] Sign Reading Time Taken Comments Blood Pressure 94/62 01/31/2024 7:56 AM EDT Pulse 114 01/31/2024 7:56 AM EDT Temperature 36.6 C (97.8 F) 01/31/2024 7:56 AM ED T Respiratory Rate 16 01/31/2024 7:56 AM EDT Oxygen Saturation 98% 01/31/2024 7:56 AM EDT Inhaled Oxygen Concentration - - Weight 47.5 kg (104 lb 12.8 oz) 01/31/2024 7:56 AM EDT Height - - Body Mass Index 17.99 09/13/2023 7:39 AM EST documented in this encounter Nursing Notes * Luna Obrien, RN - 01/31/2024 7:56 AM EDT Chair 11 Chemotherapy/Immunotherapy agents: Darzalex Faspro Consent for chemotherapy drug treatment complete, dated, and signed? yes, date - 04/06/22 Treatment lab parameters met? Yes Has treatment weight changed > than 10%? No Treatment preauthorized? Yes VITALS Filed Vitals: 01/31/24 0756 BP: 94/62 Pulse: 114 Resp: 16 Temp: 36.6 C (97.8 F) TempSrc: Tympanic SpO2: 98% Weight: 47.5 kg (104 lb 12.8 oz) Urine protein: N/A Patient education completed for treatment? Yes Blood transfusion consent signed and complete? NA Return appointment scheduled? Yes Patient had provider visit today? No - If no provider visit must complete Pretreatment Assessment PRE-TREATMENT ASSESSMENT: NEURO: denies symptoms CV/RESP: denies symptoms GI/: denies symptoms OTHER: denies any additional symptoms PAIN: 0 Pt is due for Xgeva today. Pt stated she will hold off due to pending dental work (possible extraction and crown). Pt reports feeling increased stress at home due to spouse's declining mental status.Pt stated her spouse's dementia has progressed to the point of him not recognizing their marriage, and acting erratic with regard to finances. Pt's has not driven for the last few years, and pt stated all firearms have been removed from their home. Pt does have local family support. Pt stated she feels her family is "getting close" to having to consider an alternate living arrangement forher due to safety concerns. Pt is visibly distressed while discussing these issues, and stated she does not know what resources are available to help them. Pt stated it has been hard to find a provider that "understands." Provided emotional support to patient, and encouraged her to follow up with spouse's PCP office to ask about case management services. Darzalex Faspro administered per order; pt tolerated well. Functional Status: Functional status at today's visit: [...] symptoms or adverse side effects during treatment. Pt discharged in stable condition. documented in this encounter Plan of Treatment Upcoming Encounters Date Type Department Care Team (Late st Contact Info) Description 02/27/2024 7:20 AM EDT Laboratory Laboratory [facility] 200 [facility] [place] [phone] Jennifer, Lab [facility] [address] [facility] [place] [address] 02/28/2024 8:00 AM EDT Hem/Onc Treatment Hematology/Oncology Treatment, [place] [address] [place] [phone] Jennifer, Chair 1 Hem Onc [facility] [address] [place] [address] 03/26/2024 7:10 AM EDT Laboratory Laboratory [facility] [place] [address] [place] [phone] Jennifer, Lab [facility] [address] [place] [address] 03/27/2024 9:15 AM EDT Office Visit Hematology/Oncology [facility] 200 [facility] [place] [phone] [facility] [address] 03/27/2024 9:45 AM EDT Hem/Onc Treatment [facility] [place] [facility] [phone] Health Maintenance Due Date Last Done Comments COVID-19 Vaccine (#1) 1945 Zoster Vaccines (1 of 2) 02/05/2009 12/11/2008 DXA Scan 08/07/2016 08/07/2014, 07/11, 08/01/2002, Additional history exists Depression Screening 05/11/2018 05/11/2017 DTaP,Tdap,and Td Vaccines (2 - Td or Tdap) 05/03/2026 05/03/2016, 07/10/2004, 07/10/2004 Pneumococcal Vaccine: 65+ Years Completed 06/17/2014, 08/03/2006 VITAMIN D LEVEL ONCE IN A LIFETIME-USE SMARTSET# [id number] Completed 05/22/2015, 03/05/2015, 04/23/2014 Influenza Vaccine (FLU [...] this encounter Medical Devices Implanted Type Area Biomedical Equipment Support Specialist Device Identifier Shelf Expiration Date Model / Serial / Lot Port Power Mri W/8fr Cath - [id number] Implanted:Qty : 1 on 12/09/2020 by Vince Jon MD at OR [facility] Right: Subclavian CR BARD : PERIPHERAL VASCULAR 02/06/2022 [id number] / / [id number] documented as of this encounter Visit Diagnoses Diagnosis Encounter for antineoplastic chemotherapy- Primary Multiple myeloma not having achieved remission (HCC) Multiple myeloma, without mention of having achieved remission documented in this encounter Administered Medications Active Administered Medications - up to 3 most recent administrations Medication Order MAR Action Action Date Dose Rate Site diphenhydrAMINE (Benadryl) inj 50 mg 50 mg, IV Push, ONCE PRN Other, Hypersensitivity Reaction, Starting on Tue01/31/24 at 0809, Until Tue02/01/24 at 0808, For 24 hours EPINEPHrine 1 MG/ML inj 0.3 mg 0.3 mg, Intramuscular, ONCE PRN Other, Hypersensitivity Reaction or Anaphylaxis, Starting on Tue01/31/24 at 0809, Until Tue02/01/24 at 0808, For 24 hours Hydrocortisone Sod Suc (PF) (Solu-Cortef) inj 100 mg 100 mg, IV Push, ONCE PRN Other, Hypersensitivity Reaction, Starting on Tue01/31/24 at 0809, Until Tue02/01/24 at 0808, For 24 hours meperidine (Demerol) 25 MG/ML inj 25 mg 25 mg, IV Push, ONCE PRN Shivering, Starting on Tue01/31/24 at 0809, Until Tue02/01/24 at 0808, For 24 hours Inactive Administered Medications - up to 3 most recent administrations Medication Order MAR Action Action Date Dose Rate Site Acetaminophen (Tylenol) tab 650 mg 650 mg, Oral, ONCE, On Tue01/31/24 at 0830, For 1 dose, Maximum of 4 grams (4000 mg) per day. Given 01/31/2024 8:13 AM EDT 650 mg Ejsvckrnykh-ufnwnqcsluuqz-t ihj (Darzalex Faspro) 1800 mg-79568 units/ 15 ml subcut inj 15 mL, Subcutaneous, ONCE, On Tue01/31/24 at 0945, For 1 dose, Inject subcutanteously into abdomen over 3 to 5 minutes Given 01/31/2024 8:28 AM EDT 15 mL Abdomen Right Lower diphenhydrAMINE (Benadryl) cap 50 mg 50 mg, Oral, ONCE, On Tue01/31/24 at 0830, For 1 dose Given 01/31/2024 8:13 AM EDT 50 mg documented in this encounter Advance Directives Latest [...] and were consensually agreed upon. Care Teams Marble Worker Relationship Specialty Start Date End Date Artemio Mane III, MD 200 [place] [address] PCP - General Family Medicine 04/08/14 documented as of this encounter
--- OUTSIDE RECORDS SUMMARY | 2024-04-21 13:14 | External Medical Summary | Summary of Care ---
Author Name Unknown Organization [facility] Address [address] [place] [address] Phone [phone] Care Team Providers Care Clerk Telegraph Service Name Role Phone Antonietta NORIEGA MD, Artemio Cedillo Primary Care Provider [phone] Reason for Visit * Reason Comments Chemotherapy Darzalex faspron Procedure Port flush * Episode Based Medications (Routine) - Authorized Specialty Diagnoses / Procedures Referred By Contanatoly t Referred To Contact Diagnoses Encounter for antineoplastic chemotherapy Multiple myeloma not having achieved remission (HCC) Procedures [place] DARATUMUMAB, HYALURONIDASE Benny Mondragon MD 200 [facility] [place] [address] Anc Hem/Onc [facility] DEPT CLOSED - 08/23/23 [address] [place] [phone] Referral ID Status Reason Start Date Expiration Date V isits Requested Visits Authorized Authorized 03/11/2022 10/09/[phone] Encounter Details Date Type Department Care Team (Latest Contact Info) Description 02/28/2024 8:00 AM EDT Hem/Onc Treatment Hematology/Oncolog y Treatment, [place] [address] [place] [phone] Jennifer, Chair 1 Hem Onc [place] [address] [place] [address] Encounter for antineoplastic chemotherapy*; Multiple myeloma not having achieved remission (HCC); Multiple myeloma, remission status unspecified (HCC) Allergies Active Allergy Reactions Criticality Noted Date Comments Adhesive Tape 02/06/2016 Ixazomib 08/09/2018 Hives, chills, diarrhea. 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 Overview: Modified per CVA protocol #8 FX CARPAL BONE NOS-CLOSE 06/29/200211/2016 documented as of this encounter (statuses as of 02/28/2024) Immunizations Name Administration Dates Next Due Pneumococcal [...] Description 03/26/2024 7:10 AM EDT Laboratory Laboratory [facility] [place] 200 [facility] [place] [phone] [facility] Lab [address] [place] [address] 03/27/2024 9:15 AM EDT Office Visit Hematology/Oncology [facility] [place] [address] [place] [phone] Benny Mondragon MD 200 [facility] [place] [address] 03/27/2024 9:45 AM EDT Hem/Onc Treatment Hematology/Oncology Treatment, [place] [facility] [phone] Health Maintenance Due Date Last Done Comments COVID-19 Vaccine (#1) 1945 Zoster Vaccines (1 of 2) 02/05/2009 12/11/2008 DXA Scan 08/07/2016 08/07/2014, 07/11, 08/01/2002, Additional history exists Depression Screening 05/11/2018 05/11/2017 DTaP,Tdap,and Td Vaccines (2 - Td or Tdap) 05/03/2026 05/03/2016, 07/10/2004, 07/10/2004 Pneumococcal Vaccine: 65+ Years Completed 06/17/2014, 08/03/2006 VITAMIN D LEVEL ONCE IN A LIFETIME-USE SMARTSET# [id number] Completed 05/22/2015, 03/05/2015, 04/23/2014 Influenza Vaccine (FLU [...] this encounter Medical Devices Implanted Type Area Liquified Natural Gas Technician Device Identifier Shelf Expiration Date Model / Serial / Lot Port Power Mri W/8fr Cath - [id number] Implanted:Qty : 1 on 12/09/2020 by Vince Jon MD at OR [facility] Right: Subclavian CR BARD : PERIPHERAL VASCULAR 02/06/2022 [id number] / / [id number] documented as of this encounter Visit Diagnoses Diagnosis Encounter for antineoplastic chemotherapy- Primary Multiple myeloma, remission status unspecified (HCC) documented in this encounter Administered Medications Active Administered Medications - up to 3 most recent administrations Medication Order MAR Action Action Date Dose Rate Site diphenhydrAMINE (Benadryl) inj 50 mg 50 mg, IV Push, ONCE PRN Other, Hypersensitivity Reaction, Starting on Tue02/28/24 at 0808, Until Tue02/29/24 at 0807, For 24 hours EPINEPHrine 1 MG/ML inj 0.3 mg 0.3 mg, Intramuscular, ONCE PRN Other, Hypersensitivity Reaction or Anaphylaxis, Starting on Tue02/28/24 at 0808, Until Tue02/29/24 at 0807, For 24 hours hEParin 100 UNIT/ML Lock Flush inj 500 Units 500 Units (5 mL), IV Lock, PRN Other, IV Flush, Starting on Tue02/28/24 at 0808, Until Tue02/29/24 at 0807, For 24 hours, Do not flush if lock, PICC, or central line not in place; IV infusing or unable to flush. Given 02/28/2024 8:22 AM EDT 500 Units Hydrocortisone Sod Suc (PF) (Solu-Cortef) inj 100 mg 100 mg, IV Push, ONCE PRN Other, Hypersensitivity Reaction, Starting on Tue02/28/24 at 0808, Until Tue02/29/24 at 0807, For 24 hours meperidine (Demerol) 25 MG/ML inj 25 mg 25 mg, IV Push, ONCE PRN Shivering, Starting on Tue02/28/24 at 0808, Until Tue02/29/24 at 0807, For 24 hours sodium chloride 0.9 % flush central line 10 mL 10 mL, IV Push, PRN Other, IV Flush, Starting on Tue02/28/24 at 0808, Until Tue02/29/24 at 0807, For 24 hours, Do not flush if lock, PICC, or central line not in place; IV infusing or unable to flush. Given 02/28/2024 8:22 AM EDT 10 mL Inactive Administered Medications - up to 3 most recent administrations Medication Order MAR Action Action Date Dose Rate Site Acetaminophen (Tylenol) tab 650 mg 650 mg, Oral, ONCE, On Tue02/28/24 at 0845, For 1 dose, Maximum of 4 grams (4000 mg) per day. Given 02/28/2024 8:21 AM EDT 650 mg Zupnpggwdeq-tcexdrkpeetbu-k ihj (Darzalex Faspro) 1800 mg-88406 units/ 15 ml subcut inj 15 mL, Subcutaneous, ONCE, On Tue02/28/24 at 0945, For 1 dose, Inject subcutanteously into abdomen over 3 to 5 minutes Given 02/28/2024 8:41 AM EDT 15 mL Abdomen Left Lower diphenhydrAMINE (Benadryl) cap 50 mg 50 mg, Oral, ONCE, On Tue02/28/24 at 0845, For 1 dose Given 02/28/2024 8:21 AM EDT 50 mg documented in this [...] and were consensually agreed upon. Care Teams Clerk Telegraph Service Relationship Specialty Start Date End Date Artemio Mane III, MD 200 [facility] [place] [facility] [address] PCP - General Family Medicine 04/08/14 documented as of this encounter
--- OUTSIDE RECORDS SUMMARY | 2024-04-21 13:14 | External Medical Summary ---
Author Name Unknown Address Unknown Organization K01:[facility] [address] [facility] [address] [place] [address] Laboratory Report Ordering Provider Test Date Status JACEY COUGHLIN 01/02/2024 06:59:44 Final Observation Date Value Abnormality Reference (Units ) Status [place] light chains, Free, Serum 01/02/2024 06:59:44 70.98 Above high normal 3.30-19.40 (mg/L) Final [place] light chains, free, Serum 01/02/2024 06:59:44 9.83 5.71-26.30 (mg/L) Final KAPPA LAMBDA FLC RATIO 01/02/2024 06:59:44 7.22 Above high normal 0.26-1.65 Final Performing Location [facility] [place] [address] [place] [address]
--- OUTSIDE RECORDS SUMMARY | 2024-04-21 13:14 | External Medical Summary | Summary of Care ---
Author Name Unknown Organization [facility] Address [address] [place] [address] Phone [phone] Care Team Providers Care Horticultural Farm Manager Name Role Phone Antonietta NORIEGA MD, Artemio Cedillo Primary Care Provider [phone] Reason for Visit * Reason Comments Chemotherapy Darzalex Faspro Medication Administration Xgeva * Episode Based Medications (Routine) - Authorized Specialty Diagnoses / Procedures Referred By Miranda t Referred To Contact Diagnoses Encounter for antineoplastic chemotherapy Multiple myeloma not having achieved remission (HCC) Procedures CA DARATUMUMAB, HYALURONIDASE Benny Mondragon MD [address] [place] [address] Anc Hem/Onc And[facility] [place] DEPT CLOSED - 08/23/23 [address] [place] [phone] Referral ID Status Reason Start Date Expiration Date V isits Requested Visits Authorized Authorized 03/11/2022 10/09/[id number] Encounter Details Date Type Department Care Team (Latest Contact Info) Description 01/31/2024 8:00 AM EDT Hem/Onc Treatment Hematology/Oncolog y Treatment, [place] [address] [place] [phone] Jennifer, Chair 1 Hem Onc Scenery 200 [facility] [place] [address] Encounter for antineoplastic chemotherapy*; Multiple myeloma not having achieved remission (HCC) Allergies Active Allergy Reactions Criticality Noted Date Comments Adhesive Tape 02/06/2016 Ixazomib 08/09/2018 Hives, chills, diarrhea. 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 Overview: Modified per CVA protocol #8 FX CARPAL BONE NOS-CLOSE 06/29/200211/2016 documented as of this encounter (statuses as of 02/15/2024) Immunizations Name Administration Dates Next Due Pneumococcal [...] Description 02/27/2024 7:20 AM EDT Laboratory Laboratory [facility] [place] [address] [place] [phone] Jennifer Lab Scenery [address] [place] [address] [address] 02/28/2024 8:00 AM EDT Hem/Onc Treatment Hematology/Oncology Treatment, [place] [address] [place] [phone] Jennifer, Chair 1 Hem Onc Scene [address] [place] [address] [address] 03/26/2024 7:10 AM EDT Laboratory Laboratory [facility] Jennifer [place] [address] [place] [phone] Jennifer, Lab Scenery [address] [place] [address] 03/27/2024 9:15 AM EDT Office Visit Hematology/Oncology [facility] 200 [facility] [place] [phone] Benny Mondragon MD 200 [facility] [place] [address] 03/27/2024 9:45 AM EDT Hem/Onc Treatment Hematology/Oncology Treatment, [place] 200 [facility] [place] [phone] Health Maintenance Due Date Last Done Comments COVID-19 Vaccine (#1) 1945 Zoster Vaccines (1 of 2) 02/05/2009 12/11/2008 DXA Scan 08/07/2016 08/07/2014, 07/11, 08/01/2002, Additional history exists Depression Screening 05/11/2018 05/11/2017 DTaP,Tdap,and Td Vaccines (2 - Td or Tdap) 05/03/2026 05/03/2016, 07/10/2004, 07/10/2004 Pneumococcal Vaccine: 65+ Years Completed 06/17/2014, 08/03/2006 VITAMIN D LEVEL ONCE IN A LIFETIME-USE SMARTSET# [id number] Completed 05/22/2015, 03/05/2015, 04/23/2014 Influenza Vaccine (FLU [...] this encounter Medical Devices Implanted Type Area Analytical Engineer Device Identifier Shelf Expiration Date Model / Serial / Lot Port Power Mri W/8fr Cath - [id number] Implanted:Qty : 1 on 12/09/2020 by Vince Jon MD at OR [facility] Right: Subclavian CR BARD : PERIPHERAL VASCULAR 02/06/2022 [id number] / / [id number] documented as of this encounter Visit Diagnoses Diagnosis Encounter for antineoplastic chemotherapy- Primary Multiple myeloma not having achieved remission (HCC) Multiple myeloma, without mention of having achieved remission documented in this encounter Administered Medications Inactive Administered Medications - up to 3 most recent administrations Medication Order MAR Action Action Date Dose Rate Site Acetaminophen (Tylenol) tab 650 mg 650 mg, Oral, ONCE, On Tue01/31/24 at 0830, For 1 dose, Maximum of 4 grams (4000 mg) per day. Given 01/31/2024 8:13 AM EDT 650 mg Uufazrsjnep-aufizrewxgjpv-d ihj (Darzalex Faspro) 1800 mg-60160 units/ 15 ml subcut inj 15 mL, [...] and were consensually agreed upon. Care Teams Horticultural Farm Manager Relationship Specialty Start Date End Date Artemio Mane III, MD [address] [place] [address] PCP - General Family Medicine 04/08/14 documented as of this encounter
--- OUTSIDE RECORDS SUMMARY | 2024-04-21 13:14 | External Medical Summary ---
Author Name Unknown Address Unknown Organization [id number][facility] [address] [place] [address] Laboratory Report Ordering Provider Test Date Status JACEY COUGHLIN 02/27/2024 06:58:48 Final Observation Date Value Abnormality Reference (Units ) Status BUN 02/27/2024 06:58:48 15 6-20 (mg/dL) Final Creatinine 02/27/2024 06:58:48 0.9 0.5-1.0 (mg/dL) Final Glomerular filtration rate/1.73 sq M.predicted [Volume Rate/Area] in Serum, Plasma or Blood by Creatinine-based formula (CKD-EPI) 02/27/2024 06:58:48 67 >=60 (mL/min) Final eGFR is calculated based on the CKD-EPI 2020 equation Sodium 02/27/2024 06:58:48 140 135-146 (m mol/L) Final Potassium 02/27/2024 06:58:48 4.6 3.5-5.1 (m mol/L) Final Cl 02/27/2024 06:58:48 106 98-107 (mm ol/L) Final CO2 02/27/2024 06:58:48 26 22-32 (mmo l/L) Final Anion gap 02/27/2024 06:58:48 8 7-15 (mmol /L) Final Glucose 02/27/2024 06:58:48 95 70-120 (mg /dL) Final Albumin 02/27/2024 06:58:48 3.4 Below low normal 3.8 -5.0 (g/dL) Final AST (Aspartate aminotransferase) 02/27/2024 06:58:48 16 10-35 (U/L) Fin al Alk Phos 02/27/2024 06:58:48 95 35-130 (U/ L) Final Bilirubin, Total 02/27/2024 06:58:48 0.6 <=1 .2 (mg/dL) Final Calcium 02/27/2024 06:58:48 9.0 8.4-10.2 ( mg/dL) Final Protein 02/27/2024 06:58:48 8.1 6.0-8.3 (g /dL) Final ALT (Alanine aminotransferase) 02/27/2024 06:58:48 8 Below low normal 10-35 (U/L) Final Performing Location [place] [address]
--- OUTSIDE RECORDS SUMMARY | 2024-04-21 13:14 | External Medical Summary ---
Author Name Unknown Address Unknown Organization [id number]:[facility] - [address] [place] [address] Laboratory Report Ordering Provider Test Date Status JACEY COUGHLIN 01/30/2024 07:03:02 Final Observation Date Value Abnormality Reference (Units ) Status IgG 01/30/2024 07:03:02 2215 Above high normal 70 0-1600 (mg/dL) Final IgA 01/30/2024 07:03:02 46 Below low normal 70- 400 (mg/dL) Final IgM 01/30/2024 07:03:02 17 Below low normal 40- 230 (mg/dL) Final Performing Location [facility] - [address] [place] [address]
--- OUTSIDE RECORDS SUMMARY | 2024-04-21 13:14 | External Medical Summary | Summary of Care ---
Author Name Unknown Organization [facility] Address [address] [place] [address] Phone [phone] Care Team Providers Care Gymnastics Coach Or Instructor Name Role Phone Antonietta NORIEGA MD, Artemio Cedillo Primary Care Provider [phone] Reason for Visit * Reason Comments Chemotherapy Darzalex Faspro Procedure Port flush * Episode Based Medications (Routine) - Authorized Specialty Diagnoses / Procedures Referred By Contac t Referred To Contact Diagnoses Encounter for antineoplastic chemotherapy Multiple myeloma not having achieved remission (HCC) Procedures [place] DARATUMUMAB, HYALURONIDASE Benny Mondragon MD 200 [facility] [place] [address] Anc Hem/Onc [facility] Rodriguez DEPT CLOSED - 08/23/23 200 [facility] [place] [address] Referral ID Status Reason Start Date Expiration Date V isits Requested Visits Authorized Authorized 03/11/2022 10/09/[id number] Encounter Details Date Type Department Care Team (Latest Contact Info) Description 01/03/2024 8:45 AM EDT Hem/Onc Treatment Hematology/Oncolog y Treatment, [address] [place] [phone] Jennifer, Chair [address] [place] [address] Encounter for antineoplastic chemotherapy*; Multiple myeloma not having achieved remission (HCC); Multiple myeloma, remission status unspecified (HCC) Allergies Active Allergy Reactions Criticality Noted Date Comments Adhesive Tape 02/06/2016 Ixazomib 08/09/2018 Hives, chills, diarrhea. Lenalidomide Hives 05/23/2018 Bortezomib Bleeding High 12/12/2018 Open sores w/bleeding on abdominal region documented as of this encounter (statuses as of 01/03/2024) Medications Medication Sig Dispensed Refills Start Date [...] the morning. 90 Tablet 3 09/22/2023 Active documented as of this encounter (statuses as of 01/03/2024) Active Problems Problem Noted Date Diagnosed Date [...] as of this encounter (statuses as of 01/03/2024) Resolved Problems Problem Noted Date Diagnosed Date Resolved Date CVA 06/29/2002 01/23/2009 Overview: Modified per CVA protocol #8 FX CARPAL BONE NOS-CLOSE 06/29/200211/2016 documented as of this encounter (statuses as of 01/03/2024) Immunizations Name Administration Dates Next Due Pneumococcal [...] Nursing Notes * Yas Guajardo RN - 01/03/2024 8:26 AM EDT Chair 9. Patient here for Darzalex Faspro and port flush. Pt saw Dr. Mondragon today -- see OV note for details. Per Dr. Mondragon, patient should take Decadron once weekly instead of once monthly now, otherwise no changes to current tx plan. Chemotherapy/Immunotherapy agents: Darzalex Faspro Consent for chemotherapy [...] symptoms or adverse side effects during treatment. VAD (Venous Access Device) accessed with #19G 3/4" without difficulty. VAD flushed with 10 ml NSS and Heparin 5 ml (100 units/ml). Caruso needle removed intact. Patient tolerated treatment well without any acute issues or problems. Patient left facility in stable condition and denied any further needs. documented in this encounter Plan of Treatment Upcoming Encounters Date Type Department Care Team (Late st Contact Info) Description 01/30/2024 7:10 AM EDT Laboratory Laboratory [place] [facility] [address] [place] [phone] Jennifer Lab Scenery [address] [place] [address] 01/31/2024 8:00 AM EDT Hem/Onc Treatment Hematology/Oncology Treatment, [address] 200 [facility] [place] [phone] Jennifer, Chair 1 Hem Onc Scenery [address], [place] [address] 02/27/2024 7:20 AM EDT Laboratory Laboratory [facility] [address], [place] [phone] Jennifer, Lab Scenery [address] [place] [address] 02/28/2024 8:00 AM EDT Hem/Onc Treatment Hematology/Oncology Treatment, [address] 200 [facility], [place] [phone] Jennifer, Chair 1 Hem Onc Scenery 200 [facility] [address], [place] [address] 03/26/2024 7:10 AM EDT Laboratory Laboratory [facility] [address], [place] [phone] Jennifer, Lab Scenery 200 [facility] [place] [address] 03/27/2024 9:15 AM EDT Office Visit Hematology/Oncology [facility] [address], [place] [phone] Benny Mondragon MD [address] [facility] [address], [place] [address] 03/27/2024 9:45 AM EDT [facility] 200 [facility], [place] [phone] Health Maintenance Due Date Last Done Comments COVID-19 Vaccine (#1) 1945 Zoster Vaccines (1 of 2) 02/05/2009 12/11/2008 DXA Scan 08/07/2016 08/07/2014, 07/11, 08/01/2002, Additional history exists Depression Screening 05/11/2018 05/11/2017 DTaP,Tdap,and Td Vaccines (2 - Td or Tdap) 05/03/2026 05/03/2016, 07/10/2004, 07/10/2004 Pneumococcal Vaccine: 65+ Years Completed 06/17/2014, 08/03/2006 VITAMIN D LEVEL ONCE IN A LIFETIME-USE SMARTSET# [id number] Completed 05/22/2015, 03/05/2015, 04/23/2014 Influenza Vaccine (FLU [...] encounter Medical Devices Implanted Type Area Oracle Erp Architect Device Identifier Shelf Expiration Date Model / Serial / Lot Port Power Mri W/8fr Cath - [id number] Implanted:Qty : 1 on 12/09/2020 by Vince Jon MD at OR [facility] Right: Subclavian CR BARD : PERIPHERAL VASCULAR 02/06/2022 [id number] / / [id number] documented as of this encounter Visit Diagnoses Diagnosis Encounter for antineoplastic chemotherapy- Primary Multiple myeloma, remission status unspecified (HCC) documented in this encounter Administered Medications Active Administered Medications - up to 3 most recent administrations Medication Order MAR Action Action Date Dose Rate Site diphenhydrAMINE (Benadryl) inj 50 mg 50 mg, IV Push, ONCE PRN Other, Hypersensitivity Reaction, Starting on Tue01/03/24 at 0813, Until Tue01/04/24 at 0812, For 24 hours EPINEPHrine 1 MG/ML inj 0.3 mg 0.3 mg, Intramuscular, ONCE PRN Other, Hypersensitivity Reaction or Anaphylaxis, Starting on Tue01/03/24 at 0813, Until Tue01/04/24 at 0812, For 24 hours hEParin 100 UNIT/ML Lock Flush inj 500 Units 500 Units (5 mL), IV Lock, PRN Other, IV Flush, Starting on Tue01/03/24 at 0822, Until Tue01/04/24 at 0821, For 24 hours, Do not flush if lock, PICC, or central line not in place; IV infusing or unable to flush. Given 01/03/2024 8:49 AM EDT 500 Units Hydrocortisone Sod Suc (PF) (Solu-Cortef) inj 100 mg 100 mg, IV Push, ONCE PRN Other, Hypersensitivity Reaction, Starting on Tue01/03/24 at 0813, Until Tue01/04/24 at 0812, For 24 hours meperidine (Demerol) 25 MG/ML inj 25 mg 25 mg, IV Push, ONCE PRN Shivering, Starting on Tue01/03/24 at 0813, Until Tue01/04/24 at 0812, For 24 hours sodium chloride 0.9 % flush central line 10 mL 10 mL, IV Push, PRN Other, IV Flush, Starting on Tue01/03/24 at 0822, Until Tue01/04/24 at 0821, For 24 hours, Do not flush if lock, PICC, or central line not in place; IV infusing or unable to flush. Given 01/03/2024 8:48 AM EDT 10 mL Inactive Administered Medications - up to 3 most recent administrations Medication Order MAR Action Action Date Dose Rate Site Acetaminophen (Tylenol) tab 650 mg 650 mg, Oral, ONCE, On Tue01/03/24 at 0845, For 1 dose, Maximum of 4 grams (4000 mg) per day. Given 01/03/2024 8:20 AM EDT 650 mg Xgtqdnvjlkj-lbrwwdbxhfrqu-i ihj (Darzalex Faspro) 1800 mg-04151 units/ 15 ml subcut inj 15 mL, Subcutaneous, ONCE, On Tue01/03/24 at 0945, For 1 dose, Inject subcutanteously into abdomen over 3 to 5 minutes Given 01/03/2024 8:48 AM EDT 15 mL Abdomen Left Lower diphenhydrAMINE (Benadryl) cap 50 mg 50 mg, Oral, ONCE, On Tue01/03/24 at 0845, For 1 dose Given 01/03/2024 8:20 AM EDT 50 mg documented in this [...] and were consensually agreed upon. Care Teams Gymnastics Coach Or Instructor Relationship Specialty Start Date End Date Artemio Mane III, MD 200 [place] [address] PCP - General Family Medicine 04/08/14 documented as of this encounter
--- OUTSIDE RECORDS SUMMARY | 2024-04-21 13:14 | External Medical Summary ---
Author Name Unknown Address Unknown Organization K01:[facility] - [address] [place] [address] Laboratory Report Ordering Provider Test Date Status JACEY COUGHLIN 02/27/2024 06:58:48 Final Observation Date Value Abnormality Reference (Units ) Status IgG 02/27/2024 06:58:48 2800 Above high normal 70 0-1600 (mg/dL) Final IgA 02/27/2024 06:58:48 31 Below low normal 70- 400 (mg/dL) Final IgM 02/27/2024 06:58:48 15 Below low normal 40- 230 (mg/dL) Final Performing Location [facility] - [address] [place] [place] [address]
--- OUTSIDE RECORDS SUMMARY | 2024-04-21 13:14 | External Medical Summary ---
Author Name Unknown Address Unknown Organization K09:[facility] [place] [address] Laboratory Report Ordering Provider Test Date Status JACEY COUGHLIN 01/30/2024 07:03:02 Final Observation Date Value Abnormality Reference (Units ) Status SYNC LEUKOCYTES IN BLOOD BY AUTOMATED COUNT 01/30/2024 07:03:02 6.51 4.00-10.80 (K/uL) Final Segs 01/30/2024 07:03:02 48.4 40.0-75.0 (%) Final Lymphs % 01/30/2024 07:03:02 37.3 18.0-42.0 (%) Final Monos 01/30/2024 07:03:02 12.1 Above high normal 1.0-11.0 (%) Final Eosinophils 01/30/2024 07:03:02 2.0 0.0-6.0 (%) Final Basos 01/30/2024 07:03:02 0.2 0.0-2.0 (%) Final Absolute Segs 01/30/2024 07:03:02 3.15 1.80-7.70 (K/uL) Final Lymphs, absolute 01/30/2024 07:03:02 2.43 1.00-4.80 (K/ul) Final Monos, Abs 01/30/2024 07:03:02 0.79 0.00-1.10 (K/uL) Final Eos, Abs 01/30/2024 07:03:02 0.13 0.00-0.70 (K/uL) Final Basos, Abs 01/30/2024 07:03:02 0.01 0.00-0.20 (K/uL) Final Performing Location [facility] [place] [address]
--- OUTSIDE RECORDS SUMMARY | 2024-04-21 13:14 | External Medical Summary | Summary of Care ---
Author Name Unknown Organization [facility] Address [address] [facility] [place] [address] Phone [phone] Care Team Providers Care Supervisor Lathing Name Role Phone Antonietta NORIEGA MD, Artemio Cedillo Primary Care Provider [phone] Reason for Visit * Reason Comments Outpatient Testing Encounter Details Date Type Department Care Team (Late st Contact Info) Description 02/27/2024 7:20 AM EDT Laboratory Laboratory [place] [facility] [place] [address] [place] [phone] Jennifer, Lab Scenery [address] [place] [address] Multiple myeloma not having achieved remission (HCC) Allergies Active Allergy Reactions Criticality Noted Date Comments Adhesive Tape 02/06/2016 Ixazomib 08/09/2018 Hives, chills, diarrhea. Lenalidomide Hives 05/23/2018 Bortezomib Bleeding High 12/12/2018 Open sores w/bleeding on abdominal region documented as of this encounter (statuses as of 02/27/2024) Medications Medication Sig Dispensed Refills Start Date [...] as of this encounter (statuses as of 02/27/2024) Active Problems Problem Noted Date Diagnosed Date [...] as of this encounter (statuses as of 02/27/2024) Resolved Problems Problem Noted Date Diagnosed Date Resolved Date CVA 06/29/2002 01/23/2009 Overview: Modified per CVA protocol #8 FX CARPAL BONE NOS-CLOSE 06/29/200211/2016 documented as of this encounter (statuses as of 02/27/2024) Immunizations Name Administration Dates Next Due Pneumococcal [...] Care Team (Late st Contact Info) Description 02/28/2024 8:00 AM EDT Hem/Onc Treatment Hematology/Oncology Treatment, [place] [address] [place] [phone] Jennifer, Chair 1 Hem Onc Scenery [address] [place] [address] 03/26/2024 7:10 AM EDT Laboratory Laboratory [place]ery Jennifer [place] [address] [place] [phone] Jennifer, Lab Scenery [address] [facility] [place] [address] 03/27/2024 9:15 AM EDT Office Visit Hematology/Oncology [facility] 200 [facility] [place] [phone] [facility] [address] 03/27/2024 9:45 AM EDT Hem/Onc Treatment [facility] [place] [facility] [phone] Pending Results Name Type Priority Associated Diagnoses Date /Time SERUM FREE LIGHT CHAINS Lab STAT Multiple myeloma not having achieved remission (HCC) 02/27/2024 6:58 AM EDT SERUM PROTEIN ELECTROPHORESIS REFLEX PROFILE Lab STAT Multiple myeloma not having achieved remission (HCC) 02/27/2024 6:58 AM EDT IMMUNOGLOBULIN QUANTITATIVE Lab STAT Multiple myeloma not having achieved remission (HCC) 02/27/2024 6:58 AM EDT CBC WITH WBC DIFFERENTIAL Lab STAT Multiple myeloma not having achieved remission (HCC) 02/27/2024 6:58 AM EDT COMPREHENSIVE METABOLIC PANEL Lab STAT Multiple myeloma not having achieved remission (HCC) 02/27/2024 6:58 AM EDT CBC Lab STAT Multiple myeloma not having achieved remission (HCC) 02/27/2024 6:58 AM EDT DIFFERENTIAL, AUTOMATED Lab STAT Multiple myeloma not having achieved remission (HCC) 02/27/2024 6:58 AM EDT Health Maintenance Due Date Last Done Comments COVID-19 Vaccine (#1) 1945 Zoster Vaccines (1 of 2) 02/05/2009 12/11/2008 DXA Scan 08/07/2016 08/07/2014, 07/11, 08/01/2002, Additional history exists Depression Screening 05/11/2018 05/11/2017 DTaP,Tdap,and Td Vaccines (2 - Td or Tdap) 05/03/2026 05/03/2016, 07/10/2004, 07/10/2004 Pneumococcal Vaccine: 65+ Years Completed 06/17/2014, 08/03/2006 VITAMIN D LEVEL ONCE IN A LIFETIME-USE SMARTSET# [id number] Completed 05/22/2015, 03/05/2015, 04/23/2014 Influenza Vaccine (FLU [...] this encounter Medical Devices Implanted Type Area Registered Nurse Renal Device Identifier Shelf Expiration Date Model / Serial / Lot Port Power Mri W/8fr Cath - [id number] Implanted:Qty : 1 on 12/09/2020 by Vince Jon MD at OR [facility] Right: Subclavian CR BARD : PERIPHERAL VASCULAR 02/06/2022 [id number] / / [id number] documented as of this encounter Visit Diagnoses [...] and were consensually agreed upon. Care Teams Supervisor Lathing Relationship Specialty Start Date End Date Artemio Mane III, MD 200 [place] [address] PCP - General Family Medicine 04/08/14 documented as of this encounter
--- OUTSIDE RECORDS SUMMARY | 2024-04-21 13:14 | External Medical Summary ---
Author Name Unknown Address Unknown Organization K01:LABORATORY [facility] - [address] [place] [address] Laboratory Report Ordering Provider Test Date Status JACEY COUGHLIN 02/27/2024 06:58:48 Final Observation Date Value Abnormality Reference (Units) Status PARAPROTEIN NORMAL/ABNORMAL 02/27/2024 06:58:48 Abnormal Abnormal Normal Final Protein 02/27/2024 06:58:48 7.4 6.0-8.3 (g/dL) Final Albumin/Protein.total [Pure mass fraction] in Serum or Plasma by Electrophoresis 02/27/2024 06:58:48 3.00 Below low normal 3.30-4.40 (g/dL) Final Alpha 1 globulin/Protein.tota l [Pure mass fraction] in Serum or Plasma by Electrophoresis 02/27/2024 06:58:48 0.25 0.10-0.30 (g/dL) Final Alpha 2 globulin/Protein.tota l [Pure mass fraction] in Serum or Plasma by Electrophoresis 02/27/2024 06:58:48 1.06 Above high normal 0.60-1.00 (g/dL) Final Beta globulin/Protein.tota l [Pure mass fraction] in Serum or Plasma by Electrophoresis 02/27/2024 06:58:48 0.80 0.80-1.30 (g/dL) Final Gamma globulin/Protein.tota l [Pure mass fraction] in Serum or Plasma by Electrophoresis 02/27/2024 06:58:48 2.28 Above high normal 0.70-1.70 (g/dL) Final Monoclonal protein 02/27/2024 06:58:48 1.84 (g/dL) Final Protein Fractions [Interpretation] in Serum or Plasma by Electrophoresis Narrative 02/27/2024 06:58:48 Abnormal. 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 Final Performing Location [facility] - [address] [facility] [address]
--- OUTSIDE RECORDS SUMMARY | 2024-04-21 13:14 | External Medical Summary ---
Author Name Unknown Address Unknown Organization [id number]:[facility] [place] - [address] [facility] [address] Laboratory Report Ordering Provider Test Date Status JACEY COUGHLIN 01/30/2024 07:03:02 Final Observation Date Value Abnormality Reference (Units) Status PARAPROTEIN NORMAL/ABNORMAL 01/30/2024 07:03:02 Abnormal Abnormal Normal Final Protein 01/30/2024 07:03:02 6.9 6.0-8.3 (g/dL) Final Albumin/Protein.total [Pure mass fraction] in Serum or Plasma by Electrophoresis 01/30/2024 07:03:02 2.75 Below low normal 3.30-4.40 (g/dL) Final Alpha 1 globulin/Protein.tota l [Pure mass fraction] in Serum or Plasma by Electrophoresis 01/30/2024 07:03:02 0.24 0.10-0.30 (g/dL) Final Alpha 2 globulin/Protein.tota l [Pure mass fraction] in Serum or Plasma by Electrophoresis 01/30/2024 07:03:02 1.16 Above high normal 0.60-1.00 (g/dL) Final Beta globulin/Protein.tota l [Pure mass fraction] in Serum or Plasma by Electrophoresis 01/30/2024 07:03:02 0.77 Below low normal 0.80-1.30 (g/dL) Final Gamma globulin/Protein.tota l [Pure mass fraction] in Serum or Plasma by Electrophoresis 01/30/2024 07:03:02 1.98 Above high normal 0.70-1.70 (g/dL) Final Monoclonal protein 01/30/2024 07:03:02 1.48 (g/dL) Final Protein Fractions [Interpretation] in Serum or Plasma by Electrophoresis Narrative 01/30/2024 07:03:02 Abnormal. 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 Final Performing Location LABORATORY [facility] - [address] [facility] [address]
--- OUTSIDE RECORDS SUMMARY | 2024-04-21 13:14 | External Medical Summary | Summary of Care ---
Author Name Unknown Organization [facility] Address [address] [address] Phone [phone] Care Team Providers Care [employer] Assistant Manager Name Role Phone Antonietta NORIEGA MD, Artemio Cedillo Primary Care Provider [phone] Reason for Visit * Reason Comments Chemotherapy Chemo/recheck Encounter Details Date Type Department Care Team (Late st Contact Info) Description 01/03/2024 8:15 AM EDT Office Visit Hematology/Oncology [facility] [place] [address] [place] [phone] Benny Mondragon MD [address] [place] [address] Multiple myeloma not having achieved remission (HCC)* Allergies Active Allergy Reactions Criticality Noted Date Comments Adhesive Tape 02/06/2016 Ixazomib 08/09/2018 Hives, chills, diarrhea. Lenalidomide Hives 05/23/2018 Bortezomib Bleeding High 12/12/2018 Open sores w/bleeding on abdominal region documented as of this encounter (statuses as of 01/03/2024) Medications Medication Sig Dispensed Refills Start Date End Date Status Calcium Carb-Cholecalcif scotty (CALCIUM + D3) 600-800 MG-UNIT per tablet Take 2 Tablets by mouth in the morning. 0 Active Ondansetron HCl 8 MG Oral Tablet (Zofran)Indicati ons:Multiple myeloma (HCC) TAKE ONE TABLET BY MOUTH EVERY 8 HOURS NEEDED FOR NAUSEA 30 Tab 3 05/28/2021 Active Additional Information Patient not taking.Reported on 05/18/2022 Prochlorperazine Maleate 10 MG Oral Tablet (Compazine)Indic ations:Multiple myeloma (HCC) TAKE ONE TABLET BY MOUTH EVERY 6 HOURS NEEDED FOR NAUSEA 30 Tab 3 05/28/2021 Active Additional Information Patient not taking.Reported on 05/18/2022 Diphenoxylate-At ropine 2.5-0.025 MG Oral Tablet (Lomotil)Indicat ions:Multiple myeloma not having achieved remission (HCC),Chemothera py induced diarrhea TAKE ONE TABLET BY MOUTH FOUR TIMES DAILY NEEDED for diarrhea 60 Tab 0 05/28/2021 Active valACYclovir HCl 500 MG Oral Tablet (Valtrex)Indicat ions:Multiple myeloma not having achieved remission (HCC),History of herpes zoster Take 1 Tablet by mouth in the morning. 90 Tablet 3 09/22/2023 Active dexAMETHasone 4 MG Oral Tablet (Decadron)Indica tions:Multiple myeloma not having achieved remission (HCC) 5 tablets once a week in the morning with food. 120 Tablet 1 01/03/2024 Active dexAMETHasone 4 MG Oral Tablet (Decadron)Indica tions:Multiple myeloma not having achieved remission (HCC) 5 tablets once in 4 weeks in the morning with food. 60 Tablet 1 09/13/2023 4 Discontinue d(Refill) documented as of this encounter (statuses as [...] Sign Reading Time Taken Comments Blood Pressure 111/58 01/03/2024 7:57 AM EDT Pulse 110 01/03/2024 7:57 AM EDT Temperature 36.6 C (97.8 F) 01/03/2024 7:57 AM ED T Respiratory Rate - - Oxygen Saturation 97% 01/03/2024 7:57 AM EDT Inhaled Oxygen Concentration - - Weight 48.4 kg (106 lb 9.6 oz) 01/03/2024 7:57 A M EDT Height - - Body Mass Index 18.3 09/13/2023 7:39 AM EST documented in this encounter Progress Notes * Benny Mondragon MD - 01/03/2024 8:00 AM EDT Hematology/Oncology Outpatient Clinic note Michelle Campos [place] [address] [facility] [place] [address] Name: Yvrose Silva Date: 03/15/2023 CHIEF COMPLAINT: Yvrose Silva is a 83 year old female here today for f/u visit today. HEMATOLOGY/ONCOLOGY DIAGNOSIS: IgG kappa multiple myeloma DATE OF DIAGNOSIS: March, CURRENT TREATMENT: Subcutaneous Daratumumab (04/06/2022- ) -Now since 10/26/2022 [...] in the M spike and IgG level). TREATMENT HISTORY: She completed radiation treatment right [...] -she had skin changes following subcutaneous Velcade DIAGNOSTIC WORKUP: She had chronic back pain of for 6 to 8 months duration, she was admitted at [facility], -CT scan of the abdomen pelvis done [...] chain 120, free lambda light chain 20.5, Blackgum/Mj ratio 5.9 (05/05/2017) Bone survey--> multiple lytic [...] chain 123, free lambda light chain 20.2, Blackgum/Mj ratio of 6.0 -IgG 4000, IgA 296, [...] She is on Xgeva every 3 monthly, no new dental problem. Past Medical History: Diagnosis Date Cerebrovascular event, ill-defined, within last 8 weeks 1981 no residuals Closed fracture of carpal bone 1991 l wrist fracture Other osteoporosis Shingles 03/2015 Past Surgical History: Procedure Laterality Date INSER TUNN ACC DEV;5 YRS/OLDER N/A 12/09/2020 INSERT TUNNELED CENTRAL VENOUS ACCESS WITH SUBQ PORT performed by Vince Jon MD at OR [facility] VAGINAL DELIVERY ONLY times 3 Social History [...] 2 Tablets by mouth in the morning. valACYclovir HCl 500 MG Oral Tablet (Valtrex) Take 1 Tablet by mouth in the morning. 90 Tablet 3 Ondansetron HCl 8 MG Oral Tablet (Zofran) [...] DAILYAS NEEDED for diarrhea 60 Tab 0 dexAMETHasone 4 MG Oral Tablet (Decadron) 5 tablets once in 4 weeks in the morning with food. 60 Tablet 1 No current facility-administered medications for this visit. REVIEW OF SYSTEMS: See HPI - otherwise negative OBJECTIVE: BP 111/58 (BP Site: Left Arm, BP Position: Sitting, BP Cuff Size: Pediatric) | Pulse 110 | Temp 36.6 C (97.8 F) (Tympanic) | Wt 48.4 kg (106 lb 9.6 oz) | SpO2 97% | BMI 18.30 kg/m | BSA 1.48 m PHYSICAL EXAM: ECOG: Performance Status 1 [...] Grossly intact LABS: Blood workup done on 06/20/2023: -WBC 6500, H&H of 12/38, Platelet count [id number] -BUN/Creat: 15/0.8, Calcium 9.1 normal LFT Free kappa light chain --> 21, free lambda light chain 9.6, Blackgum/Lambda ratio 2.2 -Ig, IgA 80, IgM 21. Blood workup done on 09/12/2023: - BUN/Creat: 20/0.9, calcium 9.4, normal LFT. - WBC 6100, H&H of 11.4/36.8, platelet count of 195,000 - Phosphorus level --> 3.9 Myeloma blood workup done on 08/15/2023: - M spike --> 0.72 g/dL (IgG Blackgum) - Ig, IgA 73, IgM 34. - Free kappa light chain 24.7, free lambda light chain 9.7, Blackgum/Lambda ratio 2.55. Blood workup done on 09/12/2023: -WBC 6100, H&H of 11.4/36.8, Platelet count of 195,000. -BUN/Creat: 20/0.9, Calcium 9.4, normal LFT -Ig, IgA 71, IgM 33. -M spike --> 0.69 g/dL. -free kappa light chain 33, free lambda light chain 10.6, Blackgum/Lambda ratio 3.1 Blood workup done on 01/02/2024: -WBC 8200, H&H of 11.5/38, Platelet count of [id number] -BUN/Creat: 16/0.9, Calcium 9.2, normal LFT -Ig, IgA 60, IgM 20. -M spike and free light chain assay --> pending. IMPRESSION/PLAN: IgG kappa multiple myeloma Encounter for chemotherapy Currently she is on Darzalex Faspro every 4 weekly, Decadron 20 mg every 4 weekly. Xgeva every 3 monthly. Overall tolerated treatment well without significant side effects, no worsening neuropathy, no neutropenia, no infectious complications. I reviewed her blood workup done yesterday, overall mild anemia which is stable, normal kidney function, no hypercalcemia, IgG level has gone up to around 2000 range, other myeloma blood workup is pending but gradual rise in the monoclonal paraprotein level noted over the last several months. Earlier she could not tolerate oral Revlimid, Ninlaro ( Ixazomib) and subcutaneous Velcade. As clinically she is doing well, will continue the current treatment plan with Darzalex for aspirinevery 4 weekly, would like to increase Decadron to 20 mg every 4 weekly. She will continue Xgeva every 4 weekly. She will continue valacyclovir prophylaxis. We talked about natural history of multiple myeloma, It is an incurable malignancy and likely to progress in the future. Will see her back in the clinic about [address] Benny Mondragon Hem/Onc [...] documented in this encounter Nursing Notes * Tamela Meza LPN - 01/03/2024 7:58 AM EDT Patient identifed by name and birthdate Do you have any concerns about pain management for today's visit? No Living Will or Advance Directive for Health Care as noted on the problem list. [facility] is a way you can talk to your provider on line through e-mail. Would you like to sign up? I can activate it for you? ALREADY ACTIVE Filed Vitals: 01/03/24 0757 BP: 111/58 Pulse: 110 Temp: 36.6 C (97.8 F) TempSrc: Tympanic SpO2: 97% Weight: 48.4 kg (106 lb 9.6 oz) Patient was instructed to not get up [...] Upcoming Encounters Date Type Department Care Team (Latest Contact Info) Description 01/03/2024 8:45 AM EDT Hem/Onc Treatment Hematology/Oncolog y Treatment, [place] [address] [place] [phone] [place], Chair [address] Hem On[address] [facility] [place] [address] Encounter for antineoplastic chemotherapy*; Multiple myeloma not having achieved remission (HCC); Multiple myeloma, remission status unspecified (HCC) 03/27/2024 9:15 AM EDT Office Visit Hematology/Oncolog y [facility] [place] [address] [place] [phone] Benny Mondragon MD [address] [place] [address] Health Maintenance Due Date Last Done Comments COVID-19 Vaccine (#1) 1945 Zoster Vaccines (1 of 2) 02/05/2009 12/11/2008 DXA Scan 08/07/2016 08/07/2014, 07/11, 08/01/2002, Additional history exists Depression Screening 05/11/2018 05/11/2017 DTaP,Tdap,and Td Vaccines (2 - Td or Tdap) 05/03/2026 05/03/2016, 07/10/2004, 07/10/2004 Pneumococcal Vaccine: 65+ Years Completed 06/17/2014, 08/03/2006 VITAMIN D LEVEL ONCE IN A LIFETIME-USE SMARTSET# [id number] Completed 05/22/2015, 03/05/2015, 04/23/2014 Influenza Vaccine (FLU [...] this encounter Medical Devices Implanted Type Area Assistant Coach Device Identifier Shelf Expiration Date Model / Serial / Lot Port Power Mri W/8fr Cath - [id number] Implanted:Qty : 1 on 12/09/2020 by Vince Jon MD at OR [facility] Right: Subclavian CR BARD : PERIPHERAL VASCULAR 02/06/2022 [id number] / / [id number] documented as of this encounter Visit Diagnoses Diagnosis Multiple myeloma not having achieved remission (HCC)- Primary Multiple myeloma, without mention of having achieved remission Encounter for antineoplastic chemotherapy- Primary Multiple myeloma, remission status unspecified (HCC) documented in this encounter Advance Directives Latest [...] and were consensually agreed upon. Care Teams [employer] Assistant Manager Relationship Specialty Start Date End Date Artemio Mane III, MD [address] [place] [address] PCP - General Family Medicine 04/08/14 documented as of this encounter"
--- OUTSIDE RECORDS SUMMARY | 2024-04-21 13:14 | External Medical Summary ---
Author Name Unknown Address Unknown Organization K09:[facility] [place] [address] Laboratory Report Ordering Provider Test Date Status JACEY COUGHLIN 02/27/2024 06:58:48 Final Observation Date Value Abnormality Reference (Units ) Status SYNC LEUKOCYTES IN BLOOD BY AUTOMATED COUNT 02/27/2024 06:58:48 5.42 4.00-10.80 (K/uL) Final Segs 02/27/2024 06:58:48 43.9 40.0-75.0 (%) Final Lymphs % 02/27/2024 06:58:48 41.1 18.0-42.0 (%) Final Monos 02/27/2024 06:58:48 13.5 Above high normal 1.0-11.0 (%) Final Eosinophils 02/27/2024 06:58:48 1.3 0.0-6.0 (%) Final Basos 02/27/2024 06:58:48 0.2 0.0-2.0 (%) Final Absolute Segs 02/27/2024 06:58:48 2.38 1.80-7.70 (K/uL) Final Lymphs, absolute 02/27/2024 06:58:48 2.23 1.00-4.80 (K/ul) Final Monos, Abs 02/27/2024 06:58:48 0.73 0.00-1.10 (K/uL) Final Eos, Abs 02/27/2024 06:58:48 0.07 0.00-0.70 (K/uL) Final Basos, Abs 02/27/2024 06:58:48 0.01 0.00-0.20 (K/uL) Final Performing Location [facility] [place] [address]
--- OUTSIDE RECORDS SUMMARY | 2024-04-21 13:14 | External Medical Summary ---
Author Name Unknown Address Unknown Organization K09:[facility] [place] [address] Laboratory Report Ordering Provider Test Date Status JACEY COUGHLIN 02/27/2024 06:58:48 Final Observation Date Value Abnormality Reference (Units ) Status WBC, Total 02/27/2024 06:58:48 5.42 4.00-10.8 0 (K/uL) Final RBC 02/27/2024 06:58:48 3.66 3.85-5.15 (M/uL) Final Hemoglobin 02/27/2024 06:58:48 10.3 Below low normal 12 .0-15.3 (g/dL) Final HCT 02/27/2024 06:58:48 34.6 Below low normal 36. 0-45.2 (%) Final MCV 02/27/2024 06:58:48 94.5 81.5-97.5 (fL) Final MCH 02/27/2024 06:58:48 28.1 27.0-34.0 (pg) Final MCHC 02/27/2024 06:58:48 29.8 32.0-36.0 (g/dL) Final RDW 02/27/2024 06:58:48 15.4 11.5-15.5 (%) Final Platelets 02/27/2024 06:58:48 215 140-400 (K /uL) Final MPV 02/27/2024 06:58:48 9.2 6.6-11.1 ( fL) Final Performing Location [facility] [place] [address]
--- OUTSIDE RECORDS SUMMARY | 2024-04-21 13:14 | External Medical Summary ---
Author Name Unknown Address Unknown Organization K09:[facility] [place] [address] Laboratory Report Ordering Provider Test Date Status JACEY COUGHLIN 01/30/2024 07:03:02 Final Observation Date Value Abnormality Reference (Units ) Status WBC, Total 01/30/2024 07:03:02 6.51 4.00-10.8 0 (K/uL) Final RBC 01/30/2024 07:03:02 3.70 3.85-5.15 (M/uL) Final Hemoglobin 01/30/2024 07:03:02 10.5 Below low normal 12 .0-15.3 (g/dL) Final HCT 01/30/2024 07:03:02 34.3 Below low normal 36. 0-45.2 (%) Final MCV 01/30/2024 07:03:02 92.7 81.5-97.5 (fL) Final MCH 01/30/2024 07:03:02 28.4 27.0-34.0 (pg) Final MCHC 01/30/2024 07:03:02 30.6 32.0-36.0 (g/dL) Final RDW 01/30/2024 07:03:02 14.0 11.5-15.5 (%) Final Platelets 01/30/2024 07:03:02 285 140-400 (K /uL) Final MPV 01/30/2024 07:03:02 8.9 6.6-11.1 ( fL) Final Performing Location [facility] [place] [address]
--- OUTSIDE RECORDS SUMMARY | 2024-04-21 13:14 | External Medical Summary ---
Author Name Unknown Address Unknown Organization K09:[facility] [address] [place] [address] Laboratory Report Ordering Provider Test Date Status JACEY COUGHLIN 01/30/2024 07:03:02 Final Observation Date Value Abnormality Reference (Units ) Status BUN 01/30/2024 07:03:02 14 6-20 (mg/dL) Final Creatinine 01/30/2024 07:03:02 0.8 0.5-1.0 (mg/dL) Final Glomerular filtration rate/1.73 sq M.predicted [Volume Rate/Area] in Serum, Plasma or Blood by Creatinine-based formula (CKD-EPI) 01/30/2024 07:03:02 77 >=60 (mL/min) Final eGFR is calculated based on the CKD-EPI 2020 equation Sodium 01/30/2024 07:03:02 138 135-146 (m mol/L) Final Potassium 01/30/2024 07:03:02 4.3 3.5-5.1 (m mol/L) Final Cl 01/30/2024 07:03:02 105 98-107 (mm ol/L) Final CO2 01/30/2024 07:03:02 23 22-32 (mmo l/L) Final Anion gap 01/30/2024 07:03:02 10 7-15 (mmol /L) Final Glucose 01/30/2024 07:03:02 109 70-120 (mg /dL) Final Albumin 01/30/2024 07:03:02 3.2 Below low normal 3.8 -5.0 (g/dL) Final AST (Aspartate aminotransferase) 01/30/2024 07:03:02 15 10-35 (U/L) Fin al Alk Phos 01/30/2024 07:03:02 91 35-130 (U/ L) Final Bilirubin, Total 01/30/2024 07:03:02 0.5 <=1 .2 (mg/dL) Final Calcium 01/30/2024 07:03:02 8.9 8.4-10.2 ( mg/dL) Final Protein 01/30/2024 07:03:02 7.6 6.0-8.3 (g /dL) Final ALT (Alanine aminotransferase) 01/30/2024 07:03:02 8 Below low normal 10-35 (U/L) Final Performing Location [facility] [address] [place] [address]
--- OUTSIDE RECORDS SUMMARY | 2024-04-21 13:14 | External Medical Summary | Summary of Care ---
Author Name Unknown Organization [facility] Address [address] [place] [address] Phone [phone] Care Team Providers Care Manager Life Name Role Phone Antonietta NORIEGA MD, Artemio Cedillo Primary Care Provider [phone] Reason for Visit * Reason Comments Outpatient Testing Encounter Details Date Type Department Care Team (Late st Contact Info) Description 01/02/2024 8:00 AM EDT [facility] [place] [address] [place] [address] [place], Lab Scenery [address] [place] [address] Multiple myeloma not having achieved remission (HCC) Allergies Active Allergy Reactions Criticality Noted Date Comments Adhesive Tape 02/06/2016 Ixazomib 08/09/2018 Hives, chills, diarrhea. Lenalidomide Hives 05/23/2018 Bortezomib Bleeding High 12/12/2018 Open sores w/bleeding on abdominal region documented as of this encounter (statuses as of 01/02/2024) Medications Medication Sig Dispensed Refills Start Date End Date Status Calcium Carb-Cholecalcifero l (CALCIUM + D3) 600-800 MG-UNIT per tablet Take 2 Tabs by mouth daily. 0 Active Ondansetron HCl 8 MG Oral [...] for diarrhea 60 Tab 0 05/28/2021 Active dexAMETHasone 4 MG Oral Tablet (Decadron)Indicatio ns:Multiple myeloma not having achieved remission (HCC) 5 tablets once in 4 weeks in the morning with food. 60 Tablet 1 09/13/2023 Active valACYclovir HCl 500 MG Oral Tablet (Valtrex)Indication s:Multiple myeloma not having achieved remission (HCC),History of herpes zoster Take 1 Tablet by mouth in the morning. 90 Tablet 3 09/22/2023 Active documented as of this encounter (statuses as of 01/02/2024) Active Problems Problem Noted Date Diagnosed Date [...] as of this encounter (statuses as of 01/02/2024) Resolved Problems Problem Noted Date Diagnosed Date Resolved Date CVA 06/29/2002 01/23/2009 Overview: Modified per CVA protocol #8 FX CARPAL BONE NOS-CLOSE 06/29/200211/2016 documented as of this encounter (statuses as of 01/02/2024) Immunizations Name Administration Dates Next Due Pneumococcal Conjugate Vacc, 13 Valent (Prevnar) 06/17/2014 Pneumococcal Polysaccharide PPV23 (Pneumovax) 08/03/2006 Season Influenza, Quad, PF, Adjuvanted, 65+ Yrs, IM (FLUAD) 07/24/2020 Seasonal Influenza, Quadriva lent Hd, 65+ Yrs 07/05/2022 Seasonal Influenza, Split, I IV3, With Preserve, [...] 01/03/2024 8:15 AM EDT Office Visit Hematology/Oncology [facility] [place] [address] [place] [address] Benny Mondragon MD [address] [facility] [place] [address] 01/03/2024 8:45 AM EDT Hem/Onc Treatment Hematology/Oncology Treatment, [place] [address] [facility] [address] [place] [phone] Jennifer, Chair 2 Hem Onc [address] [place] [address] Pending Results Name Type Priority Associated Diagnoses Date /Time SERUM FREE LIGHT CHAINS Lab STAT Multiple myeloma not having achieved remission (HCC) 01/02/2024 6:59 AM EDT SERUM PROTEIN ELECTROPHORESIS REFLEX PROFILE Lab STAT Multiple myeloma not having achieved remission (HCC) 01/02/2024 6:59 AM EDT IMMUNOGLOBULIN QUANTITATIVE Lab STAT Multiple myeloma not having achieved remission (HCC) 01/02/2024 6:59 AM EDT COMPREHENSIVE METABOLIC PANEL Lab STAT Multiple myeloma not having achieved remission (HCC) 01/02/2024 6:59 AM EDT Health Maintenance Due Date Last Done Comments COVID-19 Vaccine (#1) 1945 Zoster Vaccines (1 of 2) 02/05/2009 12/11/2008 DXA Scan 08/07/2016 08/07/2014, 07/11, 08/01/2002, Additional history exists Depression Screening 05/11/2018 05/11/2017 Influenza Vaccine (FLU shot) (#1) 2023 07/05/2022, 07/28/2021, 07/24/2020, Additional history exists DTaP,Tdap,and Td Vaccines (2 - Td or Tdap) 05/03/2026 05/03/2016, 07/10/2004, 07/10/2004 Pneumococcal Vaccine: 65+ Years Completed 06/17/2014, 08/03/2006 VITAMIN D LEVEL ONCE IN A LIFETIME-USE SMARTSET# [id number] Completed 05/22/2015, 03/05/2015, 04/23/2014 GARDASIL-HPV IMMUNIZATION SERIES Aged Out No longer eligible based on patient's age to complete this topic Hepatitis B Aged Out No longer eligi ble based on patient's age to complete this topic MENINGOCOCCAL (MENACTRA/MENVEO) Aged Out No longer eligible based on patient's age to complete this topic documented as of this encounter Medical Devices Implanted Type Area Sand Blaster Device Identifier Shelf Expiration Date Model / Serial / Lot Port Power Mri W/8fr Cath - [id number] Implanted:Qty : 1 on 12/09/2020 by Vince Jon MD at OR [facility] Right: Subclavian CR BARD : PERIPHERAL VASCULAR 02/06/2022 [id number] / / [id number] documented as of this encounter Procedures Procedure Name Priority Date/Time Associated Diagnosis Comments DIFFERENTIAL, AUTOMATED STAT 01/02/2024 6:59 AM EDT Multiple myeloma not having achieved remission (HCC) CBC STAT 01/02/2024 6:59 AM EDT Multiple myeloma not having achieved remission (HCC) CBC STAT 01/02/2024 6:59 AM EDT Multiple myeloma not having achieved remission (HCC) documented in this encounter Results * (ABNORMAL) DIFFERENTIAL, AUTOMATED (01/02/2024 6:59 AM EDT) Pathologist [facility] WBC 8.24 4.00 - 10.80 K/uL 01/02/2024 7:04 AM EDT LABORATORY [place] 56-02 Neutrophils % 53.2 40.0 - 75.0 % 01/02/2024 7:04 AM EDT LABORATORY [place] 56-02 Lymphocytes % 33.5 18.0 - 42.0 % 01/02/2024 7:04 AM EDT LABORATORY [place] 56-02 Monocytes % 11.4(H) 1.0 - 11.0 % 01/02/2024 7:04 AM EDT [facility] [place] 56-02 Eosinophils % 1.8 0.0 - 6.0 % 01/02/2024 7:04 AM EDT LABORATORY [facility] 56-02 Basophils % 0.1 0.0 - 2.0 % 01/02/2024 7:04 AM EDT LABORATORY [facility] 56-02 Absolute Neutrophils 4.38 1.80 - 7.70 K/uL 01/02/2024 7:04 AM EDT [facility] [place] 56-02 Absolute Lymphocytes 2.76 1.00 - 4.80 K/ul 01/02/2024 7:04 AM EDT [facility] [place] 56-02 Absolute Monocytes 0.94 0.00 - 1.10 K/uL 01/02/2024 7:04 AM EDT LABORATORY [facility] 56-02 Absolute Eosinophils 0.15 0.00 - 0.70 K/uL 01/02/2024 7:04 AM EDT LABORATORY [place] 56-02 Absolute Basophils 0.01 0.00 - 0.20 K/uL 01/02/2024 7:04 AM EDT LABORATORY [place] 56-02 Blood Venous blood specimen / Unknown Venipuncture / Unknown 01/02/2024 6:59 AM EDT 01/02/2024 7:00 AM EDT Benny Mondragon MD LAB BLOOD ORDERABLES [facility] [address] [place] [address] * (ABNORMAL) CBC (01/02/2024 6:59 AM EDT) WBC 8.24 4.00 - 10.80 K/uL 01/02/2024 7:04 AM EDT [facility] 56 RBC 4.07 3.85 - 5.15 M/uL 01/02/2024 7:04 AM EDT [facility] 56 HGB 11.5(L) 12.0 - 15.3 g/dL 01/02/2024 7:04 AM EDT [facility] 56 HCT 38.1 36.0 - 45.2 % 01/02/2024 7:04 AM EDT [facility] 56 MCV 93.6 81.5 - 97.5 fL 01/02/2024 7:04 AM EDT [facility] 56 MCH 28.3 27.0 - 34.0 pg 01/02/2024 7:04 AM EDT [facility] 56 MCHC 30.2 32.0 - 36.0 g/dL 01/02/2024 7:04 AM EDT [facility] 56 RDW 13.6 11.5 - 15.5 % 01/02/2024 7:04 AM EDT [facility] 56- PLT 253 140 - 400 K/uL 01/02/2024 7:04 AM EDT [facility] 56- MPV 8.9 6.6 - 11.1 fL 01/02/2024 7:04 AM EDT [facility] 56 Blood Venous blood specimen / Unknown Venipuncture / Unknown 01/02/2024 6:59 AM EDT 01/02/2024 7:00 AM EDT Benny Mondragon MD LAB BLOOD ORDERABLES [facility] [place] [facility] [facility] [address] documented in this encounter Visit Diagnoses Diagnosis Multiple myeloma [...] and were consensually agreed upon. Care Teams Manager Life Relationship Specialty Start Date End Date Artemio Mane III, MD [address] [facility] [address] PCP - General Family Medicine 04/08/14 documented as of this encounter
--- OUTSIDE RECORDS SUMMARY | 2024-04-21 13:14 | External Medical Summary ---
Author Name Unknown Address Unknown Organization [id number]:[facility]ATORY [facility] [address] [place] [address] Laboratory Report Ordering Provider Test Date Status JACEY COUGHLIN 01/02/2024 06:59:44 Final Observation Date Value Abnormality Reference (Units ) Status BUN 01/02/2024 06:59:44 16 6-20 (mg/dL) Final Creatinine 01/02/2024 06:59:44 0.9 0.5-1.0 (mg/dL) Final Glomerular filtration rate/1.73 sq M.predicted [Volume Rate/Area] in Serum, Plasma or Blood by Creatinine-based formula (CKD-EPI) 01/02/2024 06:59:44 66 >=60 (mL/min) Final eGFR is calculated based on the CKD-EPI 2020 equation Sodium 01/02/2024 06:59:44 142 135-146 (m mol/L) Final Potassium 01/02/2024 06:59:44 4.7 3.5-5.1 (m mol/L) Final Cl 01/02/2024 06:59:44 106 98-107 (mm ol/L) Final CO2 01/02/2024 06:59:44 26 22-32 (mmo l/L) Final Anion gap 01/02/2024 06:59:44 10 7-15 (mmol /L) Final Glucose 01/02/2024 06:59:44 98 70-120 (mg /dL) Final Albumin 01/02/2024 06:59:44 3.7 Below low normal 3.8 -5.0 (g/dL) Final AST (Aspartate aminotransferase) 01/02/2024 06:59:44 16 10-35 (U/L) Fin al Alk Phos 01/02/2024 06:59:44 109 35-130 (U/ L) Final Bilirubin, Total 01/02/2024 06:59:44 0.5 <=1 .2 (mg/dL) Final Calcium 01/02/2024 06:59:44 9.2 8.4-10.2 ( mg/dL) Final Protein 01/02/2024 06:59:44 8.1 6.0-8.3 (g /dL) Final ALT (Alanine aminotransferase) 01/02/2024 06:59:44 8 Below low normal 10-35 (U/L) Final Performing Location [facility] [address] [place] [address]
--- OUTSIDE RECORDS SUMMARY | 2024-04-21 13:14 | External Medical Summary ---
Author Name Unknown Address Unknown Organization [id number]:LABORATORY [facility] - [address] [place] [address] Laboratory Report Ordering Provider Test Date Status JACEY COUGHLIN 02/27/2024 06:58:48 Final Observation Date Value Abnormality Reference (Units ) Status [place] light chains, Free, Serum 02/27/2024 06:58:48 144.68 Above high normal 3.30-19.40 (mg/L) Final Lambda light chains, free, Serum 02/27/2024 06:58:48 6.83 5.71-26.30 (mg/L) Final KAPPA LAMBDA FLC RATIO 02/27/2024 06:58:48 21.18 Above high normal 0.26-1.65 Final Performing Location LABORATORY [facility] - [address] [place] [address]
--- OUTSIDE RECORDS SUMMARY | 2024-04-21 13:14 | External Medical Summary | Summary of Care ---
Author Name Unknown Organization [facility] Address [address] [place] [address] Phone [phone] Care Team Providers Care Inspector Rag Sorting Name Role Phone Antonietta NORIEGA MD, Arteimo Cedillo Primary Care Provider [phone] Reason for Visit * Reason Comments Chemotherapy Darzalex Faspro Procedure Port flush * Episode Based Medications (Routine) - Authorized Specialty Diagnoses / Procedures Referred By Contanatoly t Referred To Contact Diagnoses Encounter for antineoplastic chemotherapy Multiple myeloma not having achieved remission (HCC) Procedures DC DARATUMUMAB, HYALURONIDASE Benny Mondragon MD [address] [place] [address] Anc Hem/Onc [address] DEPT CLOSED - 08/23/23 [address] [place] [address] Referral ID Status Reason Start Date Expiration Date V isits Requested Visits Authorized Authorized 03/11/2022 10/09/[id number] Encounter Details Date Type Department Care Team (Latest Contact Info) Description 01/03/2024 8:45 AM EDT Hem/Onc Treatment Hematology/Oncolog y Treatment, [place] [address] [place] [address] Jennifer, Chair 2 Hem Onc [place] [address] [place] [address] Encounter for antineoplastic chemotherapy*; Multiple myeloma not having achieved remission (HCC); Multiple myeloma, remission status unspecified (HCC) Allergies Active Allergy Reactions Criticality Noted Date Comments Adhesive Tape 02/06/2016 Ixazomib 08/09/2018 Hives, chills, diarrhea. Lenalidomide Hives 05/23/2018 Bortezomib Bleeding High 12/12/2018 Open sores w/bleeding on abdominal region documented as of this encounter (statuses as of 02/09/2024) Medications Medication Sig Dispensed Refills Start Date [...] as of this encounter (statuses as of 02/09/2024) Active Problems Problem Noted Date Diagnosed Date [...] as of this encounter (statuses as of 02/09/2024) Resolved Problems Problem Noted Date Diagnosed Date Resolved Date CVA 06/29/2002 01/23/2009 Overview: Modified per CVA protocol #8 FX CARPAL BONE NOS-CLOSE 06/29/200211/2016 documented as of this encounter (statuses as of 02/09/2024) Immunizations Name Administration Dates Next Due Pneumococcal [...] of this encounter Nursing Notes * Yas Guajardo, RN - 01/03/2024 8:26 AM EDT Chair [...] Description 02/27/2024 7:20 AM EDT Laboratory Laboratory [facility] Vas[facility] [address] [place] [phone] Jennifer Lab Scenery [address] [facility] [place] [address] 02/28/2024 8:00 AM EDT [facility] [address] [facility], [place] [address] Jennifer, Chair 1 Hem Onc [address] [place], [place] [address] 03/26/2024 7:10 AM EDT Laboratory Laboratory [facility] [address] [place] [phone] Jennifer Lab [address] [place], [place] [address] 03/27/2024 9:15 AM EDT Office Visit Hematology/Oncology [address] [place] [phone] [facility] [address] 03/27/2024 9:45 AM EDT Hem/Onc Treatment Hematology/Oncology [address], [place] [phone] Health Maintenance Due Date Last Done Comments COVID-19 Vaccine (#1) 1945 Zoster Vaccines (1 of 2) 02/05/2009 12/11/2008 DXA Scan 08/07/2016 08/07/2014, 07/11, 08/01/2002, Additional history exists Depression Screening 05/11/2018 05/11/2017 DTaP,Tdap,and Td Vaccines (2 - Td or Tdap) 05/03/2026 05/03/2016, 07/10/2004, 07/10/2004 Pneumococcal Vaccine: 65+ Years Completed 06/17/2014, 08/03/2006 VITAMIN D LEVEL ONCE IN A LIFETIME-USE SMARTSET# [id number] Completed 05/22/2015, 03/05/2015, 04/23/2014 Influenza Vaccine (FLU [...] this encounter Medical Devices Implanted Type Area Fur Designer Device Identifier Shelf Expiration Date Model / Serial / Lot Port Power Mri W/8fr Cath - [id number] Implanted:Qty : 1 on 12/09/2020 by Vince Jon MD at OR [facility] Right: Subclavian CR BARD : PERIPHERAL VASCULAR 02/06/2022 [id number] / / [id number] documented as of this encounter Visit Diagnoses [...] Given 01/03/2024 8:20 AM EDT 650 mg Daratumumab-hyaluronidase- fihj (Darzalex Faspro) 1800 mg-16291 units/ 15 ml subcut inj 15 mL, Subcutaneous, ONCE, On Tue01/03/24 at 0945, For 1 dose, Inject subcutanteously into abdomen over 3 to 5 minutes Given 01/03/2024 8:48 AM EDT 15 mL Abdomen Left Lower diphenhydrAMINE (Benadryl) cap 50 mg 50 mg, Oral, ONCE, On Tue01/03/24 at 0845, For 1 dose Given 01/03/2024 8:20 AM EDT 50 mg hEParin 100 UNIT/ML Lock Flush inj 500 Units 500 Units (5 mL), IV Lock, PRN Other, IV Flush, Starting on Tue01/03/24 at 0822, Until Tue01/03/24 at 1257, For 24 hours, Do not flush if lock, PICC, or central line not in place; IV infusing or unable to flush. Given 01/03/2024 8:49 AM EDT 500 Units sodium chloride 0.9 % flush central line 10 mL 10 mL, IV Push, PRN Other, IV Flush, Starting on Tue01/03/24 at 0822, Until Tue01/03/24 at 1257, For 24 hours, Do not flush if lock, PICC, or central line not in place; IV infusing or unable to flush. Given 01/03/2024 8:48 AM EDT 10 mL documented in this encounter Advance Directives Latest [...] and were consensually agreed upon. Care Teams Inspector Rag Sorting Relationship Specialty Start Date End Date Artemio Mane III, MD [address] [place] [address] PCP - General Family Medicine 04/08/14 documented as of this encounter
--- OUTSIDE RECORDS SUMMARY | 2024-04-21 13:14 | External Medical Summary ---
Author Name Unknown Address Unknown Organization K01:LABORATORY [facility] - [facility] [address] [facility] [address] [place] [address] Laboratory Report Ordering Provider Test Date Status JACEY COUGHLIN 01/30/2024 07:03:02 Final Observation Date Value Abnormality Reference (Units ) Status [place] light chains, Free, Serum 01/30/2024 07:03:02 110.73 Above high normal 3.30-19.40 (mg/L) Final Lambda light chains, free, Serum 01/30/2024 07:03:02 8.93 5.71-26.30 (mg/L) Final KAPPA LAMBDA FLC RATIO 01/30/2024 07:03:02 12.40 Above high normal 0.26-1.65 Final Performing Location LABORATORY [facility] - [address] [place] [address]
--- OUTSIDE RECORDS SUMMARY | 2024-04-21 13:14 | External Medical Summary | Summary of Care ---
Author Name Unknown Organization [facility] Address [address] [place] [address] Phone [phone] Care Team Providers Care Budget Officer Name Role Phone Antonietta NORIEGA MD, Artemio Cedillo Primary Care Provider [phone] Reason for Visit * Reason Comments Chemotherapy Darzalex faspron Procedure Port flush * Episode Based Medications (Routine) - Authorized Specialty Diagnoses / Procedures Referred By Contanatoly t Referred To Contact Diagnoses Encounter for antineoplastic chemotherapy Multiple myeloma not having achieved remission (HCC) Procedures CO DARATUMUMAB, HYALURONIDASE Benny Mondragon MD [address] [facility] [place], [place] [address] Anc Hem/Onc [facility] [facility] DEPT CLOSED - 08/23/23 [address] [place] [address] Referral ID Status Reason Start Date Expiration Date V isits Requested Visits Authorized Authorized 03/11/2022 10/09/[phone] Encounter Details Date Type Department Care Team (Latest Contact Info) Description 02/28/2024 8:00 AM EDT Hem/Onc Treatment Hematology/Oncolog y Treatment, [place] [address] [place] [phone] Jennifer, Chair 1 Hem Onc [place] [address] [place] [address] Encounter for antineoplastic chemotherapy*; Multiple myeloma not [...] Description 03/26/2024 7:10 AM EDT Laboratory Laboratory [facility] [place] [address] [facility] [place] [address] Jennifer, Lab [address] [facility] [place] [place] [address] 03/27/2024 9:15 AM EDT Office Visit Hematology/Oncology [facility] [place] [address] [facility] [place] [phone] Benny Mondragon MD [address] [facility] [place] [address] 03/27/2024 9:45 AM EDT [facility] [address] [place] [address] Jennifer, Chair 11 Hem Onc [address] [place] [address] Health Maintenance Due Date Last Done Comments COVID-19 Vaccine (#1) 1945 Zoster Vaccines (1 of 2) 02/05/2009 12/11/2008 DXA Scan 08/07/2016 08/07/2014, 07/11, 08/01/2002, Additional history exists Depression Screening 05/11/2018 05/11/2017 DTaP,Tdap,and Td Vaccines (2 - Td or Tdap) 05/03/2026 05/03/2016, 07/10/2004, 07/10/2004 Pneumococcal Vaccine: 65+ Years Completed 06/17/2014, 08/03/2006 VITAMIN D LEVEL ONCE IN A LIFETIME-USE SMARTSET# [id number] Completed 05/22/2015, 03/05/2015, 04/23/2014 Influenza Vaccine (FLU [...] this encounter Medical Devices Implanted Type Area Hockey Instructor Device Identifier Shelf Expiration Date Model / Serial / Lot Port Power Mri W/8fr Cath - [id number] Implanted:Qty : 1 on 12/09/2020 by Vince Jon MD at OR [facility] Right: Subclavian CR BARD : PERIPHERAL VASCULAR 02/06/2022 [id number] / / [id number] documented as of this encounter Visit Diagnoses [...] 650 mg Daratumumab-hyaluronidase- fihj (Darzalex Faspro) 1800 mg-54500 units/ 15 ml subcut inj 15 mL, [...] and were consensually agreed upon. Care Teams Budget Officer Relationship Specialty Start Date End Date Artemio Mane III, MD [address] [facility] [place] [address] PCP - General Family Medicine 04/08/14 documented as of this encounter
--- OUTSIDE RECORDS SUMMARY | 2024-04-21 13:14 | External Medical Summary ---
Author Name Unknown Address Unknown Organization K01:[facility]ATORY [facility] - [address] [place] [address] Laboratory Report Ordering Provider Test Date Status JACEY COUGHLIN 01/30/2024 07:03:02 Final Observation Date Value Abnormality Reference (Units ) Status Phosphate 01/30/2024 07:03:02 3.8 2.5-4.8 (m g/dL) Final Performing Location LABORATORY [facility] - [address] [place] [address]
--- OUTSIDE RECORDS SUMMARY | 2024-04-21 13:14 | External Medical Summary | Summary of Care ---
Author Name Unknown Organization [facility] Address [address] [place] [facility] [place] [address] Phone [phone] Care Team Providers Care Laser Specialist Name Role Phone Antonietta NORIEGA MD, Artemio Cedillo Primary Care Provider [phone] Reason for Visit * Reason Comments Outpatient Testing Encounter Details Date Type Department Care Team (Late st Contact Info) Description 01/30/2024 7:10 AM EDT Laboratory Laboratory [place] [address] [place] [address] [place], Lab Scenery [address] [place] [address] Multiple myeloma not having achieved remission (HCC) [...] 8:00 AM EDT Hem/Onc Treatment Hematology/Oncology Treatment, [place] [address] [place] [address] Jennifer, Chair 1 Hem Onc Scenery [address] [place] [address] 02/27/2024 7:20 AM EDT Laboratory Laboratory Scenery [place] [address] [place] [phone] Jennifer, Lab Scenery [address] [facility] [place] [address] 02/28/2024 8:00 AM EDT [facility] 200 [facility] [place] [phone] Jennifer, Chair 1 Hem Onc [address] [place], [place] [address] 03/26/2024 7:10 AM EDT Laboratory Laboratory [facility] 200 [facility] [place], [place] [phone] Jennifer, Lab [address] [place], [place] [address] 03/27/2024 9:15 AM EDT Office Visit Hematology/Oncology [facility] 200 [facility] [place], [place] [phone] Benny Mondragon MD 200 [facility], [place] [address] 03/27/2024 9:45 AM EDT Hem/Onc Treatment Hematology/Oncology Treatment[address], [place] [phone] Pending Results Name Type Priority Associated Diagnoses Date /Time SERUM FREE LIGHT CHAINS Lab STAT Multiple myeloma not having achieved remission (HCC) 01/30/2024 7:03 AM EDT SERUM PROTEIN ELECTROPHORESIS REFLEX PROFILE Lab STAT Multiple myeloma not having achieved remission (HCC) 01/30/2024 7:03 AM EDT IMMUNOGLOBULIN QUANTITATIVE Lab STAT Multiple myeloma not having achieved remission (HCC) 01/30/2024 7:03 AM EDT COMPREHENSIVE METABOLIC PANEL Lab STAT Multiple myeloma not having achieved remission (HCC) 01/30/2024 7:03 AM EDT Health Maintenance Due Date Last Done Comments COVID-19 Vaccine (#1) 1945 Zoster Vaccines (1 of 2) 02/05/2009 12/11/2008 DXA Scan 08/07/2016 08/07/2014, 07/11, 08/01/2002, Additional history exists Depression Screening 05/11/2018 05/11/2017 DTaP,Tdap,and Td Vaccines (2 - Td or Tdap) 05/03/2026 05/03/2016, 07/10/2004, 07/10/2004 Pneumococcal Vaccine: 65+ Years Completed 06/17/2014, 08/03/2006 VITAMIN D LEVEL ONCE IN A LIFETIME-USE SMARTSET# [id number] Completed 05/22/2015, 03/05/2015, 04/23/2014 Influenza Vaccine (FLU [...] this encounter Medical Devices Implanted Type Area Web Marketing Assistant Device Identifier Shelf Expiration Date Model / Serial / Lot Port Power Mri W/8fr Cath - [id number] Implanted:Qty : 1 on 12/09/2020 by Vince Jon MD at OR [facility] Right: Subclavian CR BARD : PERIPHERAL VASCULAR 02/06/2022 [id number] / / [id number] documented as of this encounter Procedures Procedure Name Priority Date/Time Associated Diagnosis Comments DIFFERENTIAL, AUTOMATED STAT 01/30/2024 7:03 AM EDT Multiple myeloma not having achieved remission (HCC) CBC STAT 01/30/2024 7:03 AM EDT Multiple myeloma not having achieved remission (HCC) CBC STAT 01/30/2024 7:03 AM EDT Multiple myeloma not having achieved remission (HCC) documented in this encounter Results * (ABNORMAL) DIFFERENTIAL, AUTOMATED (01/30/2024 7:03 AM EDT) WBC 6.51 4.00 - 10.80 K/uL 01/30/2024 7:07 AM EDT LABORATORY [facility] 56-02 Neutrophils % 48.4 40.0 - 75.0 % 01/30/2024 7:07 AM EDT LABORATORY [place] 56-02 Lymphocytes % 37.3 18.0 - 42.0 % 01/30/2024 7:07 AM EDT [facility] 56-02 Monocytes % 12.1(H) 1.0 - 11.0 % 01/30/2024 7:07 AM EDT [facility] 56 Eosinophils % 2.0 0.0 - 6.0 % 01/30/2024 7:07 AM EDT [facility] 56 Basophils % 0.2 0.0 - 2.0 % 01/30/2024 7:07 AM EDT [facility] Absolute Neutrophils 3.15 1.80 - 7.70 K/uL 01/30/2024 7:07 AM EDT [facility] 56 Absolute Lymphocytes 2.43 1.00 - 4.80 K/ul 01/30/2024 7:07 AM EDT [facility] Absolute Monocytes 0.79 0.00 - 1.10 K/uL 01/30/2024 7:07 AM EDT [facility] Absolute Eosinophils 0.13 0.00 - 0.70 K/uL 01/30/2024 7:07 AM EDT [facility] Absolute Basophils 0.01 0.00 - 0.20 K/uL 01/30/2024 7:07 AM EDT [facility] Blood Venous blood specimen / Unknown Venipuncture / Unknown 01/30/2024 7:03 AM EDT 01/30/2024 7:03 AM EDT Benny Mondragon MD LAB BLOOD ORDERABLES [facility] [address] [place] [address] * (ABNORMAL) CBC (01/30/2024 7:03 AM EDT) WBC 6.51 4.00 - 10.80 K/uL 01/30/2024 7:07 AM EDT [facility] RBC 3.70 3.85 - 5.15 M/uL 01/30/2024 7:07 AM EDT [facility] HGB 10.5(L) 12.0 - 15.3 g/dL 01/30/2024 7:07 AM EDT [facility] HCT 34.3(L) 36.0 - 45.2 % 01/30/2024 7:07 AM EDT [facility] 56 MCV 92.7 81.5 - 97.5 fL 01/30/2024 7:07 AM EDT [facility] 56 MCH 28.4 27.0 - 34.0 pg 01/30/2024 7:07 AM EDT [facility] 56 MCHC 30.6 32.0 - 36.0 g/dL 01/30/2024 7:07 AM EDT [facility] 56 RDW 14.0 11.5 - 15.5 % 01/30/2024 7:07 AM EDT [facility] 56 PLT 285 140 - 400 K/uL 01/30/2024 7:07 AM EDT [facility] 56 MPV 8.9 6.6 - 11.1 fL 01/30/2024 7:07 AM EDT [facility] 56 Blood Venous blood specimen / Unknown Venipuncture / Unknown 01/30/2024 7:03 AM EDT 01/30/2024 7:03 AM EDT Benny Mondragon MD LAB BLOOD ORDERABLES [facility] [address] documented in this encounter Visit Diagnoses Diagnosis [...] and were consensually agreed upon. Care Teams Laser Specialist Relationship Specialty Start Date End Date Artemio Mane III, MD [facility] [address] PCP - General Family Medicine 04/08/14 documented as of this encounter
--- OUTSIDE RECORDS SUMMARY | 2024-04-21 13:15 | External Medical Summary | Summary of Care ---
Author Name Unknown Organization [facility] Address [address] [place] [facility] [place] [place] [address] Phone [phone] Care Team Providers Care Tobacco Roller Name Role Phone Antonietta NORIEGA MD, Artemio Cedillo Primary Care Provider [phone] Reason for Visit * Reason Comments Outpatient Testing Encounter Details Date Type Department Care Team (Late st Contact Info) Description 12/05/2023 8:00 AM EST Laboratory Laboratory Scenery [place] [address] [place] [phone] [place], Lab Scenery [address] [place] [address] Multiple myeloma not having achieved remission (HCC) Allergies Active Allergy Reactions Criticality Noted Date Comments Adhesive Tape 02/06/2016 Ixazomib 08/09/2018 Hives, chills, diarrhea. Lenalidomide Hives 05/23/2018 Bortezomib Bleeding High 12/12/2018 Open sores w/bleeding on abdominal region documented as of this encounter (statuses as of 12/05/2023) Medications Medication Sig Dispensed Refills Start Date [...] as of this encounter (statuses as of 12/05/2023) Active Problems Problem Noted Date Diagnosed Date [...] as of this encounter (statuses as of 12/05/2023) Resolved Problems Problem Noted Date Diagnosed Date Resolved Date CVA 06/29/2002 01/23/2009 Overview: Modified per CVA protocol #8 FX CARPAL BONE NOS-CLOSE 06/29/200211/2016 documented as of this encounter (statuses as of 12/05/2023) Immunizations Name Administration Dates Next Due Pneumococcal [...] Care Team (Late st Contact Info) Description 12/06/2023 8:15 AM EST Hem/Onc Treatment Hematology/Oncology Treatment, [place] [address] [place] [phone] Jennifer, Chair 5 Hem Onc [address] [place] [address] 01/02/2024 8:00 AM EDT Laboratory Laboratory [facility] [place] 200 [place] [address] Jennifer Lab [address] [facility] [place] [address] 01/03/2024 8:15 AM EDT Office Visit Hematology/Oncology [facility] 200 [place] [address] Benny Mondragon MD 200 [facility], [place] [address] 01/03/2024 8:45 AM EDT Hem/Onc Treatment Hematology/Oncology Treatment, [place] 200 [facility] [place] [address] Jennifer, Chair 2 Hem Onc [address], [place] [address] Pending Results Name Type Priority Associated Diagnoses Date /Time SERUM FREE LIGHT CHAINS Lab STAT Multiple myeloma not having achieved remission (HCC) 12/05/2023 6:58 AM EST SERUM PROTEIN ELECTROPHORESIS REFLEX PROFILE Lab STAT Multiple myeloma not having achieved remission (HCC) 12/05/2023 6:58 AM EST IMMUNOGLOBULIN QUANTITATIVE Lab STAT Multiple myeloma not having achieved remission (HCC) 12/05/2023 6:58 AM EST CBC WITH WBC DIFFERENTIAL Lab STAT Multiple myeloma not having achieved remission (HCC) 12/05/2023 6:58 AM EST COMPREHENSIVE METABOLIC PANEL Lab STAT Multiple myeloma not having achieved remission (HCC) 12/05/2023 6:58 AM EST CBC Lab STAT Multiple myeloma not having achieved remission (HCC) 12/05/2023 6:58 AM EST DIFFERENTIAL, AUTOMATED Lab STAT Multiple myeloma not having achieved remission ([facility]) 12/05/2023 6:58 AM EST Health Maintenance Due Date Last Done Comments [...] D LEVEL ONCE IN A LIFETIME-USE SMARTSET# 91656 Completed 05/22/2015, 03/05/2015, 04/23/2014 GARDASIL-HPV IMMUNIZATION SERIES Aged Out No longer eligible based on patient's age to complete this topic Hepatitis B Aged Out No longer eligi ble based on patient's age to complete this topic MENINGOCOCCAL (MENACTRA/MENVEO) Aged Out No longer eligible based on patient's age to complete this topic documented as of this encounter Medical Devices Implanted Type Area Mud Mill Tender Device Identifier Shelf Expiration Date Model / Serial / Lot Port Power Mri W/8fr Cath - [id number] Implanted:Qty : 1 on 12/09/2020 by Vince oJn MD at OR [facility] Right: Subclavian CR BARD : PERIPHERAL VASCULAR 02/06/2022 [id number] / / [id number] documented as of this encounter Visit Diagnoses [...] and were consensually agreed upon. Care Teams Tobacco Roller Relationship Specialty Start Date End Date Artemio Mane III, MD 200 [place] [address] PCP - General Family Medicine 04/08/14 documented as of this encounter
--- OUTSIDE RECORDS SUMMARY | 2024-04-21 13:15 | External Medical Summary ---
Author Name Unknown Address Unknown Organization [id number]:[facility] [place] [address] Laboratory Report Ordering Provider Test Date Status JACEY COUGHLIN 12/05/2023 06:58:58 Final Observation Date Value Abnormality Reference (Units ) Status SYNC LEUKOCYTES IN BLOOD BY AUTOMATED COUNT 12/05/2023 06:58:58 7.52 4.00-10.80 (K/uL) Final Segs 12/05/2023 06:58:58 52.5 40.0-75.0 (%) Final Lymphs % 12/05/2023 06:58:58 32.6 18.0-42.0 (%) Final Monos 12/05/2023 06:58:58 13.3 Above high normal 1.0-11.0 (%) Final Eosinophils 12/05/2023 06:58:58 1.5 0.0-6.0 (%) Final Basos 12/05/2023 06:58:58 0.1 0.0-2.0 (%) Final Absolute Segs 12/05/2023 06:58:58 3.95 1.80-7.70 (K/uL) Final Lymphs, absolute 12/05/2023 06:58:58 2.45 1.00-4.80 (K/ul) Final Monos, Abs 12/05/2023 06:58:58 1.00 0.00-1.10 (K/uL) Final Eos, Abs 12/05/2023 06:58:58 0.11 0.00-0.70 (K/uL) Final Basos, Abs 12/05/2023 06:58:58 0.01 0.00-0.20 (K/uL) Final Performing Location [facility] [place] [address]
--- OUTSIDE RECORDS SUMMARY | 2024-04-21 13:15 | External Medical Summary ---
Author Name Unknown Address Unknown Organization [id number]:[facility] [place] [address] Laboratory Report Ordering Provider Test Date Status JACEY COUGHLIN 01/02/2024 06:59:44 Final Observation Date Value Abnormality Reference (Units ) Status SYNC LEUKOCYTES IN BLOOD BY AUTOMATED COUNT 01/02/2024 06:59:44 8.24 4.00-10.80 (K/uL) Final Segs 01/02/2024 06:59:44 53.2 40.0-75.0 (%) Final Lymphs % 01/02/2024 06:59:44 33.5 18.0-42.0 (%) Final Monos 01/02/2024 06:59:44 11.4 Above high normal 1.0-11.0 (%) Final Eosinophils 01/02/2024 06:59:44 1.8 0.0-6.0 (%) Final Basos 01/02/2024 06:59:44 0.1 0.0-2.0 (%) Final Absolute Segs 01/02/2024 06:59:44 4.38 1.80-7.70 (K/uL) Final Lymphs, absolute 01/02/2024 06:59:44 2.76 1.00-4.80 (K/ul) Final Monos, Abs 01/02/2024 06:59:44 0.94 0.00-1.10 (K/uL) Final Eos, Abs 01/02/2024 06:59:44 0.15 0.00-0.70 (K/uL) Final Basos, Abs 01/02/2024 06:59:44 0.01 0.00-0.20 (K/uL) Final Performing Location [place] [address]
--- OUTSIDE RECORDS SUMMARY | 2024-04-21 13:15 | External Medical Summary ---
Author Name Unknown Address Unknown Organization [id number]:[facility] [place] [address] [facility] [address] [facility] [place] [facility] [address] Laboratory Report Ordering Provider Test Date Status JACEY COUGHLIN 01/02/2024 06:59:44 Final Observation Date Value Abnormality Reference (Units) Status PARAPROTEIN NORMAL/ABNORMAL 01/02/2024 06:59:44 Abnormal Abnormal Normal Final Protein 01/02/2024 06:59:44 7.1 6.0-8.3 (g/dL) Final Albumin/Protein.total [Pure mass fraction] in Serum or Plasma by Electrophoresis 01/02/2024 06:59:44 3.02 Below low normal 3.30-4.40 (g/dL) Final Alpha 1 globulin/Protein.tota l [Pure mass fraction] in Serum or Plasma by Electrophoresis 01/02/2024 06:59:44 0.30 0.10-0.30 (g/dL) Final Alpha 2 globulin/Protein.tota l [Pure mass fraction] in Serum or Plasma by Electrophoresis 01/02/2024 06:59:44 1.18 Above high normal 0.60-1.00 (g/dL) Final Beta globulin/Protein.tota l [Pure mass fraction] in Serum or Plasma by Electrophoresis 01/02/2024 06:59:44 0.87 0.80-1.30 (g/dL) Final Gamma globulin/Protein.tota l [Pure mass fraction] in Serum or Plasma by Electrophoresis 01/02/2024 06:59:44 1.74 Above high normal 0.70-1.70 (g/dL) Final Monoclonal protein 01/02/2024 06:59:44 1.24 (g/dL) Final Protein Fractions [Interpretation] in Serum or Plasma by Electrophoresis Narrative 01/02/2024 06:59:44 Abnormal. 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 Final Performing Location LABORATORY C - [address] [facility] [address] [facility] [place] [facility] [address]
--- OUTSIDE RECORDS SUMMARY | 2024-04-21 13:15 | External Medical Summary | Summary of Care ---
Author Name Unknown Organization [facility] Address [address] [facility] [place] [address] Phone [phone] Care Team Providers Care Learning And Development Officer Name Role Phone Antonietta NORIEGA MD, Artemio Cedillo Primary Care Provider [phone] Reason for Visit * Reason Comments Outpatient Testing Encounter Details Date Type Department Care Team (Late st Contact Info) Description 11/07/2023 8:00 AM EST Laboratory Laboratory [place] [address] [place] [address] [place], Lab Scenery [address] [place] [address] Multiple myeloma not having achieved remission (HCC) Allergies Active Allergy Reactions Criticality Noted Date Comments Adhesive Tape 02/06/2016 Ixazomib 08/09/2018 Hives, chills, diarrhea. Lenalidomide Hives 05/23/2018 Bortezomib Bleeding High 12/12/2018 Open sores w/bleeding on abdominal region documented as of this encounter (statuses as of 11/07/2023) Medications Medication Sig Dispensed Refills Start Date [...] as of this encounter (statuses as of 11/07/2023) Active Problems Problem Noted Date Diagnosed Date [...] as of this encounter (statuses as of 11/07/2023) Resolved Problems Problem Noted Date Diagnosed Date Resolved Date CVA 06/29/2002 01/23/2009 Overview: Modified per CVA protocol #8 FX CARPAL BONE NOS-CLOSE 06/29/200211/2016 documented as of this encounter (statuses as of 11/07/2023) Immunizations Name Administration Dates Next Due Pneumococcal [...] Date Smoking Tobacco: Former Cigarettes 0.5 45 Q uit: 06/26/2002 Smokeless Tobacco: Never Alcohol Use Standard [...] Care Team (Late st Contact Info) Description 11/08/2023 8:15 AM EST [facility] [address] [place] [address] Jennifer, Chair 5 Hem Onc [facility] [address] [place] [address] [place] [address] 12/05/2023 8:00 AM EST Laboratory Laboratory [facility] [address] [place] [phone] Jennifer, Lab Scenery [address] [place] [address] [facility] [place] [address] 12/06/2023 8:15 AM EST Hem/Onc Treatment Hematology/Oncology Treatment, [place] 200 [place] [address] Jennifer, Chair 5 Hem Onc [place] 200 [facility] [place] [address] 01/02/2024 8:00 AM EDT Laboratory Laboratory [facility] [address] [place], [place] [phone] Jennifer, Lab [facility] 200 [facility] [place] [address] 01/03/2024 8:15 AM EDT Office Visit Hematology/Oncology [facility] 200 [facility] [place], [place] [address] Benny Mondragon MD 200 [facility], [place] [address] 01/03/2024 8:45 AM EDT Hem/Onc Treatment Hematology/Oncology [facility] 200 [facility], [place] [address] Jennifer, Chair 2 Hem Onc [facility] 200 [facility] [place], [place] [address] Pending Results Name Type Priority Associated Diagnoses Date /Time SERUM FREE LIGHT CHAINS Lab STAT Multiple myeloma not having achieved remission (HCC) 11/07/2023 8:00 AM EST SERUM PROTEIN ELECTROPHORESIS REFLEX PROFILE Lab STAT Multiple myeloma not having achieved remission (HCC) 11/07/2023 8:00 AM EST IMMUNOGLOBULIN QUANTITATIVE Lab STAT Multiple myeloma not having achieved remission (HCC) 11/07/2023 8:00 AM EST COMPREHENSIVE METABOLIC PANEL Lab STAT Multiple myeloma not having achieved remission (HCC) 11/07/2023 8:00 AM EST Health Maintenance Due Date Last [...] D LEVEL ONCE IN A LIFETIME-USE SMARTSET# [id number] Completed 05/22/2015, 03/05/2015, 04/23/2014 GARDASIL-HPV IMMUNIZATION SERIES Aged Out No longer eligible based on patient's age to complete this topic Hepatitis B Aged Out No longer eligi ble based on patient's age to complete this topic MENINGOCOCCAL (MENACTRA/MENVEO) Aged Out No longer eligible based on patient's age to complete this topic documented as of this encounter Medical Devices Implanted Type Area Cripple Worker Device Identifier Shelf Expiration Date Model / Serial / Lot Port Power Mri W/8fr Cath - [id number] Implanted:Qty : 1 on 12/09/2020 by Vince Jon MD at OR [facility] Right: Subclavian CR BARD : PERIPHERAL VASCULAR 02/06/2022 [id number] / / [id number] documented as of this encounter Procedures Procedure Name Priority Date/Time Associated Diagnosis Comments DIFFERENTIAL, AUTOMATED STAT 11/07/2023 8:00 AM EST Multiple myeloma not having achieved remission (HCC) CBC STAT 11/07/2023 8:00 AM EST Multiple myeloma not having achieved remission (HCC) CBC STAT 11/07/2023 8:00 AM EST Multiple myeloma not having achieved remission (HCC) documented in this encounter Results * DIFFERENTIAL, AUTOMATED (11/07/2023 8:00 AM EST) WBC 6.95 4.00 - 10.80 K/uL 11/07/2023 8:08 AM EST [facility] 56-02 Neutrophils % 53.7 40.0 - 75.0 % 11/07/2023 8:08 AM EST LABORATORY [facility] 56-02 Lymphocytes % 34.7 18.0 - 42.0 % 11/07/2023 8:08 AM [facility] 56-02 Monocytes % 10.2 1.0 - 11.0 % 11/07/2023 8:08 AM [facility] 56- Eosinophils % 1.3 0.0 - 6.0 % 11/07/2023 8:08 AM [facility] 56- Basophils % 0.1 0.0 - 2.0 % 11/07/2023 8:08 AM [facility] 56- Absolute Neutrophils 3.73 1.80 - 7.70 K/uL 11/07/2023 8:08 AM [facility] 56- Absolute Lymphocytes 2.41 1.00 - 4.80 K/ul 11/07/2023 8:08 AM [facility] 56- Absolute Monocytes 0.71 0.00 - 1.10 K/uL 11/07/2023 8:08 AM [facility] 56 Absolute Eosinophils 0.09 0.00 - 0.70 K/uL 11/07/2023 8:08 AM [facility] 56- Absolute Basophils 0.01 0.00 - 0.20 K/uL 11/07/2023 8:08 AM [facility] 56 Blood Venous blood specimen / Unknown Venipuncture / Unknown 11/07/2023 8:00 AM EST 11/07/2023 8:01 AM EST Benny Mondragon MD LAB BLOOD ORDERABLES [facility] 56- [address] [place] [address] * (ABNORMAL) CBC (11/07/2023 8:00 AM EST) WBC 6.95 4.00 - 10.80 K/uL 11/07/2023 8:08 AM [facility] 56 RBC 3.93 3.85 - 5.15 M/uL 11/07/2023 8:08 AM [facility] 56 HGB 11.5(L) 12.0 - 15.3 g/dL 11/07/2023 8:08 AM [facility] 56- HCT 38.0 36.0 - 45.2 % 11/07/2023 8:08 AM EST [facility] 56- MCV 96.7 81.5 - 97.5 fL 11/07/2023 8:08 AM EST [facility] 56- MCH 29.3 27.0 - 34.0 pg 11/07/2023 8:08 AM EST [facility] 56- MCHC 30.3 32.0 - 36.0 g/dL 11/07/2023 8:08 AM [facility] 56- RDW 13.8 11.5 - 15.5 % 11/07/2023 8:08 AM [facility] 56- PLT 205 140 - 400 K/uL 11/07/2023 8:08 AM [facility] 56- MPV 9.2 6.6 - 11.1 fL 11/07/2023 8:08 AM [facility] 56- Blood Venous blood specimen / Unknown Venipuncture / Unknown 11/07/2023 8:00 AM EST 11/07/2023 8:01 AM EST Benny Mondragon MD LAB BLOOD ORDERABLES [facility] [address] documented in this encounter Visit Diagnoses Diagnosis [...] and were consensually agreed upon. Care Teams Learning And Development Officer Relationship Specialty Start Date End Date Artemio Mane III, MD [facility] [address] PCP - General Family Medicine 04/08/14 documented as of this encounter
--- OUTSIDE RECORDS SUMMARY | 2024-04-21 13:15 | External Medical Summary ---
Author Name Unknown Address Unknown Organization K01:[facility] [place] [facility] [address] Laboratory Report Ordering Provider Test Date Status JACEY COUGHLIN 12/05/2023 06:58:58 Final Observation Date Value Abnormality Reference (Units) Status PARAPROTEIN NORMAL/ABNORMAL 12/05/2023 06:58:58 Abnormal Abnormal Normal Final Protein 12/05/2023 06:58:58 7.0 6.0-8.3 (g/dL) Final Albumin/Protein.total [Pure mass fraction] in Serum or Plasma by Electrophoresis 12/05/2023 06:58:58 3.02 Below low normal 3.30-4.40 (g/dL) Final Alpha 1 globulin/Protein.tota l [Pure mass fraction] in Serum or Plasma by Electrophoresis 12/05/2023 06:58:58 0.28 0.10-0.30 (g/dL) Final Alpha 2 globulin/Protein.tota l [Pure mass fraction] in Serum or Plasma by Electrophoresis 12/05/2023 06:58:58 1.24 Above high normal 0.60-1.00 (g/dL) Final Beta globulin/Protein.tota l [Pure mass fraction] in Serum or Plasma by Electrophoresis 12/05/2023 06:58:58 0.87 0.80-1.30 (g/dL) Final Gamma globulin/Protein.tota l [Pure mass fraction] in Serum or Plasma by Electrophoresis 12/05/2023 06:58:58 1.59 0.70-1.70 (g/dL) Final Monoclonal protein 12/05/2023 06:58:58 1.06 (g/dL) Final Protein Fractions [Interpretation] in Serum or Plasma by Electrophoresis Narrative 12/05/2023 06:58:58 Abnormal. 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 Final Performing Location [facility] [place] [address] [facility]. [facility] [address]
--- OUTSIDE RECORDS SUMMARY | 2024-04-21 13:15 | External Medical Summary ---
Author Name Unknown Address Unknown Organization [id number]:[facility] [place] [address] Laboratory Report Ordering Provider Test Date Status JACEY COUGHLIN 12/05/2023 06:58:58 Final Observation Date Value Abnormality Reference (Units ) Status WBC, Total 12/05/2023 06:58:58 7.52 4.00-10.8 0 (K/uL) Final RBC 12/05/2023 06:58:58 3.96 3.85-5.15 (M/uL) Final Hemoglobin 12/05/2023 06:58:58 11.6 Below low normal 12 .0-15.3 (g/dL) Final HCT 12/05/2023 06:58:58 37.5 36.0-45.2 (%) Final MCV 12/05/2023 06:58:58 94.7 81.5-97.5 (fL) Final MCH 12/05/2023 06:58:58 29.3 27.0-34.0 (pg) Final MCHC 12/05/2023 06:58:58 30.9 32.0-36.0 (g/dL) Final RDW 12/05/2023 06:58:58 13.6 11.5-15.5 (%) Final Platelets 12/05/2023 06:58:58 261 140-400 (K /uL) Final MPV 12/05/2023 06:58:58 9.5 6.6-11.1 ( fL) Final Performing Location [facility] [address]
--- OUTSIDE RECORDS SUMMARY | 2024-04-21 13:15 | External Medical Summary ---
Author Name Unknown Address Unknown Organization [id number][facility] [place] [address] [place] [address] Laboratory Report Ordering Provider Test Date Status JACEY COUGHLIN 01/02/2024 06:59:44 Final Observation Date Value Abnormality Reference (Units ) Status IgG 01/02/2024 06:59:44 2030 Above high normal 70 0-1600 (mg/dL) Final IgA 01/02/2024 06:59:44 60 Below low normal 70- 400 (mg/dL) Final IgM 01/02/2024 06:59:44 20 Below low normal 40- 230 (mg/dL) Final Performing Location [facility] - [address] [place] [address]
--- OUTSIDE RECORDS SUMMARY | 2024-04-21 13:15 | External Medical Summary ---
Author Name Unknown Address Unknown Organization K09:[facility] [place] [address] Laboratory Report Ordering Provider Test Date Status JACEY COUGHLIN 11/07/2023 08:00:50 Final Observation Date Value Abnormality Reference (Units ) Status SYNC LEUKOCYTES IN BLOOD BY AUTOMATED COUNT 11/07/2023 08:00:50 6.95 4.00-10.80 (K/uL) Final Segs 11/07/2023 08:00:50 53.7 40.0-75.0 (%) Final Lymphs % 11/07/2023 08:00:50 34.7 18.0-42.0 (%) Final Monos 11/07/2023 08:00:50 10.2 1.0-11.0 (%) Final Eosinophils 11/07/2023 08:00:50 1.3 0.0-6.0 (%) Final Basos 11/07/2023 08:00:50 0.1 0.0-2.0 (%) Final Absolute Segs 11/07/2023 08:00:50 3.73 1.80-7.70 (K/uL) Final Lymphs, absolute 11/07/2023 08:00:50 2.41 1.00-4.80 (K/ul) Final Monos, Abs 11/07/2023 08:00:50 0.71 0.00-1.10 (K/uL) Final Eos, Abs 11/07/2023 08:00:50 0.09 0.00-0.70 (K/uL) Final Basos, Abs 11/07/2023 08:00:50 0.01 0.00-0.20 (K/uL) Final Performing Location [facility] [place] [address]
--- OUTSIDE RECORDS SUMMARY | 2024-04-21 13:15 | External Medical Summary | Summary of Care ---
Author Name Unknown Organization [facility] Address [address] [place] [facility] [place] [place] [address] Phone [phone] Care Team Providers Care Fan Runner Name Role Phone Antonietta NORIEGA MD, Artemio Cedillo Primary Care Provider [phone] Reason for Visit * Reason Comments Chemotherapy Dazalex-faspro. * Episode Based Medications (Routine) - Authorized Specialty Diagnoses / Procedures Referred By Contac t Referred To Contact Diagnoses Encounter for antineoplastic chemotherapy Multiple myeloma not having achieved remission (HCC) Procedures [place] DARATUMUMAB, HYALURONIDASE Benny Mondragon MD [address] [place] [address] Anc Hem/Onc Andres Rodriguez DEPT CLOSED - 08/23/23 200 [facility] [place] [place] [address] Referral ID Status Reason Start Date Expiration Date V isits Requested Visits Authorized [id number] Authorized 03/11/2022 10/09/2099 999 99 Encounter Details Date Type Department Care Team (Latest Contact Info) Description 11/08/2023 8:15 AM EST Hem/Onc Treatment Hematology/Oncolog y Treatment, [place] [address] [place] [address] Jennifer, Chair 5 Hem Onc Scene [address] [place] [address] Encounter for antineoplastic chemotherapy*; Multiple myeloma not having achieved remission (HCC) Allergies Active Allergy Reactions Criticality Noted Date Comments Adhesive Tape 02/06/2016 Ixazomib 08/09/2018 Hives, chills, diarrhea. Lenalidomide Hives 05/23/2018 Bortezomib Bleeding High 12/12/2018 Open sores w/bleeding on abdominal region documented as of this encounter (statuses as of 12/01/2023) Medications Medication Sig Dispensed Refills Start Date [...] as of this encounter (statuses as of 12/01/2023) Active Problems Problem Noted Date Diagnosed Date [...] as of this encounter (statuses as of 12/01/2023) Resolved Problems Problem Noted Date Diagnosed Date Resolved Date CVA 06/29/2002 01/23/2009 Overview: Modified per CVA protocol #8 FX CARPAL BONE NOS-CLOSE 06/29/200211/2016 documented as of this encounter (statuses as of 12/01/2023) Immunizations Name Administration Dates Next Due Pneumococcal [...] Sign Reading Time Taken Comments Blood Pressure 113/51 11/08/2023 8:14 AM EST Pulse 94 11/08/2023 8:14 AM EST Temperature 36.6 C (97.9 F) 11/08/2023 8:14 AM ES T Respiratory Rate 18 11/08/2023 8:14 AM EST Oxygen Saturation 95% 11/08/2023 8:14 AM EST Inhaled Oxygen Concentration - - Weight 49.7 kg (109 lb 9.6 oz) 11/08/2023 8:14 A M EST Height - - Body Mass Index 18.81 09/13/2023 7:39 AM EST documented in this encounter Nursing Notes * Elin Jimenez RN - 11/08/2023 9:00 AM EST Goals: Patient will remain free from injury. Possible barriers to meeting goals: Fall risk. Stability of the patient: Moderately stable - low risk of patient condition declining or worsening Summary regarding today's goals: Met: Patient remained free of injury. Functional status at today's visit: Fully active, able to carry on all pre-disease performance without restriction The drug name, dose, infusion volume, rate and route of administration, expiration date and time, appearance and physical integrity of the drug and rate set on the pump and sequencing of drug administration (as applicable) were verified by me and second sign-in RN. Patient was assessed for symptoms or adverse side effects during treatment. Patient tolerated procedure well. Discharged in stable condition. * Elin Jimenez RN - 11/08/2023 8:15 AM EST Chair 12. Patient arrived for darzalex-faspro with no acute complaints. Chemo agents darzalex-faspro Appetite good Nausea/Vomiting no Diarrhea no Constipation no Mucositis no Fatigue no Bleeding no Infection no Rash no Numbness tingling no Pain no Radiation no ABN Labs WNL for treatment Alt in Tx: no Return in 1 month. Safety and Risk for Injury Patient will remain free from injury. Ensure appropriate safety devices are available. Provide and maintain safe environment. documented in this encounter Plan of Treatment Upcoming Encounters Date Type Department Care Team (Late st Contact Info) Description 12/05/2023 8:00 AM EST Laboratory Laboratory [facility] [place] [address] [place], [place] [phone] [place], Lab Scenery [address] [facility] [place] [address] 12/06/2023 8:15 AM EST Hem/Onc Treatment [facility] [place] [facility] [phone] Jennifer, Chair 5 Hem Onc Scene [address] [place] [address] 01/02/2024 8:00 AM EDT Laboratory Laboratory [facility] [place] [address] [place] [phone] Jennifer, Lab Scenery [address] [facility] [place] [address] 01/03/2024 8:15 AM EDT Office Visit Hematology/Oncology [facility] [place] [address] [place], [place] [phone] Benny Mondragon MD [address] [place], [place] [address] 01/03/2024 8:45 AM EDT Hem/Onc Treatment Hematology/Oncology Treatment, [place] 200 [facility], [place] [phone] Jennifer, Chair 2 Hem Onc Scenery [address] [place], [place] [address] Health Maintenance Due Date Last Done Comments [...] D LEVEL ONCE IN A LIFETIME-USE SMARTSET# [id number] Completed 05/22/2015, 03/05/2015, 04/23/2014 GARDASIL-HPV IMMUNIZATION SERIES Aged Out No longer eligible based on patient's age to complete this topic Hepatitis B Aged Out No longer eligi ble based on patient's age to complete this topic MENINGOCOCCAL (MENACTRA/MENVEO) Aged Out No longer eligible based on patient's age to complete this topic documented as of this encounter Medical Devices Implanted Type Area Blending Tank Tender Device Identifier Shelf Expiration Date Model / Serial / Lot Port Power Mri W/8fr Cath - [id number] Implanted:Qty : 1 on 12/09/2020 by Vince Jon MD at OR [facility] Right: Subclavian CR BARD : PERIPHERAL VASCULAR 02/06/2022 [id number] / / [id number] documented as of this encounter Visit Diagnoses Diagnosis Encounter for antineoplastic chemotherapy- Primary Multiple myeloma not having achieved remission (HCC) Multiple myeloma, without mention of having achieved remission documented in this encounter Administered Medications Inactive Administered Medications - up to 3 most recent administrations Medication Order MAR Action Action Date Dose Rate Site Acetaminophen (Tylenol) tab 650 mg 650 mg, Oral, ONCE, On Tue11/08/23 at 0845, For 1 dose, Maximum of 4 grams (4000 mg) per day. Given 11/08/2023 8:24 AM EST 650 mg Esdoetudsbz-fkgxipzpaxxcc-b ihj (Darzalex Faspro) 1800 mg-77211 units/ 15 ml subcut inj 15 mL, Subcutaneous, ONCE, On Tue11/08/23 at 0945, For 1 dose, Inject subcutanteously into abdomen over 3 to 5 minutes Given 11/08/2023 8:49 AM EST 15 mL Abdomen Left Lower diphenhydrAMINE (Benadryl) cap 50 mg 50 mg, Oral, ONCE, On Tue11/08/23 at 0845, For 1 dose Given 11/08/2023 8:24 AM EST 50 mg documented in this encounter Advance [...] and were consensually agreed upon. Care Teams Fan Runner Relationship Specialty Start Date End Date Artemio Mane III, MD [address] [place] [address] PCP - General Family Medicine 04/08/14 documented as of this encounter
--- OUTSIDE RECORDS SUMMARY | 2024-04-21 13:15 | External Medical Summary ---
Author Name Unknown Address Unknown Organization K01[place] [place] [facility] [address] [facility] [address] [facility] [address] Laboratory Report Ordering Provider Test Date Status JACEY COUGHLIN 12/05/2023 06:58:58 Final Observation Date Value Abnormality Reference (Units ) Status Hitterdal light chains, Free, Serum 12/05/2023 06:58:58 50.37 Above high normal 3.30-19.40 (mg/L) Final Lambda light chains, free, Serum 12/05/2023 06:58:58 9.58 5.71-26.30 (mg/L) Final KAPPA LAMBDA FLC RATIO 12/05/2023 06:58:58 5.26 Above high normal 0.26-1.65 Final Performing Location [facility] [place] [address] [address]
--- OUTSIDE RECORDS SUMMARY | 2024-04-21 13:15 | External Medical Summary | Summary of Care ---
Author Name Unknown Organization [facility] Address [address] [facility] [place] [address] Phone [phone] Care Team Providers Care Geek Squad Manager Name Role Phone Antonietta NORIEGA MD, Artemio Cedillo Primary Care Provider [phone] Reason for Visit * Reason Comments Chemotherapy Darzalex-faspro. * Episode Based Medications (Routine) - Authorized Specialty Diagnoses / Procedures Referred By Contac t Referred To Contact Diagnoses Encounter for antineoplastic chemotherapy Multiple myeloma not having achieved remission (HCC) Procedures [place] DARATUMUMAB, HYALURONIDASE Benny Mondragon MD [address] [place] [address] Anc Hem/Onc Andres Rodrigeuz DEPT CLOSED - 08/23/23 200 [facility] [place] [address] Referral ID Status Reason Start Date Expiration Date V isits Requested Visits Authorized [id number] Authorized 03/11/2022 10/09/2099 999 99 Encounter Details Date Type Department Care Team (Latest Contact Info) Description 12/06/2023 8:15 AM EST Hem/Onc Treatment Hematology/Oncolog y Treatment, [place] [address] [place] [phone] Jennifer, Chair 5 Hem Onc Scene [address] [place] [address] Encounter for antineoplastic chemotherapy*; Multiple myeloma not having achieved remission (HCC) Allergies Active Allergy Reactions Criticality Noted Date Comments Adhesive Tape 02/06/2016 Ixazomib 08/09/2018 Hives, chills, diarrhea. Lenalidomide Hives 05/23/2018 Bortezomib Bleeding High 12/12/2018 Open sores w/bleeding on abdominal region documented as of this encounter (statuses as of 12/06/2023) Medications Medication Sig Dispensed Refills Start Date [...] as of this encounter (statuses as of 12/06/2023) Active Problems Problem Noted Date Diagnosed Date [...] as of this encounter (statuses as of 12/06/2023) Resolved Problems Problem Noted Date Diagnosed Date Resolved Date CVA 06/29/2002 01/23/2009 Overview: Modified per CVA protocol #8 FX CARPAL BONE NOS-CLOSE 06/29/200211/2016 documented as of this encounter (statuses as of 12/06/2023) Immunizations Name Administration Dates Next Due Pneumococcal [...] Sign Reading Time Taken Comments Blood Pressure 99/63 12/06/2023 8:05 AM EST Pulse 130 12/06/2023 8:05 AM EST Temperature 36.3 C (97.3 F) 12/06/2023 8:05 AM ES T Respiratory Rate 18 12/06/2023 8:05 AM EST Oxygen Saturation 98% 12/06/2023 8:05 AM EST Inhaled Oxygen Concentration - - Weight 49 kg (108 lb) 12/06/2023 8:05 AM EST Height - - Body Mass Index 18.54 09/13/2023 7:39 AM EST documented in this encounter Nursing Notes * Elin Jimenez RN - 12/06/2023 8:48 AM EST Chair 12. Patient arrived for darzalex-faspro with no acute complaints. Chemo agents darzalex-faspro Appetite good Nausea/Vomiting no Diarrhea no Constipation no Mucositis no Fatigue a little Bleeding no Infection no Rash no Numbness tingling no Pain no Radiation no ABN Labs WNL for treatment Alt in Tx: no Return in 4 weeks. Functional status at today's visit: Fully active, [...] adverse side effects during treatment. Patient tolerated injection well. Discharged in stable condition. documented in this encounter Plan of Treatment Upcoming Encounters Date Type Department Care Team (Late st Contact Info) Description 01/02/2024 8:00 AM EDT Laboratory [place] [address] [address] [place] [phone] [place] [address] 01/03/2024 8:15 AM EDT Office Visit Hematology/[place] [address] [place] [phone] Benny Mondragon MD [address] [place], [place] [address] 01/03/2024 8:45 AM EDT Hem/Onc Treatment Hematology/Oncology Treatment, [place] [address] [place], [place] [phone] Park, Chair 2 Hem Onc Scenery [address] [facility], [place] [address] Health Maintenance Due Date Last Done Comments [...] D LEVEL ONCE IN A LIFETIME-USE SMARTSET# [id number] Completed 05/22/2015, 03/05/2015, 04/23/2014 GARDASIL-HPV IMMUNIZATION SERIES Aged Out No longer eligible based on patient's age to complete this topic Hepatitis B Aged Out No longer eligi ble based on patient's age to complete this topic MENINGOCOCCAL (MENACTRA/MENVEO) Aged Out No longer eligible based on patient's age to complete this topic documented as of this encounter Medical Devices Implanted Type Area Telephone Advice Nurse Device Identifier Shelf Expiration Date Model / Serial / Lot Port Power Mri W/8fr Cath - [id number] Implanted:Qty : 1 on 12/09/2020 by Vince Jon MD at OR [facility] Right: Subclavian CR BARD : PERIPHERAL VASCULAR 02/06/2022 [id number] / / [id number] documented as of this encounter Visit Diagnoses [...] ONCE PRN Other, Hypersensitivity Reaction, Starting on Tue12/06/23 at 0810, Until Tue12/07/23 at 0809, For 24 hours EPINEPHrine 1 MG/ML inj 0.3 mg 0.3 mg, Intramuscular, ONCE PRN Other, Hypersensitivity Reaction or Anaphylaxis, Starting on Tue12/06/23 at 0810, Until Tue12/07/23 at 0809, For 24 hours Hydrocortisone Sod Suc (PF) (Solu-Cortef) inj 100 mg 100 mg, IV Push, ONCE PRN Other, Hypersensitivity Reaction, Starting on Tue12/06/23 at 0810, Until Tue12/07/23 at 0809, For 24 hours meperidine (Demerol) 25 MG/ML inj 25 mg 25 mg, IV Push, ONCE PRN Shivering, Starting on Tue12/06/23 at 0810, Until Tue12/07/23 at 0809, For 24 hours Inactive Administered Medications - up to 3 most recent administrations Medication Order MAR Action Action Date Dose Rate Site Acetaminophen (Tylenol) tab 650 mg 650 mg, Oral, ONCE, On Tue12/06/23 at 0845, For 1 dose, Maximum of 4 grams (4000 mg) per day. Given 12/06/2023 8:19 AM EST 650 mg Xhzwvxtynbj-exrecrxewkygk-g ihj (Darzalex Faspro) 1800 mg-45324 units/ 15 ml subcut inj 15 mL, Subcutaneous, ONCE, On Tue12/06/23 at 0945, For 1 dose, Inject subcutanteously into abdomen over 3 to 5 minutes Given 12/06/2023 8:37 AM EST 15 mL Abdomen Right Lower diphenhydrAMINE (Benadryl) cap 50 mg 50 mg, Oral, ONCE, On Tue12/06/23 at 0845, For 1 dose Given 12/06/2023 8:19 AM EST 50 mg documented in this [...] and were consensually agreed upon. Care Teams Geek Squad Manager Relationship Specialty Start Date End Date Artemio Mane III, MD [address] [place] [address] PCP - General Family Medicine 04/08/14 documented as of this encounter
--- OUTSIDE RECORDS SUMMARY | 2024-04-21 13:15 | External Medical Summary | Summary of Care ---
Author Name Unknown Organization [facility] Address [address] [place] [address] Phone [phone] Care Team Providers Care File System Installer Name Role Phone Antonietta NORIEGA MD, Artemio Cedillo Primary Care Provider [phone] Reason for Visit * Reason Comments Chemotherapy Darzalex Faspro Procedure Port flush Medication Administration Xgeva * Episode Based Medications (Routine) - Authorized Specialty Diagnoses / Procedures Referred By Contanatoly t Referred To Contact Diagnoses Encounter for antineoplastic chemotherapy Multiple myeloma not having achieved remission (HCC) Procedures [place] DARATUMUMAB, HYALURONIDASE Benny Mondragon MD [address] [facility] [place] [address] Anc Hem/Onc Andres Rodriguez DEPT CLOSED - 08/23/23 200 [facility] [place] [address] Referral ID Status Reason Start Date Expiration Date V isits Requested Visits Authorized Authorized 03/11/2022 10/09/2099 999 99 Encounter Details Date Type Department Care Team (Latest Contact Info) Description 10/11/2023 9:00 AM EST Hem/Onc Treatment Hematology/Oncolog y Treatment, [place] [address] [place] [phone] Jennifer, Chair 3 Hem Onc [address] [place] [address] Encounter for antineoplastic chemotherapy*; Multiple myeloma not [...] Sign Reading Time Taken Comments Blood Pressure 101/55 10/11/2023 8:40 AM EST Pulse 93 10/11/2023 8:40 AM EST Temperature 36.3 C (97.3 F) 10/11/2023 8:40 AM ES T Respiratory Rate 16 10/11/2023 8:40 AM EST Oxygen Saturation 95% 10/11/2023 8:40 AM EST Inhaled Oxygen Concentration - - Weight 50.1 kg (110 lb 6.4 oz) 10/11/2023 8:40 A M EST Height - - Body Mass Index 18.95 09/13/2023 7:39 AM EST documented in this encounter Nursing Notes * Yas Guajardo RN - 10/11/2023 12:09 PM EST Chair 9. Patient here today for Darzalex Faspro, Xgeva injectio, and port flush. Patient feeling well overall, no complaints or problems at this time. Calcium and Phos WNL for Xgeva injection -- denies jaw pain, recent/upcoming dental work. Chemo agents Darzalex Faspro Appetite good overall Nausea/Vomiting no Diarrhea no Constipation no Mucositis no Fatigue no Bleeding no Infection no Rash no Numbness tingling no Pain no Radiation no ABN Labs WNL for tx Alt in Tx: N/A Return in 4 weeks Functional status at today's visit: Restricted in [...] adverse side effects during treatment. Patient tolerated treatment well without any acute issues or problems. Patient left facility in stable condition and denied any further needs. documented in this encounter Plan of Treatment Upcoming Encounters Date Type Department Care Team (Late st Contact Info) Description 01/02/2024 8:00 AM EDT Laboratory Laboratory [facility] [place] [address] [place] [address] Jennifer, Lab Scenery [address] [facility] [place], [place] [address] 01/03/2024 8:15 AM EDT Office Visit Hematology/Oncology [facility] [place] [address] [place], [place] [phone] Benny Mondragon MD [address] [place], [place] [address] 01/03/2024 8:45 AM EDT Hem/Onc Treatment Hematology/Oncology Treatment, [place] [address] [place], [place] [phone] Jennifer, Chair 2 Hem Onc [facility] [address] [facility] [place], [place] [address] Health Maintenance Due Date Last Done Comments [...] D LEVEL ONCE IN A LIFETIME-USE SMARTSET# [id number] Completed 05/22/2015, 03/05/2015, 04/23/2014 GARDASIL-HPV IMMUNIZATION SERIES Aged Out No longer eligible based on patient's age to complete this topic Hepatitis B Aged Out No longer eligi ble based on patient's age to complete this topic MENINGOCOCCAL (MENACTRA/MENVEO) Aged Out No longer eligible based on patient's age to complete this topic documented as of this encounter Medical Devices Implanted Type Area Numerical Control Nesting Operator Device Identifier Shelf Expiration Date Model / Serial / Lot Port Power Mri W/8fr Cath - [id number] Implanted:Qty : 1 on 12/09/2020 by Vince Jon MD at OR [facility] Right: Subclavian CR BARD : PERIPHERAL VASCULAR 02/06/2022 [id number] / / [id number] documented as of this encounter Visit Diagnoses Diagnosis Encounter for antineoplastic chemotherapy- Primary Multiple myeloma, remission status unspecified (HCC) documented in this encounter Administered Medications Inactive Administered Medications - up to 3 most recent administrations Medication Order MAR Action Action Date Dose Rate Site Acetaminophen (Tylenol) tab 650 mg 650 mg, Oral, ONCE, On Tue10/11/23 at 0915, For 1 dose, Maximum of 4 grams (4000 mg) per day. Given 10/11/2023 8:42 AM EST 650 mg Daratumumab-hyaluronidase- fihj (Darzalex Faspro) 1800 mg-95363 units/ 15 ml subcut inj 15 mL, Subcutaneous, ONCE, On Tue10/11/23 at 1015, For 1 dose, Inject subcutanteously into abdomen over 3 to 5 minutes Given 10/11/2023 9:14 AM EST 15 mL Abdomen Left Lower Denosumab (Xgeva) subcut inj 120 mg 120 mg, Subcutaneous, ONCE, On Tue10/11/23 at 0945, For 1 dose Given 10/11/2023 9:15 AM EST 120 mg Arm Left Upper diphenhydrAMINE (Benadryl) cap 50 mg 50 mg, Oral, ONCE, On Tue10/11/23 at 0915, For 1 dose Given 10/11/2023 8:42 AM EST 50 mg hEParin 100 UNIT/ML Lock Flush inj 500 Units 500 Units (5 mL), IV Lock, PRN Other, IV Flush, Starting on Tue10/11/23 at 0831, Until Tue10/11/23 at 1614, For 24 hours, Do not flush if lock, PICC, or central line not in place; IV infusing or unable to flush. Given 10/11/2023 8:42 AM EST 500 Units sodium chloride 0.9 % flush central line 10 mL 10 mL, IV Push, PRN Other, IV Flush, Starting on Tue10/11/23 at 0831, Until Tue10/11/23 at 1614, For 24 hours, Do not flush if lock, PICC, or central line not in place; IV infusing or unable to flush. Given 10/11/2023 8:42 AM EST 10 mL documented in this encounter Advance [...] and were consensually agreed upon. Care Teams File System Installer Relationship Specialty Start Date End Date Artemio Mane III, MD [address] [facility] [place], [place] [address] PCP - General Family Medicine 04/08/14 documented as of this encounter
--- OUTSIDE RECORDS SUMMARY | 2024-04-21 13:15 | External Medical Summary | Summary of Care ---
Author Name Unknown Organization [facility] Address [address] [facility] [place] [address] Phone [phone] Care Team Providers Care Test Conductor Name Role Phone Antonietta NORIEGA MD, Artemio Cedillo Primary Care Provider [phone] Reason for Visit * Reason Comments Chemotherapy Darzalex-faspro. * Episode Based Medications (Routine) - Authorized Specialty Diagnoses / Procedures Referred By Contac t Referred To Contact Diagnoses Encounter for antineoplastic chemotherapy Multiple myeloma not having achieved remission (HCC) Procedures [place] DARATUMUMAB, HYALURONIDASE Benny Mondragon MD [address] [place] [address] Anc Hem/Onc Andres Rodriguez DEPT CLOSED - 08/23/23 200 [facility] [place] [address] Referral ID Status Reason Start Date Expiration Date V isits Requested Visits Authorized [id number] Authorized 03/11/2022 10/09/2099 999 99 Encounter Details Date Type Department Care Team (Latest Contact Info) Description 12/06/2023 8:15 AM EST Hem/Onc Treatment Hematology/Oncolog y Treatment, [place] [address] [place] [address] Jennifer, Chair 5 Hem Onc Scene [address] [place] [address] Encounter for antineoplastic chemotherapy*; Multiple myeloma not having achieved remission (HCC) Allergies Active Allergy Reactions Criticality Noted Date Comments Adhesive Tape 02/06/2016 Ixazomib 08/09/2018 Hives, chills, diarrhea. 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/2002 01/23/2009 Overview: Modified per CVA protocol #8 FX CARPAL BONE NOS-CLOSE 06/29/200211/2016 documented as of this encounter (statuses as of 12/26/2023) Immunizations Name Administration Dates Next Due Pneumococcal [...] Laboratory [place] [address] [place] [phone] [place] [address] 01/03/2024 8:15 AM EDT Office Visit Hematology/[place] [address] [address] [phone] Benny Mondragon MD [address] [place], [place] [address] 01/03/2024 8:45 AM EDT Hem/Onc Treatment Hematology/Oncology Treatment, [place] [address] [place], [place] [phone] Park, Chair 2 Hem Onc Scenery [address] [facility], [place] [address] Health Maintenance Due Date Last Done Comments [...] D LEVEL ONCE IN A LIFETIME-USE SMARTSET# 17664 Completed 05/22/2015, 03/05/2015, 04/23/2014 GARDASIL-HPV IMMUNIZATION SERIES Aged Out No longer eligible based on patient's age to complete this topic Hepatitis B Aged Out No longer eligi ble based on patient's age to complete this topic MENINGOCOCCAL (MENACTRA/MENVEO) Aged Out No longer eligible based on patient's age to complete this topic documented as of this encounter Medical Devices Implanted Type Area Shrimp Pond Laborer Device Identifier Shelf Expiration Date Model / Serial / Lot Port Power Mri W/8fr Cath - [id number] Implanted:Qty : 1 on 12/09/2020 by Vince Jon MD at OR [facility] Right: Subclavian CR BARD : PERIPHERAL VASCULAR 02/06/2022 [id number] / / [id number] documented as of this encounter Visit Diagnoses [...] Given 12/06/2023 8:19 AM EST 650 mg Rmqpjfoqyia-idrzaygnmdnhc-k ihj (Darzalex Faspro) 1800 mg-18801 units/ 15 ml subcut inj 15 mL, [...] and were consensually agreed upon. Care Teams Test Conductor Relationship Specialty Start Date End Date Artemio Mane III, MD [address] [place] [address] PCP - General Family Medicine 04/08/14 documented as of this encounter
--- OUTSIDE RECORDS SUMMARY | 2024-04-21 13:15 | External Medical Summary | Summary of Care ---
Author Name Unknown Organization [facility] Address [address] [facility] [place] [address] Phone [phone] Care Team Providers Care Security Engineer Name Role Phone Antonietta NORIEGA MD, Artemio Cedillo Primary Care Provider [phone] Reason for Visit * Reason Comments Chemotherapy Darzalex-faspro. * Episode Based Medications (Routine) - Authorized Specialty Diagnoses / Procedures Referred By Contac t Referred To Contact Diagnoses Encounter for antineoplastic chemotherapy Multiple myeloma not having achieved remission (HCC) Procedures [place] DARATUMUMAB, HYALURONIDASE Benny Mondragon MD [address] [place] [address] Anc Hem/Onc Andres Rodriguez DEPT CLOSED - 08/23/23 200 [facility] [place] [address] Referral ID Status Reason Start Date Expiration Date V isits Requested Visits Authorized [id number] Authorized 03/11/2022 10/09/2099 999 99 Encounter Details Date Type Department Care Team (Latest Contact Info) Description 12/06/2023 8:15 AM EST Hem/Onc Treatment Hematology/Oncolog y Treatment, [place] [address] [place] [address] Jennifer, Chair 5 Hem Onc Scenery [address] [place] [address] Encounter for antineoplastic chemotherapy*; Multiple myeloma not having achieved remission (HCC) Allergies Active Allergy Reactions Criticality Noted Date Comments Adhesive Tape 02/06/2016 Ixazomib 08/09/2018 Hives, chills, diarrhea. Lenalidomide Hives 05/23/2018 Bortezomib Bleeding High 12/12/2018 Open sores w/bleeding on abdominal region documented as of this encounter (statuses as of 12/27/2023) Medications Medication Sig Dispensed Refills Start Date [...] as of this encounter (statuses as of 12/27/2023) Active Problems Problem Noted Date Diagnosed Date [...] as of this encounter (statuses as of 12/27/2023) Resolved Problems Problem Noted Date Diagnosed Date Resolved Date CVA 06/29/2002 01/23/2009 Overview: Modified per CVA protocol #8 FX CARPAL BONE NOS-CLOSE 06/29/200211/2016 documented as of this encounter (statuses as of 12/27/2023) Immunizations Name Administration Dates Next Due Pneumococcal [...] Laboratory [place] [address] [address] [phone] [place] [address] 01/03/2024 8:15 AM EDT Office Visit Hematology/[place] [address] Benny Mondragon MD [address] [place], [place] [address] 01/03/2024 8:45 AM EDT Hem/Onc Treatment Hematology/Oncology Treatment, [place] [address] [place], [place] [phone] Park, Chair 2 Hem Onc Scenery [address] [facility], [place] [address] Health Maintenance Due Date Last Done Comments [...] D LEVEL ONCE IN A LIFETIME-USE SMARTSET# 39969 Completed 05/22/2015, 03/05/2015, 04/23/2014 GARDASIL-HPV IMMUNIZATION SERIES Aged Out No longer eligible based on patient's age to complete this topic Hepatitis B Aged Out No longer eligi ble based on patient's age to complete this topic MENINGOCOCCAL (MENACTRA/MENVEO) Aged Out No longer eligible based on patient's age to complete this topic documented as of this encounter Medical Devices Implanted Type Area Senior Enterprise Architect Device Identifier Shelf Expiration Date Model / Serial / Lot Port Power Mri W/8fr Cath - [id number] Implanted:Qty : 1 on 12/09/2020 by Vince Jon MD at OR [facility] Right: Subclavian CR BARD : PERIPHERAL VASCULAR 02/06/2022 [id number] / / [id number] documented as of this encounter Visit Diagnoses [...] Given 12/06/2023 8:19 AM EST 650 mg Uauqjkrijrn-kxkpootiwivea-o ihj (Darzalex Faspro) 1800 mg-62724 units/ 15 ml subcut inj 15 mL, [...] and were consensually agreed upon. Care Teams Security Engineer Relationship Specialty Start Date End Date Artemio Mane III, MD [address] [place] [address] PCP - General Family Medicine 04/08/14 documented as of this encounter
--- OUTSIDE RECORDS SUMMARY | 2024-04-21 13:15 | External Medical Summary | Summary of Care ---
Author Name Unknown Organization [facility] Address [address] [facility] [place] [address] Phone [phone] Care Team Providers Care Cloth Shearing Supervisor Name Role Phone Antonietta NORIEGA MD, Artemio Cedillo Primary Care Provider [phone] Reason for Visit * Reason Comments Chemotherapy Dazalex-faspro. * Episode Based Medications (Routine) - Authorized Specialty Diagnoses / Procedures Referred By Contac t Referred To Contact Diagnoses Encounter for antineoplastic chemotherapy Multiple myeloma not having achieved remission (HCC) Procedures [place] DARATUMUMAB, HYALURONIDASE Benny Mondragon MD [address] [place] [address] Anc Hem/Onc And[place] Rodriguez DEPT CLOSED - 08/23/23 200 [facility] [place] [address] Referral ID Status Reason Start Date Expiration Date V isits Requested Visits Authorized [id number] Authorized 03/11/2022 10/09/2099 999 99 Encounter Details Date Type Department Care Team (Latest Contact Info) Description 11/08/2023 8:15 AM EST Hem/Onc Treatment Hematology/Oncolog y Treatment, [place] [address] [place] [address] Jennifer, Chair 5 Hem Onc Scene [address] [place] [address] Encounter for antineoplastic chemotherapy*; Multiple myeloma not having achieved remission (HCC) Allergies Active Allergy Reactions Criticality Noted Date Comments Adhesive Tape 02/06/2016 Ixazomib 08/09/2018 Hives, chills, diarrhea. Lenalidomide Hives 05/23/2018 Bortezomib Bleeding High 12/12/2018 Open sores w/bleeding on abdominal region documented as of this encounter (statuses as of 11/30/2023) Medications Medication Sig Dispensed Refills Start Date [...] as of this encounter (statuses as of 11/30/2023) Active Problems Problem Noted Date Diagnosed Date [...] as of this encounter (statuses as of 11/30/2023) Resolved Problems Problem Noted Date Diagnosed Date Resolved Date CVA 06/29/2002 01/23/2009 Overview: Modified per CVA protocol #8 FX CARPAL BONE NOS-CLOSE 06/29/200211/2016 documented as of this encounter (statuses as of 11/30/2023) Immunizations Name Administration Dates Next Due Pneumococcal [...] Description 12/05/2023 8:00 AM EST Laboratory Laboratory [facility] [place] [address] [place], [place] [phone] Park, Lab Scenery [address] [facility] [place] [address] 12/06/2023 8:15 AM EST Hem/Onc Treatment [facility] [place] [facility] [phone] Jennifer, Chair 5 Hem Onc Scene [address] [place] [address] 01/02/2024 8:00 AM EDT Laboratory Laboratory [facility] [place] [address] [place] [phone] Jennifer, Lab Scenery [address] [facility] [place] [address] 01/03/2024 8:15 AM EDT Office Visit Hematology/Oncology [facility] [place] [address] [place], [place] [phone] Benny Mondragon MD [address] [place], [place] [address] 01/03/2024 8:45 AM EDT Hem/Onc Treatment Hematology/Oncology Treatment, [place] 200 [facility], [place] [phone] Jennifer, Chair 2 Hem Onc Scenery [address] [place], [place] [address] Health Maintenance Due Date Last Done Comments [...] D LEVEL ONCE IN A LIFETIME-USE SMARTSET# [id number] Completed 05/22/2015, 03/05/2015, 04/23/2014 GARDASIL-HPV IMMUNIZATION SERIES Aged Out No longer eligible based on patient's age to complete this topic Hepatitis B Aged Out No longer eligi ble based on patient's age to complete this topic MENINGOCOCCAL (MENACTRA/MENVEO) Aged Out No longer eligible based on patient's age to complete this topic documented as of this encounter Medical Devices Implanted Type Area Superintendent Seed Mill Device Identifier Shelf Expiration Date Model / Serial / Lot Port Power Mri W/8fr Cath - [id number] Implanted:Qty : 1 on 12/09/2020 by Vince Jon MD at OR [facility] Right: Subclavian CR BARD : PERIPHERAL VASCULAR 02/06/2022 [id number] / / [id number] documented as of this encounter Visit Diagnoses [...] Given 11/08/2023 8:24 AM EST 650 mg Bsnjmadlqzd-bnjcroxkazync-b ihj (Darzalex Faspro) 1800 mg-83834 units/ 15 ml subcut inj 15 mL, [...] and were consensually agreed upon. Care Teams Cloth Shearing Supervisor Relationship Specialty Start Date End Date Artemio Mane III, MD [address] [place] [address] PCP - General Family Medicine 04/08/14 documented as of this encounter
--- OUTSIDE RECORDS SUMMARY | 2024-04-21 13:15 | External Medical Summary ---
Author Name Unknown Address Unknown Organization K09:[facility] [address] [place] [address] Laboratory Report Ordering Provider Test Date Status JACEY COUGHLIN 12/05/2023 06:58:58 Final Observation Date Value Abnormality Reference (Units ) Status BUN 12/05/2023 06:58:58 16 6-20 (mg/dL) Final Creatinine 12/05/2023 06:58:58 0.8 0.5-1.0 (mg/dL) Final Glomerular filtration rate/1.73 sq M.predicted [Volume Rate/Area] in Serum, Plasma or Blood by Creatinine-based formula (CKD-EPI) 12/05/2023 06:58:58 75 >=60 (mL/min) Final eGFR is calculated based on the CKD-EPI 2020 equation SODIUM 12/05/2023 06:58:58 141 135-146 (m mol/L) Final Potassium 12/05/2023 06:58:58 4.3 3.5-5.1 (m mol/L) Final Cl 12/05/2023 06:58:58 107 98-107 (mm ol/L) Final CO2 12/05/2023 06:58:58 25 22-32 (mmo l/L) Final Anion gap 12/05/2023 06:58:58 9 7-15 (mmol /L) Final Glucose 12/05/2023 06:58:58 112 70-120 (mg /dL) Final Albumin 12/05/2023 06:58:58 3.6 Below low normal 3.8 -5.0 (g/dL) Final AST (Aspartate aminotransferase) 12/05/2023 06:58:58 14 10-35 (U/L) Fin al Alk Phos 12/05/2023 06:58:58 100 35-130 (U/ L) Final Bilirubin, Total 12/05/2023 06:58:58 0.5 <=1 .2 (mg/dL) Final Calcium 12/05/2023 06:58:58 9.2 8.4-10.2 ( mg/dL) Final Protein 12/05/2023 06:58:58 7.6 6.0-8.3 (g /dL) Final ALT (Alanine aminotransferase) 12/05/2023 06:58:58 7 Below low normal 10-35 (U/L) Final Performing Location [facility] [address] [place] [address]
--- OUTSIDE RECORDS SUMMARY | 2024-04-21 13:15 | External Medical Summary | Summary of Care ---
Author Name Unknown Organization [facility] Address [address] [place] [facility] [place] [address] Phone [phone] Care Team Providers Care Consulting Manager Name Role Phone Antonietta NORIEGA MD, Artemio Cedillo Primary Care Provider [phone] Reason for Visit * Reason Comments Chemotherapy Dazalex-faspro. * Episode Based Medications (Routine) - Authorized Specialty Diagnoses / Procedures Referred By Contac t Referred To Contact Diagnoses Encounter for antineoplastic chemotherapy Multiple myeloma not having achieved remission (HCC) Procedures [place] DARATUMUMAB, HYALURONIDASE Benny Mondragon MD [address] [place] [address] Anc Hem/Onc And[place] Rodriguez DEPT CLOSED - 08/23/23 200 [facility] [place] [address] Referral ID Status Reason Start Date Expiration Date V isits Requested Visits Authorized [id number] Authorized 03/11/2022 10/09/2099 999 99 Encounter Details Date Type Department Care Team (Latest Contact Info) Description 11/08/2023 8:15 AM EST Hem/Onc Treatment Hematology/Oncolog y Treatment, [place] [address] [place] [address] Jennifer, Chair 5 Hem Onc Scene [address] [place] [address] Encounter for antineoplastic chemotherapy*; Multiple myeloma not [...] Description 12/05/2023 8:00 AM EST Laboratory Laboratory [facility] [place] [address] [place], [place] [phone] Park, Lab Scenery [address] [facility] [place] [address] 12/06/2023 8:15 AM EST Hem/Onc Treatment [facility] [place] [address] [facility] [phone] Jennifer, Chair 5 Hem Onc Scene [address] [place] [address] 01/02/2024 8:00 AM EDT Laboratory Laboratory [facility] [place] [address] [place] [phone] Jennifer, Lab Scenery [address] [facility] [place] [address] 01/03/2024 8:15 AM EDT Office Visit Hematology/Oncology [facility] [place] [address] [place], [place] [phone] Benny Mondragon MD [address] [place], [place] [address] 01/03/2024 8:45 AM EDT Hem/Onc Treatment Hematology/Oncology Treatment, [place] 200 [facility], [place] [phone] Jennifer, Chair 2 Hem Onc Scenery [address] [place], [place] [address] Health Maintenance Due Date Last Done Comments [...] D LEVEL ONCE IN A LIFETIME-USE SMARTSET# 46913 Completed 05/22/2015, 03/05/2015, 04/23/2014 GARDASIL-HPV IMMUNIZATION SERIES Aged Out No longer eligible based on patient's age to complete this topic Hepatitis B Aged Out No longer eligi ble based on patient's age to complete this topic MENINGOCOCCAL (MENACTRA/MENVEO) Aged Out No longer eligible based on patient's age to complete this topic documented as of this encounter Medical Devices Implanted Type Area Six Sigma Project Manager Device Identifier Shelf Expiration Date Model / Serial / Lot Port Power Mri W/8fr Cath - [id number] Implanted:Qty : 1 on 12/09/2020 by Vince Jon MD at OR [facility] Right: Subclavian CR BARD : PERIPHERAL VASCULAR 02/06/2022 [id number] / / [id number] documented as of this encounter Visit Diagnoses [...] Given 11/08/2023 8:24 AM EST 650 mg Znzpnfqrjnd-gttixnzrvnivo-r ihj (Darzalex Faspro) 1800 mg-75939 units/ 15 ml subcut inj 15 mL, [...] and were consensually agreed upon. Care Teams Consulting Manager Relationship Specialty Start Date End Date Artemio Mane III, MD [address] [place] [address] PCP - General Family Medicine 04/08/14 documented as of this encounter
--- OUTSIDE RECORDS SUMMARY | 2024-04-21 13:15 | External Medical Summary ---
Author Name Unknown Address Unknown Organization [facility]09:[facility] [place] [address] Laboratory Report Ordering Provider Test Date Status JACEY COUGHLIN 11/07/2023 08:00:50 Final Observation Date Value Abnormality Reference (Units ) Status BUN 11/07/2023 08:00:50 22 Above high normal 6-20 (mg/dL) Final Creatinine 11/07/2023 08:00:50 0.9 0.5-1.0 (mg/dL) Final Glomerular filtration rate/1.73 sq M.predicted [Volume Rate/Area] in Serum, Plasma or Blood by Creatinine-based formula (CKD-EPI) 11/07/2023 08:00:50 66 >=60 (mL/min) Final eGFR is calculated based on the CKD-EPI 2020 equation SODIUM 11/07/2023 08:00:50 141 135-146 (m mol/L) Final Potassium 11/07/2023 08:00:50 4.5 3.5-5.1 (m mol/L) Final Cl 11/07/2023 08:00:50 105 98-107 (mm ol/L) Final CO2 11/07/2023 08:00:50 26 22-32 (mmo l/L) Final Anion gap 11/07/2023 08:00:50 10 7-15 (mmol /L) Final Glucose 11/07/2023 08:00:50 105 70-120 (mg /dL) Final Albumin 11/07/2023 08:00:50 3.9 3.8-5.0 (g /dL) Final AST (Aspartate aminotransferase) 11/07/2023 08:00:50 17 10-35 (U/L) Final Alk Phos 11/07/2023 08:00:50 98 35-130 (U/ L) Final Bilirubin, Total 11/07/2023 08:00:50 0.7 <=1 .2 (mg/dL) Final Calcium 11/07/2023 08:00:50 9.3 8.4-10.2 ( mg/dL) Final Protein 11/07/2023 08:00:50 7.3 6.0-8.3 (g /dL) Final ALT (Alanine aminotransferase) 11/07/2023 08:00:50 11 10-35 (U/L) Final Performing Location [facility]- [address] [place] [address]
--- OUTSIDE RECORDS SUMMARY | 2024-04-21 13:15 | External Medical Summary ---
Author Name Unknown Address Unknown Organization K01:[facility] [address] [facility] [address] Laboratory Report Ordering Provider Test Date Status JACEY COUGHLIN 11/07/2023 08:00:50 Final Observation Date Value Abnormality Reference (Units) Status PARAPROTEIN NORMAL/ABNORMAL 11/07/2023 08:00:50 Abnormal Abnormal Normal Final Protein 11/07/2023 08:00:50 6.8 6.0-8.3 (g/dL) Final Albumin/Protein.total [Pure mass fraction] in Serum or Plasma by Electrophoresis 11/07/2023 08:00:50 3.05 Below low normal 3.30-4.40 (g/dL) Final Alpha 1 globulin/Protein.tota l [Pure mass fraction] in Serum or Plasma by Electrophoresis 11/07/2023 08:00:50 0.24 0.10-0.30 (g/dL) Final Alpha 2 globulin/Protein.tota l [Pure mass fraction] in Serum or Plasma by Electrophoresis 11/07/2023 08:00:50 1.13 Above high normal 0.60-1.00 (g/dL) Final Beta globulin/Protein.tota l [Pure mass fraction] in Serum or Plasma by Electrophoresis 11/07/2023 08:00:50 0.83 0.80-1.30 (g/dL) Final Gamma globulin/Protein.tota l [Pure mass fraction] in Serum or Plasma by Electrophoresis 11/07/2023 08:00:50 1.54 0.70-1.70 (g/dL) Final Monoclonal protein 11/07/2023 08:00:50 0.98 (g/dL) Final Protein Fractions [Interpretation] in Serum or Plasma by Electrophoresis Narrative 11/07/2023 08:00:50 Abnormal. 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 Final Performing Location [facility] - [address] [facility]. [facility] [place] [address]
--- OUTSIDE RECORDS SUMMARY | 2024-04-21 13:15 | External Medical Summary | Summary of Care ---
Author Name Unknown Organization [facility] Address [address] [place] [address] Phone [phone] Care Team Providers Care Diabetic Educator Name Role Phone Antonietta NORIEGA MD, Artemio Cedillo Primary Care Provider [phone] Reason for Visit * Reason Comments Chemotherapy Dazalex-faspro. * Episode Based Medications (Routine) - Authorized Specialty Diagnoses / Procedures Referred By Contanatoly t Referred To Contact Diagnoses Encounter for antineoplastic chemotherapy Multiple myeloma not having achieved remission (HCC) Procedures AK DARATUMUMAB, HYALURONIDASE Benny Mondragon MD [address] [place] [address] Anc Hem/Onc Andres [facility] DEPT CLOSED - 08/23/23 [address] [place] [phone] Referral ID Status Reason Start Date Expiration Date V isits Requested Visits Authorized [id number] Authorized 03/11/2022 10/09/2099 999 99 Encounter Details Date Type Department Care Team (Latest Contact Info) Description 11/08/2023 8:15 AM EST Hem/Onc Treatment Hematology/Oncolog y Treatment, [place] [address] [place] [address] Jennifer, Chair 5 Hem On[address] [place] [id number] Encounter for antineoplastic chemotherapy*; Multiple myeloma not having achieved remission (HCC) Allergies Active Allergy Reactions Criticality Noted Date Comments Adhesive Tape 02/06/2016 Ixazomib 08/09/2018 Hives, chills, diarrhea. Lenalidomide Hives 05/23/2018 Bortezomib Bleeding High 12/12/2018 Open sores w/bleeding on abdominal region documented as of this encounter (statuses as of 11/08/2023) Medications Medication Sig Dispensed Refills Start Date [...] as of this encounter (statuses as of 11/08/2023) Active Problems Problem Noted Date Diagnosed Date [...] as of this encounter (statuses as of 11/08/2023) Resolved Problems Problem Noted Date Diagnosed Date Resolved Date CVA 06/29/2002 01/23/2009 Overview: Modified per CVA protocol #8 FX CARPAL BONE NOS-CLOSE 06/29/200211/2016 documented as of this encounter (statuses as of 11/08/2023) Immunizations Name Administration Dates Next Due Pneumococcal [...] Description 12/05/2023 8:00 AM EST Laboratory Laboratory [facility] [place] [address] [place], [place] [phone] Jennifer, Lab Scenery [address] [facility], [place] [address] 12/06/2023 8:15 AM EST Hem/Onc Treatment Hematology/Oncology Treatment, [place] [address] [facility] [address] [place], [place] [address] Jennifer, Chair 5 Hem Onc [address] [place], [place] [address] 01/02/2024 8:00 AM EDT Laboratory Laboratory [facility] [place] [address] [place], [place] [phone] Jennifer, Lab Scenery [address] [facility], [place] [address] 01/03/2024 8:15 AM EDT Office Visit Hematology/Oncology [facility] [place] [address] [place], [place] [address] Benny Mondragon MD [address] [place], [place] [address] 01/03/2024 8:45 AM EDT Hem/Onc Treatment Hematology/Oncology Treatment, [place] 200 [facility], [place] [address] Jennifer, Chair 2 Hem Onc [address] [place], [place] [address] Health Maintenance Due Date Last Done Comments [...] D LEVEL ONCE IN A LIFETIME-USE SMARTSET# [id number] Completed 05/22/2015, 03/05/2015, 04/23/2014 GARDASIL-HPV IMMUNIZATION SERIES Aged Out No longer eligible based on patient's age to complete this topic Hepatitis B Aged Out No longer eligi ble based on patient's age to complete this topic MENINGOCOCCAL (MENACTRA/MENVEO) Aged Out No longer eligible based on patient's age to complete this topic documented as of this encounter Medical Devices Implanted Type Area Emr Specialist Device Identifier Shelf Expiration Date Model / Serial / Lot Port Power Mri W/8fr Cath - [id number] Implanted:Qty : 1 on 12/09/2020 by Vince Jon MD at OR [facility] Right: Subclavian CR BARD : PERIPHERAL VASCULAR 02/06/2022 [id number] / / [id number] documented as of this encounter Visit Diagnoses [...] ONCE PRN Other, Hypersensitivity Reaction, Starting on Tue11/08/23 at 0810, Until Tue11/09/23 at 0809, For 24 hours EPINEPHrine 1 MG/ML inj 0.3 mg 0.3 mg, Intramuscular, ONCE PRN Other, Hypersensitivity Reaction or Anaphylaxis, Starting on Tue11/08/23 at 0810, Until Tue11/09/23 at 0809, For 24 hours Hydrocortisone Sod Suc (PF) (Solu-Cortef) inj 100 mg 100 mg, IV Push, ONCE PRN Other, Hypersensitivity Reaction, Starting on Tue11/08/23 at 0810, Until Tue11/09/23 at 0809, For 24 hours meperidine (Demerol) 25 MG/ML inj 25 mg 25 mg, IV Push, ONCE PRN Shivering, Starting on Tue11/08/23 at 0810, Until Tue11/09/23 at 0809, For 24 hours Inactive Administered Medications - up to 3 most recent administrations Medication Order MAR Action Action Date Dose Rate Site Acetaminophen (Tylenol) tab 650 mg 650 mg, Oral, ONCE, On Tue11/08/23 at 0845, For 1 dose, Maximum of 4 grams (4000 mg) per day. Given 11/08/2023 8:24 AM EST 650 mg Ledovhxvlyq-ecwtzrbgzkelc-v ihj (Darzalex Faspro) 1800 mg-14415 units/ 15 ml subcut inj 15 mL, [...] and were consensually agreed upon. Care Teams Diabetic Educator Relationship Specialty Start Date End Date Artemio Mane III, MD [address] [facility] [place] [address] PCP - General Family Medicine 04/08/14 documented as of this encounter
--- OUTSIDE RECORDS SUMMARY | 2024-04-21 13:15 | External Medical Summary | Summary of Care ---
Author Name Unknown Organization [facility] Address [address] [place] [address] Phone [phone] Care Team Providers Care Maintenance Supervisor Electrical Name Role Phone Antonietta NORIEGA MD, Artemio Cedillo Primary Care Provider [phone] Reason for Visit * Reason Comments Chemotherapy Dazalex-faspro. * Episode Based Medications (Routine) - Authorized Specialty Diagnoses / Procedures Referred By Contac t Referred To Contact Diagnoses Encounter for antineoplastic chemotherapy Multiple myeloma not having achieved remission (HCC) Procedures MD DARATUMUMAB, HYALURONIDASE Benny Mondragon MD [address] [place] [address] Anc Hem/Onc And[facility] Rodriguez DEPT CLOSED - 08/23/[address] [place] [phone] Referral ID Status Reason Start Date Expiration Date V isits Requested Visits Authorized [id number] Authorized 03/11/2022 10/09/2099 999 99 Encounter Details Date Type Department Care Team (Latest Contact Info) Description 11/08/2023 8:15 AM EST Hem/Onc Treatment Hematology/Oncolog y Treatment, [place] [address] [place] [phone] Jennifer, Chair 5 Hem Onc [address] [place] [address] Encounter for antineoplastic chemotherapy*; Multiple myeloma not [...] Description 12/05/2023 8:00 AM EST [facility] [place] [address] [place], [place] [phone] [place], Lab Scenery [address] [facility] [place] [address] 12/06/2023 8:15 AM EST Hem/Onc Treatment [facility] [place] [facility] [phone] Jennifer, Chair 5 Hem Onc [address] [place] [address] 01/02/2024 8:00 AM EDT Laboratory Laboratory [facility] [place] [address] [place] [phone] Jennifer, Lab Scenery [address] [facility] [place] [address] 01/03/2024 8:15 AM EDT Office Visit Hematology/Oncology [facility] [place] [address] [place], [place] [phone] Benny Mondragon MD [address] [place], [place] [address] 01/03/2024 8:45 AM EDT Hem/Onc Treatment Hematology/Oncology Treatment, [place] [address] [facility], [place] [phone] Jennifer, Chair 2 Hem Onc [address] [place], [place] [address] Health Maintenance Due Date Last Done Comments [...] D LEVEL ONCE IN A LIFETIME-USE SMARTSET# [id number] Completed 05/22/2015, 03/05/2015, 04/23/2014 GARDASIL-HPV IMMUNIZATION SERIES Aged Out No longer eligible based on patient's age to complete this topic Hepatitis B Aged Out No longer eligi ble based on patient's age to complete this topic MENINGOCOCCAL (MENACTRA/MENVEO) Aged Out No longer eligible based on patient's age to complete this topic documented as of this encounter Medical Devices Implanted Type Area Support Associate Device Identifier Shelf Expiration Date Model / Serial / Lot Port Power Mri W/8fr Cath - [id number] Implanted:Qty : 1 on 12/09/2020 by Vince Jon MD at OR [facility] Right: Subclavian CR BARD : PERIPHERAL VASCULAR 02/06/2022 [id number] / / [id number] documented as of this encounter Visit Diagnoses [...] Given 11/08/2023 8:24 AM EST 650 mg Wthwplnyram-ntetfmiambobw-b ihj (Darzalex Faspro) 1800 mg-46537 units/ 15 ml subcut inj 15 mL, [...] and were consensually agreed upon. Care Teams Maintenance Supervisor Electrical Relationship Specialty Start Date End Date Artemio Mane III, MD [address] [place] [address] PCP - General Family Medicine 04/08/14 documented as of this encounter
--- OUTSIDE RECORDS SUMMARY | 2024-04-21 13:15 | External Medical Summary ---
Author Name Unknown Address Unknown Organization [id number]:LABORATORY [facility] [place] - [address] [place] [address] Laboratory Report Ordering Provider Test Date Status JACEY COUGHLIN 12/05/2023 06:58:58 Final Observation Date Value Abnormality Reference (Units ) Status IgG 12/05/2023 06:58:58 1654 Above high normal 70 0-1600 (mg/dL) Final IgA 12/05/2023 06:58:58 64 Below low normal 70- 400 (mg/dL) Final IgM 12/05/2023 06:58:58 22 Below low normal 40- 230 (mg/dL) Final Performing Location LABORATORY [facility] - [address] [place] [address]
--- OUTSIDE RECORDS SUMMARY | 2024-04-21 13:16 | External Medical Summary ---
Author Name Unknown Address Unknown Organization [id number]:LABORATORY [facility] [place] - [address] [place] [address] Laboratory Report Ordering Provider Test Date Status JACEY COUGHLIN 11/07/2023 08:00:50 Final Observation Date Value Abnormality Reference (Units ) Status IgG 11/07/2023 08:00:50 1664 Above high normal 70 0-1600 (mg/dL) Final IgA 11/07/2023 08:00:50 57 Below low normal 70- 400 (mg/dL) Final IgM 11/07/2023 08:00:50 25 Below low normal 40- 230 (mg/dL) Final Performing Location LABORATORY [facility] - [address] [place] [address]
--- OUTSIDE RECORDS SUMMARY | 2024-04-21 13:16 | External Medical Summary ---
Author Name Unknown Address Unknown Organization [id number]:LABORATORY [facility] [place] - [facility] [address] [facility] [address] Laboratory Report Ordering Provider Test Date Status JACEY COUGHLIN 11/07/2023 08:00:50 Final Observation Date Value Abnormality Reference (Units ) Status Hendricks light chains, Free, Serum 11/07/2023 08:00:50 39.28 Above high normal 3.30-19.40 (mg/L) Final Lambda light chains, free, Serum 11/07/2023 08:00:50 9.30 5.71-26.30 (mg/L) Final KAPPA LAMBDA FLC RATIO 11/07/2023 08:00:50 4.22 Above high normal 0.26-1.65 Final Performing Location LABORATORY [facility] - [address] [place] [address]
--- OUTSIDE RECORDS SUMMARY | 2024-04-21 13:16 | External Medical Summary ---
Author Name Unknown Address Unknown Organization [id number]:LABORATORY [facility] [place] [address] Laboratory Report Ordering Provider Test Date Status JACEY COUGHLIN 11/07/2023 08:00:50 Final Observation Date Value Abnormality Reference (Units ) Status WBC, Total 11/07/2023 08:00:50 6.95 4.00-10.8 0 (K/uL) Final RBC 11/07/2023 08:00:50 3.93 3.85-5.15 (M/uL) Final Hemoglobin 11/07/2023 08:00:50 11.5 Below low normal 12 .0-15.3 (g/dL) Final HCT 11/07/2023 08:00:50 38.0 36.0-45.2 (%) Final MCV 11/07/2023 08:00:50 96.7 81.5-97.5 (fL) Final MCH 11/07/2023 08:00:50 29.3 27.0-34.0 (pg) Final MCHC 11/07/2023 08:00:50 30.3 32.0-36.0 (g/dL) Final RDW 11/07/2023 08:00:50 13.8 11.5-15.5 (%) Final Platelets 11/07/2023 08:00:50 205 140-400 (K /uL) Final MPV 11/07/2023 08:00:50 9.2 6.6-11.1 ( fL) Final Performing Location LABORATORY [facility] [place] [address]
[2024-04-21 13:30] LABS: Appearance Urine Cloudy (Clear); Bacteria Urine Automated None Seen (None Seen); Bilirubin Urine Negative (Negative); Blood Urine 2+ (Negative); Color Urine Yellow; Epithelial Cell Urine Auto 0-2 /hpf (0-2); Glucose Urine UA Negative (Negative); Ketones Urine Trace (Negative); Leukocyte Esterase Urine Negative (Negative); Nitrite Urine Negative (Negative); Protein Urine 2+ (Negative); RBC Urine Automated 0-2 /hpf (0-2); Specific Gravity Urine 1.018 (1.000-1.030); Urobilinogen Urine Negative (Negative); WBC Urine Automated 0-5 /hpf (0-5); pH Urine 5.5 (4.5-7.5)
[2024-04-21 13:43] LABS: Amorphous Sediment Urine Present (None Prsent)
[2024-04-21 13:44] LABS: Cast Urine Automated 0-2 /lpf (0-2)
[2024-04-21 13:45] LABS: Adenovirus PCR Not Detected (NotDetected); Bordetella parapertussis PCR Not Detected (NotDetected); Bordetella pertussis PCR Not Detected (NotDetected); Chlamydia pneumoniae PCR Not Detected (NotDetected); Coronavirus 229E PCR Not Detected (NotDetected); Coronavirus CoV-2 (COVID19)PCR DETECTED (NotDetected); Coronavirus HKU1 PCR Not Detected (NotDetected); Coronavirus NL63 PCR Not Detected (NotDetected); Coronavirus OC43PCR Not Detected (NotDetected); Human Metapneumovirus PCR Not Detected (NotDetected); Influenza A PCR Not Detected (NotDetected); Influenza B PCR Not Detected (NotDetected); Mycoplasma pneumoniae PCR Not Detected (NotDetected); Parainfluenza Virus 1 PCR Not Detected (NotDetected); Parainfluenza Virus 2 PCR Not Detected (NotDetected); Parainfluenza Virus 3 PCR Not Detected (NotDetected); Parainfluenza Virus 4 PCR Not Detected (NotDetected); Respiratory Syncytial VirusPCR Not Detected (NotDetected); Rhinovirus/Enterovirus PCR Not Detected (NotDetected)
[2024-04-21] MEDS: SODIUM CHLORIDE 0.9% 500 ML IV SCH (13:51)
--- NOTE | 2024-04-21 15:15 | History & Physical Report ---
Date of Service April 21, 2024 Assessment & Plan (1) Status post fall: (2) Altered mental status: (3) COVID-19 virus infection: (4) Acute renal failure: Plan: 83-year-old female with history of multiple myeloma, history of CVA, Presenting with fall, confusion this morning. Status post fall, confusion Likely metabolic encephalopathy secondary to sepsis, COVID-19 infection Currently on room air Not in distress Mostly back to baseline mental status, intermittently forgetful Bio fire positive for COVID MRSA nasal swab pending CT chest: No pneumonia, positive secretions/debris in the trachea and right mainstem bronchus CT head: No acute injury CT abdomen pelvis: No acute injury, positive renal mass Urine culture, blood cultures: Pending Given IV NSS 1 L bolus at the ER Continue IV NSS at 100 cc/h Will hold off on remdesivir in light of acute renal failure, creatinine clearance of 15, Initiate once creatinine improves, ideally creatinine clearance close to 30 Empiric IV cefepime 1 g every 12 Incentive spirometry, Mucinex, hypertonic saline Brain MRI ordered to rule out acute CVA in light of her history of CVA Acute renal failure Likely secondary to sepsis, rhabdomyolysis Baseline creatinine 1.0, currently 2.6 with a creatinine clearance of 15 CT abdomen pelvis: no urinary tract obstruction, positive right renal mass Continue IV NSS at 100 cc/h Nephrology service consulted Troponin elevation likely secondary to acute renal failure, sepsis Denies cardiac symptoms Troponin 300s, second troponin pending EKG no signs of acute ischemic infarct Echocardiogram ordered Right rib fracture #7, #10 Secondary to fall Incentive spirometry Pain control with As needed tramadol, Tylenol for pain Right renal mass Seen on CT abdomen and pelvis: There is an approximately 10 x 10 x 8 cm heterogeneous and slightly hyperdense mass lesion arising from the upper pole of the right kidney. This is new from the most recent prior examination dated 01/13/2022 and is highly suspicious for a renal cell carcinoma. Much less likely, a large renal hematoma could potentially appears similar. This appears to invade the posterior body wall and the right psoas muscle. Will order renal ultrasound Will order urology consult Mild LFT elevation CT abdomen pelvis showing liver, biliary tree essentially normal Follow LFTs daily History of multiple myeloma Follows with Dr. Benny Mondragon Recently prescribed with Pomolidomide- patient has not started yet Decadron PO weekly, and Valtrex weekly listed on Med rec- patient not taking anymore as per family will need to clarify with Dr. Mondragon History of CVA many years ago as per family not on any medications Brain MRI ordered DVT prophylaxis SCDs for now until renal ultrasound rules out hematoma Full code per discussion with family Disposition Pending Lives with family at home Will need PT and OT evaluation Family open for inpatient rehab if recommended History of Present Illness Chief Complaint: Fall, confusion Primary Care Provider: Benny Mondragon MD 83-year-old female with history of multiple myeloma, history of CVA, etc. pres enting with fall and confusion this morning. Patient's history mostly obtained from patient's daughter and granddaughter at the bedside. Yesterday, patient was noted to be not feeling well, reporting sore throat, mild stomachache and was having some diarrhea. She was also complaining of feeling cold. Today, patient's granddaughter found the patient inside the bathroom, sitting up on the toilet, leaning against the wall next to the toilet, confused, soiled with feces. There were also feces noted on the bathroom floor. She was complaining of right sided rib pain. Patient's family suspected that patient went up to go to the bathroom, fell on the floor, but managed to get herself up on the toilet seat. She was then brought to the ER. Upon arrival, patient was noted to be febrile, 38.8, tachycardic 122. CT head, no acute process CT chest, no pneumonia CT abdomen pelvis, no acute injury but an incidental finding of right renal mass. She was given IV fluid bolus, IV cefepime at the ER On exam, patient's family was at the bedside, patient was already awake and alert, oriented x 3, answering most questions appropriately. She is mostly back to her baseline as per family but still forgetful about certain things. She is complaining mostly of right lateral rib pain. Denies having active shortness of breath, chest pain, headache, dizziness, nausea vomiting abdominal pain, problems with urination, or any other pain in her body Allergies Allergy/AdvReac Type Severity Reaction Status Date / Time ixazomib [From Ninlaro] Allergy hives Verified 04/21/24 15:06 lenalidomide [From Revlimid] AdvReac Hives Verified 04/21/24 15:06 TAPE AdvReac Mild RASH Uncoded 04/21/24 15:06 Home Medications Medication Instructions Recorded Confirmed Type dexamethasone 4 mg tablet 4 mg PO UD 11/12/21 04/21/24 History Past Med/Surg History Problem List (Updated 04/21/24 @ 15:04 by Moiz Steiner MD) Acute renal failure COVID-19 virus infection Altered mental status Status post fall Hydronephrosis UTI (urinary tract infection) Acute pyelonephritis (Acute) Hematuria 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 Medical History History of CVA (cerebrovascular accident) no residual deficits History of pneumonia 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 Surgical History History of vascular access device Family History Father Diabetes Sister Cancer Social History Smoking Status: Former smoker Hx Alcohol Use: No Hx Substance Use: No Preferred Language: Citizen Of [place] Communication Ability: Effective Plastics Worker Required: No Beliefs That Will Affect Care: None Current Living Situation: Spouse Current Living Situation Comment: per records Feels Safe at Home: Yes Assistive Devices: Glasses Review of Systems Review of Systems: all noted and negative except for above Physical Exam Physical Exam: General- oriented x 3, not in distress, speaks in sentences with no effort or accessory muscle use Head- atraumatic Eyes- Mild redness of the right eye, no discharge, periorbital edema ENT-Dry oral mucosa, oropharynx clear Neck- supple, no JVD, no adenopathy, no thyromegaly; carotids +2/2, no bruits appreciated Lungs- clear to auscultation bilaterally, no rales/wheezes Positive tenderness right lateral lower rib area Heart- normal rate, regular rhythm; no murmur, no gallop, no rub appreciated Abdomen- normal bowel sounds, nondistended, soft, nontender, no masses or hepatosplenomegaly Extremities- no pretibial edema, no calf tenderness; peripheral pulses intact Positive erythema right forearm, dorsal region Neuro- alert, oriented x 3; CN 2-12 grossly intact; motor 5/5 bilaterally;sensation 100% on all extremities; no other gross focal neurologic deficits Skin- warm & dry Results & Data Results & Data Vital Signs (Past 12 Hours) Vital Signs Temp Pulse Pulse Resp BP BP Pulse Ox 04/21/24 14:04 36.8 C 104 H 20 113/64 94 04/21/24 12:11 38.8 C H 122 H 22 106/62 94 04/21/24 12:09 38.8 C H 122 H 22 106/62 94 04/21/24 12:08 95 04/21/24 11:41 112 H 04/21/24 10:48 95 O2 Del Method 04/21/24 14:04 Room Air 04/21/24 12:11 Room Air 04/21/24 12:09 Room Air 04/21/24 12:08 Room Air 04/21/24 11:41 04/21/24 10:48 Room Air all noted and reviewed including below Code Status & VTE Plan VTE Prophylaxis Plan VTE Prophylaxis will be ordered: Yes
[2024-04-21] MEDS ORDERED: ACETAMINOPHEN 325 MG TAB PO PRN (15:27)
[2024-04-21] MEDS: traMADol HCL 50 MG TABLET PO PRN (17:06)
[2024-04-21] MEDS ORDERED: LIDOCAINE 5% 1 PATCH TD STA (18:58)
[2024-04-21] MEDS: SODIUM CHLOR 7% 4 ML NEB NEB SCH (19:49)
[2024-04-21] MEDS: LIDOCAINE 5% 1 PATCH TD SCH (20:01)
[2024-04-21] MEDS: guaiFENesin 600 MG TABCR PO SCH (20:04)
[2024-04-21] MEDS: CEFEPIME 1,000 MG in SYRINGE 0 ML IV SCH (23:49)
[2024-04-22 07:34] LABS: Albumin Globulin Ratio 0.5 (0.9-2); Albumin Level 2.3 gm/dl (3.4-5.0); BUN Creatinine Ratio 14.7 (10-20); Bilirubin Direct 0.1 mg/dl (0-0.2); Bilirubin,Total 0.5 mg/dl (0.2-1.0); Calcium 6.4 mg/dl (8.6-10.3); Est GFR (African American) 14.9 ml/min; Est GFR (Non-African American) 12.8 ml/min; Globulin 4.3 gm/dl (2.5-4.0); Potassium 5.2 mmol/L (3.5-5.1); Total Protein 6.6 gm/dl (6.0-8.3); Troponin I High Sensitivity 1433.8 pg/ml (0-14)
[2024-04-22 07:51] LABS: Hematocrit (blood only) 29.4 % (37.0-47.0); Hemoglobin 9.2 g/dl (12.0-16.0); Mean Corpuscular Hemoglobin 28.2 pg (25.0-34.0); Mean Corpuscular Hgb Conc 31.3 g/dL (32.0-36.0); Mean Corpuscular Volume 90.2 fL (80.0-100.0); Mean Platelet Volume 10.3 fL (9.4-12.4); Platelet Count 88 K/uL (130-400); RDW Coefficient of Variation 14.8 % (11.5-14.5); Red Blood Count 3.26 M/uL (4.20-5.40); White Blood Count 7.74 K/ul (4.8-10.8)
[2024-04-22 07:55] LABS: Basophils # (auto) 0.01 K/uL (0.00-0.20); Basophils % (auto) 0.1 %; Immature Granulocytes # (auto) 0.02 K/uL (0.01-0.20); Immature Granulocytes % (auto) 0.3 %; Lymphocytes # (auto) 1.35 K/uL (1.20-3.40); Lymphocytes % (auto) 17.4 %; Monocytes # (auto) 0.53 K/uL (0.11-0.59); Monocytes % (auto) 6.8 %; Neutrophils # (auto) 5.83 K/uL (1.40-6.50); Neutrophils % (auto) 75.4 %; Platelet Estimate Decreased (Normal)
--- NOTE | 2024-04-22 10:08 | Urology Consultation ---
Date of Consultation April 22, 2024 Assessment & Plan (1) Renal mass: She appears to have a large renal mass on the right side which may be extending into the posterior abdominal wall and possibly the liver. There is also evidence of metastatic disease. Radiology comments that, although unlikely, this could represent a large renal hematoma. Ultrasound is pending for further evaluation. If this is a solid mass, she will need to obtain a biopsy of either the mass or one of her bone lesions. If she has metastatic kidney cancer, first-line treatment would likely include chemotherapy or immunotherapy. She is already established with Dr. Mondragon from medical oncology due to her history of multiple myeloma. Cytoreductive nephrectomy could be considered, but would likely need to be done at a tertiary facility due to the large and apparently invasive nature of the mass. Timing of biopsy or additional treatment will require optimization of her other acute comorbidities including COVID infection, elevated troponin, rib fractures, ZAHEER, possible UTI/sepsis. Next steps should include obtaining a renal ultrasound and likely reaching out to IR for possible biopsy of renal mass or one of her bone lesions. Urology will follow along. (2) Acute renal failure: Creatinine is elevated this morning. No evidence of obstruction on CT scan. Could consider Mora catheter placement for maximal drainage of the urinary tract, or continue monitoring as she is rehydrated. No plan for stent placement or other urologic intervention at this time (3) Bladder wall thickening: Noted to have asymmetrical bladder wall thickening on CT scan. This will likely be evaluated additionally with upcoming ultrasound and could be evaluated further with cystoscopy as an outpatient. History of Present Illness Reason for Consultation: Renal mass Attending Physician: Nathan Erwin MD History of Present Illness This is an 83-year-old female who was brought to the emergency department on 04/21/2024 by her family after being found in the bathroom, confused with suspected fall. Workup in the ED was notable for being COVID-positive. she was also found to have elevated troponins, elevated lactate (improved with hydration). Creatinine in the ED was elevated to 2.23 and is further elevated this morning to 3.20. She is anemic at 10.4, decreased to 9.2 on 04/22/2024. As part of her workup, a CT scan of the abdomen and pelvis was performed. I independently reviewed these images from 04/21/2024. Her left kidney is somewhat atrophic, in normal position. There are some hypodensities which may represent cysts however are difficult to characterize due to lack of contrast. The left kidney is notable for a large infiltrative likely mass. This seems to extend to the posterior abdominal wall and is in very close proximity to the liver as well. Her bladder is slightly thick on the right posterior wall, but no obvious intraluminal projections. There are mixed blastic and lytic bone lesions. CT scan additionally demonstrated acute right-sided rib fractures. Urology was consulted regarding the renal mass. She is currently uncomfortable from the rib fractures. Allergies Allergy/AdvReac Type Severity Reaction Status Date / Time ixazomib [From Ninlaro] Allergy hives Verified 04/21/24 15:06 lenalidomide [From Revlimid] AdvReac Hives Verified 04/21/24 15:06 TAPE AdvReac Mild RASH Uncoded 04/21/24 15:06 Home Medications Medication Instructions Recorded Confirmed Type dexamethasone 4 mg tablet 4 mg PO UD 11/12/21 04/21/24 History Patient History Medical History History of CVA (cerebrovascular accident) no residual deficits History of pneumonia 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 Surgical History History of vascular access device Family History Father Diabetes Sister Cancer Social History Smoking Status: Former smoker Hx Alcohol Use: No Hx Substance Use: No Preferred Language: Paraguayan Communication Ability: Effective Bicycle Technician Required: No Beliefs That Will Affect Care: None Current Living Situation: Spouse Current Living Situation Comment: per records Feels Safe at Home: Yes Assistive Devices: Glasses Review of Systems Review of Systems: 12 point review of systems negative exce pt for otherwise indicated. Physical Exam Physical Exam: Uncomfortable appearing Constitutional: well developed and well nourished; no acute distress Eyes: + anicteric sclerae; pupils not irregula r Respiratory: normal respiratory effort; no respiratory distress, does not use accessory muscles and no cough Cardiovascular: well perfused Gastrointestinal (Abdomen): Inspection/Auscultation: abdomen normal to inspection; abdomen not distended Musculoskeletal: Extremities: extremities normal to inspection Skin: normal turgor; no rashes and no lesions Neurologic: moves all extremities and awake Psychiatric: Orientation: alert and oriented x 3 Results & Data Vital Signs (Past 12 Hours) Vital Signs Temp Pulse Pulse Resp BP BP Pulse Ox 04/22/24 07:18 93 H 16 95 04/22/24 07:03 36.6 C 88 18 94/58 L 91 04/22/24 07:00 88 04/22/24 03:13 36.8 C 90 18 97/62 L 93 04/21/24 23:27 93 H 04/21/24 22:51 36.8 C 90 18 98/56 L 92 O2 Del Method 04/22/24 07:18 Room Air 04/22/24 07:03 Room Air 04/22/24 07:00 04/22/24 03:13 Room Air 04/21/24 23:27 04/21/24 22:51 Room Air PG Care Time/CCT Total # of Minutes Spent Total Time Spent with Patient: Total time spent is greater than 50% in coordination of care (as documented) at patient's floor/unit and/or counseling patient: Coding Level of Care Code 14095 INT INP/OBS CARE 2/55MIN Diagnoses Renal mass N28.89 Acute renal failure N17.9 Bladder wall thickening N32.89
--- NOTE | 2024-04-22 10:37 | Nephrology Consultation ---
Date of Consultation April 22, 2024 Assessment & Plan (1) Acute renal failure: ZAHEER sec to ATN related with acute Rhabdo. very high CK. Creat rising rapidly and not a lot of urine. this is not a good sign. very High chance she will need RR within next few days. However ZAHEER not related with Myeloma (2) Rhabdomyolysis: Sec to fall. Likely had Multiple falls. Also Covid makes it more likely. Continue NS at 100/hr. Creat rising rapidly and not a lot of urine. this is not a good sign. Also Ca++ dropping fast. very important we try to achieve some diuresis--use Iv lasix as well as NS. Give lasix 60 iv x 1 ( if BP gets higher than 100 sys) (3) COVID-19 virus infection: (4) Renal mass: Could be malignant. urology already evaluated (5) Multiple myeloma: Not in remission. widespread lytic lesions Plan very complicated patient involving multiple issues. reviewed heme/onc note, urology note. Called her daughter multiple times but no voice mail. Plan discussed with primary team. total time spent 70 mins. History of Present Illness Reason for Consultation: ZAHEER Attending Physician: Nathan Erwin MD History of Present Illness 83/F with Long standing history of multiple myeloma with complicated course of Both Chemo and radiation ( however not in remission)--most recent visit with Dr narayanan ( creat 1.0) that time. yesterday presented with fall and confusion this morning with Fever cough and weakness. Also had sore throat, mild stomachache and was having some diarrhea. patient's granddaughter found the patient inside the bathroom, sitting up on the toilet, leaning against the wall next to the toilet, confused, soiled with feces. There were also feces noted on the bathroom floor. She was complaining of right sided rib pain. Upon arrival, patient was noted to be febrile, 38.8, tachycardic 122. CT head, no acute process. CT chest, no pneumonia. CT abdomen pelvis, no acute injury but an incidental finding of Suspicious large right renal mass. also has widespread lytic lesions of MM She was given IV fluid bolus, IV cefepime at the ER. +ve for Covid. Creat was 2.2 yesterday and today is even higher at 3.2 . Total CK was very high 20K +. ca normal yesterday but dropped a lot overnight making urine and has lares--but only 172 ml so far. on NS at 100 /hr ROS--as in HPI. She was en route to MRI and renal US. Also Cough with SOB and unable to get detailed ROS Physical Exam Physical Exam: General- oriented x 3, mild resp distress. Cachectic and frail Head- atraumatic, redness of the right eye ENT-Dry oral mucosa, oropharynx clear Neck- supple, no JVD Lungs- clear to auscultation bilaterally, no rales/wheezes Positive tenderness right lateral lower rib area Heart- normal rate, regular rhythm; no murmur, no gallop, no rub appreciated Abdomen- normal bowel sounds, nondistended, soft, nontender, no masses or hepatosplenomegaly Extremities- no pretibial edema, no calf tenderness; peripheral pulses intact Neuro- alert, oriented x 3; CN 2-12 grossly intact; motor 5/5 bilaterally;sensation 100% on all extremities; no other gross focal neurologic deficits Skin- warm & dry Allergies Allergy/AdvReac Type Severity Reaction Status Date / Time ixazomib [From Ninlaro] Allergy hives Verified 04/21/24 15:06 lenalidomide [From Revlimid] AdvReac Hives Verified 04/21/24 15:06 TAPE AdvReac Mild RASH Uncoded 04/21/24 15:06 Home Medications Medication Instructions Recorded Confirmed Type dexamethasone 4 mg tablet 4 mg PO UD 11/12/21 04/21/24 History Patient History Medical History History of pneumonia History of CVA (cerebrovascular accident) no residual deficits Inappropriate sinus tachycardia Surgical History History of vascular access device Family History Father Diabetes Sister Cancer Social History Smoking Status: Former smoker Hx Alcohol Use: No Hx Substance Use: No Preferred Language: Sami Communication Ability: Effective Epic Willow Specialist Required: No Beliefs That Will Affect Care: None Current Living Situation: Spouse Current Living Situation Comment: per records Feels Safe at Home: Yes Assistive Devices: Glasses Results & Data Vital Signs (Past 12 Hours) Vital Signs Temp Pulse Pulse Resp BP BP Pulse Ox 04/22/24 07:18 93 H 16 95 04/22/24 07:03 36.6 C 88 18 94/58 L 91 04/22/24 07:00 88 04/22/24 03:13 36.8 C 90 18 97/62 L 93 04/21/24 23:27 93 H 04/21/24 22:51 36.8 C 90 18 98/56 L 92 O2 Del Method 04/22/24 07:18 Room Air 04/22/24 07:03 Room Air 04/22/24 07:00 04/22/24 03:13 Room Air 04/21/24 23:27 04/21/24 22:51 Room Air Laboratory Results CBC. renal panel, LFT, total CK, urine reviewed. Diagnostic Findings CT chest/Abd/pelvis reviewed
[2024-04-22] MEDS: oxyCODONE HCL IR 5 MG TAB (IMMEDIATE RELEASE) PO STA (10:41)
[2024-04-22] MEDS: oxyCODONE HCL IR 5 MG TAB (IMMEDIATE RELEASE) ONE (10:48)
--- NOTE | 2024-04-22 11:34 | Magnetic Resonance Report ---
Brain MRI WITHOUT CONTRAST HISTORY: fall, confusion, r/o cva TECHNIQUE: Multiplanar multisequence MRI of the brain was performed without the use of contrast. COMPARISON STUDY: Head CT 04/21/2024. Brain MRI 04/03/2014. FINDINGS: There are no areas of restricted diffusion to suggest acute infarction. The midline structu res are intact. The paranasal sinuses are clear. The mastoid air cells are clear. The ventricles and sulci are within normal limits for age. There is no mass, hematoma, midline shift. The major vascular flow-voids at the skull base are well maintained. Stable T2 hyperintense lesion within the left temp oral lobe measuring 1 cm. This demonstrates susceptibility artifact in favors a cavernoma. IMPRESSION: 1. No acute infarct or intracranial hemorrhage. 2. 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 ACT 112: Negative or not required by law. Electronically signed by: Gregorio Arevalo M.D. 04/22/2024 11:33 AM
--- NOTE | 2024-04-22 12:25 | Ultrasound Report ---
RENAL ULTRASOUND HISTORY: right renal mass COMPARISON: Abdomen and pelvis CT 04/21/2020. FINDINGS: Right kidney: 15 cm in length. There is a large heterogeneous mass measuring 10.8 x 10.2 x 8.0 cm. No hydronephrosis. Left kidney: 10.9 cm. Stable left extra renal pelvis. No hydronephrosis. Normal corticomedullary diff erentiation and cortical thickness. Bladder: There is a Mora catheter within the bladder. Miscellaneous: A few small gallstones. No gallbladder wall thickening. IMPRESSION: 1. Redemonstration of the 10.8 cm right renal mass. This is consistent with a renal cell carcinoma. 2. Cholelithiasis. ACT 112: Negative or not required by law. Electronically signed by: Gregorio Arevalo M.D. 04/22/2024 12:22 PM
--- NOTE | 2024-04-22 12:41 | Electrocardiogram Report ---
Test Reason : Blood Pressure : / mmHG Vent. Rate : 108 BPM Atrial Rate : 108 BPM P-R Int : 148 ms QRS Dur : 064 ms QT Int : 314 ms P-R-T Axes : 077 072 063 degrees QTc Int : 420 ms Sinus tachycardia Left ventricular hypertrophy with repolarization abnormality Abnormal ECG When compared with ECG of 12-NOV-2021 09:25, No significant change was found Confirmed by Ovidio Villa ([id number]) on 04/22/2024 12:40:57 PM Referred By: REFERRED SELF Confirmed By:Ovidio Villa
--- NOTE | 2024-04-22 12:58 | Hospitalist Progress Note ---
Date of Service April 22, 2024 Assessment & Plan (1) Status post fall: (2) Altered mental status: (3) COVID-19 virus infection: (4) Acute renal failure: Plan: 83-year-old lady with PMH of multiple myeloma, CVA , cerebral cavernoma, age- related osteoporosis brought into the hospital with complaint of fall and confusion. Patient had some sore throat, mild stomach ache and some diarrhea prior to arrival. Patient was complaining of right-sided rib pain and was noted she might have fallen in the bathroom per family member. Patient is not aware of fall. She is being managed for the following: Status post fall, confusion Likely metabolic encephalopathy secondary to sepsis, COVID-19 infection Concern for UTI Patient presented with confusion, lactate/procalcitonin/WBC/respiratory rate/temperature elevated in the setting of COVID test positive at presentation. Admitting imagings: CT C-spine: No acute fracture or subluxation. Osteopenia and mild spondylotic changes noted. Osteolytic lesion suspected in the right clavicular head. CT head with no acute finding. CT chest and CT abdomen pelvis: Acute right-sided rib fractures [acute right posterolateral 7th and 10th rib fractures]. Multiple lytic and blastic metastatic disease lesions. Right upper pole renal lesion 10 x 10 x 8 cm suspicious of RCC. Asymmetric wall thickening is seen along the posterior and right wall of the bladder. Renal ultrasound: Redemonstration of the 10.8 cm right renal mass consistent with renal cell carcinoma. Brain MRI: No acute infarct or intracranial hemorrhage. A stable 1 cm lesion within the left temporal lobe suggesting a cavernoma. Respiratory BioFire positive for COVID, MRSA nasal swab pending Patient currently on room air, back to baseline mentation.Lactate resolved. Patient with cough, mostly dry. Continue with Mucinex, hypertonic saline nebs. Patient started on cefepime 04/22 for concern of UTI, continue for now. Follow cultures. Continue with incentive spirometer. Acute kidney injury Rhabdomyolysis Hypokalemia/hypocalcemia ZAHEER likely secondary to ATN related with acute rhabdomyolysis in the setting of fall and COVID-19 infection. Admitting CTAP as above. Admitting renal labs: Sodium 131, potassium 4.5, creatinine 2.23, calcium 8.6, CPK 6639 Trend BMP, sodium improving, potassium elevated at 5.2, creatinine elevated at 3.2, calcium lower at 6.4 Trend CPK, elevated at 20,319 Status post 1 L NSS bolus at ED, continue with NSS at 100 mL an hour Discussed with nephrology, plan for Lasix 60 mg IV x 1 if SBP greater than 100, plan for Lokelma 3 times daily. Avoid nephrotoxic agents, monitor I's and O's [Mora catheter in] Likely type II NSTEMI: Troponin elevated and up trended with worsening renal function and rhabdomyolysis. EKG with no acute ST or T changes, echo with EF of 55 to 60%, no regional wall motion abnormality. LV function and wall thickness normal. Patient with no chest pain, continue telemetry monitoring. Right rib fracture #7, #10: Secondary to fall. Incentive spirometry. Pain control with As needed tramadol, Tylenol for pain, prn oxycodone. Right renal mass: As per admitting CTAP and renal ultrasound, see above. Urology evaluating, recommends IR biopsy of renal mass or one of her bone lesions after acute issues have settled down. Transaminitis: LFT elevated likely secondary to rhabdomyolysis. Patient on IV fluid, follow LFT daily. Patient with no abdominal pain. History of multiple myeloma: not in remission, widespread lytic lesions. Follows with Dr. Benny Mondragon. Recently prescribed with Pomolidomide- patient has not st arted yet History of CVA: Many years ago per family. Not on any medications. DVT prophylaxis: heparin subcu Full code Patient's daughter Natalie communicated to bring patient's POA papers copy to the hospital. Disposition: continue aggressive care. Poor prognosis. Will need PT and OT evaluation once more stable. Admission and Anticipated Discharge Date Admission Date: April 21, 2024 Subjective patient was seen and examined at bedside. Patient was sitting up in bed, on room air, in mild distress secondary to right rib pain, patient's daughter at bedside was also updated on plan of care. Patient reports improving cough, now with decreasing oxygen requirement [on room air], has mostly dry cough, pain not fully controlled, will add small dose oxycodone, denies nausea, denies diarrhea, denies any new acute event overnight. Patient and her daughter were explained in detail the multitude of acute clinical issues she is going through currently in the setting of elderly age/frailty/underlying malignancy. They voiced understanding and were aware that current clinical status does portend poor prognosis. Physical Exam Physical Exam: General- oriented x 3, mild distress 2/2 pain, speaks in sentences with no effort or accessory muscle use Head- atraumatic Eyes- pupil reactive to light, no discharge, periorbital edema ENT- Dry oral mucosa, oropharynx clear Neck- supple, no JVD, no adenopathy, no thyromegaly; carotids +2/2, no bruits appreciated Lungs- clear to auscultation bilaterally, no rales/wheezes Positive tenderness right lateral lower rib area Heart- normal rate, regular rhythm; no murmur, no gallop, no rub appreciated Abdomen- normal bowel sounds, nondistended, soft, nontender, no masses or hepatosplenomegaly Extremities- no pretibial edema, no calf tenderness; peripheral pulses intact Positive erythema right forearm, dorsal region Neuro- alert, oriented x 3; CN 2-12 grossly intact; motor 5/5 bilaterally;sensation 100% on all extremities; no other gross focal neurologic deficits Skin- warm & dry Results & Data Results & Data Vital Signs (Past 12 Hours) Vital Signs Temp Pulse Pulse Resp BP BP Pulse Ox 04/22/24 12:43 36.3 C L 93 H 18 92/56 L 92 04/22/24 07:18 93 H 16 95 04/22/24 07:03 36.6 C 88 18 94/58 L 91 04/22/24 07:00 88 04/22/24 03:13 36.8 C 90 18 97/62 L 93 O2 Del Method 04/22/24 12:43 Room Air 04/22/24 07:18 Room Air 04/22/24 07:03 Room Air 04/22/24 07:00 04/22/24 03:13 Room Air
[2024-04-22] MEDS ORDERED: FUROSEMIDE 40 MG/4 ML VIAL IV PRN (13:23)
[2024-04-22] MEDS: SODIUM ZIRCONIUM CYCLOSILICATE 10 GM PACKET PO SCH (13:29)
[2024-04-22] MEDS: oxyCODONE HCL IR 5 MG TAB (IMMEDIATE RELEASE) PO PRN (20:28)
--- NOTE | 2024-04-22 21:24 | Communication Note ---
Date of Service: April 22, 2024 Patient daughter mentioned to RN about mother expressing DNR directive to her last week. DNR directive verified with patient at bedside. Patient coherent during encounter.
[2024-04-23] MEDS: LORATADINE 10 MG TAB PO ONE (00:58)
[2024-04-23 07:31] LABS: Hematocrit (blood only) 25.7 % (37.0-47.0); Hemoglobin 8.1 g/dl (12.0-16.0); Mean Corpuscular Hemoglobin 28.4 pg (25.0-34.0); Mean Corpuscular Hgb Conc 31.5 g/dL (32.0-36.0); Mean Corpuscular Volume 90.2 fL (80.0-100.0); Platelet Count 74 K/uL (130-400); RDW Standard Deviation 49.9 fL (36.4-46.3); Red Blood Count 2.85 M/uL (4.20-5.40)
[2024-04-23 07:41] LABS: Albumin Globulin Ratio 0.5 (0.9-2); Bilirubin Direct 0.1 mg/dl (0-0.2); Bilirubin,Total 0.5 mg/dl (0.2-1.0); Calcium 6.1 mg/dl (8.6-10.3); Creatinine Clr Calc Pharmacy 7.5 ml/min; Est GFR (African American) 9.9 ml/min; Est GFR (Non-African American) 8.5 ml/min; Globulin 3.9 gm/dl (2.5-4.0); Potassium 5.4 mmol/L (3.5-5.1); Total Protein 5.9 gm/dl (6.0-8.3)
[2024-04-23 07:51] LABS: Immature Granulocytes # (auto) 0.02 K/uL (0.01-0.20); Immature Granulocytes % (auto) 0.3 %; Lymphocytes # (auto) 1.05 K/uL (1.20-3.40); Lymphocytes % (auto) 15.7 %; Monocytes # (auto) 0.43 K/uL (0.11-0.59); Monocytes % (auto) 6.4 %; Neutrophils % (auto) 77.6 %
--- NOTE | 2024-04-23 09:03 | Nephrology Progress Note ---
Date of Service April 23, 2024 Assessment & Plan (1) Acute renal failure: Plan: ZAHEER sec to ATN related with acute Rhabdo; likely to worsen w/ extended hypotension. very high CK though downtrending now. Creat rising rapidly and not a lot of urine. this is not a good sign. baseline creatinine 1.0 as of last month. very High chance she will need dialysis possibly tomorrow However ZAHEER not related with Myeloma >agree w/ lokelma to temporize K elevation >bicarb gtt would change K as well and acidosis >>>if she starts HD, likely to need pressors to tolerate, at least in current condition; also w/ low plts, at risk for bleeding complications with dialysis access placement. IP/OP dialysis reviewed. explained if she does start HD not sure she'll tolerate, not sure how long will be able to do this. significant risk to need longer COMMUNITY RELATIONS SPECIALIST, possibly after d/c. and if she gets through hospital stay, then with long road ahead with renal mass/mets and myeloma care. >>pt and family to discuss goals of care w/ palliative>> pt very tired during this interview; spent 45 minutes talking to pt and her son, daughter, granddaughter about above. believe they are leaning toward a trial of HD 1-2 wks, but not clear they understand how difficult it will be for her to tolerate/start, given how she looks today. also not clear how HD fits w/ change in code status to DNR/DNI > not clear if she is ready to intensify care or not. >>may need to consider pressor any way to support BP Medically complex, high risk pt reviewed mutliple times w/ Dr Erwin as above (2) Rhabdomyolysis: Plan: Sec to fall. Likely had Multiple falls. Also Covid makes it more likely. Creat rising rapidly and not a lot of urine, though more than yesterday. this is not a good sign. heart function should tolerate IVF >> will order CXR to eval diminished R lung sounds; if CXR ok, recommend change NS to bicarb gtt at 100/hr. >>has not been able to tolerate lasix >> BP too soft (3) COVID-19 virus infection: Plan: active; on 02NC today/since last evening (4) Renal mass: Plan: liklely malignant and w/ mets. urology already evaluated; for possible bx? (5) Multiple myeloma: Plan: Not in remission. widespread lytic lesions; on active treatment (6) Hypocalcemia: Plan: dropping; calcium corrects to 7.6 today >> monitor daily Plan very complicated patient involving multiple issues. reviewed urology note. Admission and Anticipated Discharge Date Admission Date: April 21, 2024 Subjective no interval events. pt c/o marked fatigue, sleeping mostly, and w/ R rib pain. Review of Systems 2 Review of Systems: All systems reviewed & are unremarkable except as noted in Subjective Physical Exam 2 Constitutional: well developed, well nourished, + thin, + frail appearing and + lethargic; no acute distress Eyes: EOM intact bilaterally ENMT: Ears: no external ear abnormality Nose: no external nose abnormality Mouth: + dry oral mucous membranes Neck: no nuchal rigidity Respiratory: normal respiratory effort Auscultation: + diminished lung sounds (emmanuel R side) Cardiovascular: RRR, no murmur, no edema Gastrointestinal (Abdomen): Inspection/Auscultation: normal bowel sounds P ercussion/Palpation: abdomen soft; abdomen nontender Musculoskeletal: Extremities: strength 5/5 throughout Skin: no rashes, warm and dry Neurologic: mcbride, fluent though limited speech, no tremor Psychiatric: Orientation: oriented x 3; + not alert (briefly alert, very tired) Results & Data Vital Signs (Past 12 Hours) Vital Signs Temp Pulse Pulse Resp BP Pulse Ox O2 Del Method 04/23/24 08:36 15 Nasal Cannula 04/23/24 07:46 Nasal Cannula 04/23/24 07:42 96 H 04/23/24 07:16 36.5 C 92 H 18 93/54 L 94 Nasal Cannula 04/23/24 03:00 36.8 C 99 H 18 97/57 L 92 Nasal Cannula 04/22/24 23:00 36.7 C 95 H 18 97/87 L 93 Nasal Cannula 04/22/24 22:00 91 H O2 Flow Rate 04/23/24 08:36 1 04/23/24 07:46 1 04/23/24 07:42 04/23/24 07:16 1 04/23/24 03:00 04/22/24 23:00 1 04/22/24 22:00 Laboratory Results 04/23/24 06:24 04/23/24 06:24
[2024-04-23] MEDS ORDERED: STAT IV/IM STA (15:25)
--- NOTE | 2024-04-23 15:26 | Hospitalist Progress Note ---
Date of Service April 23, 2024 Assessment & Plan (1) Status post fall: (2) Altered mental status: (3) COVID-19 virus infection: (4) Acute renal failure: Plan: 83-year-old lady with PMH of multiple myeloma, CVA , cerebral cavernoma, age- related osteoporosis brought into the hospital with complaint of fall and confusion. Patient had some sore throat, mild stomach ache and some diarrhea prior to arrival. Patient was complaining of right-sided rib pain and was noted she might have fallen in the bathroom per family member. Patient is not aware of fall. She is being managed for the following: Status post fall, confusion Likely metabolic encephalopathy secondary to sepsis, COVID-19 infection Concern for UTI Patient presented with confusion, lactate/procalcitonin/WBC/respiratory rate/temperature elevated in the setting of COVID test positive at presentation. Admitting imagings: CT C-spine: No acute fracture or subluxation. Osteopenia and mild spondylotic changes noted. Osteolytic lesion suspected in the right clavicular head. CT head with no acute finding. CT chest and CT abdomen pelvis: Acute right-sided rib fractures [acute right posterolateral 7th and 10th rib fractures]. Multiple lytic and blastic metastatic disease lesions. Right upper pole renal lesion 10 x 10 x 8 cm suspicious of RCC. Asymmetric wall thickening is seen along the posterior and right wall of the bladder. Renal ultrasound: Redemonstration of the 10.8 cm right renal mass consistent with renal cell carcinoma. Brain MRI: No acute infarct or intracranial hemorrhage. A stable 1 cm lesion within the left temporal lobe suggesting a cavernoma. Respiratory BioFire positive for COVID, MRSA nasal swab neg Patient currently on 1L NC O2, back to baseline mentation.Lactate resolved. Patient with cough, mostly dry. Continue with Mucinex, hypertonic saline nebs. Patient started on cefepime 04/22 for concern of UTI, --UCx and BL CX 48hr neg, DC atb 04/23. Continue with incentive spirometer. Important. Acute kidney injury Rhabdomyolysis Hypokalemia/hypocalcemia ZAHEER likely secondary to ATN related with acute rhabdomyolysis in the setting of fall and COVID-19 infection. Admitting CTAP as above. Admitting renal labs: Sodium 131, potassium 4.5, creatinine 2.23, calcium 8.6, CPK 6639 Trend BMP, sodium downtrending, potassium elevated at 5.4, creatinine elevated at 4.5, calcium lower at 6.1 Trend CPK: 6639 --> 20,319 --> 25074 Nephro on board, recommends bicarb drip at 100ml/hr. Lokelma 3 times daily. Avoid nephrotoxic agents, monitor I's and O's [Mora catheter in] Pt might need dialysis, Nephro assessing, will follow. Right renal mass: As per admitting CTAP and renal ultrasound, see above. Urology evaluating, recommends IR biopsy of renal mass or one of her bone lesions after acute issues have settled down. Pt, Dtr, son, Grand Dtr are aware. They are leaning towards no biopsy for now. Continue to follow the [facility] discussion w/ palliative. d/w Dr. narayanan over the phone 04/23, pt has poor prognosis given progressive MM. Likely type II NSTEMI: Troponin elevated and up trended with worsening renal function and rhabdomyolysis. EKG with no acute ST or T changes, echo with EF of 55 to 60%, no regional wall motion abnormality. LV function and wall thickness normal. Patient with no chest pain, continue telemetry monitoring. Right rib fracture #7, #10: Secondary to fall. Incentive spirometry. Pain control with As needed tramadol, Tylenol for pain, prn oxycodone. Transaminitis: LFT elevated likely secondary to rhabdomyolysis. Patient on IV fluid, follow LFT daily. Patient with no abdominal pain. LFT slightly improving. History of multiple myeloma: not in remission, widespread lytic lesions. Follows with Dr. Benny Narayanan. Recently prescribed with Pomolidomide- patient has not started yet History of CVA: Many years ago per family. Not on any medications. DVT prophylaxis: heparin subcu Full code [facility] discussion: palliative on board. will follow recs. Disposition: continue aggressive care. Poor prognosis. Will need PT and OT evaluation once more stable. Admission and Anticipated Discharge Date Admission Date: April 21, 2024 Subjective patient was seen and examined at bedside. Patient was sitting up in bed, on room air, in mild distress secondary to right rib pain, patient's daughter, son and grand dtr at bedside were also updated on plan of care. We discussed about possible need for dialysis, Rt renal mass and possible course of action in this regard, use of incentive spirometry and involving palliative care given poor prognosis. They voiced understanding and were agreeable to plan of care. Patient appears more tired, reports cough improving, mostly dry. Rt rib pain slightly better than yesterday per pt. Pt denies nausea, vomiting and diarrhea. Physical Exam Physical Exam: General- oriented x 3, mild distress 2/2 pain, ill/frail/weak/tired appearing. Head- atraumatic Eyes- pupil reactive to light, no discharge, periorbital edema ENT- Dry oral mucosa, oropharynx clear Neck- supple, no JVD, no adenopathy, no thyromegaly; carotids +2/2, no bruits appreciated Lungs- b/l crackles. Positive tenderness right lateral lower rib area Heart- normal rate, regular rhythm; no murmur, no gallop, no rub appreciated Abdomen- normal bowel sounds, nondistended, soft, nontender, no masses or hepatosplenomegaly Extremities- no pretibial edema, no calf tenderness; peripheral pulses intact Positive erythema right forearm, dorsal region Neuro- alert, oriented x 3; CN 2-12 grossly intact; motor 5/5 bilaterally;sensation 100% on all extremities; no other gross focal neurologic deficits Skin- warm & dry Results & Data Results & Data Vital Signs (Past 12 Hours) Vital Signs Temp Pulse Pulse Resp BP Pulse Ox O2 Del Method 04/23/24 14:52 36.6 C 93 H 18 102/63 94 Nasal Cannula 04/23/24 11:22 36.4 C L 91 H 18 91/54 L 95 Room Air 04/23/24 08:36 98 H 15 93 Nasal Cannula 04/23/24 07:46 Nasal Cannula 04/23/24 07:42 96 H 04/23/24 07:16 36.5 C 92 H 18 93/54 L 94 Nasal Cannula O2 Flow Rate 04/23/24 14:52 1 04/23/24 11:22 04/23/24 08:36 1 04/23/24 07:46 1 04/23/24 07:42 04/23/24 07:16 1
[2024-04-23] MEDS: SODIUM BICARBONATE 8.4% 150 MEQ in DEXTROSE 5% 1,000 ML IV SCH (16:10)
--- NOTE | 2024-04-23 18:02 | XRay Report ---
XR chest 1V portable CLINICAL HISTORY: diminished R brth sounds > eval for R effusion COMPARISON STUDY: Chest CT April 21, 2024. FINDINGS: Right internal jugular [id number] is in place. There is no pneumothorax. A small to mode rate right pleural effusion has developed since prior exam. Multiple acute right-sided rib fractures are better depicted on prior CT. Associated right middle and lower lung airspace opacity is present. There is mild left basilar opacity. Cardiomediastinal silhouette is normal. There is no evidence for pulmonary edema. Old, healed left clavicular fracture is incidentally noted. IMPRESSION: 1. Interval development of a small to moderate right pleural effusion. This could represent a simple pleural effusion or a hemothorax given acute right-sided rib fractures. Associated airspace opacity f avors atelectasis although pneumonia could appear similar. 2. No pneumothorax. ACT 112: Negative or not required by law. Electronically signed by: Jordan Nieto M.D. 04/23/2024 6:01 PM
--- NOTE | 2024-04-23 19:51 | Palliative Care Consultation ---
Date of Consultation April 23, 2024 Assessment & Plan (1) Rib pain on right side: Due to fall at home with unknown downtime, complicated now by rhabdomyolysis, ZAHEER/ ARF, COVID and new right renal mass. (2) Fall as cause of accidental injury at home as place of occurrence: Encounter type: subsequent encounter Qualified Code(s): W19.XXXD - Unspecified fall, subsequent encounter; Y92.009 - Unspecified place in unspecified non-institutional (private) residence as the place of occurrence of the external cause (3) Abnormal finding on CT scan: Right renal mass noted on CAT scan this admission, not seen on prior study in 2021. [facility] EMR link reviewed, no imaging data on EMR link indicates prior suspicious findings in the right kidney. Patient has a known history of longstanding multiple myeloma and is followed closely by Dr. Mondragon at [facility] oncology (4) Altered mental status: Improving since admission on 04/21/2024 (5) Weakness generalized: (6) Advanced care planning/counseling discussion: Extensive, lengthy [id number] advance care planning discussions were held with patient and her family: Daughter, son, granddaughter. Total time spent in advance care planning discussions today was 75 minutes [id number]. Extensive discussions were held with regards to the potential what if scenarios of dialysis, the second primary cancer (renal cell) and the overall potential for treatment at this stage. 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 They also note that her performance status has been declining along with her weight in the last few months. She has been the primary caregiver for her , who has a progressive dementia that is now nearing severe stages. He no longer recognizes family members, his verbal skills have been declining, and he remains of able to still ambulate short distances and with guidance dress himself and feed himself. He is unable to be left alone for any prolonged period of time. If he manages to get out of the house, he immediately gets lost and will wander. 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 The family openly shares that patient's had a parent with severe dementia who require group home placement and witnessing the progression of their Alzheimer's disease in a group home was terribly traumatic for the who then made patient promise him that if ever he became diagnosed with dementia and as his disease progressed, she would never do that to him. She has made every effort to keep true to this promise and believes that this is something she must honor no matter what. She has also kept the overall details of his dementia from her family in an effort to protect her 's dignity and privacy. She is quite angry to hear that she has a likely renal cancer. She feels that this is information that has been withheld from her. We discussed several times today that the finding was just noted on her CAT scan this admission. She has no prior CAT scans either here or through the [facility]'s EMR link review in the recent year that would suggest otherwise. Her last imaging study was a PET s we discussed that in the setting of an active infection (COVID/pneumonia), further chemotherapy would be held. It would be unwise to consider giving her higher dose immunosuppressive/toxic chemotherapeutic interventions at the time of an acute infection. Family verbalized understanding and were in agreement with that. They are curious to know what the overall prognosis would be in the setting of an advanced cancer (second primary) with the existing multiple myeloma and now the complications of a fall, rhabdo, ZAHEER/ARF, and COVID. We agreed that I would reach out to Dr. Mondragon to update him about her admission and the new findings and to see if he had further recommendations. We agreed to follow-up tomorrow at 12 PM for another family meeting at the bedside with patientAntonia Benjamin in January 2022. There were no suspicious findings in the kidney at that time. Additionally, in the interim of the last 6 months to a year, other than some weight loss and generalized weakness, she has not had any other symptoms of significant concern. She continues to receive her multiple myeloma related chemotherapy and provide primary caregiving services for her with dementia. Her current acute decline has been a surprise and a shock to her. She is also angry about tiana COVID and feels that this came from time spent at the outside hospital her had his fracture repaired. She is aware that her kidneys are having some issues at this time. She recalls a conversation with nephrology earlier this morning and the recommendations for a possible dialysis trial. She tells me today very emphatically she does not want to have any dialysis. When questioned what she would want then should her kidney failure progress however she was less able to engage in a meaningful discussion and averted her eyes. She did reaffirm DNR/DNI status. Her family reaffirms that she has been DNR/DNI for a very long time and has had numerous nury discussions with them when she was well that she would never want to be placed on life support or artificially sustained. We discussed that dialysis would be a life-sustaining intervention. It is unclear at this time how long she would need dialysis for those certainly at this point would be considered a trial of dialysis to see how she tolerates the intervention. There is concern that her blood pressures may not be able to tolerate the intervention and pressor support may be needed. Next we discussed the findings on the scan and that we cannot pursue a biopsy at this time given her active infection status. Her daughter inquired about resuming her chemotherapy, which is due next week. We discussed that it would be held at this time given the active infection. They also requested that we update her primary oncologist which I have done and will await further guidance to share with them and a follow-up family meeting scheduled for 12:00 tomorrow afternoon. (7) Palliative care by specialist: Discussed Palliative Medicine provides specialized medical care for patients with a serious illness. We offer a focus on quality of life through reduction of symptom burden/more control over their illness, for patients and their family. Palliative Medicine interventions can be given along with curative treatment. I specifically clarified we are not hospice, which is a visiting nurse service that focuses on care delivered at the very end of life. Plan As above. Thank you for allowing us to participate in the ongoing care of this patient. Please page with any additional concerns. Charles Miller DNP Director, Palliative Medicine History of Present Illness Reason for Consultation: goals of care Attending Physician: Nathan Erwin MD History of Present Illness Yvrose is an 83-year-old female admitted from home 04/21/2024 status post fall found to have alteration in mental status due to COVID-19 virus infection. She is found to be in acute renal failure. She is seen bedside and only moderately participates in this visit. She is irritable and at times very short with this examiner. She is awake alert and oriented. She is occasionally withdrawn and tangential. She recalls that she was getting weaker at home but she does not recall the nature of her fall. Her family supplement information that she was found by their granddaughter in a slumped position on her toilet. Due to the nature of her positioning, it is believed she initially fell to the floor but managed to pull herself up enough to sit on her toilet seat. She was there for a prolonged period of time, possibly several hours overnight before she was found by a family member. She had not been able to call for help. At the time she was found, she was disoriented, confused and unable to provide HPI or answer any questions. She does admit to pain in her anterior to posterior right chest to rib section. Repositioning and independent movement is difficult but she is still able to do this without assistance. Significant medical history includes multiple myeloma, history of CVA, hydronephrosis, UTI, and plasmacytoma. Her initial workup revealed multiple rib fractures of right ribs #7 and 10, troponin elevation likely due to her acute renal failure and sepsis, and rhabdomyolysis due to prolonged downtime with creatinine noted to be 2.6 with a creatinine clearance of 15. An incidental finding was made of a right renal mass on the CAT scan done of her abdomen and pelvis. This is noted to be a 10 x 10 x 8 cm heterogeneous mass that is hyperdense arising from the right upper pole of the right kidney. This is new from her most recent exam that was dated 01/13/2022 and is believed to be highly suspicious for renal cell carcinoma. Much less likely per radiology is a large renal hematoma which could potentially appear similar however this appears to invade the posterior body wall in the right psoas muscle. Consultations with nephrology have also occurred. For her multiple myeloma, she follows with Dr. Mondragon at the [facility] oncology clinic. She has been following with him since 2017. An extensive [facility] EMR link chart review was done reviewing Dr. Mondragon's oncology notes for this patient since 2017. For the most part, notes indicate a relative stability and decent tolerance of her therapies including Velcade. Her last in office clinical visit was September 2023 during which time it was noted her weight was down to 108 and she was demonstrating some symptoms of caregiver burnout due to being the primary caregiver for her who has progressive dementia. She is seen with her family present: Daughter, son and granddaughter. They note that their father (patient's ) is [facility] following a fall and hip fracture. They acknowledge that his dementia has been steadily worsening especially over the last year. He no longer recognizes members of his family and his verbal skills have declined. He does remain ambulatory and can still perform some basic functions such as feeding himself or dressing himself but if left alone, he will wander and if he leaves the house, he immediately becomes disoriented and easily lost. He requires constant supervision and patient has been his primary dot compliance specialist. Family also shares she is extremely protective of her and has been reluctant to discuss his overall health decline with anyone. In part she does this because she feels she needs to protect his dignity and not admit his decline to anyone whether that be family or providers. It is also noted that she is having a lot of conflict and struggle because she made a promise to him never to put him into a group home for dementia related care due to the observations and experiences he had with nursing homes during his own father's dementia related decline. She is struggling with the realization that her own health condition is changing and that her ability to keep her promise to her may become far more limited. Allergies Allergy/AdvReac Type Severity Reaction Status Date / Time ixazomib [From Ninlaro] Allergy hives Verified 04/21/24 15:06 adhesive tape AdvReac Mild Rash Verified 04/23/24 20:08 lenalidomide [From Revlimid] AdvReac Hives Verified 04/21/24 15:06 Home Medications Medication Instructions Recorded Confirmed Type dexamethasone 4 mg tablet 4 mg PO UD 11/12/21 04/21/24 History Patient History Medical History History of pneumonia History of CVA (cerebrovascular accident) no residual deficits Inappropriate sinus tachycardia Surgical History History of vascular access device Family History Father Diabetes Sister Cancer Social History Smoking Status: Former smoker Hx Alcohol Use: No Hx Substance Use: No Preferred Language: Barbadian Communication Ability: Effective Tare Worker Required: No Beliefs That Will Affect Care: None Current Living Situation: Spouse Current Living Situation Comment: per records Feels Safe at Home: Yes Assistive Devices: None Review of Systems Review of Systems: All systems reviewed & are unremarkable except as noted in Subjective Physical Exam Physical Exam: Frail, thin elderly female, alert to self and oriented x 3. In no significant d istress at the time of my visit. Semireclined in bed, watching television. Speaking in full sentences with no conversational dyspnea. Head is atraumatic and there is no bitemporal wasting. Her pupils are equal round and reactive to light. Extraocular movements are intact. There is no facial ecchymoses or periorbital changes. Her mucosa are slightly dry and her oropharynx is clear, dentition fair, no obvious thrush. Her lungs are clear bilaterally though overall diminished. I did not appreciate any wheezing, rhonchi or rails. There is tenderness noted along the anterior to posterior right mid to lower rib regions. Her heart tones are normal rate and rhythm, with no obvious murmur. Her apical rate is 82. Abdomen is scaphoid with normal bowel sounds. It is nontender to palpation. There is no guarding noted. Extremities are thin with some mild overall generalized weakness. Her skin is pale but warm to touch. There is no gross cyanosis or edema noted. There is some erythema noted on her right forearm. Sensation is intact but strength is overall diminished symmetrically and bilaterally. Her mood is depressed and at times irritable. She is moderately uncooperative with this examiner. Results & Data Vital Signs (Past 12 Hours) Vital Signs Temp Pulse Pulse Resp BP Pulse Ox O2 Del Method 04/23/24 16:35 90 04/23/24 16:13 94/55 L 94 Nasal Cannula 04/23/24 14:52 36.6 C 93 H 18 102/63 94 Nasal Cannula 04/23/24 11:22 36.4 C L 91 H 18 91/54 L 95 Room Air 04/23/24 08:36 98 H 15 93 Nasal Cannula 04/23/24 07:46 Nasal Cannula 04/23/24 07:42 96 H O2 Flow Rate 04/23/24 16:35 04/23/24 16:13 1 04/23/24 14:52 1 04/23/24 11:22 04/23/24 08:36 1 04/23/24 07:46 1 04/23/24 07:42 Laboratory Results 04/23/24 04/23/24 04/23/24 Range/Units 08:49 08:26 06:24 WBC 6.70 (4.8-10.8) K/ul RBC 2.85 L (4.20-5.40) M/uL Hgb 8.1 L (12.0-16.0) g/dl POC Hgb (12.0-16.0) g/dl Hct 25.7 L (37.0-47.0) % POC Hct (37-47) % MCV 90.2 (80.0-100.0) fL MCH 28.4 (25.0-34.0) pg MCHC 31.5 L (32.0-36.0) g/dL RDW Std Deviation 49.9 H (36.4-46.3) fL RDW Coeff of Kendell 15.0 H (11.5-14.5) % Plt Count 74 L (130-400) K/uL MPV 11.0 (9.4-12.4) fL Immature Gran % (Auto) 0.3 % Neut % (Auto) 77.6 % Lymph % (Auto) 15.7 % [place] % (Auto) 6.4 % Eos % (Auto) 0.0 % Baso % (Auto) 0.0 % Neut # (Auto) 5.20 (1.40-6.50) K/uL Lymph # (Auto) 1.05 L (1.20-3.40) K/uL [place] # (Auto) 0.43 (0.11-0.59) K/uL Eos # (Auto) 0.00 (0.00-0.50) K/uL Baso # (Auto) 0.00 (0.00-0.20) K/uL Immature Gran # (Auto) 0.02 (0.01-0.20) K/uL Platelet Estimate (Normal) POC Sodium (135-144) mmol/L Sodium 130 L (136-145) mmol/L POC Potassium (3.3-5.0) mmol/L Potassium 5.4 H (3.5-5.1) mmol/L POC Chloride (101-112) mmol/L Chloride 105 (98-107) mmol/L Carbon Dioxide 17 L (21-32) mmol/L POC Total CO2 (24-31) mmol/L Anion Gap 8 (3-11) POC Anion Gap (16-25) mmol/L POC BUN (7-18) mg/dl BUN 63 H (6-23) mg/dl Creatinine 4.50 H D (0.6-1.2) mg/dl POC Creatinine (0.6-1.3) mg/dl Est Cr Clr Drug Dosing 7.5 Est GFR ( Amer) 9.9 ml/min Est GFR (Non-Af Amer) 8.5 ml/min BUN/Creatinine Ratio 14.0 (10-20) Glucose 57 L (70-99(Fasting)) mg/dl POC Glucose 76 62 L* (70-99) mg/dl POC Glucose (other) (70-99) mg/dl Lactate (0.4-2.0) mmol/L Calcium 6.1 L (8.6-10.3) mg/dl POC Ioniz Calcium Ivana (1.12-1.32) mmol/l Magnesium (1.7-2.4) mg/dl Total Bilirubin 0.5 (0.2-1.0) mg/dl Direct Bilirubin 0.1 (0-0.2) mg/dl AST 357 H (13-39) U/L ALT 100 H (7-52) U/L Alkaline Phosphatase 47 (34-104) U/L Total Creatine Kinase 19702 H (26-192) U/L Troponin I High Sens (0-14) pg/ml Total Protein 5.9 L (6.0-8.3) gm/dl Albumin 2.0 L (3.4-5.0) gm/dl Globulin 3.9 (2.5-4.0) gm/dl Albumin/Globulin Ratio 0.5 L (0.9-2) Procalcitonin (0-0.5) ng/ml Urine Color Urine Appearance (Clear) Urine pH (4.5-7.5) Ur Specific [place] (1.000-1.030) Urine Protein (Negative) Urine Glucose (UA) (Negative) Urine Ketones (Negative) Urine Blood (Negative) Urine Nitrite (Negative) Urine Bilirubin (Negative) Urine Urobilinogen (Negative) Ur Leukocyte Esterase (Negative) Urine WBC (Auto) (0-5) /hpf Urine RBC (Auto) (0-2) /hpf U Hyaline Cast (Auto) (0-2) /lpf U Epithel Cells (Auto) (0-2) /hpf Urine Bacteria (Auto) (None Seen) Amorphous Sediment (None Prsent) Nasal Screen MRSA (PCR) (Negative) Adenovirus (PCR) (NotDetected) B. pertussis DNA (PCR) (NotDetected) B.parapertussis DNA PCR (NotDetected) C. pneumoniae DNA (PCR) (NotDetected) Coronavirus OC43 (PCR) (NotDetected) Coronavirus HKU1 (PCR) (NotDetected) Coronavirus 229E (PCR) (NotDetected) SARS-CoV-2 (PCR) (NotDetected) Coronavirus NL63 (PCR) (NotDetected) Human Metapneumovir PCR (NotDetected) Influenza Type A (PCR) (NotDetected) Influenza Type B (PCR) (NotDetected) M. pneumoniae (PCR) (NotDetected) Parainfluenza 1 (PCR) (NotDetected) Parainfluenza 2 (PCR) (NotDetected) Parainfluenza 3 (PCR) (NotDetected) Parainfluenza 4 (PCR) (NotDetected) RSV (PCR) (NotDetected) Entero/Rhino (PCR) (NotDetected) 04/22/24 04/22/24 04/21/24 Range/Units 12:00 06:42 17:38 WBC 7.74 (4.8-10.8) K/ul RBC 3.26 L (4.20-5.40) M/uL Hgb 9.2 L (12.0-16.0) g/dl POC Hgb (12.0-16.0) g/dl Hct 29.4 L (37.0-47.0) % POC Hct (37-47) % MCV 90.2 (80.0-100.0) fL MCH 28.2 (25.0-34.0) pg MCHC 31.3 L (32.0-36.0) g/dL RDW Std Deviation 49.0 H (36.4-46.3) fL RDW Coeff of Kendell 14.8 H (11.5-14.5) % Plt Count 88 L (130-400) K/uL MPV 10.3 (9.4-12.4) fL Immature Gran % (Auto) 0.3 % Neut % (Auto) 75.4 % Lymph % (Auto) 17.4 % [place] % (Auto) 6.8 % Eos % (Auto) 0.0 % Baso % (Auto) 0.1 % Neut # (Auto) 5.83 (1.40-6.50) K/uL Lymph # (Auto) 1.35 (1.20-3.40) K/uL [place] # (Auto) 0.53 (0.11-0.59) K/uL Eos # (Auto) 0.00 (0.00-0.50) K/uL Baso # (Auto) 0.01 (0.00-0.20) K/uL Immature Gran # (Auto) 0.02 (0.01-0.20) K/uL Platelet Estimate Decreased L (Normal) POC Sodium (135-144) mmol/L Sodium 134 L (136-145) mmol/L POC Potassium (3.3-5.0) mmol/L Potassium 5.2 H (3.5-5.1) mmol/L POC Chloride (101-112) mmol/L Chloride 107 (98-107) mmol/L Carbon Dioxide 22 (21-32) mmol/L POC Total CO2 (24-31) mmol/L Anion Gap 5 (3-11) POC Anion Gap (16-25) mmol/L POC BUN (7-18) mg/dl BUN 47 H (6-23) mg/dl Creatinine 3.20 H D (0.6-1.2) mg/dl POC Creatinine (0.6-1.3) mg/dl Est Cr Clr Drug Dosing 4.0 Est GFR ( Amer) 14.9 ml/min Est GFR (Non-Af Amer) 12.8 ml/min BUN/Creatinine Ratio 14.7 (10-20) Glucose 67 L (70-99(Fasting)) mg/dl POC Glucose (70-99) mg/dl POC Glucose (other) (70-99) mg/dl Lactate (0.4-2.0) mmol/L Calcium 6.4 L D (8.6-10.3) mg/dl POC Ioniz Calcium Ivana (1.12-1.32) mmol/l Magnesium (1.7-2.4) mg/dl Total Bilirubin 0.5 (0.2-1.0) mg/dl Direct Bilirubin 0.1 (0-0.2) mg/dl AST 654 H (13-39) U/L ALT 115 H (7-52) U/L Alkaline Phosphatase 50 (34-104) U/L Total Creatine Kinase 67450 H (26-192) U/L Troponin I High Sens 1433.8 H* 1262.7 H* D (0-14) pg/ml Total Protein 6.6 D (6.0-8.3) gm/dl Albumin 2.3 L (3.4-5.0) gm/dl Globulin 4.3 H (2.5-4.0) gm/dl Albumin/Globulin Ratio 0.5 L (0.9-2) Procalcitonin (0-0.5) ng/ml Urine Color Urine Appearance (Clear) Urine pH (4.5-7.5) Ur Specific [place] (1.000-1.030) Urine Protein (Negative) Urine Glucose (UA) (Negative) Urine Ketones (Negative) Urine Blood (Negative) Urine Nitrite (Negative) Urine Bilirubin (Negative) Urine Urobilinogen (Negative) Ur Leukocyte Esterase (Negative) Urine WBC (Auto) (0-5) /hpf Urine RBC (Auto) (0-2) /hpf U Hyaline Cast (Auto) (0-2) /lpf U Epithel Cells (Auto) (0-2) /hpf Urine Bacteria (Auto) (None Seen) Amorphous Sediment (None Prsent) Nasal Screen MRSA (PCR) Negative (Negative) Adenovirus (PCR) (NotDetected) B. pertussis DNA (PCR) (NotDetected) B.parapertussis DNA PCR (NotDetected) C. pneumoniae DNA (PCR) (NotDetected) Coronavirus OC43 (PCR) (NotDetected) Coronavirus HKU1 (PCR) (NotDetected) Coronavirus 229E (PCR) (NotDetected) SARS-CoV-2 (PCR) (NotDetected) Coronavirus NL63 (PCR) (NotDetected) Human Metapneumovir PCR (NotDetected) Influenza Type A (PCR) (NotDetected) Influenza Type B (PCR) (NotDetected) M. pneumoniae (PCR) (NotDetected) Parainfluenza 1 (PCR) (NotDetected) Parainfluenza 2 (PCR) (NotDetected) Parainfluenza 3 (PCR) (NotDetected) Parainfluenza 4 (PCR) (NotDetected) RSV (PCR) (NotDetected) Entero/Rhino (PCR) (NotDetected) 04/21/24 04/21/24 04/21/24 Range/Units 14:15 12:41 12:25 WBC (4.8-10.8) K/ul RBC (4.20-5.40) M/uL Hgb (12.0-16.0) g/dl POC Hgb (12.0-16.0) g/dl Hct (37.0-47.0) % POC Hct (37-47) % MCV (80.0-100.0) fL MCH (25.0-34.0) pg MCHC (32.0-36.0) g/dL RDW Std Deviation (36.4-46.3) fL RDW Coeff of Kendell (11.5-14.5) % Plt Count (130-400) K/uL MPV (9.4-12.4) fL Immature Gran % (Auto) % Neut % (Auto) % Lymph % (Auto) % [place] % (Auto) % Eos % (Auto) % Baso % (Auto) % Neut # (Auto) (1.40-6.50) K/uL Lymph # (Auto) (1.20-3.40) K/uL [place] # (Auto) (0.11-0.59) K/uL Eos # (Auto) (0.00-0.50) K/uL Baso # (Auto) (0.00-0.20) K/uL Immature Gran # (Auto) (0.01-0.20) K/uL Platelet Estimate (Normal) POC Sodium (135-144) mmol/L Sodium (136-145) mmol/L POC Potassium (3.3-5.0) mmol/L Potassium (3.5-5.1) mmol/L POC Chloride (101-112) mmol/L Chloride (98-107) mmol/L Carbon Dioxide (21-32) mmol/L POC Total CO2 (24-31) mmol/L Anion Gap (3-11) POC Anion Gap (16-25) mmol/L POC BUN (7-18) mg/dl BUN (6-23) mg/dl Creatinine (0.6-1.2) mg/dl POC Creatinine (0.6-1.3) mg/dl Est Cr Clr Drug Dosing Est GFR ( Amer) ml/min Est GFR (Non-Af Amer) ml/min BUN/Creatinine Ratio (10-20) Glucose (70-99(Fasting)) mg/dl POC Glucose (70-99) mg/dl POC Glucose (other) (70-99) mg/dl Lactate 1.8 (0.4-2.0) mmol/L Calcium (8.6-10.3) mg/dl POC Ioniz Calcium Ivana (1.12-1.32) mmol/l Magnesium (1.7-2.4) mg/dl Total Bilirubin (0.2-1.0) mg/dl Direct Bilirubin (0-0.2) mg/dl AST (13-39) U/L ALT (7-52) U/L Alkaline Phosphatase (34-104) U/L Total Creatine Kinase (26-192) U/L Troponin I High Sens 865.7 H* D (0-14) pg/ml Total Protein (6.0-8.3) gm/dl Albumin (3.4-5.0) gm/dl Globulin (2.5-4.0) gm/dl Albumin/Globulin Ratio (0.9-2) Procalcitonin (0-0.5) ng/ml Urine Color Yellow Urine Appearance Cloudy A (Clear) Urine pH 5.5 (4.5-7.5) Ur Specific [place] 1.018 (1.000-1.030) Urine Protein 2+ H (Negative) Urine Glucose (UA) Negative (Negative) Urine Ketones Trace H (Negative) Urine Blood 2+ H (Negative) Urine Nitrite Negative (Negative) Urine Bilirubin Negative (Negative) Urine Urobilinogen Negative (Negative) Ur Leukocyte Esterase Negative (Negative) Urine WBC (Auto) 0-5 (0-5) /hpf Urine RBC (Auto) 0-2 (0-2) /hpf U Hyaline Cast (Auto) 0-2 (0-2) /lpf U Epithel Cells (Auto) 0-2 (0-2) /hpf Urine Bacteria (Auto) None Seen (None Seen) Amorphous Sediment Present A (None Prsent) Nasal Screen MRSA (PCR) (Negative) Adenovirus (PCR) Not Detected (NotDetected) B. pertussis DNA (PCR) Not Detected (NotDetected) B.parapertussis DNA PCR Not Detected (NotDetected) C. pneumoniae DNA (PCR) Not Detected (NotDetected) Coronavirus OC43 (PCR) Not Detected (NotDetected) Coronavirus HKU1 (PCR) Not Detected (NotDetected) Coronavirus 229E (PCR) Not Detected (NotDetected) SARS-CoV-2 (PCR) DETECTED A (NotDetected) Coronavirus NL63 (PCR) Not Detected (NotDetected) Human Metapneumovir PCR Not Detected (NotDetected) Influenza Type A (PCR) Not Detected (NotDetected) Influenza Type B (PCR) Not Detected (NotDetected) M. pneumoniae (PCR) Not Detected (NotDetected) Parainfluenza 1 (PCR) Not Detected (NotDetected) Parainfluenza 2 (PCR) Not Detected (NotDetected) Parainfluenza 3 (PCR) Not Detected (NotDetected) Parainfluenza 4 (PCR) Not Detected (NotDetected) RSV (PCR) Not Detected (NotDetected) Entero/Rhino (PCR) Not Detected (NotDetected) 04/21/24 04/21/24 Range/Units 11:28 11:21 WBC 10.23 (4.8-10.8) K/ul RBC 3.69 L (4.20-5.40) M/uL Hgb 10.4 L (12.0-16.0) g/dl POC Hgb 10.5 L (12.0-16.0) g/dl Hct 32.1 L (37.0-47.0) % POC Hct 31 L (37-47) % MCV 87.0 (80.0-100.0) fL MCH 28.2 (25.0-34.0) pg MCHC 32.4 (32.0-36.0) g/dL RDW Std Deviation 46.8 H (36.4-46.3) fL RDW Coeff of Kendell 14.6 H (11.5-14.5) % Plt Count 151 (130-400) K/uL MPV 10.0 (9.4-12.4) fL Immature Gran % (Auto) 0.6 % Neut % (Auto) 87.4 % Lymph % (Auto) 3.7 % [place] % (Auto) 8.2 % Eos % (Auto) 0.0 % Baso % (Auto) 0.1 % Neut # (Auto) 8.94 H (1.40-6.50) K/uL Lymph # (Auto) 0.38 L (1.20-3.40) K/uL [place] # (Auto) 0.84 H (0.11-0.59) K/uL Eos # (Auto) 0.00 (0.00-0.50) K/uL Baso # (Auto) 0.01 (0.00-0.20) K/uL Immature Gran # (Auto) 0.06 (0.01-0.20) K/uL Platelet Estimate (Normal) POC Sodium 134 L (135-144) mmol/L Sodium 131 L (136-145) mmol/L POC Potassium 4.5 (3.3-5.0) mmol/L Potassium 4.4 (3.5-5.1) mmol/L POC Chloride 99 L (101-112) mmol/L Chloride 97 L (98-107) mmol/L Carbon Dioxide 22 (21-32) mmol/L POC Total CO2 22 L (24-31) mmol/L Anion Gap 12 H (3-11) POC Anion Gap 18.0 (16-25) mmol/L POC BUN 30 H (7-18) mg/dl BUN 32 H (6-23) mg/dl Creatinine 2.23 H (0.6-1.2) mg/dl POC Creatinine 2.6 H (0.6-1.3) mg/dl Est Cr Clr Drug Dosing Not Reportable Est GFR ( Amer) 23.0 ml/min Est GFR (Non-Af Amer) 19.9 ml/min BUN/Creatinine Ratio 14.3 (10-20) Glucose 211 H (70-99(Fasting)) mg/dl POC Glucose (70-99) mg/dl POC Glucose (other) 221 H (70-99) mg/dl Lactate 3.3 H* (0.4-2.0) mmol/L Calcium 8.6 (8.6-10.3) mg/dl POC Ioniz Calcium Ivana 1.13 (1.12-1.32) mmol/l Magnesium 1.9 (1.7-2.4) mg/dl Total Bilirubin 0.7 (0.2-1.0) mg/dl Direct Bilirubin 0.4 H (0-0.2) mg/dl AST 173 H (13-39) U/L ALT 62 H (7-52) U/L Alkaline Phosphatase 64 (34-104) U/L Total Creatine Kinase 6639 H (26-192) U/L Troponin I High Sens 397.0 H* (0-14) pg/ml Total Protein 9.4 H (6.0-8.3) gm/dl Albumin 3.4 (3.4-5.0) gm/dl Globulin (2.5-4.0) gm/dl Albumin/Globulin Ratio (0.9-2) Procalcitonin 29.50 H (0-0.5) ng/ml Urine Color Urine Appearance (Clear) Urine pH (4.5-7.5) Ur Specific [place] (1.000-1.030) Urine Protein (Negative) Urine Glucose (UA) (Negative) Urine Ketones (Negative) Urine Blood (Negative) Urine Nitrite (Negative) Urine Bilirubin (Negative) Urine Urobilinogen (Negative) Ur Leukocyte Esterase (Negative) Urine WBC (Auto) (0-5) /hpf Urine RBC (Auto) (0-2) /hpf U Hyaline Cast (Auto) (0-2) /lpf U Epithel Cells (Auto) (0-2) /hpf Urine Bacteria (Auto) (None Seen) Amorphous Sediment (None Prsent) Nasal Screen MRSA (PCR) (Negative) Adenovirus (PCR) (NotDetected) B. pertussis DNA (PCR) (NotDetected) B.parapertussis DNA PCR (NotDetected) C. pneumoniae DNA (PCR) (NotDetected) Coronavirus OC43 (PCR) (NotDetected) Coronavirus HKU1 (PCR) (NotDetected) Coronavirus 229E (PCR) (NotDetected) SARS-CoV-2 (PCR) (NotDetected) Coronavirus NL63 (PCR) (NotDetected) Human Metapneumovir PCR (NotDetected) Influenza Type A (PCR) (NotDetected) Influenza Type B (PCR) (NotDetected) M. pneumoniae (PCR) (NotDetected) Parainfluenza 1 (PCR) (NotDetected) Parainfluenza 2 (PCR) (NotDetected) Parainfluenza 3 (PCR) (NotDetected) Parainfluenza 4 (PCR) (NotDetected) RSV (PCR) (NotDetected) Entero/Rhino (PCR) (NotDetected) Most recent lab results Calcium 6.1 mg/dl (8.6-10.3) L 04/23/24 06:24 Magnesium 1.9 mg/dl (1.7-2.4) 04/21/24 11:21 Diagnostic Findings Cervical Spine CT 04/21/24 11:04 CT SCAN OF THE CERVICAL SPINE CLINICAL HISTORY: Trauma. COMPARISON STUDY: PET/CT dated 01/13/2022. TECHNIQUE: CT scan of the cervical spine is performed from the skull base to the upper thoracic spine. Images are reviewed in the axial, sagittal, and coronal planes. IV contrast was not administered for this examination. A dose lowering technique was utilized adhering to the principles of ALARA. FINDINGS: Skeletal structures: The skeletal structures are osteopenia. There is no evidence of fracture or subluxation involving the cervical spine. Vertebral body height and alignment are maintained. Anterior osteophytes are seen throughout. The odontoid process and lateral masses are intact. The atlantoaxial articulation is preserved noting productive degenerative change. The spinous processes appear intact. Sclerotic change within the posterior ring of C1 is unchanged dating back to a 2021 PET examination. There is chronic deformity of the left clavicle. There is minimal facet arthropathy. Question osteolytic lesion within the right clavicular head. Intervertebral discs: There is mild multilevel degenerative disc space narrowing, greatest at C4-C5. Central canal: Posterior disc osteophyte complexes at C3-C4, C4-C5, and C7-T1 may contribute to multilevel acquired compromise of the central canal. Soft tissues: The prevertebral and paraspinous soft tissues are within normal limits. A right internal jugular central venous infusion port is in place. Calcified sialoliths are noted in the parotid glands. Calvarium: The visualized calvarium at the skull base appears intact. Brain parenchyma: Partially visualized brain parenchyma at the skull base is within normal limits. Sinuses and mastoids: There is trace mucosal thickening in the right maxillary antrum. The mastoid air cells are well pneumatized. Lung apices: Clear as visualized. IMPRESSION: 1. There is no evidence of fracture or subluxation involving the cervical spine. 2. Osteopenia and mild spondylotic change as above. 3. Suspect an osteolytic lesion in the right clavicular head. Correlate with the oncological history. ACT 112: Negative or not required by law. Electronically signed by: Yair Marcus M.D. 04/21/2024 12:[address] 04/21/24 11:41 CT SCAN OF THE CHEST, ABDOMEN, AND PELVIS WITHOUT IV CONTRAST CLINICAL HISTORY: Trauma. COMPARISON STUDY: Chest CT dated 12/14/2018. PET CT dated 01/13/2022. Abdominal CT dated 11/12/2021. TECHNIQUE: Unenhanced CT scan of the chest, abdomen, and pelvis was performed from the thoracic inlet to the proximal femora. Images are reviewed in the axial, sagittal, and coronal planes. IV contrast was not administered for this examination. Note that the examination was performed in significantly suboptimal fashion without IV contrast. A dose lowering technique was utilized adhering to the principles of ALARA. The examination is degraded by streak artifact from the arms which could not be elevated above the chest or abdomen. CT DOSE: 2043.49 mGy.cm FINDINGS: CHEST: Thyroid: Imaged portions of the thyroid gland are normal in size and attenuation. Thoracic aorta: The thoracic aorta is normal in caliber and demonstrates bovine variant arch anatomy. Heart: A right internal jugular central venous infusion port is in place. The heart is normal in size and without pericardial effusion. The coronary arteries are densely calcified. There is diminished attenuation of the cardiac blood pool and compared to myocardial suggesting anemia. Lungs and pleural spaces: There is no airspace consolidation typical for pneumonia or pneumothorax. Secretions/debris is seen in the trachea and right mainstem bronchus. An impacted and dilated right lower lobe bronchus containing calcific debris is unchanged. There is trace right pleural effusion. Thoracic parenchymal scarring are seen throughout both lungs. There is fibrotic change in the paravertebral right lower lobe which is new from 12/14/2018. A 4 mm left lower lobe pulmonary nodule on image #130 is unchanged dating back to 2019. Mediastinum: There is no mediastinal hematoma or lymphadenopathy. Kathryn: Not well assessed without IV contrast. Axillae: There is no axillary lymphadenopathy. Bony thorax: The skeletal structures are osteopenic. 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 Arthritic change is seen in the shoulders. 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 Lesions is in the right clavicular head, the left glenoid, the sternum, the posterior body of T8 comment while several bilateral ribs. Chronic posttraumatic deformities seen in the left clavicle. There are acute right posterolateral 7th and 10th rib fractures. No additional acute fracture is seen involving the bony thorax. ABDOMEN AND PELVIS: Liver: The unenhanced liver is normal in size, contour, and attenuation. There is no intrahepatic biliary ductal dilatation. Gallbladder: Unremarkable. Spleen: Normal in size and attenuation. Pancreas: The unenhanced pancreas is moderately atrophic and otherwise grossly unremarkable. Adrenal glands: Unremarkable. Kidneys: The unenhanced demonstrate mild cortical atrophy. There is no hydronephrosis. A large heterogeneous and slightly hyperdense mass lesion largely replaces the posterior upper pole of the right kidney. This measures up to approximately 10 x 10 x 8 cm as seen on image #100. This appears to invade the right posterior body wall and the right psoas muscle. Small left renal cyst measuring up to 12 mm. No renal calculi are identified. Abdominal vasculature: The abdominal aorta is normal in course and caliber noting moderate to advanced atherosclerotic calcification. Stomach and bowel: There is a small hiatal hernia. There is moderate colonic diverticulosis without CT evidence of acute diverticulitis. No bowel obstruction is seen. The appendix is well-visualized and normal. Peritoneum: There is a small amount of right-sided perinephric fluid. No tracheal free air is seen. Lymphadenopathy: None. Pelvic viscera: Asymmetric bladder wall thickening is seen posteriorly and on the right. The uterus and adnexa are normal as visualized. Skeletal structures: The skeletal structures are osteopenic. Postsurgical changes in the partially imaged right wrist which overlies the abdomen. There is evidence of multifocal mixed lytic/blastic by metastatic disease. Lesions are seen within the body of L4, within the lower sacrum, the right iliac wing, and the left ischium. There is a moderate chronic compression deformity of L4. No acute fracture is seen involving the lumbosacral spine, bony pelvis, or proximal femora. 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 IMPRESSION: 1. Significantly suboptimal examinations without IV contrast. 2. Acute right-sided rib fractures as above. 3. No additional acute fracture is seen. 4. There is no pneumothorax. 5. Trace right pleural effusion. 6. There is an approximately 10 x 10 x 8 cm heterogeneous and slightly hyperdense mass lesion arising from the upper pole of the right kidney. This is new from the most recent prior examination dated 01/13/2022 and is highly suspicious for a renal cell carcinoma. Much less likely, a large renal hematoma could potentially appears similar. This appears to invade the posterior body wall and the right psoas muscle. If warranted this could be further assessed with ultrasound to confirm the solid nature of this lesion. There is trace right-sided perinephric fluid. 7. There is no clear evidence of solid organ injury in the abdomen or pelvis on this enhanced examination. 8. 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 Correlate with the oncological history. 9. Fibrotic change in the paravertebral right lower lobe is new from 2021 and may represent treatment-related change. There are adjacent right-sided rib lesions. 10. Colonic diverticulosis without CT evidence of acute diverticulitis. 11. Asymmetric wall thickening is seen along the posterior and right wall of the bladder. 4. Additional findings as above. ACT 112: Negative or not required by law. Electronically signed by: Yair Marcus M.D. 04/21/2024 12:[address] 04/21/24 11:41 CT SCAN OF THE BRAIN WITHOUT IV CONTRAST CLINICAL HISTORY: Trauma. COMPARISON STUDY: CT of the brain dated 04/02/2014. TECHNIQUE: Unenhanced axial CT scan of the brain is performed from the vertex to the skull base. A dose lowering technique was utilized adhering to the principles of ALARA. FINDINGS: Brain parenchyma: There is age-related involutional change noting minimal microangiopathic disease. There is no hemorrhage, mass effect, or evidence of acute territorial ischemia by CT criteria. Peres-white matter differentiation is preserved. A left temporal lobe calcification seen on image #14 is unchanged from 2014. No extra-axial fluid collection is seen. Ventricles, sulci, cisterns: Prominent secondary to involutional change. Intracranial vasculature: There is atherosclerotic calcification of the cavernous carotid arteries. Calvarium: The skeletal structures are osteopenic. No depressed calvarial fracture is seen. Soft tissues: There is high right parietal scalp contusion. Sinuses and mastoids: There is trace mucosal thickening in the right maxillary antrum and the ethmoid sinuses. The mastoid air cells are well pneumatized. Orbits: The bony orbits are grossly intact. There are bilateral ocular lens implants. IMPRESSION: There is no hemorrhage, mass effect, or evidence of acute territorial ischemia by CT criteria. ACT 112: Negative or not required by law. Electronically signed by: Yair Marcus M.D. 04/21/2024 12:05 PM Abdomen/Pelvis CT 04/21/24 11:42 CT SCAN OF THE CHEST, ABDOMEN, AND PELVIS WITHOUT IV CONTRAST CLINICAL HISTORY: Trauma. COMPARISON STUDY: Chest CT dated 12/14/2018. PET CT dated 01/13/2022. Abdominal CT dated 11/12/2021. TECHNIQUE: Unenhanced CT scan of the chest, abdomen, and pelvis was performed from the thoracic inlet to the proximal femora. Images are reviewed in the axial, sagittal, and coronal planes. IV contrast was not administered for this examination. Note that the examination was performed in significantly suboptimal fashion without IV contrast. A dose lowering technique was utilized adhering to the principles of ALARA. The examination is degraded by streak artifact from the arms which could not be elevated above the chest or abdomen. CT DOSE: 2043.49 mGy.cm FINDINGS: CHEST: Thyroid: Imaged portions of the thyroid gland are normal in size and attenuation. Thoracic aorta: The thoracic aorta is normal in caliber and demonstrates bovine variant arch anatomy. Heart: A right internal jugular central venous infusion port is in place. The heart is normal in size and without pericardial effusion. The coronary arteries are densely calcified. There is diminished attenuation of the cardiac blood pool and compared to myocardial suggesting anemia. Lungs and pleural spaces: There is no airspace consolidation typical for pneumonia or pneumothorax. Secretions/debris is seen in the trachea and right mainstem bronchus. An impacted and dilated right lower lobe bronchus containing calcific debris is unchanged. There is trace right pleural effusion. Thoracic parenchymal scarring are seen throughout both lungs. There is fibrotic change in the paravertebral right lower lobe which is new from 12/14/2018. A 4 mm left lower lobe pulmonary nodule on image #130 is unchanged dating back to 2019. Mediastinum: There is no mediastinal hematoma or lymphadenopathy. Kathryn: Not well assessed without IV contrast. Axillae: There is no axillary lymphadenopathy. Bony thorax: The skeletal structures are osteopenic. 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 Arthritic change is seen in the shoulders. 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 Lesions is in the right clavicular head, the left glenoid, the sternum, the posterior body of T8 comment while several bilateral ribs. Chronic posttraumatic deformities seen in the left clavicle. There are acute right posterolateral 7th and 10th rib fractures. No additional acute fracture is seen involving the bony thorax. ABDOMEN AND PELVIS: Liver: The unenhanced liver is normal in size, contour, and attenuation. There is no intrahepatic biliary ductal dilatation. Gallbladder: Unremarkable. Spleen: Normal in size and attenuation. Pancreas: The unenhanced pancreas is moderately atrophic and otherwise grossly unremarkable. Adrenal glands: Unremarkable. Kidneys: The unenhanced demonstrate mild cortical atrophy. There is no hydronephrosis. A large heterogeneous and slightly hyperdense mass lesion largely replaces the posterior upper pole of the right kidney. This measures up to approximately 10 x 10 x 8 cm as seen on image #100. This appears to invade the right posterior body wall and the right psoas muscle. Small left renal cyst measuring up to 12 mm. No renal calculi are identified. Abdominal vasculature: The abdominal aorta is normal in course and caliber noting moderate to advanced atherosclerotic calcification. Stomach and bowel: There is a small hiatal hernia. There is moderate colonic diverticulosis without CT evidence of acute diverticulitis. No bowel obstruction is seen. The appendix is well-visualized and normal. Peritoneum: There is a small amount of right-sided perinephric fluid. No tracheal free air is seen. Lymphadenopathy: None. Pelvic viscera: Asymmetric bladder wall thickening is seen posteriorly and on the right. The uterus and adnexa are normal as visualized. Skeletal structures: The skeletal structures are osteopenic. Postsurgical changes in the partially imaged right wrist which overlies the abdomen. There is evidence of multifocal mixed lytic/blastic by metastatic disease. Lesions are seen within the body of L4, within the lower sacrum, the right iliac wing, and the left ischium. There is a moderate chronic compression deformity of L4. No acute fracture is seen involving the lumbosacral spine, bony pelvis, or proximal femora. 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 IMPRESSION: 1. Significantly suboptimal examinations without IV contrast. 2. Acute right-sided rib fractures as above. 3. No additional acute fracture is seen. 4. There is no pneumothorax. 5. Trace right pleural effusion. 6. There is an approximately 10 x 10 x 8 cm heterogeneous and slightly hyperdense mass lesion arising from the upper pole of the right kidney. This is new from the most recent prior examination dated 01/13/2022 and is highly suspicious for a renal cell carcinoma. Much less likely, a large renal hematoma could potentially appears similar. This appears to invade the posterior body wall and the right psoas muscle. If warranted this could be further assessed with ultrasound to confirm the solid nature of this lesion. There is trace right-sided perinephric fluid. 7. There is no clear evidence of solid organ injury in the abdomen or pelvis on this enhanced examination. 8. 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 Correlate with the oncological history. 9. Fibrotic change in the paravertebral right lower lobe is new from 2021 and may represent treatment-related change. There are adjacent right-sided rib lesions. 10. Colonic diverticulosis without CT evidence of acute diverticulitis. 11. Asymmetric wall thickening is seen along the posterior and right wall of the bladder. 4. Additional findings as above. ACT 112: Negative or not required by law. Electronically signed by: Yair Marcus M.D. 04/21/2024 12:52 PM Renal Ultrasound 04/22/24 00:00 RENAL ULTRASOUND HISTORY: right renal mass COMPARISON: Abdomen and pelvis CT 04/21/2020. FINDINGS: Right kidney: 15 cm in length. There is a large heterogeneous mass measuring 10.8 x 10.2 x 8.0 cm. No hydronephrosis. Left kidney: 10.9 cm. Stable left extra renal pelvis. No hydronephrosis. Normal corticomedullary differentiation and cortical thickness. Bladder: There is a Mora catheter within the bladder. Miscellaneous: A few small gallstones. No gallbladder wall thickening. IMPRESSION: 1. Redemonstration of the 10.8 cm right renal mass. This is consistent with a renal cell carcinoma. 2. Cholelithiasis. ACT 112: Negative or not required by law. Electronically signed by: Gregorio Arevalo M.D. 04/22/2024 12:22 PM Brain MRI 04/22/24 14:41 Brain MRI WITHOUT CONTRAST HISTORY: fall, confusion, r/o cva TECHNIQUE: Multiplanar multisequence MRI of the brain was performed without the use of contrast. COMPARISON STUDY: Head CT 04/21/2024. Brain MRI 04/03/2014. FINDINGS: There are no areas of restricted diffusion to suggest acute infarction. The midline structures are intact. The paranasal sinuses are clear. The mastoid air cells are clear. The ventricles and sulci are within normal limits for age. There is no mass, hematoma, midline shift. The major vascular flow-voids at the skull base are well maintained. Stable T2 hyperintense lesion within the left temporal lobe measuring 1 cm. This demonstrates susceptibility artifact in favors a cavernoma. IMPRESSION: 1. No acute infarct or intracranial hemorrhage. 2. 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 ACT 112: Negative or not required by law. Electronically signed by: Gregorio Arevalo M.D. 04/22/2024 11:33 AM Chest X-Ray 04/23/24 13:33 XR chest 1V portable CLINICAL HISTORY: diminished R brth sounds > eval for R effusion COMPARISON STUDY: Chest CT April 21, 2024. FINDINGS: Right internal jugular [id number] is in place. There is no pneumothorax. A small to moderate right pleural effusion has developed since prior exam. Multiple acute right-sided rib fractures are better depicted on prior CT. Associated right middle and lower lung airspace opacity is present. There is mild left basilar opacity. Cardiomediastinal silhouette is normal. There is no evidence for pulmonary edema. Old, healed left clavicular fracture is incidentally noted. IMPRESSION: 1. Interval development of a small to moderate right pleural effusion. This could represent a simple pleural effusion or a hemothorax given acute right- sided rib fractures. Associated airspace opacity favors atelectasis although pneumonia could appear similar. 2. No pneumothorax. ACT 112: Negative or not required by law. Electronically signed by: Jordan Nieto M.D. 04/23/2024 6:01 PM PG Care Time/CCT Total # of Minutes Spent Total Time Spent with Patient: Total time spent is greater than 50% in coordination of care (as documented) at patient's floor/unit and/or counseling patient: I spent 140 minutes overall addressing this very complex case: 25 min in medical data review/discussion with referring provider(s) and/or preparation for the visit including extensive outside hospital data review/Treatsie link data review 20 min in direct interaction with the patient/exam 75 min in Advance Care Planning/Goals of Care discussions as detailed above in note (must be >16min) 10 min in subsequent review and synthesis of assessment and plan 10 min communicating with other providers regarding the patient's case: Prolonged Care Time Prolonged Care Time: Yes Advanced Care Planning 88470 Advanced Care Planning 30 Min 29362 Advanced Care Planning Additional 30 [place] [address] IN/OBS CONSULT LVL 4,60M (25 - SIGNIFICANT, SEPARATELY IDENTIFIABLE ) Patient Type New Medical Decision Making High Complexity Diagnoses Rib pain on right side R07.81 Fall as cause of accidental injury in home as place of occurrence, subsequent encounter W19.XXXD; Y92.009 Encounter type: subsequent encounter Abnormal finding on CT scan R93.89 Altered mental status R41.82 Weakness generalized R53.1 Advanced care planning/counseling discussion Z71.89 Palliative care by specialist Z51.5 Additional Codes Advanced Care Planning - 60147 Advanced Care Planning 30 Min: 20478 Advanced Care Planning 30 Min ([id number]) Advanced Care Planning - 69285 Advanced Care Planning Additional 30 Min: 36675 Advanced Care Planning Additional 30 Min ([id number]) Prolonged Care Time - Prolonged Care Time: Yes ([id number])
[2024-04-23] MEDS: SODIUM CHLORIDE 0.9% 500 ML IV ONE (20:23)
[2024-04-23] MEDS ORDERED: SODIUM BICARBONATE 8.4% 150 MEQ in DEXTROSE 5% 1,000 ML IV SCH (21:00)
[2024-04-23 22:15] LABS: BUN Creatinine Ratio 13.4 (10-20); Calcium 5.8 mg/dl (8.6-10.3); Est GFR (Non-African American) 7.8 ml/min; Magnesium 1.6 mg/dl (1.7-2.4); Potassium 4.6 mmol/L (3.5-5.1)
[2024-04-23] MEDS: MAGNESIUM SULFATE / D5W 1 GM/100 ML BAG IV ONE (23:07)
[2024-04-23 23:24] LABS: Albumin Level 1.9 gm/dl (3.4-5.0)
[2024-04-23 23:35] LABS: Hematocrit (blood only) 21.5 % (37.0-47.0); Hemoglobin 6.8 g/dl (12.0-16.0)
[2024-04-24] MEDS ORDERED: SODIUM CHLORIDE 0.9% 250 ML IV PRN (00:35)
[2024-04-24] MEDS: CALCIUM GLUCONATE 1,000 MG/60 ML BAG IV SCH (02:07)
--- NOTE | 2024-04-24 06:43 | Communication Note ---
Date of Service: April 23, 2024 8 PM Patient SBP 70s as per RN. Asymptomatic as per RN. SBP 6.8 from 8.1 in a.m. No overt bleeding as per RN. AP Progressive anemia No obvious source for now ? Possible hemothorax given history of rib fractures and pleural effusion on imaging. Patient daughter given update over phone to discuss options given ongoing palliative care discussions as per AM provider notes.. Patient currently incoherent as per RN. Daughter agreeable to PRBC transfusion for now.
[2024-04-24 07:09] LABS: Hematocrit (blood only) 20.7 % (37.0-47.0); Hemoglobin 6.7 g/dl (12.0-16.0); Mean Corpuscular Hemoglobin 27.7 pg (25.0-34.0); Mean Corpuscular Hgb Conc 32.4 g/dL (32.0-36.0); Mean Corpuscular Volume 85.5 fL (80.0-100.0); Mean Platelet Volume 10.2 fL (9.4-12.4); Platelet Count 68 K/uL (130-400); RDW Coefficient of Variation 14.7 % (11.5-14.5); RDW Standard Deviation 46.5 fL (36.4-46.3); Red Blood Count 2.42 M/uL (4.20-5.40); White Blood Count 4.39 K/ul (4.8-10.8)
[2024-04-24 07:27] LABS: Eosinophils # (auto) 0.01 K/uL (0.00-0.50); Eosinophils % (auto) 0.2 %; Immature Granulocytes # (auto) 0.01 K/uL (0.01-0.20); Immature Granulocytes % (auto) 0.2 %; Lymphocytes # (auto) 0.62 K/uL (1.20-3.40); Lymphocytes % (auto) 14.1 %; Monocytes # (auto) 0.23 K/uL (0.11-0.59); Monocytes % (auto) 5.2 %; Neutrophils # (auto) 3.52 K/uL (1.40-6.50); Neutrophils % (auto) 80.3 %
[2024-04-24 07:33] LABS: INR 0.9 (0.9-1.1); Partial Thromboplastin Ratio 1.2; Partial Thromboplastin Time 32 Seconds (21-31); Prothrombin Time 9.8 Seconds (9.0-12.0)
[2024-04-24 07:49] LABS: Albumin Globulin Ratio 0.6 (0.9-2); Albumin Level 1.9 gm/dl (3.4-5.0); BUN Creatinine Ratio 11.7 (10-20); Bilirubin,Total 0.4 mg/dl (0.2-1.0); Calcium 6.2 mg/dl (8.6-10.3); Creatinine Clr Calc Pharmacy 6.6 ml/min; Est GFR (African American) 8.4 ml/min; Est GFR (Non-African American) 7.3 ml/min; Globulin 3.3 gm/dl (2.5-4.0); Potassium 3.9 mmol/L (3.5-5.1); Total Protein 5.2 gm/dl (6.0-8.3)
[2024-04-24] MEDS: DOCUSATE SODIUM/SENNA 50/8.6MG TAB PO SCH (11:35)
--- NOTE | 2024-04-24 12:17 | Nephrology Progress Note ---
Date of Service April 24, 2024 Assessment & Plan (1) Acute renal failure: Plan: ZAHEER sec to ATN related with acute Rhabdo; likely to worsen w/ extended hypotension. very high CK though further downtrending now. Creat rising rapidly, no sign of rate of rise slowing; and not a lot of urine. this is not a good sign. baseline creatinine 1.0 as of last month. very High chance she will need dialysis if she opts to pursue this However ZAHEER not related with Myeloma >for now /today no further lokelma needed >bicarb gtt improving K as well and acidosis >> however w/ new R pl effusion/hemothorax, more hypoxia needs lower rate >> lowered to 50 ml/hr >>>if she starts HD, likely to need pressors to tolerate, at least in current condition. reviewed w/ family separately for 15 min as pt not inclined to participate today >> family wondering about tx options for renal CA, how long she'd have if this and/or MM untreated >> explained we don't really have info to answer that; need more a dispo on whether we're pursuing dx w/u to have answers like prx, treatment options if any. explained that to get dx w/u, likely to need stabilization/dialysis. pt reportedly angry yesterday, did not wish to discuss invasive care or dialysis. again explained if she does start HD not sure she'll tolerate, not sure how long will be able to do this. significant risk to need longer [employer], possibly after d/c. and if she gets through hospital stay, then with long road ahead with renal mass/mets and myeloma care. >>pt and family to again discuss goals of care w/ palliative midday today >>may need to consider pressor any way to support BP Medically complex, high risk pt reviewed mutliple times w/ Dr Erwin and palliative as above (2) Rhabdomyolysis: Plan: Sec to fall. Likely had Multiple falls. Also Covid makes it more likely. Creat rising rapidly and not a lot of urine, though more than yesterday and not oliguric so far. this is not a good sign. heart function should tolerate IVF >> lowered bicarb gtt rate as above >>has not been able to tolerate lasix >> BP too soft (3) Acute blood loss anemia: Plan: -possibly d/t hemothorax versus pl effusion; pending further w/u -recommend holding IVF if /when receiving pRBC and follow pRBC w/ 40 mg IV lasix if sbp > 90 -serial h/h (4) COVID-19 virus infection: Plan: active; on 02NC since 714 PM (5) Renal mass: Plan: liklely malignant and w/ mets. urology already evaluated; for possible bx? (6) Multiple myeloma: Plan: Not in remission. widespread lytic lesions; on active treatment (7) Hypocalcemia: Plan: dropping; calcium corrects to 7.8 today (slight rise) >> monitor daily Plan very complicated patient involving multiple issues. reviewed urology note. Admission and Anticipated Discharge Date Admission Date: April 21, 2024 Subjective hgb dropped this am; pulm c/s for pleural effusion R side, possibly bloody. extensive conversation with son, daughter, granddaughter. pt alert but functionally declining to interact today. Review of Systems 2 Review of Systems: Other (pt not participating in ROS) Physical Exam 2 Constitutional: well developed, well nourished, + thin and + frail appearing; no acute distress Eyes: EOM intact bilaterally ENMT: Ears: no external ear abnormality Nose: no external nose abnormality Mouth: + dry oral mucous membranes Neck: no nuchal rigidity Respiratory: normal respiratory effort and + cough (occasional thick cough) Auscultation: + diminished lung sounds (emmanuel R side) Cardiovascular: RRR, no murmur, no edema Gastrointestinal (Abdomen): Inspection/Auscultation: normal bowel sounds P ercussion/Palpation: abdomen soft; abdomen nontender Musculoskeletal: Extremities: strength 5/5 throughout Skin: no rashes, warm and dry Neurologic: awake, tracks, follows commands, timed groans when I ask questions; no further answer /response if I ask a question and wait 20seconds for her to respond Psychiatric: Orientation: alert Results & Data Vital Signs (Past 12 Hours) Vital Signs Temp Pulse Resp BP BP Pulse Ox O2 Del Method 04/24/24 11:04 36.8 C 91 H 18 95/57 L 93 Nasal Cannula 04/24/24 07:33 36.9 C 100 H 22 118/64 93 Nasal Cannula 04/24/24 07:07 108 H 16 91 Nasal Cannula 04/24/24 02:00 37.2 C 99 H 18 96/60 L 91 Nasal Cannula O2 Flow Rate 04/24/24 11:04 4 04/24/24 07:33 4 04/24/24 07:07 1 04/24/24 02:00 1 Laboratory Results 04/24/24 06:48 04/24/24 06:48 Diagnostic Findings cxr 1. Interval development of a small to moderate right pleural effusion. This could represent a simple pleural effusion or a hemothorax given acute right- sided rib fractures. Associated airspace opacity favors atelectasis although pneumonia could appear similar. 2. No pneumothorax.
--- NOTE | 2024-04-24 12:28 | Pulmonary Consultation ---
Date of Consultation April 24, 2024 Assessment & Plan (1) Pleural effusion on right: (2) Abnormal finding on CT scan: (3) Fracture, ribs: Plan Frail and elderly 83-year-old female with a past medical history of multiple myeloma presenting to the hospital with acute shortness of breath, rib fractures and anemia. Chest x-ray performed today demonstrated enlarging right pleural effusion and small left pleural effusion. Pleural ultrasound revealed a free-flowing right-sided pleural effusion which appeared moderate to large in size and a moderate size left-sided pleural effusion. Etiology is unclear, but may be related to hemorrhage particularly on the right side given the rib fractures. CTA would be desirable given concern for possible active bleeding, but relatively contraindicated given the patient's severe renal failure. Patient and family is going to have discussion with palliative care medicine with regards to further treatment options including possible chest tube insertion. I did discuss chest tube insertion with the patient's family and they indicated that they would like to hold off until after the discussion with palliative care medicine later today. If the chest tube insertion is pursued and blood is noted, would recommend transfer to tertiary center for possible VATS and/or IR embolization. Overall prognosis is quite guarded given advanced multiple myeloma, acute renal failure, acute anemia, encephalopathy and possible hemorrhagic pleural effusion. Thank you for the consult. Will follow with you. History of Present Illness Reason for Consultation: Concern for hemorrhagic pleural effusion Attending Physician: Nathan Erwin MD History of Present Illness 83-year-old female who sustained a fall outside the hospital presenting for confusion and shortness of breath. Patient has a history of myeloma. She had a CT of her chest and abdomen which revealed acute right-sided rib fractures and multiple lytic and blastic disease lesions. There is also a lesion in the kidney concerning for RCC. [employer] was positive for COVID-19. Patient is unable to provide us with any history today as she is quite encephalopathic. Collateral history obtained from the patient's family, discussion with nurse and review of the chart. Patient currently has severe rhabdomyolysis and nephrology is on board and following. She had an acute drop in her hemoglobin this morning with evidence of hypotension. Hemoglobin is 6.7. She also has thrombocytopenia with a platelet count of 68,000. Allergies Allergy/AdvReac Type Severity Reaction Status Date / Time ixazomib [From Ninlaro] Allergy hives Verified 04/21/24 15:06 adhesive tape AdvReac Mild Rash Verified 04/23/24 20:08 lenalidomide [From Revlimid] AdvReac Hives Verified 04/21/24 15:06 Home Medications Medication Instructions Recorded Confirmed Type dexamethasone 4 mg tablet 4 mg PO UD 11/12/21 04/21/24 History Patient History Medical History History of pneumonia History of CVA (cerebrovascular accident) no residual deficits Inappropriate sinus tachycardia Surgical History History of vascular access device Family History Father Diabetes Sister Cancer Social History Smoking Status: Former smoker Hx Alcohol Use: No Hx Substance Use: No Preferred Language: Amharic Communication Ability: Effective Cartoon Designer Required: No Beliefs That Will Affect Care: None Current Living Situation: Spouse Current Living Situation Comment: per records Feels Safe at Home: Yes Assistive Devices: None Review of Systems Review of Systems: Unobtainable due to cognitive status Physical Exam Physical Exam: Constitutional: Frail and elderly appearing female laying in bed. Mild tachypnea. Eyes: Pupils are equal round and reactive to light. Conjunctivae are normal. Anicteric sclera. Ears nose, mouth and throat: Mallampati class 1. Normal posterior oropharynx. Uvula is midline. Neck: Trachea is midline. Visual inspection is normal. Respiratory: Bibasilar crackles. Mild tachypnea. Tenderness to palpation along the right-sided ribs. Cardiovascular: Regular rate and rhythm. No murmurs. No edema. Gastrointestinal: Normal bowel sounds, soft, nontender and nondistended. No hepatosplenomegaly noted. Musculoskeletal: No cyanosis. Patient is able to move all extremities. Strength is 5 out of 5 in the upper and lower extremities. Skin: No rashes, warm dry and intact. Neurologic: No obvious focal neurological deficits seen. Psychiatric: Alert and oriented x3 with a euthymic affect. Results & Data Results & Data Vital Signs (Past 12 Hours) Vital Signs Temp Pulse Resp BP BP Pulse Ox O2 Del Method 04/24/24 11:04 36.8 C 91 H 18 95/57 L 93 Nasal Cannula 04/24/24 07:33 36.9 C 100 H 22 118/64 93 Nasal Cannula 04/24/24 07:07 108 H 16 91 Nasal Cannula 04/24/24 02:00 37.2 C 99 H 18 96/60 L 91 Nasal Cannula O2 Flow Rate 04/24/24 11:04 4 04/24/24 07:33 4 04/24/24 07:07 1 04/24/24 02:00 1 PG Care Time/CCT Total # of Minutes Spent Total Time Spent with Patient: Total time spent is greater than 50% in coordination of care (as documented) at patient's floor/unit and/or counseling patient: Coding Level of Care Code 51941 INT INP/OBS CARE 3/75MIN Diagnoses Pleural effusion on right J90 Abnormal finding on CT scan R93.89 Fracture, ribs S22.49XA
[2024-04-24] MEDS ORDERED: PIPERACILLIN/TAZOBACTAM 2.25 GM in DEXTROSE 5% MINI-B 100 ML IV ONE (16:15)
--- NOTE | 2024-04-24 16:48 | Hospitalist Progress Note ---
Date of Service April 24, 2024 Assessment & Plan (1) Status post fall: (2) Altered mental status: (3) COVID-19 virus infection: (4) Acute renal failure: Plan: 83-year-old lady with PMH of multiple myeloma, CVA , cerebral cavernoma, age- related osteoporosis brought into the hospital with complaint of fall and confusion. Patient had some sore throat, mild stomach ache and some diarrhea prior to arrival. Patient was complaining of right-sided rib pain and was noted she might have fallen in the bathroom per family member. Patient is not aware of fall. She is being managed for the following: Status post fall, confusion Likely metabolic encephalopathy secondary to sepsis, COVID-19 infection Concern for UTI Patient presented with confusion, lactate/procalcitonin/WBC/respiratory rate/temperature elevated in the setting of COVID test positive at presentation. Admitting imagings: CT C-spine: No acute fracture or subluxation. Osteopenia and mild spondylotic changes noted. Osteolytic lesion suspected in the right clavicular head. CT head with no acute finding. CT chest and CT abdomen pelvis: Acute right-sided rib fractures [acute right posterolateral 7th and 10th rib fractures]. Multiple lytic and blastic metastatic disease lesions. Right upper pole renal lesion 10 x 10 x 8 cm suspicious of RCC. Asymmetric wall thickening is seen along the posterior and right wall of the bladder. Renal ultrasound: Redemonstration of the 10.8 cm right renal mass consistent with renal cell carcinoma. Brain MRI: No acute infarct or intracranial hemorrhage. A stable 1 cm lesion within the left temporal lobe suggesting a cavernoma. Respiratory [employer] positive for COVID, MRSA nasal swab neg Patient's O2 need fluctuating, back to baseline mentation. Lactate resolved. Continue with Mucinex, hypertonic saline nebs. Continue with incentive spirometer. Important. Likely Acute blood loss anemia Possible Rt hemothorax iso Rt rib fracture Fever: noted 04/24 afternoon, zosyn 04/24, blood culture. follow. 04/23 evening lab revealed Hb drop to 6.8, transfusion ordered. c/w prbc transfusion x 2, repeat labs later in the evening. possible hemothorax x right, pulm consult. family aware. Monitor HnH. Acute kidney injury Rhabdomyolysis Hyperkalemia/hypocalcemia ZAHEER likely secondary to ATN related with acute rhabdomyolysis in the setting of fall and COVID-19 infection. Admitting CTAP as above. Admitting renal labs: Sodium 131, potassium 4.5, creatinine 2.23, calcium 8.6, CPK 6639 Trend BMP, sodium downtrending, potassium elevated at 5.4, creatinine elevated at 4.5, calcium lower at 6.1 Trend CPK: 6639 --> 20,319 --> 26205 --8454 Nephro on board, recommends bicarb drip at 100ml/hr. Hyperkalemia resolved. Avoid nephrotoxic agents, monitor I's and O's [Mora catheter in] Pt might need dialysis, Nephro assessing, will follow. Right renal mass: As per admitting CTAP and renal ultrasound, see above. Urology evaluating, recommends IR biopsy of renal mass or one of her bone lesions after acute issues have settled down. Pt, Dtr, son, Grand Dtr are aware. They are leaning towards no biopsy for now. Continue to follow the GOC discussion w/ palliative. d/w Dr. narayanan over the phone 04/23, pt has poor prognosis given progressive MM. Likely type II NSTEMI: Troponin elevated and up trended with worsening renal function and rhabdomyolysis. EKG with no acute ST or T changes, echo with EF of 55 to 60%, no regional wall motion abnormality. LV function and wall thickness normal. Patient with no chest pain, continue telemetry monitoring. Right rib fracture #7, #10: Secondary to fall. Incentive spirometry. Pain control with As needed tramadol, Tylenol for pain, prn oxycodone. Transaminitis: LFT elevated likely secondary to rhabdomyolysis. Patient on IV fluid, follow LFT daily. Patient with no abdominal pain. LFT slightly improving. History of multiple myeloma: not in remission, widespread lytic lesions. Follows with Dr. Benny Narayanan. Recently prescribed with Pomolidomide- patient has not started yet History of CVA: Many years ago per family. Not on any medications. DVT prophylaxis: heparin subcu Full code GOC discussion: palliative on board. will follow recs. Disposition: continue aggressive care. Poor prognosis. Will need PT and OT evaluation once more stable. GOC discussion: d/w palliative, pt doesn't want dialysis, they would like hospice home for dc once stable but yet to make final decision. They are planning for family discussion tonight. Will await further decision from family. Admission and Anticipated Discharge Date Admission Date: April 21, 2024 Subjective Patient was seen and examined at bedside. Patient was sitting up in bed, on room air, in mild distress appears secondary to right rib pain which she reports fairly under control patient's daughter, son and grand dtr were also updated on plan of care. we discussed about new finding of anemia and possible hemothorax, they requested pulm consult. Patient appears more tired, reports cough improving, mostly dry. Pt seems not participating in conversation fully, states she is hearing and understands the things being told but is not replying much of questions. Pt denies nausea, vomiting and diarrhea. Physical Exam Physical Exam: General- oriented x 3, mild distress 2/2 pain, ill/frail/weak/tired appearing. Head- atraumatic Eyes- pupil reactive to light, no discharge, periorbital edema ENT- Dry oral mucosa, oropharynx clear Neck- supple, no JVD, no adenopathy, no thyromegaly; carotids +2/2, no bruits appreciated Lungs- b/l crackles. Positive tenderness right lateral lower rib area Heart- normal rate, regular rhythm; no murmur, no gallop, no rub appreciated Abdomen- normal bowel sounds, nondistended, soft, nontender, no masses or hepatosplenomegaly Extremities- no pretibial edema, no calf tenderness; peripheral pulses intact Positive erythema right forearm, dorsal region Neuro- alert, oriented x 3; CN 2-12 grossly intact; motor 5/5 bilaterally;sensation 100% on all extremities; no other gross focal neurologic deficits Skin- warm & dry Results & Data Results & Data Vital Signs (Past 12 Hours) Vital Signs Temp Pulse Pulse Resp BP BP BP 04/24/24 16:11 37.4 C 98 H 18 97/49 L 04/24/24 16:08 37.9 C H 92 H 18 96/59 L 04/24/24 15:51 38 C H 97 H 18 100/60 04/24/24 15:13 37.7 C H 104 H 16 101/51 L 04/24/24 11:04 36.8 C 91 H 18 95/57 L 04/24/24 08:00 90 04/24/24 07:33 36.9 C 100 H 22 118/64 04/24/24 07:07 108 H 16 Pulse Ox O2 Del Method O2 Flow Rate 04/24/24 16:11 96 4 04/24/24 16:08 97 4 04/24/24 15:51 96 4 04/24/24 15:13 96 Room Air 04/24/24 11:04 93 Nasal Cannula 4 04/24/24 08:00 04/24/24 07:33 93 Nasal Cannula 4 04/24/24 07:07 91 Nasal Cannula 1
--- NOTE | 2024-04-24 18:08 | Palliative Care Progress Note ---
Date of Service April 24, 2024 Assessment & Plan (1) Weakness generalized: (2) Fall as cause of accidental injury at home as place of occurrence: (3) Advanced care planning/counseling discussion: Plan: Multiple advance care planning meetings were held over the course of today with the patient as well as her family: Daughter, son, granddaughters x 2. Total time spent in these advance care planning discussions with 60 minutes, all of which was entirely [id number]. She is clear that she does not wish to pursue dialysis. She is less clear/refuses to answer the question of whether or not she would like an intervention done for likely blood collection in her lung, blood transfusion. We discussed the option of possibly returning home with a focus that would be more on comfort and quality of life. She expressed some interest in this option when it was discussed but declined and indicated a dislike for the option of going to a [facility] or subacute rehab. When we broached the topic of possible discharge home with the addition of hospice, she did not answer affirmatively or negatively. Her family feel that a discharge home with the addition of hospice is likely the most reasonable course of action given that she has always been very clear that she does not want any aggressive or invasive medical interventions, no artificial means of life support, she does not want dialysis. They are better informed of her overall oncology situation after discussion with Dr. Mondragon last evening. They and their sister who lives in [place] have been in constant contact. They feel as a family they would be able to offer caregiver support for patient [id number] in the home setting and could take turns being with her in between the children and the adult grandchildren. They are going to further discuss this is a family this evening. Son remains insistent that he would like to hear directly from the patient what she wants although she has very consistently been declining to offer additional feedback apart from what she is shared above. They want to continue to try and discuss this with her this evening and to further discuss as a family together later tonight. They will update nursing and the primary team tomorrow with a final decision. (4) Palliative care by specialist: (5) Abnormal finding on CT scan: (6) Rib pain on right side: Plan Plan as noted above. Please note: the above document was generated using voice recognition software. It may contain unintentional grammatical, syntax or spelling errors. Any formal questions or concerns about the content, text or information contained within the body of this dictation should be directly addressed to the provider for clarification. Thank you for allowing us to participate in the ongoing care of this patient. Please page with any additional concerns. Charles Miller DNP Director, Palliative Medicine Admission and Anticipated Discharge Date Admission Date: April 21, 2024 Orion Frances remains on COVID isolation. Her family is present at the bedside: Daughter Natalie, son Roberto, granddaughter February. They had an opportunity to speak with Dr. Mondragon/[facility] yesterday. They are aware of the overall progression of her multiple myeloma as well is the current issues including the renal mass, COVID infection, and declining performance status. She did not start her new multiple myeloma medication because of the co-pay ($56, patient thought this was too much.). She remains minimally interactive with staff. She is awake and alert and will acknowledge your presence when you come into the room but offers very little conversation or feedback when question. Her creatinine has worsened. She remains fairly consistent with both providers and her family that she does not wish to pursue dialysis. She was seen earlier today by pulmonary medicine who offered a needle intervention for likely blood collection in her chest wall. She has not made any decisions with regards to whether or not she would want this intervention or potential blood transfusion. Review of Systems Review of Systems: Patient declines Physical Exam Physical Exam: Frail, thin elderly female, alert to self and oriented x 3. In no significant distress at the time of my visit. Semireclined in bed, watching television. Speaking in full sentences with no conversational dyspnea. Withdrawn and minimally interactive. Head is atraumatic and there is no bitemporal wasting. Her pupils are equal round and reactive to light. Extraocular movements are intact. There is no facial ecchymoses or periorbital changes. Her mucosa are slightly dry and her oropharynx is clear, dentition fair, no obvious thrush. Her lungs are clear bilaterally though overall diminished. I did not appreciate any wheezing, rhonchi or rails. There is tenderness noted along the anterior to posterior right mid to lower rib regions. Her heart tones are normal rate and rhythm, with no obvious murmur. Her apical rate is 82. Abdomen is scaphoid with normal bowel sounds. It is nontender to palpation. There is no guarding noted. Extremities are thin with some mild overall generalized weakness. Her skin is pale but warm to touch. There is no gross cyanosis or edema noted. There is some erythema noted on her right forearm. Sensation is intact but strength is overall diminished symmetrically and bilaterally. Her mood is depressed and at times irritable. She is moderately uncooperative with this examiner. Results & Data Vital Signs (Past 12 Hours) Vital Signs Temp Pulse Pulse Resp BP BP BP 04/24/24 16:11 37.4 C 98 H 18 97/49 L 04/24/24 16:08 37.9 C H 92 H 18 96/59 L 04/24/24 16:00 91 H 04/24/24 15:51 38 C H 97 H 18 100/60 04/24/24 15:13 37.7 C H 104 H 16 101/51 L 04/24/24 11:04 36.8 C 91 H 18 95/57 L 04/24/24 08:00 04/24/24 08:00 04/24/24 08:00 90 04/24/24 07:33 36.9 C 100 H 22 118/64 04/24/24 07:07 108 H 16 Pulse Ox O2 Del Method O2 Flow Rate 04/24/24 16:11 96 4 04/24/24 16:08 97 4 04/24/24 16:00 04/24/24 15:51 96 4 04/24/24 15:13 96 Room Air 04/24/24 11:04 93 Nasal Cannula 4 04/24/24 08:00 96 Nasal Cannula 4 04/24/24 08:00 Nasal Cannula 4 04/24/24 08:00 04/24/24 07:33 93 Nasal Cannula 4 04/24/24 07:07 91 Nasal Cannula 1 Laboratory Results Abnormal lab results 04/23/24 04/23/24 04/24/24 Range/Units 21:12 21:29 06:48 WBC 4.39 L (4.8-10.8) K/ul RBC 2.42 L (4.20-5.40) M/uL Hgb 6.8 L* 6.7 L* (12.0-16.0) g/dl Hct 21.5 L 20.7 L* (37.0-47.0) % RDW Std Deviation 46.5 H (36.4-46.3) fL RDW Coeff of Kendell 14.7 H (11.5-14.5) % Plt Count 68 L (130-400) K/uL Lymph # (Auto) 0.62 L (1.20-3.40) K/uL APTT 32 H (21-31) Seconds Sodium 131 L 133 L (136-145) mmol/L Carbon Dioxide 18 L 19 L (21-32) mmol/L BUN 65 H 60 H (6-23) mg/dl Creatinine 4.84 H* D 5.12 H* (0.6-1.2) mg/dl Glucose 160 H 127 H (70-99(Fasting)) mg/dl POC Glucose 186 H (70-99) mg/dl Calcium 5.8 L* 6.2 L (8.6-10.3) mg/dl Magnesium 1.6 L (1.7-2.4) mg/dl AST 189 H (13-39) U/L ALT 83 H (7-52) U/L Total Creatine Kinase 8454 H (26-192) U/L Total Protein 5.2 L (6.0-8.3) gm/dl Albumin 1.9 L 1.9 L (3.4-5.0) gm/dl Albumin/Globulin Ratio 0.6 L (0.9-2) Antibody Screen POSITIVE A Crossmatch See Detail 04/24/24 Range/Units 11:03 WBC (4.8-10.8) K/ul RBC (4.20-5.40) M/uL Hgb (12.0-16.0) g/dl Hct (37.0-47.0) % RDW Std Deviation (36.4-46.3) fL RDW Coeff of Kendell (11.5-14.5) % Plt Count (130-400) K/uL Lymph # (Auto) (1.20-3.40) K/uL APTT (21-31) Seconds Sodium (136-145) mmol/L Carbon Dioxide (21-32) mmol/L BUN (6-23) mg/dl Creatinine (0.6-1.2) mg/dl Glucose (70-99(Fasting)) mg/dl POC Glucose 165 H (70-99) mg/dl Calcium (8.6-10.3) mg/dl Magnesium (1.7-2.4) mg/dl AST (13-39) U/L ALT (7-52) U/L Total Creatine Kinase (26-192) U/L Total Protein (6.0-8.3) gm/dl Albumin (3.4-5.0) gm/dl Albumin/Globulin Ratio (0.9-2) Antibody Screen Crossmatch Diagnostic Findings Cervical Spine CT 04/21/24 11:04 CT SCAN OF THE CERVICAL SPINE CLINICAL HISTORY: Trauma. COMPARISON STUDY: PET/CT dated 01/13/2022. TECHNIQUE: CT scan of the cervical spine is performed from the skull base to the upper thoracic spine. Images are reviewed in the axial, sagittal, and coronal planes. IV contrast was not administered for this examination. A dose lowering technique was utilized adhering to the principles of ALARA. FINDINGS: Skeletal structures: The skeletal structures are osteopenia. There is no evidence of fracture or subluxation involving the cervical spine. Vertebral body height and alignment are maintained. Anterior osteophytes are seen throughout. The odontoid process and lateral masses are intact. The atlantoaxial articulation is preserved noting productive degenerative change. The spinous processes appear intact. Sclerotic change within the posterior ring of C1 is unchanged dating back to a 2021 PET examination. There is chronic deformity of the left clavicle. There is minimal facet arthropathy. Question osteolytic lesion within the right clavicular head. Intervertebral discs: There is mild multilevel degenerative disc space narrowing, greatest at C4-C5. Central canal: Posterior disc osteophyte complexes at C3-C4, C4-C5, and C7-T1 may contribute to multilevel acquired compromise of the central canal. Soft tissues: The prevertebral and paraspinous soft tissues are within normal limits. A right internal jugular central venous infusion port is in place. Calcified sialoliths are noted in the parotid glands. Calvarium: The visualized calvarium at the skull base appears intact. Brain parenchyma: Partially visualized brain parenchyma at the skull base is within normal limits. Sinuses and mastoids: There is trace mucosal thickening in the right maxillary antrum. The mastoid air cells are well pneumatized. Lung apices: Clear as visualized. IMPRESSION: 1. There is no evidence of fracture or subluxation involving the cervical spine. 2. Osteopenia and mild spondylotic change as above. 3. Suspect an osteolytic lesion in the right clavicular head. Correlate with the oncological history. ACT 112: Negative or not required by law. Electronically signed by: Yair Marcus M.D. 04/21/2024 12:[address] 04/21/24 11:41 CT SCAN OF THE CHEST, ABDOMEN, AND PELVIS WITHOUT IV CONTRAST CLINICAL HISTORY: Trauma. COMPARISON STUDY: Chest CT dated 12/14/2018. PET CT dated 01/13/2022. Abdominal CT dated 11/12/2021. TECHNIQUE: Unenhanced CT scan of the chest, abdomen, and pelvis was performed from the thoracic inlet to the proximal femora. Images are reviewed in the axial, sagittal, and coronal planes. IV contrast was not administered for this examination. Note that the examination was performed in significantly suboptimal fashion without IV contrast. A dose lowering technique was utilized adhering to the principles of ALARA. The examination is degraded by streak artifact from the arms which could not be elevated above the chest or abdomen. CT DOSE: 2043.49 mGy.cm FINDINGS: CHEST: Thyroid: Imaged portions of the thyroid gland are normal in size and attenuation. Thoracic aorta: The thoracic aorta is normal in caliber and demonstrates bovine variant arch anatomy. Heart: A right internal jugular central venous infusion port is in place. The heart is normal in size and without pericardial effusion. The coronary arteries are densely calcified. There is diminished attenuation of the cardiac blood pool and compared to myocardial suggesting anemia. Lungs and pleural spaces: There is no airspace consolidation typical for pneumonia or pneumothorax. Secretions/debris is seen in the trachea and right mainstem bronchus. An impacted and dilated right lower lobe bronchus containing calcific debris is unchanged. There is trace right pleural effusion. Thoracic parenchymal scarring are seen throughout both lungs. There is fibrotic change in the paravertebral right lower lobe which is new from 12/14/2018. A 4 mm left lower lobe pulmonary nodule on image #130 is unchanged dating back to 2019. Mediastinum: There is no mediastinal hematoma or lymphadenopathy. Kathryn: Not well assessed without IV contrast. Axillae: There is no axillary lymphadenopathy. Bony thorax: The skeletal structures are osteopenic. 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 Arthritic change is seen in the shoulders. 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 Lesions is in the right clavicular head, the left glenoid, the sternum, the posterior body of T8 comment while several bilateral ribs. Chronic posttraumatic deformities seen in the left clavicle. There are acute right posterolateral 7th and 10th rib fractures. No additional acute fracture is seen involving the bony thorax. ABDOMEN AND PELVIS: Liver: The unenhanced liver is normal in size, contour, and attenuation. There is no intrahepatic biliary ductal dilatation. Gallbladder: Unremarkable. Spleen: Normal in size and attenuation. Pancreas: The unenhanced pancreas is moderately atrophic and otherwise grossly unremarkable. Adrenal glands: Unremarkable. Kidneys: The unenhanced demonstrate mild cortical atrophy. There is no hydronephrosis. A large heterogeneous and slightly hyperdense mass lesion largely replaces the posterior upper pole of the right kidney. This measures up to approximately 10 x 10 x 8 cm as seen on image #100. This appears to invade the right posterior body wall and the right psoas muscle. Small left renal cyst measuring up to 12 mm. No renal calculi are identified. Abdominal vasculature: The abdominal aorta is normal in course and caliber noting moderate to advanced atherosclerotic calcification. Stomach and bowel: There is a small hiatal hernia. There is moderate colonic diverticulosis without CT evidence of acute diverticulitis. No bowel obstruction is seen. The appendix is well-visualized and normal. Peritoneum: There is a small amount of right-sided perinephric fluid. No tracheal free air is seen. Lymphadenopathy: None. Pelvic viscera: Asymmetric bladder wall thickening is seen posteriorly and on the right. The uterus and adnexa are normal as visualized. Skeletal structures: The skeletal structures are osteopenic. Postsurgical changes in the partially imaged right wrist which overlies the abdomen. There is evidence of multifocal mixed lytic/blastic by metastatic disease. Lesions are seen within the body of L4, within the lower sacrum, the right iliac wing, and the left ischium. There is a moderate chronic compression deformity of L4. No acute fracture is seen involving the lumbosacral spine, bony pelvis, or proximal femora. 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 IMPRESSION: 1. Significantly suboptimal examinations without IV contrast. 2. Acute right-sided rib fractures as above. 3. No additional acute fracture is seen. 4. There is no pneumothorax. 5. Trace right pleural effusion. 6. There is an approximately 10 x 10 x 8 cm heterogeneous and slightly hyper dense mass lesion arising from the upper pole of the right kidney. This is new from the most recent prior examination dated 01/13/2022 and is highly suspicious for a renal cell carcinoma. Much less likely, a large renal hematoma could potentially appears similar. This appears to invade the posterior body wall and the right psoas muscle. If warranted this could be further assessed with ultrasound to confirm the solid nature of this lesion. There is trace right- sided perinephric fluid. 7. There is no clear evidence of solid organ injury in the abdomen or pelvis on this enhanced examination. 8. 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 Correlate with the oncological history. 9. Fibrotic change in the paravertebral right lower lobe is new from 2021 and may represent treatment-related change. There are adjacent right-sided rib lesions. 10. Colonic diverticulosis without CT evidence of acute diverticulitis. 11. Asymmetric wall thickening is seen along the posterior and right wall of the bladder. 4. Additional findings as above. ACT 112: Negative or not required by law. Electronically signed by: Yair Marcus M.D. 04/21/2024 12:[address] 04/21/24 11:41 CT SCAN OF THE BRAIN WITHOUT IV CONTRAST CLINICAL HISTORY: Trauma. COMPARISON STUDY: CT of the brain dated 04/02/2014. TECHNIQUE: Unenhanced axial CT scan of the brain is performed from the vertex to the skull base. A dose lowering technique was utilized adhering to the principles of ALARA. FINDINGS: Brain parenchyma: There is age-related involutional change noting minimal microangiopathic disease. There is no hemorrhage, mass effect, or evidence of acute territorial ischemia by CT criteria. Peres-white matter differentiation is preserved. A left temporal lobe calcification seen on image #14 is unchanged from 2014. No extra-axial fluid collection is seen. Ventricles, sulci, cisterns: Prominent secondary to involutional change. Intracranial vasculature: There is atherosclerotic calcification of the cavernous carotid arteries. Calvarium: The skeletal structures are osteopenic. No depressed calvarial fracture is seen. Soft tissues: There is high right parietal scalp contusion. Sinuses and mastoids: There is trace mucosal thickening in the right maxillary antrum and the ethmoid sinuses. The mastoid air cells are well pneumatized. Orbits: The bony orbits are grossly intact. There are bilateral ocular lens implants. IMPRESSION: There is no hemorrhage, mass effect, or evidence of acute territorial ischemia by CT criteria. ACT 112: Negative or not required by law. Electronically signed by: Yair Marcus M.D. 04/21/2024 12:05 PM Abdomen/Pelvis CT 04/21/24 11:42 CT SCAN OF THE CHEST, ABDOMEN, AND PELVIS WITHOUT IV CONTRAST CLINICAL HISTORY: Trauma. COMPARISON STUDY: Chest CT dated 12/14/2018. PET CT dated 01/13/2022. Abdominal CT dated 11/12/2021. TECHNIQUE: Unenhanced CT scan of the chest, abdomen, and pelvis was performed from the thoracic inlet to the proximal femora. Images are reviewed in the axial, sagittal, and coronal planes. IV contrast was not administered for this examination. Note that the examination was performed in significantly suboptimal fashion without IV contrast. A dose lowering technique was utilized adhering to the principles of ALARA. The examination is degraded by streak artifact from the arms which could not be elevated above the chest or abdomen. CT DOSE: 2043.49 mGy.cm FINDINGS: CHEST: Thyroid: Imaged portions of the thyroid gland are normal in size and attenuation. Thoracic aorta: The thoracic aorta is normal in caliber and demonstrates bovine variant arch anatomy. Heart: A right internal jugular central venous infusion port is in place. The heart is normal in size and without pericardial effusion. The coronary arteries are densely calcified. There is diminished attenuation of the cardiac blood pool and compared to myocardial suggesting anemia. Lungs and pleural spaces: There is no airspace consolidation typical for pneumonia or pneumothorax. Secretions/debris is seen in the trachea and right mainstem bronchus. An impacted and dilated right lower lobe bronchus containing calcific debris is unchanged. There is trace right pleural effusion. Thoracic parenchymal scarring are seen throughout both lungs. There is fibrotic change in the paravertebral right lower lobe which is new from 12/14/2018. A 4 mm left lower lobe pulmonary nodule on image #130 is unchanged dating back to 2019. Mediastinum: There is no mediastinal hematoma or lymphadenopathy. Kathryn: Not well assessed without IV contrast. Axillae: There is no axillary lymphadenopathy. Bony thorax: The skeletal structures are osteopenic. 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 Arthritic change is seen in the shoulders. There is evidence of multifocal mixed lytic/blastic bony metas tatic disease. Lesions is in the right clavicular head, the left glenoid, the sternum, the posterior body of T8 comment while several bilateral ribs. Chronic posttraumatic deformities seen in the left clavicle. There are acute right posterolateral 7th and 10th rib fractures. No additional acute fracture is seen involving the bony thorax. ABDOMEN AND PELVIS: Liver: The unenhanced liver is normal in size, contour, and attenuation. There is no intrahepatic biliary ductal dilatation. Gallbladder: Unremarkable. Spleen: Normal in size and attenuation. Pancreas: The unenhanced pancreas is moderately atrophic and otherwise grossly unremarkable. Adrenal glands: Unremarkable. Kidneys: The unenhanced demonstrate mild cortical atrophy. There is no hydronephrosis. A large heterogeneous and slightly hyperdense mass lesion largely replaces the posterior upper pole of the right kidney. This measures up to approximately 10 x 10 x 8 cm as seen on image #100. This appears to invade the right posterior body wall and the right psoas muscle. Small left renal cyst measuring up to 12 mm. No renal calculi are identified. Abdominal vasculature: The abdominal aorta is normal in course and caliber noting moderate to advanced atherosclerotic calcification. Stomach and bowel: There is a small hiatal hernia. There is moderate colonic diverticulosis without CT evidence of acute diverticulitis. No bowel obstruction is seen. The appendix is well-visualized and normal. Peritoneum: There is a small amount of right-sided perinephric fluid. No tracheal free air is seen. Lymphadenopathy: None. Pelvic viscera: Asymmetric bladder wall thickening is seen posteriorly and on the right. The uterus and adnexa are normal as visualized. Skeletal structures: The skeletal structures are osteopenic. Postsurgical changes in the partially imaged right wrist which overlies the abdomen. There is evidence of multifocal mixed lytic/blastic by metastatic disease. Lesions are seen within the body of L4, within the lower sacrum, the right iliac wing, and the left ischium. There is a moderate chronic compression deformity of L4. No acute fracture is seen involving the lumbosacral spine, bony pelvis, or proximal femora. 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 IMPRESSION: 1. Significantly suboptimal examinations without IV contrast. 2. Acute right-sided rib fractures as above. 3. No additional acute fracture is seen. 4. There is no pneumothorax. 5. Trace right pleural effusion. 6. There is an approximately 10 x 10 x 8 cm heterogeneous and slightly hyperdense mass lesion arising from the upper pole of the right kidney. This is new from the most recent prior examination dated 01/13/2022 and is highly suspicious for a renal cell carcinoma. Much less likely, a large renal hematoma could potentially appears similar. This appears to invade the posterior body wall and the right psoas muscle. If warranted this could be further assessed with ultrasound to confirm the solid nature of this lesion. There is trace right-sided perinephric fluid. 7. There is no clear evidence of solid organ injury in the abdomen or pelvis on this enhanced examination. 8. 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 Correlate with the oncological history. 9. Fibrotic change in the paravertebral right lower lobe is new from 2021 and ma y represent treatment-related change. There are adjacent right-sided rib lesions. 10. Colonic diverticulosis without CT evidence of acute diverticulitis. 11. Asymmetric wall thickening is seen along the posterior and right wall of the bladder. 4. Additional findings as above. ACT 112: Negative or not required by law. Electronically signed by: Yair Marcus M.D. 04/21/2024 12:52 PM Renal Ultrasound 04/22/24 00:00 RENAL ULTRASOUND HISTORY: right renal mass COMPARISON: Abdomen and pelvis CT 04/21/2020. FINDINGS: Right kidney: 15 cm in length. There is a large heterogeneous mass measuring 10.8 x 10.2 x 8.0 cm. No hydronephrosis. Left kidney: 10.9 cm. Stable left extra renal pelvis. No hydronephrosis. Normal corticomedullary differentiation and cortical thickness. Bladder: There is a Mora catheter within the bladder. Miscellaneous: A few small gallstones. No gallbladder wall thickening. IMPRESSION: 1. Redemonstration of the 10.8 cm right renal mass. This is consistent with a renal cell carcinoma. 2. Cholelithiasis. ACT 112: Negative or not required by law. Electronically signed by: Gregorio Arevalo M.D. 04/22/2024 12:22 PM Brain MRI 04/22/24 14:41 Brain MRI WITHOUT CONTRAST HISTORY: fall, confusion, r/o cva TECHNIQUE: Multiplanar multisequence MRI of the brain was performed without the use of contrast. COMPARISON STUDY: Head CT 04/21/2024. Brain MRI 04/03/2014. FINDINGS: There are no areas of restricted diffusion to suggest acute infarction. The midline structures are intact. The paranasal sinuses are clear. The mastoid air cells are clear. The ventricles and sulci are within normal limits for age. There is no mass, hematoma, midline shift. The major vascular flow-voids at the skull base are well maintained. Stable T2 hyperintense lesion within the left temporal lobe measuring 1 cm. This demonstrates susceptibility artifact in favors a cavernoma. IMPRESSION: 1. No acute infarct or intracranial hemorrhage. 2. 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 ACT 112: Negative or not required by law. Electronically signed by: Gregorio Arevalo M.D. 04/22/2024 11:33 AM Chest X-Ray 04/23/24 13:33 XR chest 1V portable CLINICAL HISTORY: diminished R brth sounds > eval for R effusion COMPARISON STUDY: Chest CT April 21, 2024. FINDINGS: Right internal jugular [id number] is in place. There is no pneumothorax. A small to moderate right pleural effusion has developed since p rior exam. Multiple acute right-sided rib fractures are better depicted on prior CT. Associated right middle and lower lung airspace opacity is present. There is mild left basilar opacity. Cardiomediastinal silhouette is normal. There is no evidence for pulmonary edema. Old, healed left clavicular fracture is incidentally noted. IMPRESSION: 1. Interval development of a small to moderate right pleural effusion. This could represent a simple pleural effusion or a hemothorax given acute right- sided rib fractures. Associated airspace opacity favors atelectasis although pneumonia could appear similar. 2. No pneumothorax. ACT 112: Negative or not required by law. Electronically signed by: Jordan Nieto M.D. 04/23/2024 6:01 PM PG Care Time/CCT Total # of Minutes Spent Total Time Spent with Patient: Total time spent is greater than 50% in coordination of care (as documented) at patient's floor/unit and/or counseling patient: I spent 130 minutes overall addressing this case: 15 min in medical data review/discussion with referring provider(s) and/or preparation for the visit 25 min in direct interaction with the patient/exam 60 min in Advance Care Planning/Goals of Care discussions as detailed above in note (must be >16min) 15 min in subsequent review and synthesis of assessment and plan 15 min communicating with other providers regarding the patient's case: Prolonged Care Time Prolonged Care Time: Yes Advanced Care Planning 06905 Advanced Care Planning 30 Min 13964 Advanced Care Planning Additional 30 Min [place] [address] SUB INP/OBS CARE 3/50MIN (25 - SIGNIFICANT, SEPARATELY IDENTIFIABLE ) Patient Type Established Medical Decision Making High Complexity Diagnoses Weakness generalized R53.1 Fall as cause of accidental injury in home as place of occurrence, subsequent encounter W19.XXXD; Y92.009 Encounter type: subsequent encounter Advanced care planning/counseling discussion Z71.89 Palliative care by specialist Z51.[address] scan R93.89 Rib pain on right side R07.81 Additional Codes Advanced Care Planning - 00016 Advanced Care Planning 30 Min: 50406 Advanced Care Planning 30 Min ([id number]) Advanced Care Planning - 14941 Advanced Care Planning Additional 30 Min: 80267 Advanced Care Planning Additional 30 Min ([id number]) Prolonged Care Time - Prolonged Care Time: Yes ([id number]) (2) Fall as cause of accidental injury at home as place of occurrence Encounter type: subsequent encounter Qualified Code(s): W19.XXXD - Unspecified fall, subsequent encounter; Y92.009 - Unspecified place in unspecified non-institutional (private) residence as the place of occurrence of the external cause
[2024-04-24] MEDS: PIPERACILLIN/TAZOBACTAM 4.5 GM in DEXTROSE 5% MINI-B 100 ML IV ONE (19:08)
[2024-04-24] MEDS: ACETAMINOPHEN 325 MG TAB PO PRN (20:38)
[2024-04-24 20:49] LABS: Hematocrit (blood only) 24.8 % (37.0-47.0); Hemoglobin 8.3 g/dl (12.0-16.0)
[2024-04-25] MEDS: PIPERACILLIN/TAZOBACTAM 4.5 GM in DEXTROSE 5% MINI-B 100 ML IV SCH (00:34)
[2024-04-25] MEDS: ONDANSETRON INJ 2 MG/ML 2 ML VIAL IV PRN (05:01)
[2024-04-25 07:55] VITALS: O2SAT 97
[2024-04-25 08:22] LABS: Hematocrit (blood only) 30.8 % (37.0-47.0); Hemoglobin 10.4 g/dl (12.0-16.0); Mean Corpuscular Hemoglobin 28.7 pg (25.0-34.0); Mean Corpuscular Hgb Conc 33.8 g/dL (32.0-36.0); Mean Corpuscular Volume 84.8 fL (80.0-100.0); Mean Platelet Volume 10.7 fL (9.4-12.4); Platelet Count 70 K/uL (130-400); RDW Coefficient of Variation 14.8 % (11.5-14.5); RDW Standard Deviation 45.7 fL (36.4-46.3); Red Blood Count 3.63 M/uL (4.20-5.40)
[2024-04-25 08:51] LABS: Albumin Globulin Ratio 0.5 (0.9-2); BUN Creatinine Ratio 11.5 (10-20); Bilirubin,Total 0.6 mg/dl (0.2-1.0); Calcium 6.3 mg/dl (8.6-10.3); Est GFR (African American) 7.5 ml/min; Est GFR (Non-African American) 6.5 ml/min; Globulin 3.8 gm/dl (2.5-4.0); Magnesium 1.9 mg/dl (1.7-2.4); Phosphorus 7.4 mg/dl (2.5-4.9); Potassium 4.2 mmol/L (3.5-5.1); Total Protein 5.8 gm/dl (6.0-8.3)
[2024-04-25 11:29] VITALS: RESP 18; TEMP 98.4
--- NOTE | 2024-04-25 13:46 | Communication Note ---
Date of Service: April 25, 2024 Spoke with patient's son and daughter at bedside. Merlene. They stated that they had family discussion, would like to proceed with comfort care status, no heart monitoring/no further investigation including labs and imagings/would like to stay in the room if possible until discharge, likely tomorrow. Communicated with RN. They would like to continue IV therapy today but would not want any antibiotics on discharge.
[2024-04-25] MEDS ORDERED: LORazepam 0.5 MG in SYRINGE 0.25 ML IV PRN (15:20)
[2024-04-25] MEDS ORDERED: ONDANSETRON INJ 2 MG/ML 2 ML VIAL IV PRN (15:20)
[2024-04-25] MEDS ORDERED: LORazepam 0.5 MG TAB PO PRN (15:20)
[2024-04-25] MEDS ORDERED: HYOSCYAMINE SULFATE 0.125 MG TAB SL PRN (15:20)
[2024-04-25] MEDS ORDERED: MoRPHine SULFATE 2 MG/ML CARP IV PRN (15:20)
[2024-04-25] MEDS ORDERED: ONDANSETRON 4 MG OD TAB SL PRN (15:20)
--- NOTE | 2024-04-25 15:20 | Hospitalist Progress Note ---
Date of Service April 25, 2024 Assessment & Plan (1) Status post fall: (2) Altered mental status: (3) COVID-19 virus infection: (4) Acute renal failure: Plan: 83-year-old lady with PMH of multiple myeloma, CVA , cerebral cavernoma, age- related osteoporosis brought into the hospital with complaint of fall and confusion. Patient had some sore throat, mild stomach ache and some diarrhea prior to arrival. Patient was complaining of right-sided rib pain and was noted she might have fallen in the bathroom per family member. Patient is not aware of fall. She is being managed for the following: Status post fall, confusion Likely metabolic encephalopathy secondary to sepsis, COVID-19 infection Concern for UTI Patient presented with confusion, lactate/procalcitonin/WBC/respiratory rate/temperature elevated in the setting of COVID test positive at presentation. Admitting imagings: CT C-spine: No acute fracture or subluxation. Osteopenia and mild spondylotic changes noted. Osteolytic lesion suspected in the right clavicular head. CT head with no acute finding. CT chest and CT abdomen pelvis: Acute right-sided rib fractures [acute right posterolateral 7th and 10th rib fractures]. Multiple lytic and blastic metastatic disease lesions. Right upper pole renal lesion 10 x 10 x 8 cm suspicious of RCC. Asymmetric wall thickening is seen along the posterior and right wall of the bladder. Renal ultrasound: Redemonstration of the 10.8 cm right renal mass consistent with renal cell carcinoma. Brain MRI: No acute infarct or intracranial hemorrhage. A stable 1 cm lesion within the left temporal lobe suggesting a cavernoma. Respiratory BioFire positive for COVID, MRSA nasal swab neg Patient's O2 need fluctuating, back to baseline mentation. Lactate resolved. Continue with Mucinex, hypertonic saline nebs. Continue with incentive spirometer. Likely Acute blood loss anemia Possible Rt hemothorax iso Rt rib fracture Fever: noted 04/24 afternoon, zosyn 04/24, blood culture. follow. 04/23 evening lab revealed Hb drop to 6.8, transfusion ordered. s/p prbc transfusion x 2, Hb stable possible hemothorax x right, pulm evaled. family aware. Acute kidney injury Rhabdomyolysis Hyperkalemia/hypocalcemia ZAHEER likely secondary to ATN related with acute rhabdomyolysis in the setting of fall and COVID-19 infection. Admitting CTAP as above. Admitting renal labs: Sodium 131, potassium 4.5, creatinine 2.23, calcium 8.6, CPK 6639 Trend BMP, sodium downtrending, potassium elevated at 5.4, creatinine elevated at 4.5, calcium lower at 6.1 Trend CPK: 6639 --> 20,319 --> 85108 --8454, downtrending trend Nephro on board, recommends bicarb drip at 100ml/hr. Hyperkalemia resolved. Avoid nephrotoxic agents, monitor I's and O's [Mora catheter in] Pt might need dialysis, Nephro assessing, will follow. Pt declines the possibility of dialysis. Right renal mass: As per admitting CTAP and renal ultrasound, see above. Urology evaluating, recommends IR biopsy of renal mass or one of her bone lesions after acute issues have settled down. Pt, Dtr, son, Grand Dtr are aware. They are leaning towards no biopsy for now. Continue to follow the GO discussion w/ palliative. d/w Dr. narayanan over the phone 04/23, pt has poor prognosis given progressive MM. Likely type II NSTEMI: Troponin elevated and up trended with worsening renal function and rhabdomyolysis. EKG with no acute ST or T changes, echo with EF of 55 to 60%, no regional wall motion abnormality. LV function and wall thickness normal. Patient with no chest pain, continue telemetry monitoring. Right rib fracture #7, #10: Secondary to fall. Incentive spirometry. Pain control with As needed tramadol, Tylenol for pain, prn oxycodone. Transaminitis: LFT elevated likely secondary to rhabdomyolysis. Patient on IV fluid, follow LFT daily. Patient with no abdominal pain. LFT improving. History of multiple myeloma: not in remission, widespread lytic lesions. Follows with Dr. Benny Narayanan. Recently prescribed with Pomolidomide- patient has not started yet History of CVA: Many years ago per family. Not on any medications. DVT prophylaxis: heparin subcu Full code GOC discussion: palliative on board. will follow recs. Disposition: continue aggressive care. Poor prognosis. Will need PT and OT evaluation once more stable. GOC discussion: d/w palliative 04/24, pt doesn't want dialysis, they would like hospice home for dc once stable but yet to make final decision. d/w Pt's son Roberto and dtr Natalie at bedside, they stated they are in agreement to transition her to comfort care and want to discontinue further labs/heart monitoring/imagings. They want to take her home w/ hospice tomorrow. Admission and Anticipated Discharge Date Admission Date: April 21, 2024 Subjective Patient was seen and examined at bedside. Patient was lying in bed, on room air, in no distress, reports better pain mx today. patient's daughter, son and grand dtr were also updated on plan of care. We d iscussed the course of care going forward, they stated they decided to transition her to comfort care, no further labs/imaging/heart monitoring or interventions. They plan to take her home w/ hospice tomorrow. They want to continue iv fluid and iv antibiotic today but don't wish to continue active treatments when discharged to home. They were all in agreement. Physical Exam Physical Exam: General- oriented x 3, mild distress 2/2 pain, ill/frail/weak/tired appearing. Head- atraumatic Eyes- pupil reactive to light, no discharge, periorbital edema ENT- Dry oral mucosa, oropharynx clear Neck- supple, no JVD, no adenopathy, no thyromegaly; carotids +2/2, no bruits appreciated Lungs- b/l crackles. Positive tenderness right lateral lower rib area Heart- normal rate, regular rhythm; no murmur, no gallop, no rub appreciated Abdomen- normal bowel sounds, nondistended, soft, nontender, no masses or hepatosplenomegaly Extremities- no pretibial edema, no calf tenderness; peripheral pulses intact Positive erythema right forearm, dorsal region Neuro- alert, oriented x 3; CN 2-12 grossly intact; motor 5/5 bilaterally;sensation 100% on all extremities; no other gross focal neurologic deficits Skin- warm & dry Results & Data Results & Data Vital Signs (Past 12 Hours) Vital Signs Temp Pulse Pulse Resp BP BP Pulse Ox 04/25/24 13:00 86 04/25/24 11:00 36.9 C 89 18 105/68 97 04/25/24 08:15 04/25/24 08:00 74 04/25/24 07:53 36.6 C 97 H 16 101/63 97 04/25/24 07:26 92 H 18 98 04/25/24 04:40 85 18 101/60 95 O2 Del Method O2 Flow Rate 04/25/24 13:00 04/25/24 11:00 Nasal Cannula 2 04/25/24 08:15 Nasal Cannula 2 04/25/24 08:00 04/25/24 07:53 Nasal Cannula 2 04/25/24 07:26 Nasal Cannula 2 04/25/24 04:40 Nasal Cannula 2
[2024-04-25] MEDS: GLYCOPYRROLATE 0.2 MG/ML VIAL IV PRN (16:56)
[2024-04-25] MEDS: MoRPHine SULFATE 10 MG/0.5 ML UDP PO PRN (16:56)
[2024-04-25] MEDS ORDERED: diphenhydrAMINE 2%/ZINC 0.1% CREAM 28.4GM TUBE EXT PRN (18:07)
[2024-04-25] MEDS: diphenhydrAMINE 50 MG/ML VIAL IV PRN (18:36)
[2024-04-25] MEDS: diphenhydrAMINE 50 MG/ML VIAL ONE (18:56)
--- NOTE | 2024-04-25 20:12 | XRay Report ---
XR chest 1V portable CLINICAL HISTORY: effusions COMPARISON STUDY: Chest CT April 21, 2024. Chest radiograph April 23, 2024. FINDINGS: Right internal jugular [id number]-Llpt is in place. There is no pneumothorax. A moderate righ t pleural effusion has increased in size since prior exam. There is a small left pleural effusion. Pu lmonary edema has progressed. Cardiomediastinal silhouette is stable. Multiple acute right-sided rib fractures are better depicted on prior chest CT. IMPRESSION: 1. Increase in size of a moderate right pleural effusion. This could represent a simple pleural effus ion or hemothorax given an acute right-sided rib fractures. Associated airspace opacity. 2. Interval development of pulmonary edema. 3. Small left pleural effusion. ACT 112: Negative or not required by law. Electronically signed by: Jordan Nieto M.D. 04/25/2024 8:11 PM
--- NOTE | 2024-04-26 13:56 | Discharge Summary ---
Date of Service April 26, 2024 Admission HPI Per Admitting Provider 83-year-old female with history of multiple myeloma, history of CVA, etc. presenting with fall and confusion this morning. Patient's history mostly obtained from patient's daughter and granddaughter at the bedside. Yesterday, patient was noted to be not feeling well, reporting sore throat, mild stomachache and was having some diarrhea. She was also complaining of feeling cold. Today, patient's granddaughter found the patient inside the bathroom, sitting up on the toilet, leaning against the wall next to the toilet, confused, soiled with feces. There were also feces noted on the bathroom floor. She was complaining of right sided rib pain. Patient's family suspected that patient went up to go to the bathroom, fell on the floor, but managed to get herself up on the toilet seat. She was then brought to the ER. Upon arrival, patient was noted to be febrile, 38.8, tachycardic 122. CT head, no acute process CT chest, no pneumonia CT abdomen pelvis, no acute injury but an incidental finding of right renal mass. She was given IV fluid bolus, IV cefepime at the ER On exam, patient's family was at the bedside, patient was already awake and alert, oriented x 3, answering most questions appropriately. She is mostly back to her baseline as per family but still forgetful about certain things. She is complaining mostly of right lateral rib pain. Denies having active shortness of breath, chest pain, headache, dizziness, nausea vomiting abdominal pain, problems with urination, or any other pain in her body Admission Exam Per Admitting Provider General- oriented x 3, not in distress, speaks in sentences with no effort or accessory muscle use Head- atraumatic Eyes- Mild redness of the right eye, no discharge, periorbital edema ENT-Dry oral mucosa, oropharynx clear Neck- supple, no JVD, no adenopathy, no thyromegaly; carotids +2/2, no bruits appreciated Lungs- clear to auscultation bilaterally, no rales/wheezes Positive tenderness right lateral lower rib area Heart- normal rate, regular rhythm; no murmur, no gallop, no rub appreciated Abdomen- normal bowel sounds, nondistended, soft, nontender, no masses or hepatosplenomegaly Extremities- no pretibial edema, no calf tenderness; peripheral pulses intact Positive erythema right forearm, dorsal region Neuro- alert, oriented x 3; CN 2-12 grossly intact; motor 5/5 bilaterally;sensation 100% on all extremities; no other gross focal neurologic deficits Skin- warm & dry Principal Diagnosis Sepsis, metabolic encephalopathy, COVID-19 infection, acute blood loss anemia, pleural effusion possible hemothorax, rib fractures, advanced multiple myeloma Discharge Exam General: Lying comfortably in bed, not in distress, on NC HEENT: EOMI, JAVIER, MMM Chest: Fair breath sounds bilaterally CVS: Regular rate and rhythm, normal heart sounds, no murmur Abdomen: Soft, non tender, not distended, normal bowel sounds Neuro: Awake, alert, oriented, conversing well, non focal Extremities: No cyanosis, clubbing or edema Discharge Data Allergies Allergy/AdvReac Type Severity Reaction Status Date / Time ixazomib [From Ninlaro] Allergy hives Verified 04/21/24 15:06 adhesive tape AdvReac Mild Rash Verified 04/23/24 20:08 lenalidomide [From Revlimid] AdvReac Hives Verified 04/21/24 15:06 Consultations 04/21/24 13:26 ED Decision to Admit Stat 04/21/24 14:55 Consult Nephrology Routine 04/21/24 15:27 Consult Urology Routine 04/23/24 10:04 Consult Palliative Care Routine 04/24/24 10:29 Consult Pulmonology Routine Ordered Studies 04/21/24 11:04 CT cervical spine wo con Stat 04/21/24 11:41 CT chest diagnostic wo con Stat CT head/brain wo con Stat 04/21/24 11:42 CT Abd and Pelvis [CT abd pelvis wo con] Stat 04/22/24 US renal/blad retro comp Routine 04/22/24 14:41 MR brain wo con Routine Laboratory Results WBC 5.00 K/ul (4.8-10.8) 04/25/24 07:39 RBC 3.63 M/uL (4.20-5.40) L 04/25/24 07:39 Hgb 10.4 g/dl (12.0-16.0) L 04/25/24 07:39 POC Hgb 10.5 g/dl (12.0-16.0) L 04/21/24 11:28 Hct 30.8 % (37.0-47.0) L 04/25/24 07:39 POC Hct 31 % (37-47) L 04/21/24 11:28 MCV 84.8 fL (80.0-100.0) 04/25/24 07:39 MCH 28.7 pg (25.0-34.0) 04/25/24 07:39 MCHC 33.8 g/dL (32.0-36.0) 04/25/24 07:39 RDW Std Deviation 45.7 fL (36.4-46.3) 04/25/24 07:39 RDW Coeff of Kendell 14.8 % (11.5-14.5) H 04/25/24 07:39 Plt Count 70 K/uL (130-400) L 04/25/24 07:39 MPV 10.7 fL (9.4-12.4) 04/25/24 07:39 Immature Gran % (Auto) 0.2 % 04/24/24 06:48 Neut % (Auto) 80.3 % 04/24/24 06:48 Lymph % (Auto) 14.1 % 04/24/24 06:48 Dundy % (Auto) 5.2 % 04/24/24 06:48 Eos % (Auto) 0.2 % 04/24/24 06:48 Baso % (Auto) 0.0 % 04/24/24 06:48 Neut # (Auto) 3.52 K/uL (1.40-6.50) 04/24/24 06:48 Lymph # (Auto) 0.62 K/uL (1.20-3.40) L 04/24/24 06:48 Dundy # (Auto) 0.23 K/uL (0.11-0.59) 04/24/24 06:48 Eos # (Auto) 0.01 K/uL (0.00-0.50) 04/24/24 06:48 Baso # (Auto) 0.00 K/uL (0.00-0.20) 04/24/24 06:48 Immature Gran # (Auto) 0.01 K/uL (0.01-0.20) 04/24/24 06:48 Platelet Estimate Decreased (Normal) L 04/22/24 06:42 PT 9.8 Seconds (9.0-12.0) 04/24/24 06:48 INR 0.9 (0.9-1.1) 04/24/24 06:48 APTT 32 Seconds (21-31) H 04/24/24 06:48 PTT Ratio 1.2 04/24/24 06:48 POC Sodium 134 mmol/L (135-144) L 04/21/24 11:28 Sodium 136 mmol/L (136-145) 04/25/24 07:39 POC Potassium 4.5 mmol/L (3.3-5.0) 04/21/24 11:28 Potassium 4.2 mmol/L (3.5-5.1) 04/25/24 07:39 POC Chloride 99 mmol/L (101-112) L 04/21/24 11:28 Chloride 100 mmol/L (98-107) 04/25/24 07:39 Carbon Dioxide 25 mmol/L (21-32) 04/25/24 07:39 POC Total CO2 22 mmol/L (24-31) L 04/21/24 11:28 Anion Gap 11 (3-11) 04/25/24 07:39 POC Anion Gap 18.0 mmol/L (16-25) 04/21/24 11:28 POC BUN 30 mg/dl (7-18) H 04/21/24 11:28 BUN 65 mg/dl (6-23) H 04/25/24 07:39 Creatinine 5.63 mg/dl (0.6-1.2) H* D 04/25/24 07:39 POC Creatinine 2.6 mg/dl (0.6-1.3) H 04/21/24 11:28 Est Cr Clr Drug Dosing 6.0 ml/min 04/25/24 07:39 Est GFR ( Amer) 7.5 ml/min 04/25/24 07:39 Est GFR (Non-Af Amer) 6.5 ml/min 04/25/24 07:39 BUN/Creatinine Ratio 11.5 (10-20) 04/25/24 07:39 Glucose 119 mg/dl (70-99(Fasting)) H 04/25/24 07:39 POC Glucose 165 mg/dl (70-99) H 04/24/24 11:03 POC Glucose (other) 221 mg/dl (70-99) H 04/21/24 11:28 Lactate 0.9 mmol/L (0.4-2.0) 04/23/24 21:12 Calcium 6.3 mg/dl (8.6-10.3) L 04/25/24 07:39 POC Ioniz Calcium Ivana 1.13 mmol/l (1.12-1.32) 04/21/24 11:28 Phosphorus 7.4 mg/dl (2.5-4.9) H 04/25/24 07:39 Magnesium 1.9 mg/dl (1.7-2.4) 04/25/24 07:39 Total Bilirubin 0.6 mg/dl (0.2-1.0) 04/25/24 07:39 Direct Bilirubin 0.0 mg/dl (0-0.2) 04/24/24 06:48 AST 140 U/L (13-39) H 04/25/24 07:39 ALT 80 U/L (7-52) H 04/25/24 07:39 Alkaline Phosphatase 52 U/L (34-104) 04/25/24 07:39 Total Creatine Kinase 5270 U/L (26-192) H 04/25/24 07:39 Troponin I High Sens 1433.8 pg/ml (0-14) H* 04/22/24 06:42 Total Protein 5.8 gm/dl (6.0-8.3) L 04/25/24 07:39 Albumin 2.0 gm/dl (3.4-5.0) L 04/25/24 07:39 Globulin 3.8 gm/dl (2.5-4.0) 04/25/24 07:39 Albumin/Globulin Ratio 0.5 (0.9-2) L 04/25/24 07:39 Procalcitonin 29.50 ng/ml (0-0.5) H 04/21/24 11:21 Urine Color Yellow 04/21/24 12:41 Urine Appearance Cloudy (Clear) A 04/21/24 12:41 Urine pH 5.5 (4.5-7.5) 04/21/24 12:41 Ur Specific Roy 1.018 (1.000-1.030) 04/21/24 12:41 Urine Protein 2+ (Negative) H 04/21/24 12:41 Urine Glucose (UA) Negative (Negative) 04/21/24 12:41 Urine Ketones Trace (Negative) H 04/21/24 12:41 Urine Blood 2+ (Negative) H 04/21/24 12:41 Urine Nitrite Negative (Negative) 04/21/24 12:41 Urine Bilirubin Negative (Negative) 04/21/24 12:41 Urine Urobilinogen Negative (Negative) 04/21/24 12:41 Ur Leukocyte Esterase Negative (Negative) 04/21/24 12:41 Urine WBC (Auto) 0-5 /hpf (0-5) 04/21/24 12:41 Urine RBC (Auto) 0-2 /hpf (0-2) 04/21/24 12:41 U Hyaline Cast (Auto) 0-2 /lpf (0-2) 04/21/24 12:41 U Epithel Cells (Auto) 0-2 /hpf (0-2) 04/21/24 12:41 Urine Bacteria (Auto) None Seen (None Seen) 04/21/24 12:41 Amorphous Sediment Present (None Prsent) A 04/21/24 12:41 Nasal Screen MRSA (PCR) Negative (Negative) 04/22/24 12:00 Adenovirus (PCR) Not Detected (NotDetected) 04/21/24 12:25 B. pertussis DNA (PCR) Not Detected (NotDetected) 04/21/24 12:25 B.parapertussis DNA PCR Not Detected (NotDetected) 04/21/24 12:25 C. pneumoniae DNA (PCR) Not Detected (NotDetected) 04/21/24 12:25 Coronavirus OC43 (PCR) Not Detected (NotDetected) 04/21/24 12:25 Coronavirus HKU1 (PCR) Not Detected (NotDetected) 04/21/24 12:25 Coronavirus 229E (PCR) Not Detected (NotDetected) 04/21/24 12:25 SARS-CoV-2 (PCR) DETECTED (NotDetected) A 04/21/24 12:25 Coronavirus NL63 (PCR) Not Detected (NotDetected) 04/21/24 12:25 Human Metapneumovir PCR Not Detected (NotDetected) 04/21/24 12:25 Influenza Type A (PCR) Not Detected (NotDetected) 04/21/24 12:25 Influenza Type B (PCR) Not Detected (NotDetected) 04/21/24 12:25 M. pneumoniae (PCR) Not Detected (NotDetected) 04/21/24 12:25 Parainfluenza 1 (PCR) Not Detected (NotDetected) 04/21/24 12:25 Parainfluenza 2 (PCR) Not Detected (NotDetected) 04/21/24 12:25 Parainfluenza 3 (PCR) Not Detected (NotDetected) 04/21/24 12:25 Parainfluenza 4 (PCR) Not Detected (NotDetected) 04/21/24 12:25 RSV (PCR) Not Detected (NotDetected) 04/21/24 12:25 Entero/Rhino (PCR) Not Detected (NotDetected) 04/21/24 12:25 Blood Type O Positive 04/23/24 21:12 Antibody Screen POSITIVE A 04/23/24 21:12 Antibody Identification Panagglutinin due to drug 04/23/24 21:12 Antibody ID Comment Cancelled 04/23/24 21:12 Crossmatch See Detail 04/23/24 21:[address] 04/21/24 11:04 CT SCAN OF THE CERVICAL SPINE CLINICAL HISTORY: Trauma. COMPARISON STUDY: PET/CT dated 01/13/2022. TECHNIQUE: CT scan of the cervical spine is performed from the skull base to the upper thoracic spine. Images are reviewed in the axial, sagittal, and coronal planes. IV contrast was not administered for this examination. A dose lowering technique was utilized adhering to the principles of ALARA. FINDINGS: Skeletal structures: The skeletal structures are osteopenia. There is no evidence of fracture or subluxation involving the cervical spine. Vertebral body height and alignment are maintained. Anterior osteophytes are seen throughout. The odontoid process and lateral masses are intact. The atlantoaxial articulation is preserved noting productive degenerative change. The spinous processes appear intact. Sclerotic change within the posterior ring of C1 is unchanged dating back to a 2021 PET examination. There is chronic deformity of the left clavicle. There is minimal facet arthropathy. Question osteolytic lesion within the right clavicular head. Intervertebral discs: There is mild multilevel degenerative disc space narrowing, greatest at C4-C5. Central canal: Posterior disc osteophyte complexes at C3-C4, C4-C5, and C7-T1 may contribute to multilevel acquired compromise of the central canal. Soft tissues: The prevertebral and paraspinous soft tissues are within normal limits. A right internal jugular central venous infusion port is in place. Calcified sialoliths are noted in the parotid glands. Calvarium: The visualized calvarium at the skull base appears intact. Brain parenchyma: Partially visualized brain parenchyma at the skull base is within normal limits. Sinuses and mastoids: There is trace mucosal thickening in the right maxillary antrum. The mastoid air cells are well pneumatized. Lung apices: Clear as visualized. IMPRESSION: 1. There is no evidence of fracture or subluxation involving the cervical spine. 2. Osteopenia and mild spondylotic change as above. 3. Suspect an osteolytic lesion in the right clavicular head. Correlate with the oncological history. ACT 112: Negative or not required by law. Electronically signed by: Yair Marcus M.D. 04/21/2024 12:[address] 04/21/24 11:41 CT SCAN OF THE CHEST, ABDOMEN, AND PELVIS WITHOUT IV CONTRAST CLINICAL HISTORY: Trauma. COMPARISON STUDY: Chest CT dated 12/14/2018. PET CT dated 01/13/2022. Abdominal CT dated 11/12/2021. TECHNIQUE: Unenhanced CT scan of the chest, abdomen, and pelvis was performed from the thoracic inlet to the proximal femora. Images are reviewed in the axial, sagittal, and coronal planes. IV contrast was not administered for this examination. Note that the examination was performed in significantly suboptimal fashion without IV contrast. A dose lowering technique was utilized adhering to the principles of ALARA. The examination is degraded by streak artifact from the arms which could not be elevated above the chest or abdomen. CT DOSE: 2043.49 mGy.cm FINDINGS: CHEST: Thyroid: Imaged portions of the thyroid gland are normal in size and attenuation. Thoracic aorta: The thoracic aorta is normal in caliber and demonstrates bovine variant arch anatomy. Heart: A right internal jugular central venous infusion port is in place. The heart is normal in size and without pericardial effusion. The coronary arteries are densely calcified. There is diminished attenuation of the cardiac blood pool and compared to myocardial suggesting anemia. Lungs and pleural spaces: There is no airspace consolidation typical for pneumonia or pneumothorax. Secretions/debris is seen in the trachea and right mainstem bronchus. An impacted and dilated right lower lobe bronchus containing calcific debris is unchanged. There is trace right pleural effusion. Thoracic parenchymal scarring are seen throughout both lungs. There is fibrotic change in the paravertebral right lower lobe which is new from 12/14/2018. A 4 mm left lower lobe pulmonary nodule on image #130 is unchanged dating back to 2019. Mediastinum: There is no mediastinal hematoma or lymphadenopathy. Kathryn: Not well assessed without IV contrast. Axillae: There is no axillary lymphadenopathy. Bony thorax: The skeletal structures are osteopenic. 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 Arthritic change is seen in the shoulders. 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 Lesions is in the right clavicular head, the left glenoid, the sternum, the posterior body of T8 comment while several bilateral ribs. Chronic posttraumatic deformities seen in the left clavicle. There are acute right posterolateral 7th and 10th rib fractures. No additional acute fracture is seen involving the bony thorax. ABDOMEN AND PELVIS: Liver: The unenhanced liver is normal in size, contour, and attenuation. There is no intrahepatic biliary ductal dilatation. Gallbladder: Unremarkable. Spleen: Normal in size and attenuation. Pancreas: The unenhanced pancreas is moderately atrophic and otherwise grossly unremarkable. Adrenal glands: Unremarkable. Kidneys: The unenhanced demonstrate mild cortical atrophy. There is no hydronephrosis. A large heterogeneous and slightly hyperdense mass lesion largely replaces the posterior upper pole of the right kidney. This measures up to approximately 10 x 10 x 8 cm as seen on image #100. This appears to invade the right posterior body wall and the right psoas muscle. Small left renal cyst measuring up to 12 mm. No renal calculi are identified. Abdominal vasculature: The abdominal aorta is normal in course and caliber noting moderate to advanced atherosclerotic calcification. Stomach and bowel: There is a small hiatal hernia. There is moderate colonic diverticulosis without CT evidence of acute diverticulitis. No bowel obstruction is seen. The appendix is well-visualized and normal. Peritoneum: There is a small amount of right-sided perinephric fluid. No tracheal free air is seen. Lymphadenopathy: None. Pelvic viscera: Asymmetric bladder wall thickening is seen posteriorly and on the right. The uterus and adnexa are normal as visualized. Skeletal structures: The skeletal structures are osteopenic. Postsurgical changes in the partially imaged right wrist which overlies the abdomen. There is evidence of multifocal mixed lytic/blastic by metastatic disease. Lesions are seen within the body of L4, within the lower sacrum, the right iliac wing, and the left ischium. There is a moderate chronic compression deformity of L4. No acute fracture is seen involving the lumbosacral spine, bony pelvis, or proximal femora. 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 IMPRESSION: 1. Significantly suboptimal examinations without IV contrast. 2. Acute right-sided rib fractures as above. 3. No additional acute fracture is seen. 4. There is no pneumothorax. 5. Trace right pleural effusion. 6. There is an approximately 10 x 10 x 8 cm heterogeneous and slightly hyperdense mass lesion arising from the upper pole of the right kidney. This is new from the most recent prior examination dated 01/13/2022 and is highly suspicious for a renal cell carcinoma. Much less likely, a large renal hematoma could potentially appears similar. This appears to invade the posterior body wall and the right psoas muscle. If warranted this could be further assessed with ultrasound to confirm the solid nature of this lesion. There is trace right-sided perinephric fluid. 7. There is no clear evidence of solid organ injury in the abdomen or pelvis on this enhanced examination. 8. 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 Correlate with the oncological history. 9. Fibrotic change in the paravertebral right lower lobe is new from 2021 and may represent treatment-related change. There are adjacent right-sided rib lesions. 10. Colonic diverticulosis without CT evidence of acute diverticulitis. 11. Asymmetric wall thickening is seen along the posterior and right wall of the bladder. 4. Additional findings as above. ACT 112: Negative or not required by law. Electronically signed by: Yair Marcus M.D. 04/21/2024 12:[address] 04/21/24 11:41 CT SCAN OF THE BRAIN WITHOUT IV CONTRAST CLINICAL HISTORY: Trauma. COMPARISON STUDY: CT of the brain dated 04/02/2014. TECHNIQUE: Unenhanced axial CT scan of the brain is performed from the vertex to the skull base. A dose lowering technique was utilized adhering to the principles of ALARA. FINDINGS: Brain parenchyma: There is age-related involutional change noting minimal microangiopathic disease. There is no hemorrhage, mass effect, or evidence of acute territorial ischemia by CT criteria. Peres-white matter differentiation is preserved. A left temporal lobe calcification seen on image #14 is unchanged from 2014. No extra-axial fluid collection is seen. Ventricles, sulci, cisterns: Prominent secondary to involutional change. Intracranial vasculature: There is atherosclerotic calcification of the cavernous carotid arteries. Calvarium: The skeletal structures are osteopenic. No depressed calvarial fracture is seen. Soft tissues: There is high right parietal scalp contusion. Sinuses and mastoids: There is trace mucosal thickening in the right maxillary antrum and the ethmoid sinuses. The mastoid air cells are well pneumatized. Orbits: The bony orbits are grossly intact. There are bilateral ocular lens implants. IMPRESSION: There is no hemorrhage, mass effect, or evidence of acute territorial ischemia by CT criteria. ACT 112: Negative or not required by law. Electronically signed by: Yair Marcus M.D. 04/21/2024 12:05 PM Abdomen/Pelvis CT 04/21/24 11:42 CT SCAN OF THE CHEST, ABDOMEN, AND PELVIS WITHOUT IV CONTRAST CLINICAL HISTORY: Trauma. COMPARISON STUDY: Chest CT dated 12/14/2018. PET CT dated 01/13/2022. Abdominal CT dated 11/12/2021. TECHNIQUE: Unenhanced CT scan of the chest, abdomen, and pelvis was performed from the thoracic inlet to the proximal femora. Images are reviewed in the axial, sagittal, and coronal planes. IV contrast was not administered for this examination. Note that the examination was performed in significantly suboptimal fashion without IV contrast. A dose lowering technique was utilized adhering to the principles of ALARA. The examination is degraded by streak artifact from the arms which could not be elevated above the chest or abdomen. CT DOSE: 2043.49 mGy.cm FINDINGS: CHEST: Thyroid: Imaged portions of the thyroid gland are normal in size and attenuation. Thoracic aorta: The thoracic aorta is normal in caliber and demonstrates bovine variant arch anatomy. Heart: A right internal jugular central venous infusion port is in place. The heart is normal in size and without pericardial effusion. The coronary arteries are densely calcified. There is diminished attenuation of the cardiac blood pool and compared to myocardial suggesting anemia. Lungs and pleural spaces: There is no airspace consolidation typical for pneumonia or pneumothorax. Secretions/debris is seen in the trachea and right mainstem bronchus. An impacted and dilated right lower lobe bronchus containing calcific debris is unchanged. There is trace right pleural effusion. Thoracic parenchymal scarring are seen throughout both lungs. There is fibrotic change in the paravertebral right lower lobe which is new from 12/14/2018. A 4 mm left lower lobe pulmonary nodule on image #130 is unchanged dating back to 2019. Mediastinum: There is no mediastinal hematoma or lymphadenopathy. Kathryn: Not well assessed without IV contrast. Axillae: There is no axillary lymphadenopathy. Bony thorax: The skeletal structures are osteopenic. 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 Arthritic change is seen in the shoulders. 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 Lesions is in the right clavicular head, the left glenoid, the sternum, the posterior body of T8 comment while several bilateral ribs. Chronic posttraumatic deformities seen in the left clavicle. There are acute right posterolateral 7th and 10th rib fractures. No additional acute fracture is seen involving the bony thorax. ABDOMEN AND PELVIS: Liver: The unenhanced liver is normal in size, contour, and attenuation. There is no intrahepatic biliary ductal dilatation. Gallbladder: Unremarkable. Spleen: Normal in size and attenuation. Pancreas: The unenhanced pancreas is moderately atrophic and otherwise grossly unremarkable. Adrenal glands: Unremarkable. Kidneys: The unenhanced demonstrate mild cortical atrophy. There is no hydronephrosis. A large heterogeneous and slightly hyperdense mass lesion largely replaces the posterior upper pole of the right kidney. This measures up to approximately 10 x 10 x 8 cm as seen on image #100. This appears to invade the right posterior body wall and the right psoas muscle. Small left renal cyst measuring up to 12 mm. No renal calculi are identified. Abdominal vasculature: The abdominal aorta is normal in course and caliber noting moderate to advanced atherosclerotic calcification. Stomach and bowel: There is a small hiatal hernia. There is moderate colonic diverticulosis without CT evidence of acute diverticulitis. No bowel obstruction is seen. The appendix is well-visualized and normal. Peritoneum: There is a small amount of right-sided perinephric fluid. No tracheal free air is seen. Lymphadenopathy: None. Pelvic viscera: Asymmetric bladder wall thickening is seen posteriorly and on the right. The uterus and adnexa are normal as visualized. Skeletal structures: The skeletal structures are osteopenic. Postsurgical katie nges in the partially imaged right wrist which overlies the abdomen. There is evidence of multifocal mixed lytic/blastic by metastatic disease. Lesions are seen within the body of L4, within the lower sacrum, the right iliac wing, and the left ischium. There is a moderate chronic compression deformity of L4. No acute fracture is seen involving the lumbosacral spine, bony pelvis, or proximal femora. 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 IMPRESSION: 1. Significantly suboptimal examinations without IV contrast. 2. Acute right-sided rib fractures as above. 3. No additional acute fracture is seen. 4. There is no pneumothorax. 5. Trace right pleural effusion. 6. There is an approximately 10 x 10 x 8 cm heterogeneous and slightly hyperdense mass lesion arising from the upper pole of the right kidney. This is new from the most recent prior examination dated 01/13/2022 and is highly suspicious for a renal cell carcinoma. Much less likely, a large renal hematoma could potentially appears similar. This appears to invade the posterior body wall and the right psoas muscle. If warranted this could be further assessed with ultrasound to confirm the solid nature of this lesion. There is trace right-sided perinephric fluid. 7. There is no clear evidence of solid organ injury in the abdomen or pelvis on this enhanced examination. 8. 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 Correlate with the oncological history. 9. Fibrotic change in the paravertebral right lower lobe is new from 2021 and may represent treatment-related change. There are adjacent right-sided rib lesions. 10. Colonic diverticulosis without CT evidence of acute diverticulitis. 11. Asymmetric wall thickening is seen along the posterior and right wall of the bladder. 4. Additional findings as above. ACT 112: Negative or not required by law. Electronically signed by: Yair Marcus M.D. 04/21/2024 12:52 PM Renal Ultrasound 04/22/24 00:00 RENAL ULTRASOUND HISTORY: right renal mass COMPARISON: Abdomen and pelvis CT 04/21/2020. FINDINGS: Right kidney: 15 cm in length. There is a large heterogeneous mass measuring 10.8 x 10.2 x 8.0 cm. No hydronephrosis. Left kidney: 10.9 cm. Stable left extra renal pelvis. No hydronephrosis. Normal corticomedullary differentiation and cortical thickness. Bladder: There is a Mora catheter within the bladder. Miscellaneous: A few small gallstones. No gallbladder wall thickening. IMPRESSION: 1. Redemonstration of the 10.8 cm right renal mass. This is consistent with a renal cell carcinoma. 2. Cholelithiasis. ACT 112: Negative or not required by law. Electronically signed by: Gregorio Arevalo M.D. 04/22/2024 12:22 PM Brain MRI 04/22/24 14:41 Brain MRI WITHOUT CONTRAST HISTORY: fall, confusion, r/o cva TECHNIQUE: Multiplanar multisequence MRI of the brain was performed without the use of contrast. COMPARISON STUDY: Head CT 04/21/2024. Brain MRI 04/03/2014. FINDINGS: There are no areas of restricted diffusion to suggest acute infarction. The midline structures are intact. The paranasal sinuses are clear. The mastoid air cells are clear. The ventricles and sulci are within normal limits for age. There is no mass, hematoma, midline shift. The major vascular flow-voids at the skull base are well maintained. Stable T2 hyperintense lesion within the left temporal lobe measuring 1 cm. This demonstrates susceptibility artifact in favors a cavernoma. IMPRESSION: 1. No acute infarct or intracranial hemorrhage. 2. 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 ACT 112: Negative or not required by law. Electronically signed by: Gregorio Arevalo M.D. 04/22/2024 11:33 AM Chest X-Ray 04/25/24 13:21 XR chest 1V portable CLINICAL HISTORY: effusions COMPARISON STUDY: Chest CT April 21, 2024. Chest radiograph April 23, 2024. FINDINGS: Right internal jugular [id number] is in place. There is no pneumothorax. A moderate right pleural effusion has increased in size since prior exam. There is a small left pleural effusion. Pulmonary edema has progressed. Cardiomediastinal silhouette is stable. Multiple acute right-sided rib fractures are better depicted on prior chest CT. IMPRESSION: 1. Increase in size of a moderate right pleural effusion. This could represent a simple pleural effusion or hemothorax given an acute right-sided rib fractures. Associated airspace opacity. 2. Interval development of pulmonary edema. 3. Small left pleural effusion. ACT 112: Negative or not required by law. Electronically signed by: Jordan Nieto M.D. 04/25/2024 8:11 PM Hospital Course (1) Status post fall: (2) Altered mental status: (3) COVID-19 virus infection: (4) Acute renal failure: Plan Per priro hospitalist- " 83-year-old lady with PMH of multiple myeloma, CVA , cerebral cavernoma, age-related osteoporosis brought into the hospital with complaint of fall and confusion. Patient had some sore throat, mild stomach ache and some diarrhea prior to arrival. Patient was complaining of right-sided rib pain and was noted she might have fallen in the bathroom per family member. She is being managed for the following: Status post fall, confusion Likely metabolic encephalopathy secondary to sepsis, COVID-19 infection Patient presented with confusion, lactate/procalcitonin/WBC/respiratory ra te/temperature elevated in the setting of COVID test positive at presentation. Admitting imagings: CT C-spine: No acute fracture or subluxation. Osteopenia and mild spondylotic changes noted. Osteolytic lesion suspected in the right clavicular head. CT head with no acute finding. CT chest and CT abdomen pelvis: Acute right-sided rib fractures [acute right posterolateral 7th and 10th rib fractures]. Multiple lytic and blastic metastatic disease lesions. Right upper pole renal lesion 10 x 10 x 8 cm suspicious of RCC. Asymmetric wall thickening is seen along the posterior and right wall of the bladder. Renal ultrasound: Redemonstration of the 10.8 cm right renal mass consistent with renal cell carcinoma. Brain MRI: No acute infarct or intracranial hemorrhage. A stable 1 cm lesion within the left temporal lobe suggesting a cavernoma. Respiratory BioFire positive for COVID, MRSA nasal swab neg Patient's O2 need fluctuating, back to baseline mentation. Lactate resolved. Likely Acute blood loss anemia, Possible Rt hemothorax iso Rt rib fracture Fever: noted 04/24 afternoon, zosyn 04/24, blood culture. follow. 04/23 evening lab revealed Hb drop to 6.8, transfusion ordered. s/p prbc transfusion x 2, Hb stable possible hemothorax x right, pulm evaled. family aware. Acute kidney injury Rhabdomyolysis Hyperkalemia/hypocalcemia ZAHEER likely secondary to ATN related with acute rhabdomyolysis in the setting of fall and COVID-19 infection. Admitting CTAP as above. Admitting renal labs: Sodium 131, potassium 4.5, creatinine 2.23, calcium 8.6, CPK 6639 Trend BMP, sodium downtrending, potassium elevated at 5.4, creatinine elevated at 4.5, calcium lower at 6.1 Trend CPK: 6639 --> 20,319 --> 98684 --8454, downtrending trend Nephro on board, recommends bicarb drip at 100ml/hr. Hyperkalemia resolved. Avoid nephrotoxic agents, monitor I's and O's [Mora catheter in] Pt might need dialysis, Nephro assessing, will follow. Pt declines the possibility of dialysis. Right renal mass: As per admitting CTAP and renal ultrasound, see above. Urology evaluating, recommends IR biopsy of renal mass or one of her bone lesions after acute issues have settled down. Pt, Dtr, son, Grand Dtr are aware. They are leaning towards no biopsy for now. Continue to follow the [facility] discussion w/ palliative. d/w Dr. narayanan over the phone 04/23, pt has poor prognosis given progressive MM. Likely type II NSTEMI: Troponin elevated and up trended with worsening renal function and rhabdomyolysis. EKG with no acute ST or T changes, echo with EF of 55 to 60%, no regional wall motion abnormality. LV function and wall thickness normal. Patient with no chest pain, continue telemetry monitoring. Right rib fracture #7, #10: Secondary to fall. Incentive spirometry. Pain control with As needed tramadol, Tylenol for pain, prn oxycodone. Transaminitis: LFT elevated likely secondary to rhabdomyolysis. Patient on IV fluid, follow LFT daily. Patient with no abdominal pain. LFT improving. History of multiple myeloma: not in remission, widespread lytic lesions. Follows with Dr. Benny Narayanan. Recently prescribed with Pomolidomide- patient has not started yet History of CVA: Many years ago per family. Not on any medications." Given her guarded prognosis, family discussion was held and they have proceeded with comfort measures only status and opted to go home on home hospice. Home supplies have been delivered. Hospice will see the patient today. She denies any pain and has not required any opiates for more than 24 hours and hence no opiates were prescribed at discharge. No antibiotic at discharge as per discussion by prior hospitalist with the family. She is comfortable and stable for discharge home on home hospice. Total Time Total Time Spent Total Time Spent (In Minutes): 32 Discharge Plan Discharge Items Patient Disposition: Hospice - Home Reason For Visit: SEPSIS, ACUTE RENAL FAILURE Discharge Diagnosis: Sepsis, metabolic encephalopathy, COVID-19 infection, acute blood loss anemia, pleural effusion possible hemothorax, rib fractures, advanced multiple myeloma Activity: Resume your previous activity Non-emergency contact: Primary Care Provider Call non-emergency contact if: you have any medication questions, your symptoms worsen, your pain is not controlled and your pain is concerning for you Follow-up/Referrals: Benny Narayanan MD [Primary Care Provider] - Diet: Regular Addtl Attending Provider Instructions: You have decided to go home on home hospice. They will take your care from here onwards. We wish you all the best. Pending Studies at Discharge: No Stand-Alone Forms: My [facility] Medications and DC Order Prescriptions: Continued dexamethasone 4 mg tablet 4 mg PO UD Rx Instructions: 5 tablets the morning of chemotherapy Discharge Orders: Discharge Order (Routine); Ordered 04/26/24 Ordered By: Angel Saldana Admission Data Admit Date/Time: 04/21/24 13:45 Attending Provider: Angel Saldana Admit Provider: Moiz Steiner Primary Care Provider: Benny Narayanan Other Providers: Moiz Steiner; Conrado Reynolds; Daquan Vu; Eduin Hernandez; Brianna Naylor; Sanjeev Tate; Joyce Ramos; Myra Dale; Spencer Bellamy; Raissa Anthony; Dewey Mancia; Stephen Mckay; Butch Gallagher; Kim Miller; Alec Mcmullen
[2024-04-26 14:38] VITALS: BP 101/60; PULSE 89
[2024-04-26] MEDS: HEPARIN 100 UNIT/ML 5ML FLUSH ONE (14:54)
== END 2024-04-26 15:11 | disposition hospice, home (50) | DRG 871 ==
LOC: ED 10:48 → 2S 13:45 → SUATTDRO 13:45 → 2S 15:17